=== PATIENT | female | born 1995 | race Caucasian/White ===

== ENCOUNTER 2020-01-23 12:48 | Emergency (ER) | payer OTHER, SELFPAY ==
--- NOTE | ~2020-01-23 | CT_ITS ---
EXAMINATION: CTA brain carotid DATE: 01/23/2020 14:02 INDICATION: Dizziness. Right hemiparesis. Headache. TECHNIQUE: Computed tomographic angiography (CTA) of the head was performed without and with 100 mL O mnipaque-350 intravenous contrast. CTA of the neck was performed with intravenous contrast. Automated exposure control and iterative reconstruction technique were employed. The dose-length product was 1 451.36 mGy-cm. Maximum intensity projection and volume rendered 3D-reconstructions were created by christopher kuhn technologist on a separate workstation. COMPARISON: None. FINDINGS: HEAD CTA: There is no intracranial hemorrhage, acute infarction, or abnormal intracranial mass lesion . The ventricles are normal in size. The paranasal sinuses are clear. The orbits are normal. The mast oid air cells are normal. The vertebral arteries are codominant. There is no significant stenosis of basilar artery or the posterior cerebral arteries. There is no significant stenosis of the intracrani al internal carotid arteries or anterior or middle cerebral arteries. Anterior communicating artery i s normal. The posterior communicating arteries are normal. There is no aneurysm. NECK CTA: There are no pathologically enlarged lymph nodes. There is no significant stenosis of the v ertebral arteries. There is no visible plaque in the proximal internal carotid arteries. There is 0% stenosis of the proximal right internal carotid artery relative to normal distal artery lumen diamete r (NASCET criteria). There is 0% stenosis of the proximal left internal carotid artery relative to no rmal distal artery lumen diameter. There is mild bilateral facet joint osteoarthritis at C7-T1. IMPRESSION: 1. Normal brain. No aneurysm or significant intracranial arterial stenosis. 2. 0% stenosis of the proximal internal carotid arteries relative to normal distal artery lumen diame ters (NASCET criteria). Reviewed, dictated and finalized at location A. IMPRESSION: 1. Normal brain. No aneurysm or significant intracranial arterial stenosis. 2. 0% stenosis of the proximal internal carotid arteries relative to normal dis kev artery lumen diameters (NASCET criteria).
--- NOTE | 2020-01-23 12:53 | ECG_ITS ---
Measurements Intervals [place] Rate: 64 P: 47 PA: 115 QRS: 32 QRSD: 84 T: 46 QT: 383 QTc: 398 Interpretive Statements SINUS RHYTHM WITH SINUS ARRHYTHMIA WITH SHORT PA INTERVAL BORDERLINE ECG Electronically Signed On 01-23-2020 14:58:31 CDT by Garcia Alvarez D.O.
--- NOTE | 2020-01-23 12:56 | ED.DIZZY ---
HPI - Dizziness General Chief Complaint: Dizziness Stated Complaint: weakness Time Seen by Provider: 01/23/20 12:52 Source: patient Mode of arrival: ambulatory Limitations: no limitations History of Present Illness HPI Narrative: Patient is a 24-year-old female who presents to emergency department for evaluation of dizziness and weakness that has been intermittently occurring over the last month. Patient notes today that she felt dizzy with right-sided headache and had subjective weakness in the right upper and lower extremities which has persisted for the last hour. Patient notes over the last month she has been having intermittent weakness in the various locations of the body to include both hemispheres patient denies similar occurrence in the past injury or trauma and on arrival is in the room in no distress and does not appear uncomfortable patient has been taken Tylenol with some improvement of her headache Related Data Home Medications Medication Instructions Recorded Confirmed No Home Medications 04/15/19 04/15/19 Allergies Allergy/AdvReac Type Severity Reaction Status Date / Time Penicillins Allergy Mild RASH,ITCHIN Verified 04/25/19 01:24 G Review of Systems Review of Systems: All systems reviewed & are unremarkable except as noted in HPI and below PMFSH Past Medical History Medical History Anxiety Asthma Depression Interstitial cystitis Migraines UTI (urinary tract infection) Surgical History Surgical History No significant past surgical history Social History Social History Gender identity (if verbalized by the patient): Female Exam Narrative: Exam Narrative: GENERAL: Well-appearing, well-nourished, and in no acute distress. HEAD: Normocephalic, atraumatic. EYES: PERRLA and EOMI. ENT: Nares clear, no rhinorrhea or epistaxis. Mucous membranes moist. Oropharynx without tonsillar hypertrophy exudate or other lesions. NECK: Supple. No adenopathy or masses. CHEST: Clear to auscultation. No respiratory distress. No wheezes rales or rhonchi HEART: Regular rate and rhythm. No murmur heard. Normal peripheral pulses. ABDOMEN: Soft, nontender, nondistended EXTREMITIES: Normal range of motion. No edema. SKIN: Warm, dry, no rash. NEURO: No focal deficits. Alert and oriented x3. Cranial nerves II through XII grossly intact. Normal speech and gait. Cerebellar intact. No pronator drift. PSYCH: Normal mood and affect. Course Course Emergency Course: Patient in the room in no distress aware of case findings treatment plan diagnosis resting comfortably noting her symptoms have resolved patient without any high risk changes in the blood work or imaging in the room in no distress patient's parent is present as well patient was okay with mother listening to the results patient will be discharged home with mother with plan follow-up with primary care on also given neurology referral Vital Signs Vital signs: Vital Signs Temperature 97.9 F 01/23/20 12:57 Pulse Rate 67 01/23/20 12:57 Respiratory Rate 17 01/23/20 12:57 Blood Pressure 124/79 01/23/20 12:57 Pulse Oximetry 100 01/23/20 12:57 Temperature 97.9 F 01/23/20 12:57 Pulse Rate 71 01/23/20 14:06 Respiratory Rate 17 01/23/20 14:06 Blood Pressure 108/76 01/23/20 14:06 Pulse Oximetry 100 01/23/20 14:06 MDM - Dizziness MDM Narrative Medical decision making narrative: Patients headache was not sudden or maximal in onset. There are o focal neurological deficits on exam. Subarachnoid hemorrhage is felt to be unlikey at this time. There is no history of fever, and neck is supple without meningismus, making meningitis unlikely. No traumatic history or signs of trauma on exam. No risk factors for CVA, risk factors reviewed. NO ocular signs on
[2020-01-23 12:57] VITALS: BP 124/79; PULSE 67; RESP 17; TEMP 36.6; O2SAT 100
--- NOTE | 2020-01-23 13:04 | PC.NURSE ---
BS 111
[2020-01-23 13:06] LABS: Glucose Point of Care 111 (65-105)
[2020-01-23 13:18] LABS: Basophils Absolute Auto 0.1 K/mm3 (0.0-0.1); Basophils Percent Auto 1.1 % (0.2-1.2); Eosinophils Absolute Auto 0.1 K/mm3 (0-0.3); Eosinophils Percent Auto 1.4 % (0-4.4); Hematocrit 40.8 % (37.0-47.0); Immature Granulocyte Absolute 0.01 K/mm3 (0.00-0.031); Immature Granulocyte Percent A 0.2 % (0-0.5); Lymphocytes Absolute Auto 2.22 K/mm3 (0.9-3.2); Lymphocytes Percent Auto 34.3 % (18.3-44.2); Mean Corpuscular HGB Conc 34.3 g/dl (32-36); Mean Corpuscular Hemoglobin 31.3 pg (26-34); Mean Corpuscular Volume 91.3 fl (80-100); Mean Platelet Volume 9.9 fl (7.4-10.4); Monocytes Absolute Auto 0.6 K/mm3 (0.1-0.6); Monocytes Percent Auto 9.4 % (2.6-8.5); Neutrophils Absolute Auto 3.5 K/mm3 (1.3-6.7); Neutrophils Percent Auto 53.6 % (45.5-73.1); Platelet Count Result 230 k/mm3 (150-375); Red Blood Count 4.47 M/mm3 (4.2-5.4); Red Cell Distribution Width 12.2 % (11.5-14.5); White Blood Count 6.5 K/mm3 (4.5-10.0)
[2020-01-23 13:29] LABS: Anion Gap 9 mmol/L (8-16); Blood Urea Nitrogen 20 mg/dL (7-17); Calcium 9.9 mg/dL (8.4-10.2); Carbon Dioxide 26 mmol/L (22-30); Chloride 101 mmol/L (98-107); Estimated CRCL calculation 73 ml/min; Estimated Glomerular Filt Rate > 60; Glucose 106 mg/dL (65-105); Potassium 3.8 mmol/L (3.4-5.0); Sodium 136 mmol/L (137-145)
[2020-01-23 13:33] LABS: INR 1.1
[2020-01-23 13:34] LABS: Amphetamine Screen Urine Negative (Negative); Barbiturate Screen Urine Negative (Negative); Benzodiazepines Screen Urine Negative (Negative); Cannabinoid Screen Urine Negative (Negative); Cocaine Screen Urine Negative (Negative); Methadone Screen Urine Negative (Negative); Opiate Screen Urine Negative (Negative); Phencyclidine Screen Urine Negative (Negative)
[2020-01-23 13:42] LABS: Troponin I < 0.012 ng/mL (0.000-0.034)
[2020-01-23 14:06] VITALS: BP 108/76; PULSE 71; RESP 17; O2SAT 100
[2020-01-23 15:05] VITALS: BP 99/62; PULSE 68; RESP 18; O2SAT 100
== END 2020-01-23 15:10 | disposition home or self-care (01) ==
PROVIDERS: Emergency Medicine Emergency Medical Services; Emergency Provider Emergency Medicine; PCP Internal Medicine
DX: R20.2 Paresthesia of skin (principal); R51 Headache; R94.31 Abnormal electrocardiogram [ECG] [EKG]
CPT/HCPCS: 36415; 70496; 70498; 80048; 80307; 81025; 82948; 84484; 85025; 85610; 85730; 93005; 99284; Q9967

== ENCOUNTER 2020-01-31 17:01 | Outpatient (CLI) | payer OTHER, SELFPAY ==
--- NOTE | ~2020-01-31 | MR_ITS ---
EXAMINATION: MR brain/brain stem wo/w con DATE: 01/31/2020 17:53 INDICATION: Paresthesias of skin. Headache and dizziness. TECHNIQUE: Magnetic resonance imaging (MRI) of the brain and brainstem was performed without and with 11 mL MultiHance intravenous contrast. Sequences included sagittal and axial T1-weighted FSE, axial diffusion-weighted FS EPI, axial T2*-weighted GRE, axial T2-weighted FLAIR Propeller, and axial T2-we ighted Propeller. Postcontrast sequences included axial and coronal T1-weighted FSE. Apparent diffusi on coefficient (ADC) maps were created. COMPARISON: CTA head 01/23/2020 FINDINGS: There is no intracranial hemorrhage, acute infarction, or abnormal intracranial mass lesion . The ventricles are normal in size. There is mild mucosal thickening in left maxillary sinus. The or bits are normal. The mastoid air cells are normal. IMPRESSION: 1. Normal brain. Reviewed, dictated and finalized at location A. IMPRESSION: 1. Normal brain.
== END 2020-01-31 17:02 | disposition home or self-care (01) ==
PROVIDERS: PCP Internal Medicine; Visit Provider Internal Medicine
DX: R20.2 Paresthesia of skin (principal)
CPT/HCPCS: 70553; A9577

== ENCOUNTER 2020-02-22 17:46 | Emergency (ER) | payer OTHER, SELFPAY ==
[2020-02-22 17:50] VITALS: BP 117/62; PULSE 89; RESP 12; TEMP 36.5; O2SAT 100
--- NOTE | 2020-02-22 17:53 | ED.FEMALEGU ---
HPI - Female Genitourinary General Chief complaint: Urogenital-Female Stated complaint: UTI SYMPTOMS Source: patient and RN notes reviewed Limitations: no limitations History of Present Illness HPI Narrative: The patient, previously mostly healthy, presents with urinary symptoms. Patient states she has a shorter 1/2-week history of definite urinary frequency, dysuria associate with mild low back pain-like prior UTIs, the last several years ago. Symptoms are mild, worse with micturition, treated with Pyridium. She states she has history of interstitial cystitis for which she takes Pyridium, and has not seen a urologist nor had cystoscopy, and this is different. No fever, vomiting/diarrhea, hematuria; no no vaginal discharge-she requests available STD testing. Patient had a prior visit at the end of last year for urinary urgency and urine culture was noncontributory and she was treated supportively. Related Data Home Medications Medication Instructions Recorded Confirmed phenazopyridine 02/22/20 Allergies Allergy/AdvReac Type Severity Reaction Status Date / Time Penicillins Allergy Mild RASH,ITCHIN Verified 02/22/20 17:53 G Review of Systems Review of Systems: Narrative: General/Constitutional: No weight loss,fever Eyes: N0: Redness,discharge Ears/Nose/Throat: No: Epistaxis,ear discharge Respiratory: Denies: Hemoptysis Gastrointestinal: No Vomiting, Bleeding-rectal Skin: No Lumps, eruption Neurologic: No Focal Weakness,Sz Hematologic: Denies: Petechiae/Purpura Psychiatric: No: Suicida ideationl All Other Systems: Reviewed and Negative [facility] Past Medical History Medical History (Updated 02/22/20 @ 18:03 by Ga Christianson MD) Anxiety Asthma Depression Interstitial cystitis Migraines UTI (urinary tract infection) Surgical History Surgical History No significant past surgical history Social History Social History Gender identity (if verbalized by the patient): Female Comments At time of signature, agree with nursing past medical, surgical, social and family history. There is no relevant family history pertinent to the presenting complaint Exam Narrative: Exam Narrative: General Appearance: Well appearing, , Conjunctiva clear Ears: External ear normal Nose: Normal nose Mouth/Throat: Normal appearing, Normal lips Supple Respiratory: Airway patent, No respiratory distress Cardiovascular: RRR Abdomen: Soft, Non-tender, Musculoskeletal: Full ROM Skin: Warm, Dry Neurological: A&O x3, Normal affect Course Vital Signs Vital signs: Vital Signs Temperature 97.7 F 02/22/20 17:50 Pulse Rate 89 02/22/20 17:50 Respiratory Rate 12 02/22/20 17:50 Blood Pressure 117/62 02/22/20 17:50 Pulse Oximetry 100 02/22/20 17:50 Temperature 97.7 F 02/22/20 17:50 Pulse Rate 89 02/22/20 17:50 Respiratory Rate 12 02/22/20 17:50 Blood Pressure 117/62 02/22/20 17:50 Pulse Oximetry 100 02/22/20 17:50 MDM - Female Genitourinary Lab Data Labs: Urine Glucose Negative Reference Range: Negative Urine Bilirubin Negative Reference Range: Negative Urine Ketone Trace Reference Range: Negative Urine Specific [place] 1.025 Reference Range:1.001-1.035 Urine Blood Negative Reference Range: Negative * * Urine pH 7.5 Reference Range: 5.0-9.0 Urine Protein Negative
== END 2020-02-22 18:04 | disposition home or self-care (01) ==
PROVIDERS: Emergency Provider Emergency Medicine; PCP Internal Medicine
DX: N39.0 Urinary tract infection, site not specified (principal); J45.909 Unspecified asthma, uncomplicated
CPT/HCPCS: 81003; 87086; 87491; 87591; 99214; G0463

== ENCOUNTER 2020-03-06 08:52 | Outpatient (CLI) | payer OTHER, SELFPAY ==
--- NOTE | ~2020-03-06 | MR_ITS ---
EXAMINATION: MR cervical spine wo/w con EXAM DATE: 03/06/2020 10:49 INDICATION: Skin paresthesia. Dizziness. Balance issues. Numbness in upper and lower extremities, fac e neck and back. TECHNIQUE: Multi-sequential, multiplanar MR images of the cervical spine were obtained without contra st. Axial T2, axial T2 MERGE sequence. Sagittal T1, T2, T2 fat saturation images also obtained. Axi al T1 weighted sequence. Patient was then injected with 10 mL Multihance intravenous contrast and re imaged. Postcontrast axial and sagittal T1-weighted fat saturation sequences were obtained. There ar e no prior studies for comparison. FINDINGS: The vertebral bodies are aligned in the AP dimension. Vertebral body and disc heights are well-maintained. There are no suspicious marrow signal abnormalities. Paraspinal soft tissue is unrem arkable. The spinal cord signal intensity and intrinsic morphology is normal. Cervicomedullary juncti on is normal in appearance. There are no areas of abnormal enhancement on the post contrast images. Level by level evaluation: C2-C3: Disc does not extend beyond the endplate margin. Uncovertebral joint arthropathy: None. Facet joint arthropathy: Mild. Neural foraminal stenosis: No stenosis. Central canal stenosis: No stenosis. C3-C4: Disc does not extend beyond the endplate margin. Uncovertebral joint arthropathy: None. Facet joint arthropathy: Mild. Neural foraminal stenosis: No stenosis. Central canal stenosis: No stenosis. C4-C5: Disc does not extend beyond the endplate margin. Uncovertebral joint arthropathy: None. Facet joint arthropathy: Mild. Neural foraminal stenosis: No stenosis. Central canal stenosis: No stenosis. C5-C6: Disc does not extend beyond the endplate margin. Uncovertebral joint arthropathy: None. Facet joint arthropathy: Mild. Neural foraminal stenosis: No stenosis. Central canal stenosis: No stenosis. C6-C7: Disc does not extend beyond the endplate margin. Uncovertebral joint arthropathy: None. Facet joint arthropathy: Mild. Neural foraminal stenosis: No stenosis. Central canal stenosis: No stenosis. C7-T1: Disc does not extend beyond the endplate margin. Uncovertebral joint arthropathy: None. Facet joint arthropathy: None. Neural foraminal stenosis: No stenosis. Central canal stenosis: No stenosis. IMPRESSION: Mild cervical facet arthropathy. No stenosis. Normal cord signal. Reviewed, dictated and finalized at location B. RION ANALYST
--- NOTE | ~2020-03-06 | MR_ITS ---
EXAMINATION: MR thoracic spine wo/w con EXAM DATE: 03/06/2020 10:49 INDICATION: Skin paresthesia. TECHNIQUE: Multi-sequential, multiplanar MR images of the thoracic spine were obtained without contra st. Sagittal T1, T2, T2 fat saturation, axial T2 weighted images reviewed. Axial T1 weighted sequenc e. Patient was then injected with 10 mL Multihance intravenous contrast and reimaged. Postcontrast axial and sagittal T1-weighted fat saturation sequences were obtained. There are no prior studies for comparison. FINDINGS: The vertebral bodies are aligned in the AP dimension. Vertebral body and disc heights are w ell-maintained. There are no suspicious marrow signal abnormalities. Mild lower thoracic facet arth ropathy. Paraspinal soft tissue is unremarkable. The spinal cord signal intensity and intrinsic morph ology is normal. Thoracic central canal and neural foramen are widely patent. IMPRESSION: Mild lower thoracic facet arthropathy. Reviewed, dictated and finalized at location B. STANT EDUCATION DIRECTOR
[2020-03-06 09:38] LABS: Estimated Glomerular Filt Rate > 60
== END 2020-03-06 08:53 | disposition home or self-care (01) ==
PROVIDERS: PCP Internal Medicine; Visit Provider Psychiatry & Neurology Neurology
DX: R20.2 Paresthesia of skin (principal)
CPT/HCPCS: 72156; 72157; A9577

== ENCOUNTER 2020-03-16 09:33 | Outpatient (CLI) | payer OTHER, SELFPAY ==
--- NOTE | 2020-03-16 10:45 | NEURO_ITS ---
Impression: # Complains of numbness of hands. # No Carpal Tunnel Syndrome. # No ulnar neuropathy. # Normal nerve conduction study. # Normal needle/EMG exam. Nerve Conduction Studies Anti Sensory Summary Table Stim Site NR Peak (ms) P-T Amp (?V) Site1 Site2 Delta-P (ms) Dist (cm) Trever (m/s) Left Median Anti Sensory (2-3nd Digit) Wrist 2.7 86.4 Wrist 2-3nd Digit 2.7 14.0 52 Wrist 2.6 97.4 Wrist 2-3nd Digit 2.7 14.0 52 Right Median Anti Sensory (2-3nd Digit) Wrist 2.7 62.9 Wrist 2-3nd Digit 2.7 14.0 52 Wrist 2.8 74.8 Wrist 2-3nd Digit 2.7 14.0 52 Left Radial Anti Sensory (Base 1st Digit) Wrist 2.1 37.8 Wrist Base 1st Digit 2.1 0.0 Right Radial Anti Sensory (Base 1st Digit) Wrist 2.0 44.4 Wrist Base 1st Digit 2.0 0.0 Left Ulnar Anti Sensory (5th Digit) Wrist 2.4 83.7 Wrist 5th Digit 2.4 14.0 58 Right Ulnar Anti Sensory (5th Digit) Wrist 2.3 65.0 Wrist 5th Digit 2.3 14.0 61 Motor Summary Table Stim Site NR Onset (ms) O-P Amp (mV) Site1 Site2 Delta-0 (ms) Dist (cm) Trever (m/s) Left Median Motor (Abd Poll Brev) Wrist 3.1 9.1 Elbow Wrist 4.3 26.0 60 Elbow 7.4 8.5 Right Median Motor (Abd Poll Brev) Wrist 3.0 5.1 Elbow Wrist 4.0 26.0 65 Elbow 7.0 6.7 Left Ulnar Motor (Abd Dig Minimi) Wrist 2.3 9.9 A Elbow Wrist 4.3 27.0 63 A Elbow 6.6 8.7 Right Ulnar Motor (Abd Dig Minimi) Wrist 2.3 8.4 A Elbow Wrist 4.5 27.0 60 A Elbow 6.8 6.5 F Wave Studies NR F-Lat (ms) L-R F-Lat (ms) Left Median (Mrkrs) (Abd Poll Brev) 24.08 1.12 Right Median (Mrkrs) (Abd Poll Brev) 25.20 1.12 Left Ulnar (Mrkrs) (Abd Dig Min) 24.80 1.58 Right Ulnar (Mrkrs) (Abd Dig Min) 23.22 1.58 EMG Side Muscle Nerve Root Ins Act Fibs Amp Dur Recrt Comment Right 1stDorInt Ulnar C8-T1 Nml Nml Nml Nml Nml Right Ext Indicis Radial (Post Int) C7-8 Nml Nml Nml Nml Nml Right Ext Digitorum Radial (Post Int) C7-8 Nml Nml Nml Nml Nml Right BrachioRad Radial C5-6 Nml Nml Nml Nml Nml Right PronatorTeres Median C6-7 Nml Nml Nml Nml Nml Right Abd Poll Brev Median C8-T1 Nml Nml Nml Nml Nml Left 1stDorInt Ulnar C8-T1 Nml Nml Nml Nml Nml Left Ext Indicis Radial (Post Int) C7-8 Nml Nml Nml Nml Nml Left Ext Digitorum Radial (Post Int) C7-8 Nml Nml Nml Nml Nml Left BrachioRad Radial C5-6 Nml Nml Nml Nml Nml Left PronatorTeres Median C6-7 Nml Nml Nml Nml Nml Left Abd Poll Brev Median C8-T1 Nml Nml Nml Nml Nml MTDD
== END 2020-03-16 09:34 | disposition home or self-care (01) ==
PROVIDERS: PCP Internal Medicine; Visit Provider Psychiatry & Neurology Neurology
DX: R20.2 Paresthesia of skin (principal)
CPT/HCPCS: 95886; 95911

== ENCOUNTER 2020-04-18 02:25 | Outpatient (CLI) | payer OTHER, SELFPAY ==
[2020-04-18 22:41] LABS: SARS-CoV-2 RNA PCR Negative
== END 2020-04-18 02:26 | disposition home or self-care (01) ==
LOC: ANHCOVIDDT 02:25
PROVIDERS: PCP Internal Medicine; Visit Provider Psychiatry & Neurology Neurology
DX: Z01.818 Encounter for other preprocedural examination (principal); Z20.828 Contact with and (suspected) exposure to other viral communicable diseases
CPT/HCPCS: 87635; C9803; U0003

== ENCOUNTER 2020-04-21 09:46 | Outpatient (CLI) | payer OTHER, SELFPAY ==
[2020-04-17 13:06] VITALS: BMI 20.5
[2020-04-21] VITALS (8 sets, daily range): BP systolic 91–115; BP diastolic 55–69; PULSE 61–98; RESP 16–18; O2SAT 64–99
--- NOTE | ~2020-04-21 | XR_ITS ---
EXAMINATION: XR lumbar puncture diagnostic DATE: 04/21/2020 11:56 INDICATION: Demyelinating disease. Right hemiparesis. Bilateral leg numbness. TECHNIQUE: The procedure including the risks, benefits, and alternatives was discussed with the patie nt. Risks discussed included spinal headache, cerebrospinal fluid leak, bleeding, and infection. The patient understood the risks and agreed to proceed. A timeout was performed to verify the patient' s name, date of , and procedure to be performed. The skin overlying the level was prepped and d raped in usual sterile fashion. Subcutaneous 1% lidocaine was used for local anesthesia. A 20 gauge spinal needle was advanced under fluoroscopic guidance. The needle was removed and the entry site wa s cleaned and dressed. There were no immediate complications. Fluoroscopy exposure time was 0.1 rojelio donato. The total number of images was 1. FINDINGS: Real-time fluoroscopy demonstrates the needle at the L3-L4 level. The opening pressure was 17 cm water (Normal range is variably defined as 6-20 cm water and up to 25 cm water in obese patient s. Pressure >25 cm water is one of the modified Dandy criteria for idiopathic intracranial hypertensi on). 15 mL of clear, colorless fluid was collected in 4 tubes. IMPRESSION: 1. Successful fluoro-guided lumbar puncture. Reviewed, dictated and finalized at location A. STERED NURSE BONE MARROW TRANSPLANT
[2020-04-21 10:15] LABS: Mean Platelet Volume 10.1 fl (7.4-10.4); Platelet Count Result 187 k/mm3 (150-375)
[2020-04-21 10:24] LABS: INR 1.1; Prothrombin Time 14.3 Seconds (11.1-14.7)
[2020-04-21 11:49] LABS: Appearance CSF Clear (Clear); CSF source CSF; Color CSF Colorless (Colorless); Nucleated Cell CSF 0 /uL (0-5); Red Blood Cell CSF 8 (0-2)
[2020-04-21 11:50] LABS: Glucose CSF 53 mg/dL (40-70); Total Protein CSF 31 mg/dL (12-60)
[2020-04-21 12:07] LABS: Lymphocytes CSF 96 % (40-80); Monocytes CSF 4 % (15-45)
[2020-04-21] MEDS: ACETAMINOPHEN 325 MG TABLET PO (12:54)
[2020-04-24 15:42] LABS: VDRL Quantitative CSF Nonreactive (Nonreactive)
[2020-04-24 23:30] LABS: Lyme Disease DNA Not detected (Not Detected); Specimen Source CSF
[2020-04-27 12:51] LABS: Angiotensi Converting Enzy CSF 5 U/L (<=15)
== END 2020-04-21 13:45 | disposition home or self-care (01) ==
PROVIDERS: Radiology Diagnostic Radiology; PCP Internal Medicine; Visit Provider Psychiatry & Neurology Neurology
DX: G37.9 Demyelinating disease of central nervous system, unspecified (principal)
CPT/HCPCS: 36415; 62328; 82164; 82945; 84157; 85049; 85610; 86592; 87070; 87801; 89051; A9270

== ENCOUNTER 2020-04-23 11:30 | Emergency (ER) | payer OTHER, SELFPAY ==
--- NOTE | ~2020-04-23 | XR_ITS ---
EXAMINATION: XR injection blood patch w img DATE: 04/23/2020 14:05 INDICATION: Headache after lumbar puncture. TECHNIQUE: The procedure including the risks, benefits, and alternatives was discussed with the patie nt. Risks discussed included spinal headache, cerebrospinal fluid leak, bleeding, and infection. The patient understood the risks and agreed to proceed. The skin overlying the L3-L4 level was prepped a nd draped in usual sterile fashion. Subcutaneous 1% lidocaine was used for local anesthesia. A 20 g auge spinal needle was advanced under fluoroscopic guidance and loss of resistance technique with the head elevated 10 degrees. 10 mL of the patient's blood was injected into the epidural space. The nee dle was removed and the entry site was cleaned and dressed. There were no immediate complications. F luoroscopy exposure time was 0.1 minutes. The total number of images was 1. FINDINGS: Real-time fluoroscopy demonstrates the needle at the L3-L4 level. IMPRESSION: 1. Fluoroscopy guided lumbar blood patch. Reviewed, dictated and finalized at location A. WEAVER CLOTH
[2020-04-23 11:33] VITALS: BP 102/61; PULSE 70; RESP 16; TEMP 36.1; O2SAT 100
[2020-04-23] MEDS: SODIUM CHLORIDE 0.9% IV 1,000 ML 999 ML IV CONT (12:36)
--- NOTE | 2020-04-23 12:40 | ED.GENADULT ---
HPI - General Adult General Chief complaint: Headache Stated complaint: headache, N/V since friday Time Seen by Provider: 04/23/20 12:16 Source: patient History of Present Illness HPI narrative: Patient is a 24 y/o female complaining of bilateral frontal headache since 2 days ago. She states that her pain radiates to occipital area. She describes her pain as throbbing and rates it as 9/10. She states hat OTC medication did not help with her pain. She states that laying down helps with her headache and sitting up aggravates her headache. She also has some nausea and vomiting. Of note, she had LP done 2 days ago for evaluation of possible MS. Related Data Home Medications Medication Instructions Recorded Confirmed cyclobenzaprine [Flexeril] 5 mg PO PRN PRN 04/17/20 04/17/20 Allergies Allergy/AdvReac Type Severity Reaction Status Date / Time Penicillins Allergy Mild RASH,ITCHIN Verified 04/23/20 11:37 G Review of Systems Constitutional: Constitutional: Denies chills, Denies fever(s), Reports headache(s) and Denies weakness Eyes: Eyes: Denies blurry vision ENT: Reports headache(s) and Denies neck pain Cardiovascular: Cardiovascular: Denies chest pain and Denies dyspnea Respiratory: Respiratory: Denies cough and Denies dyspnea Gastrointestinal: Gastrointestinal: Denies abdominal pain, Denies diarrhea, Reports nausea and Reports vomiting Genitourinary: Genitourinary: Denies hematuria and Denies dysuria Musculoskeletal: Musculoskeletal: Denies back pain and Denies neck pain Neurologic: Reports headache(s) and Denies weakness PMFSH Past Medical History Medical History Anxiety Asthma Depression Interstitial cystitis Migraines UTI (urinary tract infection) Surgical History Surgical History No significant past surgical history Social History Social History Gender identity (if verbalized by the patient): Female Exam Const: General: no acute distress and well developed Orientation/consciousness: oriented to person, oriented to place, oriented to time and patient oriented x3 HENMT: Head: normocephalic Ears: external ears normal General nose exam: Normal external nose present Eyes: General: appearance normal, both eyes and all related structures Conjunctivae: conjunctivae normal Neck: Neck: normal visual inspection and full ROM Chest: Chest palpation & inspection: normal inspection of the chest and no tenderness Resp: Effort & Inspection: normal respiratory effort Auscultation: clear to auscultation bilaterally Cardio: Rate: regular rate Rhythm: regular rhythm GI: GI Palp: No abdominal tenderness and Yes Soft to palpation Skin: General skin exam: normal color and turgor normal Neuro: General: oriented to person, oriented to place, oriented to time and patient oriented x3 Cranial nerves: Yes CN's II-XII intact bilaterally Cognition (Neuro): normal cognition Speech: normal speech Motor exam (neuro): 5/5 motor strength present throughout Sensory Exam: normal sensation Coordination: [id number] test normal and [id number] test normal Extrem: General: normal to inspection, full ROM and no pedal edema Psych: Appearance: grossly normal Mental Status: mental status grossly normal Affect: normal affect Course Vital Signs Vital signs: Vital Signs Temperature 36.1 C L 04/23/20 11:33 Pulse Rate 70 04/23/20 11:33 Respiratory Rate 16 04/23/20 11:33 Blood Pressure 102/61 04/23/20 11:33 Pulse Oximetry 100 04/23/20 11:33 Temperature 36.1 C L 04/23/20 11:33 Pulse Rate 58 L 04/23/20 14:00 Respiratory Rate 16 04/23/20 14:00 Blood Pressure 103/61 04/23/20 14:00 Pulse Oximetry 100 04/23/20 14:00 Medical Decision Making Vital Signs Vital Signs: Vital Signs Temperature 36.1 C L 04/23/20 11:33 Pu
[2020-04-23 12:46] LABS: Basophils Percent Auto 0.8 % (0.2-1.2); Eosinophils Percent Auto 0.8 % (0-4.4); Hemoglobin 13.8 g/dL (12.0-15.0); Immature Granulocyte Absolute 0.01 K/mm3 (0.00-0.031); Immature Granulocyte Percent A 0.2 % (0-0.5); Lymphocytes Absolute Auto 1.41 K/mm3 (0.9-3.2); Lymphocytes Percent Auto 28.8 % (18.3-44.2); Mean Corpuscular HGB Conc 34.5 g/dl (32-36); Mean Corpuscular Hemoglobin 31.3 pg (26-34); Mean Corpuscular Volume 90.7 fl (80-100); Mean Platelet Volume 10.5 fl (7.4-10.4); Monocytes Absolute Auto 0.4 K/mm3 (0.1-0.6); Monocytes Percent Auto 8.6 % (2.6-8.5); Neutrophils Percent Auto 60.8 % (45.5-73.1); Platelet Count Result 186 k/mm3 (150-375); Red Blood Count 4.41 M/mm3 (4.2-5.4); Red Cell Distribution Width 12.5 % (11.5-14.5); White Blood Count 4.9 K/mm3 (4.5-10.0)
[2020-04-23 12:50] LABS: Add Urine Microscopic? YES; Amorphous Sediment Urine Few; Appearance Urine Cloudy (Clear); Bacteria Urine Trace /hpf; Bilirubin Urine Negative (Negative); Blood Urine Negative (Negative); Color Urine Yellow (Yellow); Glucose Urine UA Negative (Negative); Ketones Urine Negative (Negative); Leukocyte Esterase Ur Trace LEU/UL (Negative); Mucus Urine Rare /lpf; Nitrate Urine Negative (Negative); Protein Urine 1+ mg/dL (Negative); Squamous Epithelial Cell Urine Many /hpf (Few); Urobilinogen Urine Negative mg/dL (<2.0)
[2020-04-23 12:58] LABS: Anion Gap 7 mmol/L (8-16); Blood Urea Nitrogen 18 mg/dL (7-17); Calcium 9.4 mg/dL (8.4-10.2); Carbon Dioxide 28 mmol/L (22-30); Chloride 102 mmol/L (98-107); Estimated CRCL calculation 73 ml/min; Estimated Glomerular Filt Rate > 60; Glucose 102 mg/dL (65-105); Potassium 3.9 mmol/L (3.4-5.0); Sodium 137 mmol/L (137-145)
[2020-04-23 13:35] VITALS: BP 90/49; PULSE 56; RESP 12; O2SAT 100
[2020-04-23 13:50] VITALS: BP 97/74; PULSE 81; RESP 12; O2SAT 100
[2020-04-23 14:00] VITALS: BP 103/61; PULSE 58; RESP 16; O2SAT 100
== END 2020-04-23 15:01 | disposition home or self-care (01) ==
PROVIDERS: Emergency Provider Emergency Medicine; PCP Internal Medicine
DX: G97.1 Other reaction to spinal and lumbar puncture (principal); J45.909 Unspecified asthma, uncomplicated; Z87.440 Personal history of urinary (tract) infections
CPT/HCPCS: 36415; 62273; 77003; 80048; 81001; 81025; 85025; 96360; 96361; 99283; A9270; J7030

== ENCOUNTER 2020-04-26 23:05 | Emergency (ER) | payer OTHER, SELFPAY ==
[2020-04-26 23:08] VITALS: BP 121/69; PULSE 51; RESP 22; TEMP 34.9; O2SAT 100
[2020-04-27] MEDS: LACTATED RINGERS 1,000 ML 999 ML IV CONT
[2020-04-27] MEDS: diphenhydrAMINE HCl INJ 50 MG/ML VIAL IV PUSH
[2020-04-27] MEDS: KETOROLAC 15 MG/ML VIAL (*BKC) IV PUSH
[2020-04-27] MEDS: METOCLOPRAMIDE HCL INJ 10 MG/2 ML VIAL IV PUSH
--- NOTE | 2020-04-27 00:11 | ED.GENADULT ---
HPI - General Adult General Chief complaint: Unspecified Stated complaint: LP friday - blood patch friday Time Seen by Provider: 04/26/20 23:15 Source: patient Mode of arrival: ambulatory Limitations: no limitations History of Present Illness HPI narrative: 24-year-old female Presents to the ER today for evaluation and treatment of a headache She has a history of what are felt to be migraine headaches However 1 week ago she underwent a lumbar puncture (the results of which were normal ) as part of the evaluation for some paresthesias which she had been experiencing She is also had recent normal MRI and CTA of the brain and normal MRI of the C and T-spine's for evaluation of this as well She returned to the ER 2 days after the lumbar puncture with a headache which had some features of post lumbar puncture headache and she had a blood patch done by radiology under fluoroscopic guidance and reported that that did alleviate her symptoms Today she reports recurrence of headache symptoms, an episode of vomiting, and some discomfort and limitation in turning her head to the left This headache is a little bit better if she lays down She does not have any visual symptoms with it, no fever, no URI or sinus symptoms Related Data Home Medications Medication Instructions Recorded Confirmed cyclobenzaprine [Flexeril] 5 mg PO PRN PRN 04/17/20 04/17/20 Allergies Allergy/AdvReac Type Severity Reaction Status Date / Time Penicillins Allergy Mild RASH,ITCHIN Verified 04/26/20 23:11 G Review of Systems Review of Systems: All systems reviewed & are unremarkable except as noted in HPI and below Constitutional: Constitutional: Denies chills, Reports fatigue, Denies fever(s), Reports headache(s) and Denies weakness Eyes: Eyes: Reports no additional eye complaints, Denies blurry vision and Denies diplopia ENT: Reports headache(s), Denies epistaxis, Denies nasal congestion and Denies sore throat Cardiovascular: Cardiovascular: Denies chest pain Respiratory: Respiratory: Denies cough and Denies dyspnea Gastrointestinal: Gastrointestinal: Reports nausea and Reports vomiting Genitourinary: Genitourinary: Reports dysuria Musculoskeletal: Musculoskeletal: Reports neck pain Integumentary/Breasts: Skin/Breast: Denies rash and Denies wounds Neurologic: Reports headache(s) and Reports numbness Psychiatric: Psychiatric: Reports no additional psychiatric complaints Endocrine: Endocrine: Reports fatigue PMFSH Past Medical History Medical History Anxiety Asthma Depression Interstitial cystitis Migraines UTI (urinary tract infection) Surgical History Surgical History No significant past surgical history Social History Social History Gender identity (if verbalized by the patient): Female Sexual Orientation (if Verbalized by the Patient): Straight or Heterosexual Exam Const: General: no acute distress, well developed and awake Nutritional Appearance: well nourished Orientation/consciousness: patient oriented x3 (alert) Limitations: no limitations HENMT: Head: normocephalic and atraumatic Ears: external ears normal General nose exam: No nasal discharge present and no epistaxis Face and sinus: face symmetric Eyes: Conjunctivae: conjunctivae normal Sclera: sclerae normal EOM: EOMs intact bilaterally Direct Ophthalmoscopy: other (Sharp discs) Neck: Neck: normal visual inspection, supple, torticollis and no JVD Other: Slight limitation of rotation to the left no tenderness of trapezius or sternocleidomastoid Resp: Effort & Inspection: normal respiratory effort Cardio: Rate: regular rate Rhythm: regular rhythm Heart sounds: no gallops and no murmurs Skin: General skin exam: normal color and no rashes or lesions noted Neuro: General: patient orient
[2020-04-27 01:01] VITALS: BP 114/62; PULSE 78; RESP 16; TEMP 36.8; O2SAT 99
== END 2020-04-27 01:02 | disposition home or self-care (01) ==
PROVIDERS: Emergency Provider Emergency Medicine; PCP Internal Medicine
DX: R51.9 Headache, unspecified (principal); J45.909 Unspecified asthma, uncomplicated; Z87.440 Personal history of urinary (tract) infections
CPT/HCPCS: 96361; 96374; 96375; 99284; J1200; J1885; J2765; J7120

== ENCOUNTER 2020-07-26 16:29 | Emergency (ER) | payer OTHER, SELFPAY ==
--- NOTE | ~2020-07-26 | XR_ITS ---
XR chest 2V DATE: 07/26/2020 16:55 INDICATION: Cough TECHNIQUE: PA and lateral views with gonadal shielding COMPARISON: 03/10/2019 PA chest FINDINGS: Normal heart size. No hilar or mediastinal enlargement. No pulmonary infiltrate or consolid ation, pleural effusion or pulmonary vascular congestion or pneumothorax is detected. Included skelet al structures are unremarkable. IMPRESSION: No active cardiopulmonary disease Reviewed, dictated and finalized at location B.
[2020-07-26 16:38] VITALS: BP 110/64; PULSE 95; RESP 16; TEMP 37; O2SAT 100
--- NOTE | 2020-07-26 16:40 | ED.GENADULT ---
HPI - General Adult General Chief complaint: Upper Respiratory Infection Stated complaint: COUGH/WHEEZING/CONGESTION Time Seen by Provider: 07/26/20 16:40 Source: patient Mode of arrival: ambulatory Limitations: no limitations History of Present Illness HPI narrative: 24-year-old female patient presents to the [facility] with complaints of a cough and feeling wheezy for the past week. Patient denies any chest pain or shortness of breath. Patient denies any sinus drainage, stuffy nose, runny nose or ear pain. Denies any sore throat. Denies any fevers, body aches or chills. Patient states that she currently does not work at this time. Patient states she has been going through some medical issues recently and at first they thought she might have MS and has been working her up for multiple things ultimately got diagnosed with Sjogren's disease and a B12 deficiency. Patient states she currently takes methotrexate for arthritic pain. Patient states that she is a current smoker and typically smokes about a pack a day. Patient does have history of asthma when she was a child. Patient states that she has tried some [id number] Mucinex for her symptoms. Related Data Home Medications Medication Instructions Recorded Confirmed cyclobenzaprine mg 07/26/20 etonogestrel-ethinyl estradiol vag ring VAGINAL 07/26/20 [EluRyng] folic acid 07/26/20 methotrexate sodium 07/26/20 Allergies Allergy/AdvReac Type Severity Reaction Status Date / Time Penicillins Allergy Mild RASH,ITCHIN Verified 04/26/20 23:11 G Review of Systems Review of Systems: Narrative: CONSTITUTIONAL: Denies fever, chills, or sweats. EYES: Denies visual changes, redness, or discharge. ENT: Denies rhinorrhea, congestion, sore throat, or otalgia. CARDIOVASCULAR: Denies chest pain, palpitations, or edema. RESPIRATORY: Positive cough, denies dyspnea. GASTROINTESTINAL: Denies abdominal pain, nausea, vomiting, or diarrhea. GENITOURINARY: Denies dysuria or hematuria. SKIN: Denies rash or itching. MUSCULOSKELETAL: Denies back pain, joint pain, or myalgia. NEUROLOGIC: Denies headache, numbness, or weakness. PSYCHIATRIC: Denies anxiety or depression. [facility] Past Medical History Medical History (Updated 07/26/20 @ 17:09 by NICA Alan) Anxiety Asthma B12 deficiency Depression Interstitial cystitis Migraines Sjogren's disease UTI (urinary tract infection) Surgical History Surgical History No significant past surgical history Social History Social History Gender identity (if verbalized by the patient): Female Comments At the time of my signature I agree with nursing past medical history, surgical, social, and family history. There is no relevant family history pertinent to the presenting complaint. Exam Narrative: Exam Narrative: GENERAL: Well-appearing, well-nourished, and in no acute distress. HEAD: Normocephalic, atraumatic. EYES: PERRLA and EOMI. ENT: Nares clear, no rhinorrhea or epistaxis. Mucous membranes moist. Bilateral TMs are clear with no erythema or foreign bodies to the canal. Posterior pharynx with no erythema, tonsillar Calos, exudates or lesions present. NECK: Supple. No lymphadenopathy CHEST: Expiratory wheezing noted to the left upper and lower lobes. No respiratory distress. Patient able to talk in clear complete sentences. No tripoding noted. No coughing noted during exam. HEART: Regular rate and rhythm. No murmur heard. Normal peripheral pulses. ABDOMEN: Soft, nontender, nondistended, normal active bowel sounds. EXTREMITIES: Normal range of motion. No edema. SKIN: Warm, dry, no rash. NEURO: No focal deficits. Alert and oriented x3. Course Reevaluation(s) Reevaluation #1: Reevaluated patient after her x-ray had resulted. Discussed with her that her x-ray is negative and clear and does not offer any ev
[2020-07-28 17:45] LABS: SARS-CoV-2 RNA PCR Negative
== END 2020-07-26 17:24 | disposition home or self-care (01) ==
PROVIDERS: Emergency Provider Nurse Practitioner Family; PCP Internal Medicine
DX: J40 Bronchitis, not specified as acute or chronic (principal); J06.9 Acute upper respiratory infection, unspecified; Z20.822 Contact with and (suspected) exposure to COVID-19; J45.909 Unspecified asthma, uncomplicated; M35.00 Sjogren syndrome, unspecified
CPT/HCPCS: 71046; 87426; 99213; C9803; G0463; U0003; U0005

== ENCOUNTER → 2020-08-09 07:59 | Outpatient (CLI) | payer OTHER, SELFPAY ==
--- NOTE | ~2020-08-09 | MR_ITS ---
EXAMINATION: MR lumbar spine wo con EXAM DATE: 08/09/2020 08:36 INDICATION: Weakness of right leg weakness. Low back pain. TECHNIQUE: Multi-sequential, multiplanar MR images of the lumbar spine were obtained without contrast . Sagittal T1, T2, T2 fat saturation images. Axial T2 weighted images. There is no prior study for comparison. FINDINGS: There is small hemangioma within the L2 vertebral body. The vertebral body marrow is otherw ise normal in signal intensity. The conus medullaris terminates at the L1 level and has normal signal intensity and morphology. The vertebral bodies are aligned in the AP dimension. Vertebral body and disc heights are well-maintained. Paraspinal soft tissue is unremarkable. Level by level evaluation: T12-L1: Disc does not extend beyond the endplate margin. Facet arthropathy: None. Neural foraminal stenosis: No stenosis. Central canal stenosis: No stenosis. L1-L2: Disc does not extend beyond the endplate margin. Facet arthropathy: None. Neural foraminal stenosis: No stenosis. Central canal stenosis: No stenosis. L2-L3: Disc does not extend beyond the endplate margin. Facet arthropathy: None. Neural foraminal stenosis: No stenosis. Central canal stenosis: No stenosis. L3-L4: Disc does not extend beyond the endplate margin. Facet arthropathy: Minimal. Neural foraminal stenosis: No stenosis. Central canal stenosis: No stenosis. L4-L5: Disc does not extend beyond the endplate margin. Facet arthropathy: Mild. Neural foraminal stenosis: Minimal bilateral. Central canal stenosis: No stenosis. L5-S1: Disc does not extend beyond the endplate margin. Facet arthropathy: Mild. Neural foraminal stenosis: Minimal bilateral. Central canal stenosis: No stenosis. IMPRESSION: 1. Mild lower lumbar spondylosis. Reviewed, dictated and finalized at location A.
== END ==
PROVIDERS: PCP Internal Medicine; Visit Provider Internal Medicine
DX: G83.10 Monoplegia of lower limb affecting unspecified side (principal); M47.896 Other spondylosis, lumbar region
CPT/HCPCS: 72148

== ENCOUNTER 2020-08-27 15:22 | Emergency (ER) | payer OTHER, SELFPAY ==
[2020-08-27 15:28] VITALS: BP 120/73; PULSE 108; RESP 16; TEMP 36.8; O2SAT 100
--- NOTE | 2020-08-27 15:29 | ED.URI ---
HPI - URI/Sore Throat General Chief Complaint: Upper Respiratory Infection Stated Complaint: chest pola,cough,sob Time Seen by Provider: 08/27/20 15:29 Source: patient and RN notes reviewed Mode of arrival: ambulatory Limitations: no limitations History of Present Illness HPI Narrative: 24-year-old female presents to the [facility] with complaints of a productive cough since Friday. States that she had similar symptoms one month ago and the medication prescribed worked well, states that she did feel better until friday. Denies CP, SOB, ABd pain. Denies Nausea, or diarrhea. Productive cough has been green and yellow. Recently diagnosed with RA and started on hydrochloric when and methotrexate. Related Data Home Medications Medication Instructions Recorded Confirmed etonogestrel-ethinyl estradiol 1 vag ring VAGINAL 07/26/20 [EluRyng] folic acid 1 mg DAILY 07/26/20 08/27/20 hydroxychloroquine 200 mg DAILY 08/27/20 08/27/20 methotrexate sodium 12.5 mg BID 08/27/20 08/27/20 Allergies Allergy/AdvReac Type Severity Reaction Status Date / Time Penicillins Allergy Mild RASH,ITCHIN Verified 04/26/20 23:11 G Review of Systems Review of Systems: Narrative: CONSTITUTIONAL: Denies fever, chills, or sweats. EYES: Denies visual changes, redness, or discharge. ENT: Denies rhinorrhea, congestion, sore throat, or otalgia. CARDIOVASCULAR: Denies chest pain, palpitations, or edema. RESPIRATORY: reports productive cough without dyspnea. GASTROINTESTINAL: Denies abdominal pain, nausea, vomiting, or diarrhea. GENITOURINARY: Denies dysuria or hematuria. SKIN: Denies rash or itching. MUSCULOSKELETAL: Denies back pain, joint pain, or myalgia. NEUROLOGIC: Denies headache, numbness, or weakness. PSYCHIATRIC: Denies anxiety or depression. All other systems reviewed are negative, except as documented in HPI. [facility] Past Medical History Medical History (Updated 08/27/20 @ 15:54 by Jessica Multani) Anxiety Asthma B12 deficiency Depression Interstitial cystitis Migraines Rheumatoid arthritis Sjogren's disease UTI (urinary tract infection) Surgical History Surgical History No significant past surgical history Social History Social History Gender identity (if verbalized by the patient): Female Comments At the time of my signature, I reviewed and agree with the nursing past medical, surgical, social, and family history. There is no relevant family history pertinent to the patient complaint. Exam Narrative: Exam Narrative: GENERAL: This is a well-nourished, well-developed patient, in no apparent distress. HEAD: normocephalic, atraumatic. EYES: PERRL. Sclera clear/white. Vision is grossly intact. EARS: External ears normal, auditory canals clear and without drainage, TMs normal without perforation. Hearing grossly intact. NOSE: External nose normal with no obvious nasal discharge, nares without redness, no rhinorrhea. THROAT: Mucous membranes moist, posterior pharynx clear. NECK: Neck supple, non-tender without lymphadenopathy, masses or thyromegaly. CARDIOVASCULAR: Regular rate and rhythm without murmurs, gallops, or rubs. RESPIRATORY: Expiratory wheezing noted to auscultation. Otherwise clear to auscultation GASTROINTESTINAL: Abdomen soft, non-tender, nondistended. SKIN: warm, Dry, intact with no suspicious lesions or rash, good texture and turgor. NEURO: awake, alert, and oriented to person, place and time. There were no obvious focal neurologic abnormalities. EXTREMITIES: No joint tenderness, effusion, or edema noted. BACK: Nontender without deformity. Course Course Emergency Course: Reevaluation of patient post breathing treatment, lung sounds are now clear to auscultation. Patient states she is feeling better. Discussed treatment plan. Patient states that her treatment last time worked well and she would like to have that rep
[2020-08-27] MEDS: ALBUTEROL SULFATE NEB 2.5 MG/3 ML INH INHALATION (15:38)
[2020-08-27 15:40] VITALS: PULSE 108; RESP 20; O2SAT 100
[2020-08-27 15:51] VITALS: PULSE 110; RESP 20; O2SAT 100
== END 2020-08-27 15:57 | disposition home or self-care (01) ==
PROVIDERS: Emergency Provider Nurse Practitioner; PCP Internal Medicine
DX: J40 Bronchitis, not specified as acute or chronic (principal); M06.9 Rheumatoid arthritis, unspecified; M35.00 Sjogren syndrome, unspecified; J45.909 Unspecified asthma, uncomplicated
CPT/HCPCS: 94640; 99213; G0463

== ENCOUNTER 2020-10-08 13:00 | Emergency (ER) | payer OTHER, SELFPAY ==
--- NOTE | 2020-10-08 13:04 | ED.DENTAL ---
HPI - Dental/Oral General Chief complaint: Dental/Oral Stated complaint: THRUSH Time Seen by Provider: 10/08/20 13:04 Source: patient and RN notes reviewed History of Present Illness HPI Narrative: Patient is a 24-year-old female who presents the urgent care with complaints of white patches on the inside of her mouth as well as a sore throat. Patient states that she woke up with it this morning and has a weakened immune system due to her autoimmune diseases and wants to make sure she does not need antibiotics . Patient denies of any use of [id number] medication for her symptoms. Denies of any fever, chills, nausea, vomiting. Denies of any known exposure to strep. No other acute complaints. No acute distress noted. Patient aware of the plan of care. Some parts of this dictation were generated by voice recognition software and may contain typographical and/or grammatical inaccuracies. Related Data Home Medications Medication Instructions Recorded Confirmed etonogestrel-ethinyl estradiol 1 vag ring VAGINAL 07/26/20 [EluRyng] folic acid 1 mg PO DAILY 07/26/20 10/08/20 hydroxychloroquine 400 mg PO DAILY 08/27/20 10/08/20 methotrexate sodium 12.5 mg PO DIRECTED 08/27/20 10/08/20 celecoxib 200 mg PO BID PRN 10/08/20 10/08/20 cyclobenzaprine 5 mg PO TID PRN 10/08/20 10/08/20 duloxetine 30 mg PO DAILY 10/08/20 10/08/20 magnesium 250 mg PO DAILY 10/08/20 10/08/20 mecobalamin (vitamin B12) mcg 10/08/20 vitamin B complex [B tablet 10/08/20 Complex-Vitamin B12] vitamin [id number] factor 10/08/20 Allergies Allergy/AdvReac Type Severity Reaction Status Date / Time Penicillins Allergy Mild RASH,ITCHIN Verified 10/08/20 13:11 G Review of Systems Review of Systems: Narrative: CONSTITUTIONAL: Denies fever, chills, or sweats. EYES: Denies visual changes, redness, or discharge. ENT: Denies rhinorrhea, congestion, otalgia. Reports of a mild sore throat with white patches on the inside of her mouth CARDIOVASCULAR: Denies chest pain, palpitations, or edema. RESPIRATORY: Denies cough or dyspnea. GASTROINTESTINAL: Denies abdominal pain, nausea, vomiting, or diarrhea. GENITOURINARY: Denies dysuria or hematuria. SKIN: Denies rash or itching. MUSCULOSKELETAL: Denies back pain, joint pain, or myalgia. NEUROLOGIC: Denies headache, numbness, or weakness. All other systems reviewed are negative, except as documented in HPI. [facility] Past Medical History Medical History (Updated 10/08/20 @ 13:22 by NICA Reyes) Anxiety Asthma B12 deficiency Depression Interstitial cystitis Migraines Rheumatoid arthritis Sjogren's disease UTI (urinary tract infection) Surgical History Surgical History No significant past surgical history Social History Social History Gender identity (if verbalized by the patient): Female Comments At the time of my signature, I reviewed and agree with the nursing past medical, surgical, social, and family history. There is no relevant family history pertinent to the patient complaint. Exam Narrative: Exam Narrative: GENERAL: This is a well-nourished, well-developed patient, in no apparent distress. HEAD: normocephalic, atraumatic. EYES: PERRL. Sclera clear/white. Vision is grossly intact. EARS: External ears normal, auditory canals clear and without drainage, TMs normal without perforation. Hearing grossly intact. NOSE: External nose normal with no obvious nasal discharge, nares without redness, no rhinorrhea. THROAT: Mucous membranes moist, mild erythema noted to posterior oropharynx without exudate or ulceration. Mild patches of oral yeast to bilateral buccal aspects NECK: Neck supple, non-tender without lymphadenopathy CARDIOVASCULAR: Regular rate and rhythm without murmurs, gallops, or rubs. RESPIRATORY: Clear to auscultation. Breath sounds equal bilaterally. No wheezes, rales
[2020-10-08 13:07] VITALS: BP 107/73; PULSE 87; RESP 12; TEMP 36.8; O2SAT 100
== END 2020-10-08 13:30 | disposition home or self-care (01) ==
PROVIDERS: Emergency Provider Nurse Practitioner Family; PCP Internal Medicine
DX: B37.0 Candidal stomatitis (principal); J45.909 Unspecified asthma, uncomplicated; M06.9 Rheumatoid arthritis, unspecified; M35.00 Sjogren syndrome, unspecified; E53.8 Deficiency of other specified B group vitamins
CPT/HCPCS: 87081; 87880; 99213; G0463

== ENCOUNTER 2021-03-11 13:19 | Emergency (ER) | payer OTHER, SELFPAY ==
--- NOTE | 2021-03-11 13:25 | ED.ABDPAIN ---
HPI - Abdominal Pain General Chief Complaint: Abdominal Pain Stated Complaint: VOMITING/DIARRHEA/ABD PAIN Time Seen by Provider: 03/11/21 13:45 Source: patient and RN notes reviewed Mode of arrival: ambulatory Limitations: no limitations History of Present Illness HPI narrative: 25-year-old female with history of B12 deficiency, RA, Sjogren's disease presents with concern for vomiting, diarrhea, epigastric discomfort since Friday. Reports symptoms started with frequent vomiting and diarrhea, vomiting episodes have lessened, reports she vomited once today. Reports 4 episodes of diarrhea today. She reports when she tries to eat she gets an epigastric pain. She denies any abdominal tenderness. She reports fatigue, malaise. Denies body aches, sweats, chills, fever. Reports decreased appetite. MD elicited complaint: abdominal pain Related Data Home Medications Medication Instructions Recorded Confirmed etonogestrel-ethinyl estradiol 1 vag ring VAGINAL 07/26/20 10/24/20 [EluRyng] folic acid 1 mg PO DAILY 07/26/20 10/24/20 hydroxychloroquine 400 mg PO DAILY 08/27/20 10/24/20 methotrexate sodium 12.5 mg PO DIRECTED 08/27/20 10/24/20 magnesium 250 mg PO DAILY 10/08/20 10/24/20 duloxetine 60 mg capsule,delayed 60 mg PO DAILY 10/24/20 10/24/20 release B Complex-Vitamin B12 1 tablet PO DAILY 03/11/21 03/11/21 amitriptyline 25 mg PO HS 03/11/21 03/11/21 cetirizine 10 mg PO DAILY 03/11/21 03/11/21 famotidine 40 mg PO DAILY 03/11/21 03/11/21 gabapentin 300 mg PO BID 03/11/21 03/11/21 leflunomide 10 mg PO DAILY 03/11/21 03/11/21 montelukast 10 mg PO DAILY 03/11/21 03/11/21 tramadol 50 mg PO PRN PRN 03/11/21 03/11/21 Allergies Allergy/AdvReac Type Severity Reaction Status Date / Time Penicillins Allergy Mild RASH,ITCHIN Verified 10/24/20 15:35 G amoxicillin Allergy Rash Verified 03/11/21 13:23 Review of Systems Review of Systems: CONSTITUTIONAL: Denies malaise, chills, sweats, or fever. ENT: Denies rhinorrhea, congestion, sinus pain, otalgia or sore throat. CARDIOVASCULAR: Denies chest pain, palpitations, or edema. RESPIRATORY: Denies cough or dyspnea. GASTROINTESTINAL: Reports postprandial epigastric abdominal pain, nausea, vomiting, diarrhea. Denies bloody, or mucous stools. GENITOURINARY: Denies dysuria or hematuria. SKIN: Denies rash or itching. MUSCULOSKELETAL: Denies myalgia. All systems reviewed & are unremarkable except as noted in HPI and below PMFSH Past Medical History Medical History Anxiety Asthma B12 deficiency Depression Interstitial cystitis Migraines Rheumatoid arthritis Sjogren's disease UTI (urinary tract infection) Surgical History Surgical History No significant past surgical history Social History Social History Smoking packs per day: 1.5 Smoking cigarettes per day: 30.0 Smoking status: Current every day smoker Alcohol intake: current Gender identity (if verbalized by the patient): Female Sexual Orientation (if Verbalized by the Patient): Straight or Heterosexual Comments At time of signature, agree with nursing past medical, surgical, social and family history. There is no relevant family history pertinent to the presenting complaint Exam Narrative: GENERAL: Well-appearing, well-nourished, and in no acute distress. HEAD: Normocephalic, atraumatic. EYES: PERRLA, conjunctivae clear, and EOMI. ENT: Nares clear, turbinates pink, no rhinorrhea or epistaxis. Mucous membranes moist. Oropharynx without edema, erythema, or lesions. Tonsils not enlarged and without exudate. NECK: Supple. No lymphadenopathy CHEST: Speaks in full sentences. No respiratory distress. HEART: Regular rate and rhythm. ABDOMEN: Soft, flat, nondistended. No guarding, rebound tenderness, or rigid. No pulsatilla masses. Bowel sounds present in all four marlena
[2021-03-11 13:26] VITALS: BP 127/87; PULSE 111; RESP 16; TEMP 35.9; O2SAT 100
== END 2021-03-11 14:00 | disposition home or self-care (01) ==
PROVIDERS: Emergency Provider Nurse Practitioner; PCP Internal Medicine
DX: R11.2 Nausea with vomiting, unspecified (principal); R19.7 Diarrhea, unspecified; F17.210 Nicotine dependence, cigarettes, uncomplicated; J45.909 Unspecified asthma, uncomplicated; M06.9 Rheumatoid arthritis, unspecified; M35.00 Sjogren syndrome, unspecified; F32.A Depression, unspecified; E53.8 Deficiency of other specified B group vitamins
CPT/HCPCS: 99213; G0463

== ENCOUNTER 2021-07-04 19:32 | Emergency (ER) | payer OTHER, SELFPAY ==
[2021-07-04 19:35] VITALS: BP 123/74; PULSE 102; RESP 17; TEMP 36.1; O2SAT 100
--- NOTE | 2021-07-04 19:38 | ECG_ITS ---
Measurements Intervals Equality Rate: 94 P: 48 IL: 119 QRS: 39 QRSD: 73 T: 30 QT: 329 QTc: 411 Interpretive Statements SINUS RHYTHM WITH SHORT [place] INTERVAL NONSPECIFIC T-WAVE ABNORMALITY ABNORMAL ECG Electronically Signed On 07-05-2021 9:47:41 DISPATCH COORDINATOR by Ga Alarcon M.D.
[2021-07-04 19:55] VITALS: BP 119/77; PULSE 89
[2021-07-04 19:57] VITALS: BP 133/89; PULSE 109
[2021-07-04 19:59] VITALS: BP 132/94; PULSE 110
[2021-07-04 20:12] LABS: Basophils Absolute Auto 0.1 K/mm3 (0.0-0.1); Basophils Percent Auto 1.1 % (0.2-1.2); Eosinophils Absolute Auto 0.2 K/mm3 (0-0.3); Eosinophils Percent Auto 2.9 % (0-4.4); Hematocrit 36.5 % (37.0-47.0); Hemoglobin 12.5 g/dL (12.0-15.0); Immature Granulocyte Absolute 0.04 K/mm3 (0.00-0.031); Immature Granulocyte Percent A 0.5 % (0-0.5); Lymphocytes Absolute Auto 2.57 K/mm3 (0.9-3.2); Lymphocytes Percent Auto 30.6 % (18.3-44.2); Mean Corpuscular HGB Conc 34.2 g/dl (32-36); Mean Corpuscular Hemoglobin 33.6 pg (26-34); Mean Corpuscular Volume 98.1 fl (80-100); Monocytes Absolute Auto 0.9 K/mm3 (0.1-0.6); Monocytes Percent Auto 10.2 % (2.6-8.5); Neutrophils Absolute Auto 4.6 K/mm3 (1.3-6.7); Neutrophils Percent Auto 54.7 % (45.5-73.1); Platelet Count Result 259 k/mm3 (150-375); Red Blood Count 3.72 M/mm3 (4.2-5.4); Red Cell Distribution Width 12.8 % (11.5-14.5); White Blood Count 8.4 K/mm3 (4.5-10.0)
--- NOTE | 2021-07-04 20:13 | ED.ARRPALP ---
HPI - Arrhythmia/Palpitations General Chief Complaint: Arrhythmia/Palpitations Stated Complaint: freq palpitations today Time Seen by Provider: 07/04/21 19:50 History of Present Illness HPI narrative: 25-year-old female history of rheumatoid arthritis and Sjogren's presents the emergency room with complaints of intermittent palpitations, tachycardia, hypertension for several months. Patient states that she came to the emergency room today because she was not feeling right . Denies chest pain, shortness of breath, dizziness, lightheadedness, nausea vomiting. States is not follow-up with her primary care regarding the symptoms. Related Data Home Medications Medication Instructions Recorded Confirmed etonogestrel-ethinyl estradiol 1 vag ring VAGINAL USEASDIRECTD 07/26/20 03/11/21 [Jennifer] folic acid 1 mg PO DAILY 07/26/20 03/11/21 hydroxychloroquine 400 mg PO DAILY 08/27/20 03/11/21 methotrexate sodium 12.5 mg PO DIRECTED 08/27/20 03/11/21 magnesium 500 mg PO DAILY 10/08/20 03/11/21 duloxetine 60 mg capsule,delayed 60 mg PO DAILY 10/24/20 03/11/21 release B Complex-Vitamin B12 1 tablet PO DAILY 03/11/21 03/11/21 amitriptyline 25 mg PO HS 03/11/21 03/11/21 cetirizine 10 mg PO DAILY 03/11/21 03/11/21 famotidine 40 mg PO DAILY 03/11/21 03/11/21 gabapentin 300 mg PO BID 03/11/21 03/11/21 leflunomide 10 mg PO DAILY 03/11/21 03/11/21 montelukast 10 mg PO DAILY 03/11/21 03/11/21 tramadol 50 mg PO PRN PRN 03/11/21 03/11/21 Allergies Allergy/AdvReac Type Severity Reaction Status Date / Time Penicillins Allergy Mild RASH,ITCHIN Verified 07/04/21 19:38 G amoxicillin Allergy Rash Verified 07/04/21 19:38 Review of Systems Review of Systems: CONSTITUTIONAL: Denies fever, chills, or sweats. Reports malaise and fatigue EYES: Denies visual changes, redness, or discharge. ENT: Denies rhinorrhea, congestion, sore throat, or otalgia. CARDIOVASCULAR: Denies chest pain, or edema. Palpitations. RESPIRATORY: Denies cough or dyspnea. GASTROINTESTINAL: Denies abdominal pain, nausea, vomiting, or diarrhea. GENITOURINARY: Denies dysuria or hematuria. SKIN: Denies rash or itching. MUSCULOSKELETAL: Denies back pain, joint pain, or myalgia. NEUROLOGIC: Denies headache, numbness, dizziness, or weakness. PSYCHIATRIC: Denies anxiety or depression. [facility] Past Medical History Medical History Anxiety Asthma B12 deficiency Depression Interstitial cystitis Migraines Rheumatoid arthritis Sjogren's disease UTI (urinary tract infection) Surgical History Surgical History No significant past surgical history Social History Social History Smoking packs per day: 1.5 Smoking cigarettes per day: 30.0 Smoking status: Current every day smoker Alcohol intake: current Gender identity (if verbalized by the patient): Female Sexual Orientation (if Verbalized by the Patient): Straight or Heterosexual Exam Narrative: GENERAL: Well-appearing, well-nourished, and in no acute distress. HEAD: Normocephalic, atraumatic. EYES: PERRLA and EOMI. ENT: Nares clear, no rhinorrhea or epistaxis. Mucous membranes moist. NECK: Supple. No adenopathy or masses. No carotid bruits or JVD CHEST: Clear to auscultation. No respiratory distress. No wheezes rales or rhonchi HEART: Regular rate and rhythm. No murmur heard. Normal peripheral pulses. ABDOMEN: Soft, nontender, nondistended, normal active bowel sounds. EXTREMITIES: Normal range of motion. No edema. SKIN: Warm, dry, no rash. NEURO: No focal deficits. Alert and oriented x3. PSYCH: Normal mood and affect. Course Vital Signs Vital signs: Vital Signs Temperature 36.1 C L 07/04/21 19:35 Pulse Rate 102 H 07/04/21 19:35 Respiratory Rate 17 07/04/21 19:35 Blood Pressure 123/74 07/04/21 19:35 Pulse Oximetry 10
[2021-07-04] MEDS: SODIUM CHLORIDE 0.9% IV 1,000 ML 999 ML IV CONT (20:19)
[2021-07-04 20:21] LABS: Alanine Aminotransferase 17 U/L (4-35); Albumin Level 4.4 g/dL (3.5-5.1); Alkaline Phosphatase 43 U/L (38-126); Anion Gap 7 mmol/L (8-16); Aspartate Amino Transferase 26 U/L (14-36); Bilirubin,Total 0.4 mg/dL (0.2-1.3); Blood Urea Nitrogen 18 mg/dL (7-17); Calcium 8.9 mg/dL (8.4-10.2); Carbon Dioxide 24 mmol/L (22-30); Chloride 105 mmol/L (98-107); Estimated CRCL calculation 66 ml/min; Estimated Glomerular Filt Rate > 60; Glucose 82 mg/dL (65-110); Potassium 3.8 mmol/L (3.4-5.0); Sodium 136 mmol/L (137-145)
[2021-07-04 20:33] LABS: Troponin I < 0.012 ng/mL (0.000-0.034)
[2021-07-04 22:27] VITALS: BP 114/57; PULSE 78; RESP 18; O2SAT 98
== END 2021-07-04 22:31 | disposition home or self-care (01) ==
PROVIDERS: Emergency Medicine; Emergency Provider Nurse Practitioner Family; PCP Internal Medicine
DX: R00.2 Palpitations (principal); R00.0 Tachycardia, unspecified; J45.909 Unspecified asthma, uncomplicated; M06.9 Rheumatoid arthritis, unspecified; M35.00 Sjogren syndrome, unspecified; E53.8 Deficiency of other specified B group vitamins; F41.9 Anxiety disorder, unspecified; F32.A Depression, unspecified; Z87.440 Personal history of urinary (tract) infections; F17.210 Nicotine dependence, cigarettes, uncomplicated
CPT/HCPCS: 36415; 80053; 81025; 84443; 84484; 85025; 93005; 96360; 99284; J7030

== ENCOUNTER 2021-09-15 17:52 | Emergency (ER) | payer OTHER, SELFPAY ==
--- NOTE | ~2021-09-15 | XR_ITS ---
EXAM: XR ankle LT 2V, XR foot LT min 3V HISTORY: trampoline injury. left lateral foot/ankle pain COMPARISON: None available FINDINGS: Normal mineralization. Tiny avulsion fracture fragment off the tip of the lateral malleolu s. Small osseous fragment overlying the anterolateral articulation between the cuboid and calcaneal a nterior process seen only in the medial oblique view. No lytic or blastic lesion. Joint spaces mainta ined. No erosion or periosteal change. Soft tissue swelling over the lateral malleolus. IMPRESSION: Distal left fibular avulsion fracture. Osseous fragment overlying the calcaneal cuboid articulation, not a typical location for acute traumatic injury, may represent an ossicle or less likely a fracture d osteophyte or capsular avulsion. Reviewed, dictated and finalized at location K. IMPRESSION: Distal left fibular avulsion fracture. Osseous fragment overlying the calcaneal cuboid articulation, not a typical location for acute traumatic injury, may re present an ossicle or less likely a fractured osteophyte or capsular avulsion.
--- NOTE | 2021-09-15 17:53 | ED.GENADULT ---
HPI - General Adult General Chief complaint: Extremity Injury, Lower Stated complaint: L ANKLE INJURY Time Seen by Provider: 09/15/21 17:52 Source: patient Mode of arrival: ambulatory Limitations: no limitations History of Present Illness HPI narrative: 25-year-old female patient presents to the [facility] with complaints of left foot and ankle pain. Patient states [place]ampoline[place] and states that she thinks she landed wrong on one of the and immediately fell and had some pain. Patient states she has not been able to ambulate on the left foot since the injury. Denies any numbness or tingling to the toes. Denies taking anything for pain prior to arrival. Related Data Home Medications Medication Instructions Recorded Confirmed etonogestrel-ethinyl estradiol 1 vag ring VAGINAL USEASDIRECTD 07/26/20 03/11/21 [EluRyng] folic acid 1 mg PO DAILY 07/26/20 03/11/21 hydroxychloroquine 400 mg PO DAILY 08/27/20 03/11/21 methotrexate sodium 12.5 mg PO DIRECTED 08/27/20 03/11/21 magnesium 500 mg PO DAILY 10/08/20 03/11/21 duloxetine 60 mg capsule,delayed 60 mg PO DAILY 10/24/20 03/11/21 release B Complex-Vitamin B12 1 tablet PO DAILY 03/11/21 03/11/21 amitriptyline 25 mg PO HS 03/11/21 03/11/21 cetirizine 10 mg PO DAILY 03/11/21 03/11/21 famotidine 40 mg PO DAILY 03/11/21 03/11/21 gabapentin 300 mg PO BID 03/11/21 03/11/21 leflunomide 10 mg PO DAILY 03/11/21 03/11/21 montelukast 10 mg PO DAILY 03/11/21 03/11/21 tramadol 50 mg PO PRN PRN 03/11/21 03/11/21 Allergies Allergy/AdvReac Type Severity Reaction Status Date / Time Penicillins Allergy Mild RASH,ITCHIN Verified 09/15/21 18:17 G amoxicillin Allergy Rash Verified 09/15/21 18:17 Review of Systems Review of Systems: CONSTITUTIONAL: Denies fever, chills, or sweats. EYES: Denies visual changes, redness, or discharge. ENT: Denies rhinorrhea, congestion, sore throat, or otalgia. CARDIOVASCULAR: Denies chest pain, palpitations, or edema. RESPIRATORY: Denies cough or dyspnea. GASTROINTESTINAL: Denies abdominal pain, nausea, vomiting, or diarrhea. GENITOURINARY: Denies dysuria or hematuria. SKIN: Denies rash or itching. MUSCULOSKELETAL: Denies back pain, joint pain, or myalgia. Positive left ankle pain NEUROLOGIC: Denies headache, numbness, or weakness. PSYCHIATRIC: Denies anxiety or depression. [facility] Past Medical History Medical History Anxiety Asthma B12 deficiency Depression Interstitial cystitis Migraines Rheumatoid arthritis Sjogren's disease UTI (urinary tract infection) Surgical History Surgical History No significant past surgical history Social History Social History Smoking packs per day: 1.5 Smoking cigarettes per day: 30.0 Smoking status: Current every day smoker Alcohol intake: current Gender identity (if verbalized by the patient): Female Sexual Orientation (if Verbalized by the Patient): Straight or Heterosexual Comments At the time of my signature I agree with nursing past medical history, surgical, social, and family history. There is no relevant family history pertinent to the presenting complaint. Exam Narrative: GENERAL: Well-appearing, well-nourished, and in no acute distress. HEAD: Normocephalic, atraumatic. EYES: PERRLA and EOMI. ENT: Nares clear, no rhinorrhea or epistaxis. Mucous membranes moist. NECK: Supple. No lymphadenopathy CHEST: Clear to auscultation. No respiratory distress. HEART: Regular rate and rhythm. No murmur heard. Normal peripheral pulses. ABDOMEN: Soft, nontender, nondistended, normal active bowel sounds. EXTREMITIES: Patient is unable to bear weight and ambulate without pain. The L ankle is without obvious asymmetry or deformity when compared to the R ankle. Patient unable to flex/extend, patient ab
[2021-09-15 18:13] VITALS: BP 115/68; PULSE 94; RESP 16; TEMP 36; O2SAT 100
[2021-09-15] MEDS: ACETAMINOPHEN 500 MG TABLET 1000 MG PO (18:35)
== END 2021-09-15 19:01 | disposition home or self-care (01) ==
PROVIDERS: Emergency Provider Nurse Practitioner Family; PCP Internal Medicine
DX: S82.832A Other fracture of upper and lower end of left fibula, initial encounter for closed fracture (principal); X58.XXXA Exposure to other specified factors, initial encounter; Y93.44 Activity, trampolining; Y92.838 Other recreation area as the place of occurrence of the external cause; J45.909 Unspecified asthma, uncomplicated; M06.9 Rheumatoid arthritis, unspecified; M35.00 Sjogren syndrome, unspecified; E53.8 Deficiency of other specified B group vitamins; F41.9 Anxiety disorder, unspecified; F32.A Depression, unspecified
CPT/HCPCS: 29515; 73600; 73630; 99214; A9270; G0463

== ENCOUNTER 2022-02-02 14:06 | Emergency (ER) | payer OTHER, SELFPAY ==
--- NOTE | 2022-02-02 14:11 | ED.ABDPAIN ---
HPI - Abdominal Pain General Stated Complaint: abdomen pain Time Seen by Provider: 02/02/22 14:31 Source: patient and RN notes reviewed Mode of arrival: ambulatory Limitations: no limitations History of Present Illness HPI narrative: 26-year-old female presents with concern for lower quadrant abdominal pain. Reports 4-day history of pain that started on the right lower quadrant and now radiates to the left lower quadrant. She reports pain worsens when she sits in certain positions and when she walks. She reports she has been having relatively normal bowel movements. She has not had any vomiting or nausea. However she does say she feels general malaise and fatigue. She reports little chance for , she uses a NuvaRing and has had a short period. She denies dysuria, frequency, urgency. She denies fevers, chills, sweats. MD elicited complaint: abdominal pain Related Data Home Medications Medication Instructions Recorded Confirmed etonogestrel 0.12 mg-ethinyl 1 vag ring vaginal USEASDIRECTD 07/26/20 09/20/21 estradiol 0.015 mg/24 hr vaginal ring (Jennifer) folic acid 1 mg tablet 1 mg PO DAILY 07/26/20 09/20/21 hydroxychloroquine 200 mg tablet 400 mg PO DAILY 08/27/20 09/20/21 magnesium 250 mg tablet 500 mg PO DAILY 10/08/20 09/20/21 duloxetine 60 mg capsule,delayed 60 mg PO DAILY 10/24/20 09/20/21 release B Complex-Vitamin B12 1 tablet PO DAILY 03/11/21 09/20/21 amitriptyline 25 mg tablet 25 mg PO HS 03/11/21 09/20/21 cetirizine 10 mg tablet 10 mg PO DAILY 03/11/21 09/20/21 famotidine 40 mg tablet 40 mg PO DAILY 03/11/21 09/20/21 gabapentin 300 mg capsule 300 mg PO BID 03/11/21 09/20/21 montelukast 10 mg tablet 10 mg PO DAILY 03/11/21 09/20/21 tramadol 50 mg tablet 50 mg PO PRN PRN Pain 03/11/21 09/20/21 celecoxib 200 mg capsule 200 mg PO DAILY 09/19/21 09/20/21 cyclobenzaprine 5 mg tablet 5 mg PO TID PRN 09/19/21 09/20/21 metoprolol tartrate 50 mg tablet 50 mg PO BID 09/19/21 09/20/21 omeprazole 20 mg capsule,delayed 20 mg PO DAILY 09/19/21 09/20/21 release tocilizumab 80 mg/4 mL (20 mg/mL) IV 09/19/21 09/20/21 intravenous solution (Actemra) vitamin B complex (B 1 tablet PO DAILY 09/19/21 09/20/21 Complex-Vitamin B12 tablet) hydrocodone 5 mg-acetaminophen 325 tablet 02/02/22 mg tablet sulfasalazine 500 mg PO 02/02/22 tablet,delayed release Allergies Allergy/AdvReac Type Severity Reaction Status Date / Time Penicillins Allergy Mild RASH,ITCHIN Verified 09/15/21 18:17 G amoxicillin Allergy Rash Verified 09/15/21 18:17 Review of Systems Review of Systems: CONSTITUTIONAL: Reports malaise, fatigue. Denies chills, sweats, or fever. ENT: Denies rhinorrhea, congestion, sinus pain, otalgia or sore throat. CARDIOVASCULAR: Denies chest pain, palpitations, or edema. RESPIRATORY: Denies cough or dyspnea. GASTROINTESTINAL: Reports bilateral lower abdominal pain. Denies constipation, nausea, vomiting, diarrhea, bloody, or mucous stools. GENITOURINARY: Denies dysuria or hematuria. MUSCULOSKELETAL: Denies myalgia. NEUROLOGIC: Denies headache. All systems reviewed & are unremarkable except as noted in HPI and below [facility] Past Medical History Medical History Anxiety Asthma B12 deficiency Depression Interstitial cystitis Migraines Rheumatoid arthritis Sjogren's disease UTI (urinary tract infection) Surgical History Surgical History No significant past surgical history Social History Social History Smoking packs per day: 1.5 Smoking cigarettes per day: 30.0 Smoking status: Current every day smoker Tobacco type: cigarettes Alcohol intake: current Drinks per week: 2 Substance use: never Substance use type: does not use Gender identity (if verbalized by the patient): Female Sexual Orientation (if Verb
[2022-02-02 14:24] VITALS: BP 120/88; PULSE 94; RESP 20; TEMP 36.4; O2SAT 100
== END 2022-02-02 14:55 | disposition short-term general hospital (02) ==
PROVIDERS: Emergency Provider Nurse Practitioner; PCP Internal Medicine
DX: R10.31 Right lower quadrant pain (principal); R10.32 Left lower quadrant pain; F17.210 Nicotine dependence, cigarettes, uncomplicated; J45.909 Unspecified asthma, uncomplicated; M06.9 Rheumatoid arthritis, unspecified; M35.00 Sjogren syndrome, unspecified; F32.A Depression, unspecified; E53.8 Deficiency of other specified B group vitamins
CPT/HCPCS: 81003; 81025; 99212; G0463

== ENCOUNTER 2022-02-02 15:13 | Emergency (ER) | payer OTHER, SELFPAY ==
--- NOTE | ~2022-02-02 | CT_ITS ---
EXAMINATION: CT abdomen pelvis w con DATE: 02/02/2022 16:58 INDICATION: RLQ/LLQ pain TECHNIQUE: Computed tomography (CT) of the abdomen and pelvis was performed with 100 mL Omnipaque-350 intravenous contrast. Automated exposure control and iterative reconstruction technique were employe d. The dose-length product was 369.03 mGy-cm. COMPARISON: 04/25/2019. FINDINGS: Lower thorax: Unremarkable Liver: Normal. Biliary/Gallbladder: Gallbladder is normal. No bile duct dilation. Pancreas: No mass or duct dilation. Spleen: Normal. Adrenals:No mass. Kidneys: No mass, stone, or hydronephrosis. GI tract: No small or large bowel dilation. Normal appendix. Mesentery/Peritoneum: No ascites, mass, or free air. Retroperitoneum: No mass. Pelvis: Pelvic organs are within normal limits. Likely left ovarian corpus luteal cyst. Soft Tissues: Soft tissues and body wall unremarkable. Bones: No acute osseous finding. IMPRESSION: No acute abdominopelvic process detected. Reviewed, dictated and finalized at location K.
[2022-02-02 15:16] VITALS: BP 130/71; PULSE 93; RESP 16; TEMP 36.7; O2SAT 100
--- NOTE | 2022-02-02 15:39 | ED.ABDPAIN ---
HPI - Abdominal Pain General Chief Complaint: Abdominal Pain Stated Complaint: flank pain right side Time Seen by Provider: 02/02/22 15:39 History of Present Illness HPI narrative: To the emergency room for evaluation of lower abdominal pain that has been present for several days. Patient denies any vomiting, diarrhea or constipation. Denies fever. States been experiencing occasional nausea. States pain occasionally radiates to right flank. Denies any dysuria or fevers. Related Data Home Medications Medication Instructions Recorded Confirmed etonogestrel 0.12 mg-ethinyl 1 vag ring vaginal USEASDIRECTD 07/26/20 09/20/21 estradiol 0.015 mg/24 hr vaginal ring (RogeliouRyng) folic acid 1 mg tablet 1 mg PO DAILY 07/26/20 09/20/21 hydroxychloroquine 200 mg tablet 400 mg PO DAILY 08/27/20 09/20/21 magnesium 250 mg tablet 500 mg PO DAILY 10/08/20 09/20/21 duloxetine 60 mg capsule,delayed 60 mg PO DAILY 10/24/20 09/20/21 release B Complex-Vitamin B12 1 tablet PO DAILY 03/11/21 09/20/21 amitriptyline 25 mg tablet 25 mg PO HS 03/11/21 09/20/21 cetirizine 10 mg tablet 10 mg PO DAILY 03/11/21 09/20/21 famotidine 40 mg tablet 40 mg PO DAILY 03/11/21 09/20/21 gabapentin 300 mg capsule 300 mg PO BID 03/11/21 09/20/21 montelukast 10 mg tablet 10 mg PO DAILY 03/11/21 09/20/21 tramadol 50 mg tablet 50 mg PO PRN PRN Pain 03/11/21 09/20/21 celecoxib 200 mg capsule 200 mg PO DAILY 09/19/21 09/20/21 cyclobenzaprine 5 mg tablet 5 mg PO TID PRN 09/19/21 09/20/21 metoprolol tartrate 50 mg tablet 50 mg PO BID 09/19/21 09/20/21 omeprazole 20 mg capsule,delayed 20 mg PO DAILY 09/19/21 09/20/21 release tocilizumab 80 mg/4 mL (20 mg/mL) IV 09/19/21 09/20/21 intravenous solution (Actemra) vitamin B complex (B 1 tablet PO DAILY 09/19/21 09/20/21 Complex-Vitamin B12 tablet) hydrocodone 5 mg-acetaminophen 325 tablet 02/02/22 mg tablet sulfasalazine 500 mg PO 02/02/22 tablet,delayed release Allergies Allergy/AdvReac Type Severity Reaction Status Date / Time Penicillins Allergy Mild RASH,ITCHIN Verified 09/15/21 18:17 G amoxicillin Allergy Rash Verified 09/15/21 18:17 Review of Systems Review of Systems: CONSTITUTIONAL: Denies fever, chills, or sweats. EYES: Denies visual changes, redness, or discharge. ENT: Denies rhinorrhea, congestion, sore throat, or otalgia. CARDIOVASCULAR: Denies chest pain, palpitations, or edema. RESPIRATORY: Denies cough or dyspnea. GASTROINTESTINAL: Reports abdominal pain GENITOURINARY: Denies dysuria or hematuria. SKIN: Denies rash or itching. MUSCULOSKELETAL: Denies back pain, joint pain, or myalgia. NEUROLOGIC: Denies headache, numbness, dizziness, or weakness. PSYCHIATRIC: Denies anxiety or depression. [facility] Past Medical History Medical History Anxiety Asthma B12 deficiency Depression Interstitial cystitis Migraines Rheumatoid arthritis Sjogren's disease UTI (urinary tract infection) Surgical History Surgical History No significant past surgical history Social History Social History Smoking packs per day: 1.5 Smoking cigarettes per day: 30.0 Smoking status: Current every day smoker Tobacco type: cigarettes Alcohol intake: current Drinks per week: 2 Substance use: never Substance use type: does not use Gender identity (if verbalized by the patient): Female Sexual Orientation (if Verbalized by the Patient): Straight or Heterosexual Exam Narrative: GENERAL: Well-appearing, well-nourished, no physical limitations, and in no acute distress. HEAD: Normocephalic, atraumatic. EYES: Conjunctivae normal, PERRLA and EOMI. CHEST: Clear to auscultation. No respiratory distress. No wheezes rales or rhonchi. No tenderness. HEART: Regular rate and rhythm. No murmur heard. Normal peripheral pulses. ABDOME
[2022-02-02] MEDS: SODIUM CHLORIDE 0.9% IV 1,000 ML 999 ML IV CONT (15:55)
[2022-02-02 15:58] LABS: Eosinophils Absolute Auto 0.1 K/mm3 (0-0.3); Eosinophils Percent Auto 2.2 % (0-4.4); Hematocrit 34.4 % (37.0-47.0); Hemoglobin 11.8 g/dL (12.0-15.0); Immature Granulocyte Absolute 0.01 K/mm3 (0.00-0.031); Immature Granulocyte Percent A 0.2 % (0-0.5); Lymphocytes Absolute Auto 1.81 K/mm3 (0.9-3.2); Lymphocytes Percent Auto 44.1 % (18.3-44.2); Mean Corpuscular HGB Conc 34.3 g/dl (32-36); Mean Corpuscular Hemoglobin 32.8 pg (26-34); Mean Corpuscular Volume 95.6 fl (80-100); Mean Platelet Volume 9.8 fl (7.4-10.4); Monocytes Absolute Auto 0.5 K/mm3 (0.1-0.6); Monocytes Percent Auto 11.2 % (2.6-8.5); Neutrophils Absolute Auto 1.7 K/mm3 (1.3-6.7); Neutrophils Percent Auto 41.3 % (45.5-73.1); Platelet Count Result 175 k/mm3 (150-375); Red Cell Distribution Width 12.6 % (11.5-14.5); White Blood Count 4.1 K/mm3 (4.5-10.0)
[2022-02-02 16:20] LABS: Appearance Urine Clear (Clear); Bilirubin Urine Negative (Negative); Blood Urine Negative (Negative); Color Urine Yellow (Yellow); Glucose Urine UA Negative (Negative); Ketones Urine Negative (Negative); Leukocyte Esterase Ur Negative LEU/UL (Negative); Nitrate Urine Negative (Negative); Protein Urine Negative (Negative); Urobilinogen Urine 0.2 mg/dL (<2.0)
[2022-02-02 16:21] LABS: Alanine Aminotransferase 19 U/L (6-35); Albumin Level 4.7 g/dL (3.5-5.1); Alkaline Phosphatase 43 U/L (38-126); Anion Gap 8 mmol/L (8-16); Aspartate Amino Transferase 29 U/L (14-36); Bilirubin,Total 0.5 mg/dL (0.2-1.3); Blood Urea Nitrogen 17 mg/dL (7-17); Calcium 9.6 mg/dL (8.4-10.2); Carbon Dioxide 27 mmol/L (22-30); Chloride 103 mmol/L (98-107); Estimated CRCL calculation 81 ml/min; Estimated Glomerular Filt Rate > 60; Glucose 96 mg/dL (65-110); Lipase 45 U/L (23-300); Potassium 3.8 mmol/L (3.4-5.0); Sodium 138 mmol/L (137-145)
[2022-02-02 16:28] LABS: Mucus Urine Rare /lpf; Squamous Epithelial Cell Urine Rare /hpf (Few); WBC Urine 0-3 /hpf
[2022-02-02 16:29] LABS: Add Urine Microscopic? NO
[2022-02-02 17:36] VITALS: BP 132/62; PULSE 76; RESP 18; O2SAT 99
== END 2022-02-02 17:37 | disposition home or self-care (01) ==
PROVIDERS: Emergency Provider Nurse Practitioner Family; PCP Internal Medicine
DX: R10.30 Lower abdominal pain, unspecified (principal); J45.909 Unspecified asthma, uncomplicated; N30.10 Interstitial cystitis (chronic) without hematuria; M06.9 Rheumatoid arthritis, unspecified; M35.00 Sjogren syndrome, unspecified; E53.8 Deficiency of other specified B group vitamins; Z87.440 Personal history of urinary (tract) infections; F17.210 Nicotine dependence, cigarettes, uncomplicated
CPT/HCPCS: 36415; 74177; 80053; 81003; 81025; 83690; 85025; 96360; 99284; J7030; Q9967

== ENCOUNTER 2022-02-06 18:27 | Inpatient (IN) | payer OTHER, SELFPAY ==
--- NOTE | ~2022-02-06 | CT_ITS ---
EXAMINATION: CT soft tissue neck w con DATE: 02/06/2022 23:20 INDICATION: Left cheek swelling. TECHNIQUE: Computed tomography (CT) of the neck was performed with 75 mL Omnipaque-350 intravenous co ntrast. Automated exposure control and iterative reconstruction technique were employed. The dose-christy gth product was 430.24 mGy-cm. COMPARISON: CTA neck 01/23/2020 FINDINGS: There is fat stranding and soft tissue gas involving the left cheek. There are no pathologi juliana enlarged lymph nodes. There is mild mucosal thickening in left maxillary sinus. There are ulloa es of extraction of two left maxillary molars with dehiscence of the wall of left maxillary sinus. Th ere are changes of extraction of a left mandibular molar. There is a carious lesion involving a right maxillary molar. IMPRESSION: 1. Changes of recent extraction of left maxillary and mandibular molars with inflammation of the xiomara cent soft tissues. No abscess. 2. Carious lesion involving a right maxillary molar. Reviewed, dictated and finalized at location B. IMPRESSION: 1. Changes of recent extraction of left maxillary and mandibular molars with in flammation of the adjacent soft tissues. No abscess. 2. Carious lesion involving a right maxillary molar.
[2022-02-06 19:16] VITALS: BP 120/86; PULSE 98; RESP 18; TEMP 36.6; O2SAT 99
[2022-02-06] MEDS: SODIUM CHLORIDE 0.9% IV 1,000 ML 999 ML IV CONT (21:56)
[2022-02-06] MEDS: CLINDAMYCIN 600 MG/D5W 50 ML 600 MG/50 ML PIGGYBACK 100 MG IVPB (21:57)
[2022-02-06 22:16] LABS: Basophils Absolute Auto 0.1 K/mm3 (0.0-0.1); Basophils Percent Auto 0.7 % (0.2-1.2); Eosinophils Absolute Auto 0.1 K/mm3 (0-0.3); Eosinophils Percent Auto 0.7 % (0-4.4); Hematocrit 40.7 % (37.0-47.0); Immature Granulocyte Absolute 0.02 K/mm3 (0.00-0.031); Immature Granulocyte Percent A 0.2 % (0-0.5); Lymphocytes Absolute Auto 1.83 K/mm3 (0.9-3.2); Lymphocytes Percent Auto 21.7 % (18.3-44.2); Mean Corpuscular HGB Conc 34.4 g/dl (32-36); Mean Corpuscular Hemoglobin 32.9 pg (26-34); Mean Corpuscular Volume 95.8 fl (80-100); Mean Platelet Volume 9.6 fl (7.4-10.4); Monocytes Absolute Auto 0.8 K/mm3 (0.1-0.6); Monocytes Percent Auto 9.6 % (2.6-8.5); Neutrophils Absolute Auto 5.7 K/mm3 (1.3-6.7); Neutrophils Percent Auto 67.1 % (45.5-73.1); Platelet Count Result 235 k/mm3 (150-375); Red Blood Count 4.25 M/mm3 (4.2-5.4); Red Cell Distribution Width 12.4 % (11.5-14.5); White Blood Count 8.4 K/mm3 (4.5-10.0)
[2022-02-06 22:56] LABS: Anion Gap 7 mmol/L (8-16); Blood Urea Nitrogen 12 mg/dL (7-17); Calcium 7.6 mg/dL (8.4-10.2); Carbon Dioxide 24 mmol/L (22-30); Chloride 107 mmol/L (98-107); Estimated CRCL calculation 81 ml/min; Estimated Glomerular Filt Rate > 60; Glucose 93 mg/dL (65-110); Potassium 3.4 mmol/L (3.4-5.0); Sodium 138 mmol/L (137-145)
[2022-02-07] VITALS (7 sets, daily range): BP systolic 106–129; BP diastolic 65–97; PULSE 70–95; RESP 17–19; TEMP 35.7–37.2; O2SAT 96–100; BMI 23.5
--- NOTE | 2022-02-07 00:25 | PM.IMHP ---
H&P: HPI History of Present Illness Date/Time: 02/07/22 00:25 Chief Complaint: left face swelling Narrative: This is a 26-year-old female with past medical history significant for rheumatoid arthritis, Sjogren's disease, depression, migraine headaches, tobacco dependence. PATIENT PRESENTS TO THE EMERGENCY ROOM DUE TO LEFT-SIDED FACE SWELLING, TENDERNESS, had extraction of 3 molars Friday morning and subsequently developed swelling of the face, patient denies any difficulty swallowing, no difficulty breathing, however has not been able to eat due to the swelling and tenderness and has been drinking Ensure, patient denies any drooling, shortness of breath, stridor, nausea, vomiting. ENT was contacted from the emergency room. Preliminary workup was significant for CT of head and neck soft tissue: impression: Postsurgical and inflammatory changes on the left side with inflammation involving subcutaneous through left deep neck soft tissue structures. No definite abscess. patient is been admitted for further evaluation management and treatment. Review of Systems Review of Systems: Left face swelling, tenderness. Constitutional: Constitutional: Denies chills, Denies fever(s), Denies malaise, Denies night sweats and Denies weakness Eyes: Eyes: Denies change in vision ENT: Denies change in voice, Denies dysphagia, Denies vertigo, Denies dizziness, Denies ear discharge, Denies nasal congestion, Denies nasal discharge, Reports neck pain, Denies odynophagia and Denies sore throat Cardiovascular: Cardiovascular: Denies chest pain, Denies pedal edema, Denies lightheadedness, Denies radiating jaw, neck or arm pain, Denies palpitations and Denies dyspnea on exertion Respiratory: Respiratory: Denies cough, Denies excessive phlegm production, Denies pain on inspiration, Denies dyspnea, Denies stridor and Denies wheezing Gastrointestinal: Gastrointestinal: Denies abdominal pain, Denies dyspepsia, Denies heartburn, Denies diarrhea, Denies nausea and Denies vomiting Genitourinary: Genitourinary: Denies dysuria Musculoskeletal: Musculoskeletal: Denies back pain, Denies myalgias, Denies joint swelling and Denies muscle weakness Integumentary/Breasts: Skin/Breast: Denies rash Neurologic: Denies vertigo, Denies dizziness, Denies focal weakness and Denies Sensory deficit (Neuro) Psychiatric: Psychiatric: Reports no additional psychiatric complaints and Reports as per HPI Endocrine: Endocrine: Denies cold intolerance, Denies flushing, Denies heat intolerance, Denies polyphagia, Denies polydipsia and Denies palpitations Hematologic/Lymphatic: Hematologic/Lymphatic: Reports no additional hematologic/lymphatic complaints and Reports as per HPI Allergic/Immunologic: Allergic/Immunologic: Reports no additional allergic/immunologic complaints and Reports as per HPI PMF[facility] Past Medical History Medical History (Updated 02/07/22 @ 03:21 by Carrie Day MD) Anxiety Asthma B12 deficiency Depression Interstitial cystitis Migraines Rheumatoid arthritis Sjogren's disease UTI (urinary tract infection) Surgical History Surgical History (Updated 02/07/22 @ 03:21 by Carrie Day MD) No significant past surgical history Social History Social History Smoking packs per day: 1.5 Smoking cigarettes per day: 30.0 Smoking status: Current every day smoker Tobacco type: cigarettes Alcohol intake: current Drinks per week: 2 Substance use: never Substance use type: does not use Gender identity (if verbalized by the patient): Female Sexual Orientation (if Verbalized by the Patient): Straight or Heterosexual Meds Home Medications and Allergies Home Medications Medication Instructions Recorded Confirmed Type etonogestrel 0.12 mg-ethinyl 1 vag ring vaginal USEASDIRECTD 07/26/20 09/20/21 History estradiol 0.015 mg/24 hr vaginal ring (Jennifer) folic acid 1
--- NOTE | 2022-02-07 00:46 | ED.DENTAL ---
HPI - Dental/Oral General Chief complaint: Dental/Oral Stated complaint: dental oral pain Time Seen by Provider: 02/06/22 21:15 History of Present Illness HPI Narrative: This patient had a recent wisdom tooth removal, 2 days ago started having severe swelling in her left cheek, today it seems to be getting harder and seems to be spreading down to her neck. She has trouble opening her jaw but has no fevers or chills, or difficulty swallowing or speaking, she has been taking azithromycin since Friday. Related Data Home Medications Medication Instructions Recorded Confirmed folic acid 1 mg tablet 1 mg PO DAILY 07/26/20 02/07/22 magnesium 250 mg tablet 500 mg PO DAILY 10/08/20 02/07/22 duloxetine 60 mg capsule,delayed 90 mg PO DAILY 10/24/20 02/07/22 release B Complex-Vitamin B12 1 tablet PO DAILY 03/11/21 02/07/22 amitriptyline 25 mg tablet 25 mg PO HS 03/11/21 02/07/22 cetirizine 10 mg tablet 10 mg PO DAILY 03/11/21 02/07/22 famotidine 40 mg tablet 40 mg PO DAILY 03/11/21 02/07/22 gabapentin 300 mg capsule 300 mg PO BID 03/11/21 02/07/22 montelukast 10 mg tablet 10 mg PO DAILY 03/11/21 02/07/22 tramadol 50 mg tablet 50 mg PO PRN PRN Pain 03/11/21 02/07/22 cyclobenzaprine 5 mg tablet 10 mg PO QHS 09/19/21 02/07/22 omeprazole 20 mg capsule,delayed 20 mg PO DAILY 09/19/21 02/07/22 release tocilizumab 80 mg/4 mL (20 mg/mL) 80 mg IV MONTHLY 09/19/21 02/07/22 intravenous solution (Actemra) vitamin B complex (B 1 tablet PO DAILY 09/19/21 02/07/22 Complex-Vitamin B12 tablet) hydrocodone 5 mg-acetaminophen 325 1 tablet Q4-6H PRN Pain 02/02/22 02/07/22 mg tablet sulfasalazine 500 mg 1,000 mg PO BID 02/02/22 02/07/22 tablet,delayed release lactulose 10 gram/15 mL (15 mL) 20 ml PO DAILY 02/07/22 02/07/22 oral solution metoprolol succinate 25 mg 25 mg PO HS 02/07/22 02/07/22 tablet,extended release 24 hr metoprolol succinate 50 mg 50 mg PO DAILY 02/07/22 02/07/22 tablet,extended release 24 hr Allergies Allergy/AdvReac Type Severity Reaction Status Date / Time Penicillins Allergy Mild RASH,ITCHIN Verified 02/06/22 21:15 G amoxicillin Allergy Rash Verified 02/06/22 21:15 Review of Systems Review of Systems: CONST: No fever. HEENT: Left cheek/neck pain C/V: No chest pain RESP: No cough GI: No nausea/vomiting : No dysuria. M/S: No joint pain. SKIN: Rash left cheek/neck NEURO: [No headache or focal numbness or weakness] PSYCH: [No depression] [facility] Past Medical History Medical History Anxiety Asthma B12 deficiency Depression Interstitial cystitis Migraines Rheumatoid arthritis Sjogren's disease UTI (urinary tract infection) Surgical History Surgical History No significant past surgical history Social History Social History Smoking packs per day: 0.5 Smoking cigarettes per day: 10.0 Smoking status: Current every day smoker Tobacco type: cigarettes Alcohol intake: current Drinks per week: 1 Substance use: never Substance use type: does not use Gender identity (if verbalized by the patient): Female Sexual Orientation (if Verbalized by the Patient): Straight or Heterosexual Spiritual care concerns: No Exam Narrative: EXAMINATION OF ORGAN SYSTEMS/BODY AREAS: Constitutional: Vital signs per nursing GENERAL:[No acute distress, non-toxic appearing.] HEAD: Normal with no signs of head trauma. EYES: EOMI, conjunctiva normal ENT: Trismus; left cheek/mandible swelling, tender, rigid, with extension and induration extending down neck LUNGS: Nonlabored breathing. HEART: [Regular rate and rhythm] ABD: [Soft], [nontender to palpation] EXT: Normal range of motion SKIN: Cheek/neck erythematous induration as above NEURO: [Alert and oriented x 3. No gross focal sensory or strength deficits.] PSYCH: Normal affect Course
[2022-02-07] MEDS: MORPHINE SULFATE (*CRX) 2 MG/ML INJ IV PUSH (01:04)
[2022-02-07 01:48] LABS: SARS-CoV-2 RNA PCR Negative
--- NOTE | 2022-02-07 04:03 | ADMGEN ---
This patient, Niya Cramer, was admitted to 3 Med Surg Room 309-01. Patient/family oriented to hospital policies and general routines including ID bracelet, bed and alarms, visiting hours, pain management, procedures, bathroom and other care routines, personal items, smoking policy, room service/diet, and visiting hours. Information on how to activate the Rapid Response Team has been discussed. Patient/Family are encouraged to report perceived risks to care and to ask questions if they do not understand what they are told or what they should do.
[2022-02-07] MEDS: DEXTROSE 5%/0.45% SOD CHL 1,000 ML 75 ML IV CONT ×2 (04:55→16:50)
[2022-02-07] MEDS: MORPHINE SULFATE (*CRX) 4 MG/ML INJ IV PUSH ×5 (05:06→23:15)
[2022-02-07] MEDS: CLINDAMYCIN 600 MG/D5W 50 ML 600 MG/50 ML PIGGYBACK 100 MG IVPB ×3 (06:08→21:54)
[2022-02-07] MEDS: sulfaSALAzine 500 MG TABLET 1000 MG PO ×2 (09:48→16:50)
[2022-02-07] MEDS: DULoxetine HCL 30 MG CAPSULE.DR 90 MG PO (09:48)
[2022-02-07] MEDS: FAMOTIDINE 20 MG TABLET 40 MG PO (09:48)
[2022-02-07] MEDS: VITAMIN B COMPLEX CAPSULE 1 CAP PO (09:48)
[2022-02-07] MEDS: LACTULOSE 20 GM/30 ML UDC PO (09:49)
[2022-02-07] MEDS: MONTELUKAST SODIUM 10 MG TABLET PO (09:49)
[2022-02-07] MEDS: LORATADINE 10 MG TABLET PO (09:49)
[2022-02-07] MEDS: METOPROLOL SUCCINATE EXT REL 50 MG TABCR PO (09:49)
[2022-02-07] MEDS: GABAPENTIN 300 MG CAPSULE PO ×2 (09:49→16:50)
[2022-02-07] MEDS: PANTOPRAZOLE 40 MG TABLET PO (09:49)
[2022-02-07] MEDS: MAGNESIUM OXIDE 400 MG TABLET PO (09:49)
[2022-02-07] MEDS: FOLIC ACID 1 MG TABLET PO (09:49)
--- NOTE | 2022-02-07 10:50 | PM.IMPN ---
Progress Note: A&P Assessment and Plan (1) Facial cellulitis: Code(s): L03.211 - Cellulitis of face Status: Acute Assessment and Plan: admit to regular medical floor patient started on clindamycin cultures in progress ENT consult supportive care (2) Status post tooth extraction: Code(s): K08.409 - Partial loss of teeth, unspecified cause, unspecified class Status: Acute Assessment and Plan: supportive care (3) Tobacco dependence: Code(s): F17.200 - Nicotine dependence, unspecified, uncomplicated Status: Acute Assessment and Plan: nicotine patches knee (4) Rheumatoid arthritis: Code(s): M06.9 - Rheumatoid arthritis, unspecified Status: Acute Assessment and Plan: patient on DMARDs continue home meds (5) Sjogren's disease: Code(s): M35.00 - Sjogren syndrome, unspecified Status: Acute Assessment and Plan: unchanged Subjective Date/time seen: 02/07/22 10:50 ongoing pain but no new complaints Exam Const: General: comfortable, no acute distress, well developed, alert, awake and average body habitus Nutritional Appearance: average body habitus Orientation/consciousness: patient oriented x3 HENMT: Head: normal to inspection, normocephalic and atraumatic Ears: hearing grossly normal bilaterally Face/Nose/Sinus: normal facial exam, ecchymosis, edema, No fluctuance and Facial tenderness on exam of face and sinuses Face and sinus: normal facial exam, ecchymosis, edema, no fluctuance, Facial tenderness on exam of face and sinuses and other ( left face swelling) Eyes: General: appearance normal, both eyes and all related structures Pupils: Equal, round and reactive pupils present EOM: EOMs intact bilaterally Neck: Neck: full ROM, no lymphadenopathy and no JVD Thyroid: thyroid normal Lymphatic: no lymphadenopathy noted Resp: Effort & Inspection: normal respiratory effort and able to speak in complete sentences Auscultation: clear to auscultation bilaterally Cardio: Jugular venous distension: no JVD Rate: regular rate Rhythm: regular rhythm Heart sounds: S1 normal heart sound present and S2 normal heart sound present : General: Yes deferred Skin: Rashes: no rashes Wounds: no wounds Neuro: General: patient oriented x3 and CN's II-XI intact bilaterally Cranial nerves: Yes CN's II-XII intact bilaterally and Yes Equal, round and reactive pupils present Cognition (Neuro): normal cognition Speech: normal speech Gait exam (Neuro): Normal gait present Motor exam (neuro): 5/5 motor strength present throughout Sensory Exam: No Sensory deficit (Neuro) Extrem: General: normal to inspection, full ROM, no joint enlargement and no pedal edema Objective Data Vital Signs Vital Signs: Vital Signs - 24 hr 02/06/22 19:16 02/07/22 04:10 02/07/22 04:16 Temperature 98 F 99.0 F Pulse Rate 98 86 95 Respiratory Rate 18 18 19 Blood Pressure 120/86 118/72 129/97 H Pulse Oximetry 99 100 96 Oxygen Delivery Room Air 02/07/22 05:44 02/07/22 09:49 Temperature 99.0 F Pulse Rate 95 90 Respiratory Rate 17 Blood Pressure 126/88 Pulse Oximetry 100 Oxygen Delivery Intake/Output Intake/Output: Intake & Output 02/04/22 02/05/22 02/06/22 02/07/22 23:59 23:59 23:59 23:59 Intake Total 1050 240 Balance 1050 240 Meds/Results Medications: Active Medications Generic Name Dose Route Start Last Admin Trade Name Freq PRN Reason Stop Dose Admin Amitriptyline HCl 25 mg 02/07/22 21:00 Amitriptyline Hcl 25 Mg Tablet PO HS SANCHEZ Cyclobenzaprine HCl 10 mg 02/07/22 21:00 Cyclobenzaprine Hcl 10 Mg Tablet PO QHS SANCHEZ Dexamethasone Sodium Phosphate 16 mg 02/07/22 06:00 02/07/22 08:29 Dexamethasone Sod Phos Inj 10 Mg/Ml 1 Ml Vial IV PUSH 02/10/22 06:01 16 mg Q8HR SANCHEZ Administration Duloxetine HCl 90 mg 02/07/22 09:00 02/07/22 09:48 Duloxetine Hcl 30 Mg Capsule. PO 9
--- NOTE | 2022-02-07 19:18 | WPDPROCEDUR ---
Procedures Other Procedures Procedure 1: Other Procedure: Procedure be transoral incision drainage of left facial abscess. Consent obtained. Correct patient identified. Mouth anesthetized transorally with topical Cetacaine patient was positioned appropriately hemostat was utilized to open the already slightly open socket copious amounts of purulence were expressed this was cultured. Patient tolerated the procedure well.
--- NOTE | 2022-02-07 19:19 | WPDCN ---
Assessment and Plan Assessment and plan (1) Neck infection: Code(s): L08.9 - Local infection of the skin and subcutaneous tissue, unspecified Status: Acute Assessment and Plan: plan operating room for transoral incision and drainage of left-sided facial left-sided neck abscess. This patient unfortunately has a complication from dental extraction. She is immunocompromised. Significant trismus. Risks discussed including failure to resolve symptoms need for further procedures need for transcervical I&D if unable to reach purulence trans orally. 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 Would recommend glide scope for intubation. NPO at midnight continue IV antibiotics finish 3 doses of steroids, CBC and morning, follow-up culture results. (2) Neck abscess: Code(s): L02.11 - Cutaneous abscess of neck Status: Acute (3) Facial abscess: Code(s): L02.01 - Cutaneous abscess of face Status: Acute HPI Data of Consult Date/Time: 02/07/22 19:19 Requesting Physician: Carrie Day MD Primary Care Provider: Pete Taylor, Consult Narrative Reason for consult: Facial abscess odontogenic Narrative: Niya Cramer is a 26 year old female status post dental extraction. CT demonstrates lots of fat stranding exam consistent with abscess. See procedure note for drainage. White count was normal in the ER with patient is Immunocompromised. Reports slight improvement over the past 24 hours status post several doses of Decadron clindamycin. Review of Systems Review of Systems: All systems reviewed & are unremarkable except as noted in HPI and below PMFSH Past Medical History Medical History Anxiety Asthma B12 deficiency Depression Interstitial cystitis Migraines Rheumatoid arthritis Sjogren's disease UTI (urinary tract infection) Surgical History Surgical History No significant past surgical history Social History Social History Smoking packs per day: 0.5 Smoking cigarettes per day: 10.0 Smoking status: Current every day smoker Tobacco type: cigarettes Alcohol intake: current Drinks per week: 1 Substance use: never Substance use type: does not use Gender identity (if verbalized by the patient): Female Sexual Orientation (if Verbalized by the Patient): Straight or Heterosexual Spiritual care concerns: No Meds Home Medications and Allergies Home Medications Medication Instructions Recorded Confirmed Type folic acid 1 mg tablet 1 mg PO DAILY 07/26/20 02/07/22 History magnesium 250 mg tablet 500 mg PO DAILY 10/08/20 02/07/22 History duloxetine 60 mg capsule,delayed 90 mg PO DAILY 10/24/20 02/07/22 History release B Complex-Vitamin B12 1 tablet PO DAILY 03/11/21 02/07/22 History amitriptyline 25 mg tablet 25 mg PO HS 03/11/21 02/07/22 History cetirizine 10 mg tablet 10 mg PO DAILY 03/11/21 02/07/22 History famotidine 40 mg tablet 40 mg PO DAILY 03/11/21 02/07/22 History gabapentin 300 mg capsule 300 mg PO BID 03/11/21 02/07/22 History montelukast 10 mg tablet 10 mg PO DAILY 03/11/21 02/07/22 History tramadol 50 mg tablet 50 mg PO PRN PRN Pain 03/11/21 02/07/22 History cyclobenzaprine 5 mg tablet 10 mg PO QHS 09/19/21 02/07/22 History omeprazole 20 mg capsule,delayed 20 mg PO DAILY 09/19/21 02/07/22 History release tocilizumab 80 mg/4 mL (20 mg/mL) 80 mg IV MONTHLY 09/19/21 02/07/22 History intravenous solution (Actemra) vitamin B complex (B 1 tablet PO DAILY 09/19/21 02/07/22 History Complex-Vitamin B12 tablet) hydrocodone 5 mg-acetaminophen 325 1 tablet Q4-6H PRN Pain 02/02/22 02/07/22 History mg tablet sulfasalazine 500 mg 1,000 mg PO BID 02/02/22 02/07/22 History tablet,delayed release lactulose 10 gram/15 mL (15 mL) 20 ml PO DAILY 10
--- NOTE | 2022-02-07 19:24 | PM.IMHP ---
H&P: HPI History of Present Illness Date/Time: 02/07/22 19:24 Chief Complaint: Left facial abscess left neck abscess Narrative: planned surgical procedure somewhat urgent given the abscess and acute nature of the disease Review of Systems Review of Systems: All systems reviewed & are unremarkable except as noted in HPI and below PMFSH Past Medical History Medical History Anxiety Asthma B12 deficiency Depression Interstitial cystitis Migraines Rheumatoid arthritis Sjogren's disease UTI (urinary tract infection) Surgical History Surgical History No significant past surgical history Social History Social History Smoking packs per day: 0.5 Smoking cigarettes per day: 10.0 Smoking status: Current every day smoker Tobacco type: cigarettes Alcohol intake: current Drinks per week: 1 Substance use: never Substance use type: does not use Gender identity (if verbalized by the patient): Female Sexual Orientation (if Verbalized by the Patient): Straight or Heterosexual Spiritual care concerns: No Meds Home Medications and Allergies Home Medications Medication Instructions Recorded Confirmed Type folic acid 1 mg tablet 1 mg PO DAILY 07/26/20 02/07/22 History magnesium 250 mg tablet 500 mg PO DAILY 10/08/20 02/07/22 History duloxetine 60 mg capsule,delayed 90 mg PO DAILY 10/24/20 02/07/22 History release B Complex-Vitamin B12 1 tablet PO DAILY 03/11/21 02/07/22 History amitriptyline 25 mg tablet 25 mg PO HS 03/11/21 02/07/22 History cetirizine 10 mg tablet 10 mg PO DAILY 03/11/21 02/07/22 History famotidine 40 mg tablet 40 mg PO DAILY 03/11/21 02/07/22 History gabapentin 300 mg capsule 300 mg PO BID 03/11/21 02/07/22 History montelukast 10 mg tablet 10 mg PO DAILY 03/11/21 02/07/22 History tramadol 50 mg tablet 50 mg PO PRN PRN Pain 03/11/21 02/07/22 History cyclobenzaprine 5 mg tablet 10 mg PO QHS 09/19/21 02/07/22 History omeprazole 20 mg capsule,delayed 20 mg PO DAILY 09/19/21 02/07/22 History release tocilizumab 80 mg/4 mL (20 mg/mL) 80 mg IV MONTHLY 09/19/21 02/07/22 History intravenous solution (Actemra) vitamin B complex (B 1 tablet PO DAILY 09/19/21 02/07/22 History Complex-Vitamin B12 tablet) hydrocodone 5 mg-acetaminophen 325 1 tablet Q4-6H PRN Pain 02/02/22 02/07/22 History mg tablet sulfasalazine 500 mg 1,000 mg PO BID 02/02/22 02/07/22 History tablet,delayed release lactulose 10 gram/15 mL (15 mL) 20 ml PO DAILY 02/07/22 02/07/22 History oral solution metoprolol succinate 25 mg 25 mg PO HS 02/07/22 02/07/22 History tablet,extended release 24 hr metoprolol succinate 50 mg 50 mg PO DAILY 02/07/22 02/07/22 History tablet,extended release 24 hr Allergies Allergy/AdvReac Type Severity Reaction Status Date / Time Penicillins Allergy Mild RASH,ITCHIN Verified 02/06/22 21:15 G amoxicillin Allergy Rash Verified 02/06/22 21:15 Vital Signs Vital Signs - 24 hr 02/07/22 04:10 02/07/22 04:16 02/07/22 05:44 Temperature 37.2 C 37.2 C Pulse Rate 86 95 95 Respiratory Rate 18 19 17 Blood Pressure 118/72 129/97 H 126/88 Pulse Oximetry 100 96 100 Oxygen Delivery 02/07/22 09:49 02/07/22 08:00 02/07/22 14:00 Temperature 37.1 C Pulse Rate 90 87 Respiratory Rate 18 Blood Pressure 106/65 Pulse Oximetry 98 Oxygen Delivery Room Air Exam Narrative: left facial fluctuance able to express trans orally yet not enough. Trismus edema erythema H&P: Results Labs Labs: Short CBC 02/06/22 Range/Units 21:59 WBC 8.4 (4.5-10.0) K/mm3 Hgb 14.0 (12.0-15.0) g/dL Hct 40.7 (37.0-47.0) % Plt Count 235 (150-375) k/mm3 BMP 02/06/22 22:34 Sodium 138 Potassium 3.4 Chloride 107 Carbon Dioxide 24 BUN 12 D Creatinine 0.80 Glucose 93 Calcium 7.6
[2022-02-07] MEDS: AMITRIPTYLINE HCL 25 MG TABLET PO (20:38)
[2022-02-07] MEDS: CYCLOBENZAPRINE HCL 10 MG TABLET PO (20:38)
[2022-02-07] MEDS: METOPROLOL SUCCINATE EXT REL 25 MG TABCR PO (20:41)
[2022-02-08] VITALS (15 sets, daily range): BP systolic 109–147; BP diastolic 57–99; PULSE 54–84; RESP 12–20; TEMP 35.8–36.4; O2SAT 96–100
[2022-02-08] MEDS: MORPHINE SULFATE (*CRX) 4 MG/ML INJ IV PUSH ×4 (05:20→16:40)
[2022-02-08] MEDS: CLINDAMYCIN 600 MG/D5W 50 ML 600 MG/50 ML PIGGYBACK 100 MG IVPB ×3 (05:51→20:51)
[2022-02-08 06:04] LABS: Hematocrit 35.4 % (37.0-47.0); Hemoglobin 11.9 g/dL (12.0-15.0); Mean Corpuscular HGB Conc 33.6 g/dl (32-36); Mean Corpuscular Hemoglobin 33.1 pg (26-34); Mean Corpuscular Volume 98.3 fl (80-100); Mean Platelet Volume 9.7 fl (7.4-10.4); Platelet Count Result 229 k/mm3 (150-375); Red Cell Distribution Width 12.5 % (11.5-14.5); White Blood Count 10.3 K/mm3 (4.5-10.0)
--- NOTE | 2022-02-08 07:19 | WPDHPUPDATE1 ---
History and Physical Update Update Date/Time: 02/08/22 07:19 History and Physical has been reviewed, including an updated exam of the patient. There are NO changes in the patient's condition. Risks, benefits, and alternatives have been discussed and questions answered. Patient agrees to proceed with procedure.
[2022-02-08] MEDS: CHLORHEXIDINE GLUCONATE 0.12% ORAL RINSE 473 ML BTL (*BKC) 15 ML SWISH/SPIT ×3 (08:59→20:48)
[2022-02-08] MEDS: GABAPENTIN 300 MG CAPSULE PO ×2 (09:00→16:27)
[2022-02-08] MEDS: METOPROLOL SUCCINATE EXT REL 50 MG TABCR PO (09:00)
[2022-02-08] MEDS: sulfaSALAzine 500 MG TABLET 1000 MG PO ×2 (09:00→16:28)
[2022-02-08] MEDS: DULoxetine HCL 30 MG CAPSULE.DR 90 MG PO (09:01)
--- NOTE | 2022-02-08 10:23 | PM.IMPN ---
Progress Note: A&P Assessment and Plan (1) Facial cellulitis: Code(s): L03.211 - Cellulitis of face Status: Acute Assessment and Plan: admit to regular medical floor patient started on clindamycin cultures in progress ENT consult supportive care (2) Status post tooth extraction: Code(s): K08.409 - Partial loss of teeth, unspecified cause, unspecified class Status: Acute Assessment and Plan: supportive care (3) Tobacco dependence: Code(s): F17.200 - Nicotine dependence, unspecified, uncomplicated Status: Acute Assessment and Plan: nicotine patches knee (4) Rheumatoid arthritis: Code(s): M06.9 - Rheumatoid arthritis, unspecified Status: Acute Assessment and Plan: patient on DMARDs continue home meds (5) Sjogren's disease: Code(s): M35.00 - Sjogren syndrome, unspecified Status: Acute Assessment and Plan: unchanged Subjective Date/time seen: 02/08/22 10:23 No new complaints Exam Narrative: patient is laying in a stretcher Const: General: comfortable, no acute distress, well developed, alert, awake and average body habitus Nutritional Appearance: average body habitus Orientation/consciousness: patient oriented x3 HENMT: Head: normal to inspection, normocephalic and atraumatic Ears: hearing grossly normal bilaterally Face/Nose/Sinus: normal facial exam, ecchymosis, edema, No fluctuance and Facial tenderness on exam of face and sinuses Face and sinus: normal facial exam, ecchymosis, edema, no fluctuance, Facial tenderness on exam of face and sinuses and other ( left face swelling) Eyes: General: appearance normal, both eyes and all related structures Pupils: Equal, round and reactive pupils present EOM: EOMs intact bilaterally Neck: Neck: full ROM, no lymphadenopathy and no JVD Thyroid: thyroid normal Lymphatic: no lymphadenopathy noted Resp: Effort & Inspection: normal respiratory effort and able to speak in complete sentences Auscultation: clear to auscultation bilaterally Cardio: Jugular venous distension: no JVD Rate: regular rate Rhythm: regular rhythm Heart sounds: S1 normal heart sound present and S2 normal heart sound present : General: Yes deferred Skin: Rashes: no rashes Wounds: no wounds Neuro: General: patient oriented x3 and CN's II-XI intact bilaterally Cranial nerves: Yes CN's II-XII intact bilaterally and Yes Equal, round and reactive pupils present Cognition (Neuro): normal cognition Speech: normal speech Gait exam (Neuro): Normal gait present Motor exam (neuro): 5/5 motor strength present throughout Sensory Exam: No Sensory deficit (Neuro) Extrem: General: normal to inspection, full ROM, no joint enlargement and no pedal edema Objective Data Vital Signs Vital Signs: Vital Signs - 24 hr 02/07/22 14:00 02/07/22 22:00 02/07/22 20:00 Temperature 98.7 F 96.2 F L Pulse Rate 87 70 70 Respiratory Rate 18 18 18 Blood Pressure 106/65 118/76 Pulse Oximetry 98 99 99 Oxygen Delivery Room Air 02/08/22 06:00 02/08/22 09:00 Temperature 96.5 F L Pulse Rate 78 78 Respiratory Rate 18 Blood Pressure 109/67 Pulse Oximetry 98 Oxygen Delivery Intake/Output Intake/Output: Intake & Output 02/05/22 02/06/22 02/07/22 02/08/22 23:59 23:59 23:59 23:59 Intake Total 1050 1900 1550 Output Total 1425 2375 Balance 1050 475 -825 Meds/Results Medications: Active Medications Generic Name Dose Route Start Last Admin Trade Name Freq PRN Reason Stop Dose Admin Amitriptyline HCl 25 mg 02/07/22 21:00 02/07/22 20:38 Amitriptyline Hcl 25 Mg Tablet PO 25 mg HS SANCHEZ Administration Chlorhexidine Gluconate 15 ml 02/08/22 09:00 02/08/22 08:59 Chlorhexidine Gluconate 0.12% Oral Rinse 473 Ml Btl (*Bkc) SWISH/SPIT 15 ml QID SANCHEZ Administration Cyclobenzaprine HCl 10 mg 02/07/22 21:00 02/07/22 20:38 Cyclobenzaprine Hcl 10 Mg Tablet PO 10
[2022-02-08] MEDS: traMADol HCL (*CRX) 50 MG TABLET PO (11:22)
--- NOTE | 2022-02-08 13:10 | PC.NURSE ---
To OR via wheelchair
--- NOTE | 2022-02-08 13:44 | WPDANESEPPF ---
Anes - Initial Pre Proc Eval Procedure: Operation Date: 02/08/22 13:30 Proposed Procedures p Incision And Drainage Left Facial Abscess - Itz Alston MD Date/Time: 02/08/22 13:44 Surgeon: Carrie Day MD Pre Op Diagnosis: Left Deep Cheek/neck Inflammation/infection Patient Data Age: 26 Gender: F Height: 1.63 m Weight: 62.2 kg Last Vital Signs Temp 36.4 C L 02/08/22 13:34 Pulse 66 02/08/22 13:34 Resp 20 02/08/22 13:34 BP 114/61 02/08/22 13:34 Pulse Ox 99 02/08/22 13:34 O2 Del Method Room Air 02/08/22 13:34 Allergies Allergy/AdvReac Type Severity Reaction Status Date / Time Penicillins Allergy Mild RASH,ITCHIN Verified 02/06/22 21:15 G amoxicillin Allergy Rash Verified 02/06/22 21:15 Home Medications Medication Instructions Recorded Confirmed Type folic acid 1 mg tablet 1 mg PO DAILY 07/26/20 02/07/22 History magnesium 250 mg tablet 500 mg PO DAILY 10/08/20 02/07/22 History duloxetine 60 mg capsule,delayed 90 mg PO DAILY 10/24/20 02/07/22 History release B Complex-Vitamin B12 1 tablet PO DAILY 03/11/21 02/07/22 History amitriptyline 25 mg tablet 25 mg PO HS 03/11/21 02/07/22 History cetirizine 10 mg tablet 10 mg PO DAILY 03/11/21 02/07/22 History famotidine 40 mg tablet 40 mg PO DAILY 03/11/21 02/07/22 History gabapentin 300 mg capsule 300 mg PO BID 03/11/21 02/07/22 History montelukast 10 mg tablet 10 mg PO DAILY 03/11/21 02/07/22 History tramadol 50 mg tablet 50 mg PO PRN PRN Pain 03/11/21 02/07/22 History cyclobenzaprine 5 mg tablet 10 mg PO QHS 09/19/21 02/07/22 History omeprazole 20 mg capsule,delayed 20 mg PO DAILY 09/19/21 02/07/22 History release tocilizumab 80 mg/4 mL (20 mg/mL) 80 mg IV MONTHLY 09/19/21 02/07/22 History intravenous solution (Actemra) vitamin B complex (B 1 tablet PO DAILY 09/19/21 02/07/22 History Complex-Vitamin B12 tablet) hydrocodone 5 mg-acetaminophen 325 1 tablet Q4-6H PRN Pain 02/02/22 02/07/22 History mg tablet sulfasalazine 500 mg 1,000 mg PO BID 02/02/22 02/07/22 History tablet,delayed release lactulose 10 gram/15 mL (15 mL) 20 ml PO DAILY 02/07/22 02/07/22 History oral solution metoprolol succinate 25 mg 25 mg PO HS 02/07/22 02/07/22 History tablet,extended release 24 hr metoprolol succinate 50 mg 50 mg PO DAILY 02/07/22 02/07/22 History tablet,extended release 24 hr diclofenac sodium 75 mg 75 mg PO BID 02/08/22 02/08/22 History tablet,delayed release Laboratory Tests 02/08/22 05:37 WBC 10.3 K/mm3 H K/mm3 (4.5-10.0) RBC 3.60 M/mm3 L M/mm3 (4.2-5.4) Hgb 11.9 g/dL L g/dL (12.0-15.0) Hct 35.4 % L % (37.0-47.0) MCV 98.3 fl fl (80-100) MCH 33.1 pg pg (26-34) MCHC 33.6 g/dl g/dl (32-36) RDW 12.5 % % (11.5-14.5) Plt Count 229 k/mm3 k/mm3 (150-375) MPV 9.7 fl fl (7.4-10.4) Patient hx anesthesia problems: none Family hx anesthesia problems: none Results Review: All pre-operative results and documents have been reviewed as part of the pre-operative evaluation. [facility] Past Medical History Medical History Anxiety Asthma B12 deficiency Depression Interstitial cystitis Migraines Rheumatoid arthritis Sjogren's disease UTI (urinary tract infection) Surgical History Surgical History No significant past surgical history Social History Social History Smoking packs per day: 0.5 Smoking cigarettes per day: 10.0 Smoking status: Current every day smoker Tobacco type: cigarettes Alcohol intake: current Drinks per week: 1 Substance use: never Substance use type: does not use Gender identity (if verbalized by the patient): Female Sexual Orientation (if Verbalized by the Patient): Straight or Heterosexual Spiritual care concerns: No A
[2022-02-08] MEDS: LACTATED RINGERS 1,000 ML 30 ML IV CONT (14:24)
[2022-02-08] MEDS: fentaNYL CITRATE INJ (*CRX) 100 MCG/2 ML VIAL 25 MCG IV PUSH ×2 (15:02→15:05)
--- NOTE | 2022-02-08 15:30 | W.PM.PROC2 ---
Procedure Note - Detailed Date of Procedure 02/08/22 Pre-op Diagnosis left facial abscess Post-op Diagnosis Same Procedure Performed transoral incision and drainage left-sided facial abscess Surgeon Itz Alston MD Anesthesia General Indications see above Findings open socket purulence expressed minimal if any purulence compared to 24 hours prior abscess pocket opened widely Description of Procedure patient identified consent verified. Patient brought operating room. Time-out performed. General anesthesia induced endotracheal tube secured no patient prepped draped bed turned 2nd time-out performed. McIvor mouth gag inserted to reveal a large open socket. The abscess was palpated and scant amount of purulence and blood were further expressed. 1.5 cc 1% lidocaine 1 100,000 parts epinephrine injected anterior to the pocket along the gingiva lateral aspect. The gingival buccal sulcus. Bovie electrocautery 1st on cut then coag at a setting of 10 each was utilized to open the gingiva. Blunt dissection was then utilized to further widen the socket and open the abscess pocket completely. The wound was then copiously irrigated with sterile normal saline. Patient tolerated the procedure well again the abscess is largely drained. Care the patient given Anesthesiology blood loss about 5 cc. I performed all dictated portions patient taken to PACU. Urine Output 2,375 Drains No Packing No Pathology None sent Complications No immediate complications Condition Stable Disposition PACU
--- NOTE | 2022-02-08 15:39 | SUR.PHASEI ---
1517: Simple mask removed.
--- NOTE | 2022-02-08 16:00 | PC.NURSE ---
Returned from OR
[2022-02-08] MEDS: PANTOPRAZOLE 40 MG TABLET PO (16:27)
[2022-02-08] MEDS: MAGNESIUM OXIDE 400 MG TABLET PO (16:27)
[2022-02-08] MEDS: MONTELUKAST SODIUM 10 MG TABLET PO (16:27)
[2022-02-08] MEDS: LACTULOSE 20 GM/30 ML UDC PO (16:27)
[2022-02-08] MEDS: VITAMIN B COMPLEX CAPSULE 1 CAP PO (16:27)
[2022-02-08] MEDS: FAMOTIDINE 20 MG TABLET 40 MG PO (16:28)
[2022-02-08] MEDS: LORATADINE 10 MG TABLET PO (16:28)
[2022-02-08] MEDS: FOLIC ACID 1 MG TABLET PO (16:28)
[2022-02-08] MEDS: DICLOFENAC SOD 75 MG TABLET.EC PO (18:01)
[2022-02-08] MEDS: oxyCODONE/ACETAMINOPHEN (*CRX) 10-325 MG TABLET 1 TAB PO ×2 (18:02→20:44)
[2022-02-08] MEDS: CYCLOBENZAPRINE HCL 10 MG TABLET PO (20:46)
[2022-02-08] MEDS: AMITRIPTYLINE HCL 25 MG TABLET PO (20:48)
[2022-02-08] MEDS: METOPROLOL SUCCINATE EXT REL 25 MG TABCR PO (20:49)
[2022-02-09] MEDS: oxyCODONE/ACETAMINOPHEN (*CRX) 10-325 MG TABLET 1 TAB PO ×6 (00:44→22:14)
[2022-02-09] MEDS: CLINDAMYCIN 600 MG/D5W 50 ML 600 MG/50 ML PIGGYBACK 100 MG IVPB ×3 (05:02→20:58)
[2022-02-09 05:45] VITALS: BP 108/57; PULSE 62; RESP 18; TEMP 35.9; O2SAT 98
[2022-02-09 06:09] LABS: Hematocrit 33.9 % (37.0-47.0); Hemoglobin 11.1 g/dL (12.0-15.0); Mean Corpuscular HGB Conc 32.7 g/dl (32-36); Mean Corpuscular Hemoglobin 33.1 pg (26-34); Mean Corpuscular Volume 101.2 fl (80-100); Mean Platelet Volume 10.2 fl (7.4-10.4); Platelet Count Result 226 k/mm3 (150-375); Red Blood Count 3.35 M/mm3 (4.2-5.4); Red Cell Distribution Width 12.8 % (11.5-14.5); White Blood Count 10.8 K/mm3 (4.5-10.0)
[2022-02-09 09:46] VITALS: PULSE 62
[2022-02-09] MEDS: METOPROLOL SUCCINATE EXT REL 50 MG TABCR PO (09:46)
[2022-02-09] MEDS: VITAMIN B COMPLEX CAPSULE 1 CAP PO (09:46)
[2022-02-09] MEDS: FAMOTIDINE 20 MG TABLET 40 MG PO (09:46)
[2022-02-09] MEDS: MAGNESIUM OXIDE 400 MG TABLET PO (09:46)
[2022-02-09] MEDS: LORATADINE 10 MG TABLET PO (09:46)
[2022-02-09] MEDS: GABAPENTIN 300 MG CAPSULE PO ×2 (09:46→18:05)
[2022-02-09] MEDS: PANTOPRAZOLE 40 MG TABLET PO (09:47)
[2022-02-09] MEDS: DICLOFENAC SOD 75 MG TABLET.EC PO ×2 (09:47→18:05)
[2022-02-09] MEDS: FOLIC ACID 1 MG TABLET PO (09:47)
[2022-02-09] MEDS: DULoxetine HCL 30 MG CAPSULE.DR 90 MG PO (09:47)
[2022-02-09] MEDS: LACTULOSE 20 GM/30 ML UDC PO (09:50)
[2022-02-09] MEDS: MONTELUKAST SODIUM 10 MG TABLET PO (09:50)
[2022-02-09] MEDS: sulfaSALAzine 500 MG TABLET 1000 MG PO ×2 (09:50→18:05)
--- NOTE | 2022-02-09 11:08 | PM.IMPN ---
Progress Note: A&P Assessment and Plan (1) Facial cellulitis: Code(s): L03.211 - Cellulitis of face Status: Acute Assessment and Plan: admit to regular medical floor patient started on clindamycin cultures in progress ENT consult supportive care (2) Status post tooth extraction: Code(s): K08.409 - Partial loss of teeth, unspecified cause, unspecified class Status: Acute Assessment and Plan: supportive care (3) Tobacco dependence: Code(s): F17.200 - Nicotine dependence, unspecified, uncomplicated Status: Acute Assessment and Plan: nicotine patches knee (4) Rheumatoid arthritis: Code(s): M06.9 - Rheumatoid arthritis, unspecified Status: Acute Assessment and Plan: patient on DMARDs continue home meds (5) Sjogren's disease: Code(s): M35.00 - Sjogren syndrome, unspecified Status: Acute Assessment and Plan: unchanged Subjective Date/time seen: 02/09/22 11:08 Feeling a little better. Less pain today. Swelling improved Exam Const: General: comfortable, no acute distress, well developed, alert, awake and average body habitus Nutritional Appearance: average body habitus Orientation/consciousness: patient oriented x3 HENMT: Head: normal to inspection, normocephalic and atraumatic Ears: hearing grossly normal bilaterally Face/Nose/Sinus: normal facial exam, ecchymosis, edema, No fluctuance and Facial tenderness on exam of face and sinuses Face and sinus: normal facial exam, ecchymosis, edema, no fluctuance, Facial tenderness on exam of face and sinuses and other ( left face swelling) Eyes: General: appearance normal, both eyes and all related structures Pupils: Equal, round and reactive pupils present EOM: EOMs intact bilaterally Neck: Neck: full ROM, no lymphadenopathy and no JVD Thyroid: thyroid normal Lymphatic: no lymphadenopathy noted Resp: Effort & Inspection: normal respiratory effort and able to speak in complete sentences Auscultation: clear to auscultation bilaterally Cardio: Jugular venous distension: no JVD Rate: regular rate Rhythm: regular rhythm Heart sounds: S1 normal heart sound present and S2 normal heart sound present : General: Yes deferred Skin: Rashes: no rashes Wounds: no wounds Neuro: General: patient oriented x3 and CN's II-XI intact bilaterally Cranial nerves: Yes CN's II-XII intact bilaterally and Yes Equal, round and reactive pupils present Cognition (Neuro): normal cognition Speech: normal speech Gait exam (Neuro): Normal gait present Motor exam (neuro): 5/5 motor strength present throughout Sensory Exam: No Sensory deficit (Neuro) Extrem: General: normal to inspection, full ROM, no joint enlargement and no pedal edema Objective Data Vital Signs Vital Signs: Vital Signs - 24 hr 02/08/22 13:34 02/08/22 14:24 02/08/22 14:40 Temperature 97.5 F L 97.6 F Pulse Rate 66 67 63 Respiratory Rate 20 19 12 Blood Pressure 114/61 121/84 147/99 H Pulse Oximetry 99 100 100 Oxygen Delivery Room Air Simple Face Mask Simple Face Mask Oxygen Flow Rate 8 10 02/08/22 14:55 02/08/22 15:10 02/08/22 15:25 Temperature Pulse Rate 69 54 L 66 Respiratory Rate 20 13 15 Blood Pressure 124/94 H 133/89 119/79 Pulse Oximetry 100 100 97 Oxygen Delivery Simple Face Mask Simple Face Mask Room Air Oxygen Flow Rate 10 10 02/08/22 15:40 02/08/22 16:00 02/08/22 16:15 Temperature 96.6 F L 97.3 F L Pulse Rate 58 L 59 L 61 Respiratory Rate 13 16 16 Blood Pressure 121/89 117/72 115/70 Pulse Oximetry 100 96 96 Oxygen Delivery Room Air Oxygen Flow Rate 02/08/22 16:45 02/08/22 17:45 02/08/22 20:49 Temperature 97.2 F L 97.4 F L Pulse Rate 80 73 76 Respiratory Rate 16 16 Blood Pressure 129/73 114/57 L Pulse Oximetry 97 97 Oxygen Delivery Oxygen Flow Rate 02/08/22 20:50 02/08/22 22:00 02/09/22 05:45 Temperature 97.0 F L 96.6 F L Pulse Rate 84 62 Res
--- NOTE | 2022-02-09 12:00 | WPDANESPN ---
Anes - Prog Note Post-Op Date/Time: 02/09/22 12:37 Cardiovascular status: normal Respiratory status: normal Airway patency: baseline Post-Op hydration status: normal Vital Signs: Last Vital Signs Temp 96.6 F L 02/09/22 05:45 Pulse 62 02/09/22 09:46 Resp 18 02/09/22 05:45 BP 108/57 L 02/09/22 05:45 Pulse Ox 98 02/09/22 05:45 O2 Del Method Room Air 02/08/22 20:50 O2 Flow Rate 10 02/08/22 15:10 Pain Score (VAS): 0 I/O: Intake & Output 02/08/22 02/09/22 02/09/22 23:59 07:59 15:59 Intake Total 1040 1150 360 Output Total 1153 1100 Balance -113 50 360 Laboratory Tests 02/09/22 05:42 02/06/22 22:34 02/09/22 05:42 WBC 10.8 H RBC 3.35 L Hgb 11.1 L Hct 33.9 L MCV 101.2 H MCH 33.1 MCHC 32.7 RDW 12.8 Plt Count 226 MPV 10.2 Microbiology 02/07/22 19:05 Cheek Left Wound Culture - Preliminary Post-procedural complaints: none Patient Feedback: Patient satisfied with anesthetic care.
[2022-02-09 14:00] VITALS: BP 115/70; PULSE 87; RESP 18; TEMP 36.1; O2SAT 97
[2022-02-09 20:55] VITALS: PULSE 76
[2022-02-09] MEDS: METOPROLOL SUCCINATE EXT REL 25 MG TABCR PO (20:55)
[2022-02-09] MEDS: AMITRIPTYLINE HCL 25 MG TABLET PO (20:57)
[2022-02-09] MEDS: CYCLOBENZAPRINE HCL 10 MG TABLET PO (20:58)
[2022-02-09 22:00] VITALS: BP 106/56; PULSE 74; RESP 18; TEMP 35.8; O2SAT 100
--- NOTE | 2022-02-10 02:11 | PC.NURSE ---
This RN has personally reviewed RN-License Pending Fady Durant's charting and will be reviewing until the end of this shift.
[2022-02-10] MEDS: oxyCODONE/ACETAMINOPHEN (*CRX) 10-325 MG TABLET 1 TAB PO (02:17)
[2022-02-10] MEDS: CLINDAMYCIN 600 MG/D5W 50 ML 600 MG/50 ML PIGGYBACK 100 MG IVPB (05:20)
[2022-02-10 06:00] VITALS: BP 105/65; PULSE 69; RESP 18; TEMP 36.2; O2SAT 98
[2022-02-10] MEDS: oxyCODONE/ACETAMINOPHEN (*CRX) 5-325 MG TABLET 1 TABLET PO ×2 (06:30→14:45)
[2022-02-10 07:22] LABS: Hematocrit 34.8 % (37.0-47.0); Hemoglobin 11.3 g/dL (12.0-15.0); Mean Corpuscular HGB Conc 32.5 g/dl (32-36); Mean Corpuscular Hemoglobin 33.2 pg (26-34); Mean Corpuscular Volume 102.4 fl (80-100); Platelet Count Result 171 k/mm3 (150-375); Red Cell Distribution Width 12.7 % (11.5-14.5); White Blood Count 5.7 K/mm3 (4.5-10.0)
[2022-02-10 08:05] VITALS: PULSE 69
[2022-02-10] MEDS: FOLIC ACID 1 MG TABLET PO (08:05)
[2022-02-10] MEDS: LORATADINE 10 MG TABLET PO (08:05)
[2022-02-10] MEDS: DULoxetine HCL 30 MG CAPSULE.DR 90 MG PO (08:05)
[2022-02-10] MEDS: MONTELUKAST SODIUM 10 MG TABLET PO (08:05)
[2022-02-10] MEDS: VITAMIN B COMPLEX CAPSULE 1 CAP PO (08:05)
[2022-02-10] MEDS: METOPROLOL SUCCINATE EXT REL 50 MG TABCR PO (08:05)
[2022-02-10] MEDS: sulfaSALAzine 500 MG TABLET 1000 MG PO ×2 (08:05→16:56)
[2022-02-10] MEDS: GABAPENTIN 300 MG CAPSULE PO ×2 (08:05→16:56)
[2022-02-10] MEDS: DICLOFENAC SOD 75 MG TABLET.EC PO ×2 (08:05→16:56)
[2022-02-10] MEDS: FAMOTIDINE 20 MG TABLET 40 MG PO (08:06)
[2022-02-10] MEDS: PANTOPRAZOLE 40 MG TABLET PO (08:06)
[2022-02-10] MEDS: LACTULOSE 20 GM/30 ML UDC PO (08:06)
[2022-02-10] MEDS: MAGNESIUM OXIDE 400 MG TABLET PO (08:09)
--- NOTE | 2022-02-10 11:21 | PM.IMPN ---
Progress Note: A&P Assessment and Plan (1) Facial cellulitis: Code(s): L03.211 - Cellulitis of face Status: Acute Assessment and Plan: admit to regular medical floor patient started on clindamycin cultures in progress ENT consult supportive care (2) Status post tooth extraction: Code(s): K08.409 - Partial loss of teeth, unspecified cause, unspecified class Status: Acute Assessment and Plan: supportive care (3) Tobacco dependence: Code(s): F17.200 - Nicotine dependence, unspecified, uncomplicated Status: Acute Assessment and Plan: nicotine patches knee (4) Rheumatoid arthritis: Code(s): M06.9 - Rheumatoid arthritis, unspecified Status: Acute Assessment and Plan: patient on DMARDs continue home meds (5) Sjogren's disease: Code(s): M35.00 - Sjogren syndrome, unspecified Status: Acute Assessment and Plan: unchanged Subjective Date/time seen: 02/10/22 11:21 still having significant pain Exam Const: General: comfortable, no acute distress, well developed, alert, awake and average body habitus Nutritional Appearance: average body habitus Orientation/consciousness: patient oriented x3 HENMT: Head: normal to inspection, normocephalic and atraumatic Ears: hearing grossly normal bilaterally Face/Nose/Sinus: normal facial exam, ecchymosis, edema, No fluctuance and Facial tenderness on exam of face and sinuses Face and sinus: normal facial exam, ecchymosis, edema, no fluctuance, Facial tenderness on exam of face and sinuses and other ( left face swelling) Eyes: General: appearance normal, both eyes and all related structures Pupils: Equal, round and reactive pupils present EOM: EOMs intact bilaterally Neck: Neck: full ROM, no lymphadenopathy and no JVD Thyroid: thyroid normal Lymphatic: no lymphadenopathy noted Resp: Effort & Inspection: normal respiratory effort and able to speak in complete sentences Auscultation: clear to auscultation bilaterally Cardio: Jugular venous distension: no JVD Rate: regular rate Rhythm: regular rhythm Heart sounds: S1 normal heart sound present and S2 normal heart sound present : General: Yes deferred Skin: Rashes: no rashes Wounds: no wounds Neuro: General: patient oriented x3 and CN's II-XI intact bilaterally Cranial nerves: Yes CN's II-XII intact bilaterally and Yes Equal, round and reactive pupils present Cognition (Neuro): normal cognition Speech: normal speech Gait exam (Neuro): Normal gait present Motor exam (neuro): 5/5 motor strength present throughout Sensory Exam: No Sensory deficit (Neuro) Extrem: General: normal to inspection, full ROM, no joint enlargement and no pedal edema Objective Data Vital Signs Vital Signs: Vital Signs - 24 hr 02/09/22 14:00 02/09/22 20:55 02/09/22 22:00 Temperature 96.9 F L 96.5 F L Pulse Rate 87 76 74 Respiratory Rate 18 18 Blood Pressure 115/70 106/56 L Pulse Oximetry 97 100 Oxygen Delivery 02/09/22 20:58 02/10/22 06:00 02/10/22 08:05 Temperature 97.1 F L Pulse Rate 69 69 Respiratory Rate 18 Blood Pressure 105/65 Pulse Oximetry 98 Oxygen Delivery Room Air 02/10/22 08:00 Temperature Pulse Rate Respiratory Rate Blood Pressure Pulse Oximetry Oxygen Delivery Room Air Intake/Output Intake/Output: Intake & Output 02/07/22 02/08/22 02/09/22 02/10/22 23:59 23:59 23:59 23:59 Intake Total 1900 2840 2690 150 Output Total 1425 5903 1700 0 Balance 475 -3063 990 150 Meds/Results Medications: Active Medications Generic Name Dose Route Start Last Admin Trade Name Freq PRN Reason Stop Dose Admin Amitriptyline HCl 25 mg 02/07/22 21:00 02/09/22 20:57 Amitriptyline Hcl 25 Mg Tablet PO 25 mg HS SANCHEZ Administration Chlorhexidine Gluconate 15 ml 02/08/22 09:00 02/10/22 08:04 Chlorhexidine Gluconate 0.12% Oral Rinse 473 Ml Btl (*Bkc) SWISH/SPIT Not Given QI
[2022-02-10 14:00] VITALS: BP 119/68; PULSE 66; RESP 18; TEMP 35.7; O2SAT 97
[2022-02-10] MEDS: CLINDAMYCIN HCL 150 MG CAP 300 MG PO ×2 (16:56→23:52)
[2022-02-10] MEDS: MAGNES & ALUM HYD/SIMETH/DIPHENHYD/LIDOCAINE 119 ML MOUTHWASH BY MOUTH (16:59)
[2022-02-10 20:33] VITALS: PULSE 84
[2022-02-10] MEDS: METOPROLOL SUCCINATE EXT REL 25 MG TABCR PO (20:33)
[2022-02-10] MEDS: AMITRIPTYLINE HCL 25 MG TABLET PO (20:35)
[2022-02-10] MEDS: CYCLOBENZAPRINE HCL 10 MG TABLET PO (20:35)
[2022-02-10 22:00] VITALS: BP 101/71; PULSE 84; RESP 18; TEMP 35.9; O2SAT 97
[2022-02-11] MEDS: CLINDAMYCIN HCL 150 MG CAP 300 MG PO ×2 (05:45→11:23)
[2022-02-11 06:00] VITALS: BP 107/67; PULSE 56; RESP 16; TEMP 36.8; O2SAT 100
[2022-02-11 06:15] LABS: Hematocrit 35.2 % (37.0-47.0); Hemoglobin 11.4 g/dL (12.0-15.0); Mean Corpuscular HGB Conc 32.4 g/dl (32-36); Mean Platelet Volume 9.6 fl (7.4-10.4); Platelet Count Result 172 k/mm3 (150-375); Red Blood Count 3.45 M/mm3 (4.2-5.4); Red Cell Distribution Width 12.5 % (11.5-14.5); White Blood Count 4.7 K/mm3 (4.5-10.0)
[2022-02-11 09:49] VITALS: PULSE 58
[2022-02-11] MEDS: METOPROLOL SUCCINATE EXT REL 50 MG TABCR PO (09:49)
[2022-02-11] MEDS: LACTULOSE 20 GM/30 ML UDC PO (09:49)
[2022-02-11] MEDS: DULoxetine HCL 30 MG CAPSULE.DR 90 MG PO (09:50)
[2022-02-11] MEDS: MAGNESIUM OXIDE 400 MG TABLET PO (09:50)
[2022-02-11] MEDS: LORATADINE 10 MG TABLET PO (09:50)
[2022-02-11] MEDS: MONTELUKAST SODIUM 10 MG TABLET PO (09:50)
[2022-02-11] MEDS: VITAMIN B COMPLEX CAPSULE 1 CAP PO (09:50)
[2022-02-11] MEDS: PANTOPRAZOLE 40 MG TABLET PO (09:50)
[2022-02-11] MEDS: FAMOTIDINE 20 MG TABLET 40 MG PO (09:50)
[2022-02-11] MEDS: GABAPENTIN 300 MG CAPSULE PO (09:50)
[2022-02-11] MEDS: DICLOFENAC SOD 75 MG TABLET.EC PO (09:50)
[2022-02-11] MEDS: sulfaSALAzine 500 MG TABLET 1000 MG PO (09:50)
[2022-02-11] MEDS: FOLIC ACID 1 MG TABLET PO (09:50)
[2022-02-11] MEDS: CHLORHEXIDINE GLUCONATE 0.12% ORAL RINSE 473 ML BTL (*BKC) 15 ML SWISH/SPIT (09:53)
[2022-02-11] MEDS: MAGNES & ALUM HYD/SIMETH/DIPHENHYD/LIDOCAINE 119 ML MOUTHWASH BY MOUTH (09:54)
--- NOTE | 2022-02-11 10:50 | PM.DS ---
DS: Admitting Diagnosis Discharge Date February 11, 2022 Admitting Diagnosis dental abscess DS: Discharge Diagnosis Discharge Diagnosis (1) Facial cellulitis: Code(s): L03.211 - Cellulitis of face Status: Acute Assessment and Plan: admit to regular medical floor patient started on clindamycin cultures in progress ENT consult supportive care (2) Status post tooth extraction: Code(s): K08.409 - Partial loss of teeth, unspecified cause, unspecified class Status: Acute Assessment and Plan: supportive care (3) Tobacco dependence: Code(s): F17.200 - Nicotine dependence, unspecified, uncomplicated Status: Acute Assessment and Plan: nicotine patches knee (4) Rheumatoid arthritis: Code(s): M06.9 - Rheumatoid arthritis, unspecified Status: Acute Assessment and Plan: patient on DMARDs continue home meds (5) Sjogren's disease: Code(s): M35.00 - Sjogren syndrome, unspecified Status: Acute Assessment and Plan: unchanged DS: Summary Hospital Course Hospital Course: patient admitted after a tooth extraction procedure with facial swelling down into her neck. ENT was consulted and I&D was performed. Patient was started on clindamycin and slowly improved. She will be sent home on clindamycin orally follow-up with ENT Time Spent with Patient Time attestation: Total time spent providing and/or coordinating discharge services: Exam Const: General: comfortable, no acute distress, well developed, alert, awake and average body habitus Nutritional Appearance: average body habitus Orientation/consciousness: patient oriented x3 HENMT: Head: normal to inspection, normocephalic and atraumatic Ears: hearing grossly normal bilaterally Face/Nose/Sinus: normal facial exam, ecchymosis, edema, No fluctuance and Facial tenderness on exam of face and sinuses Face and sinus: normal facial exam, ecchymosis, edema, no fluctuance, Facial tenderness on exam of face and sinuses and other ( left face swelling) Eyes: General: appearance normal, both eyes and all related structures Pupils: Equal, round and reactive pupils present EOM: EOMs intact bilaterally Neck: Neck: full ROM, no lymphadenopathy and no JVD Thyroid: thyroid normal Lymphatic: no lymphadenopathy noted Resp: Effort & Inspection: normal respiratory effort and able to speak in complete sentences Auscultation: clear to auscultation bilaterally Cardio: Jugular venous distension: no JVD Rate: regular rate Rhythm: regular rhythm Heart sounds: S1 normal heart sound present and S2 normal heart sound present : General: Yes deferred Skin: Rashes: no rashes Wounds: no wounds Neuro: General: patient oriented x3 and CN's II-XI intact bilaterally Cranial nerves: Yes CN's II-XII intact bilaterally and Yes Equal, round and reactive pupils present Cognition (Neuro): normal cognition Speech: normal speech Gait exam (Neuro): Normal gait present Motor exam (neuro): 5/5 motor strength present throughout Sensory Exam: No Sensory deficit (Neuro) Extrem: General: normal to inspection, full ROM, no joint enlargement and no pedal edema DS: Data Data Completed and Pending Labs on day of discharge: Labs from last 24 hours 02/11/22 05:40 WBC 4.7 RBC 3.45 L Hgb 11.4 L Hct 35.2 L MCV 102.0 H MCH 33.0 MCHC 32.4 RDW 12.5 Plt Count 172 MPV 9.6 Discharge Plan Discharge Attending physician on discharge: Boo Cheng Consulting providers: Itz Alston Discharging Clinician: Boo Cheng Patient Disposition: Home, Self-Care Activity: no preference Diet: as tolerated Discharge Instructions: Dr Alston Follow up with your oral surgeon who performed procedure. Follow up with Dr Alston with any concerns. Peridex after meals and before bed. Patient Instructions: Antibiotic Form, How to Stop Smoking (GEN), Pain Management (DC) St
== END 2022-02-11 12:30 | disposition home or self-care (01) | DRG 580 ==
LOC: ANHED 22:28 → ANH3MEDSUR 02-07 03:49
PROVIDERS: Otolaryngology; Admitting Provider Internal Medicine; Emergency Provider Emergency Medicine; PCP Internal Medicine; Visit Provider Chiropractor
PROC: 0W930ZZ Drainage of Oral Cavity and Throat, Open Approach (ICD-10-PCS; principal; 2022-02-08 13:30)
DX: L03.211 Cellulitis of face (principal); L02.01 Cutaneous abscess of face; L02.11 Cutaneous abscess of neck; K04.7 Periapical abscess without sinus; F17.210 Nicotine dependence, cigarettes, uncomplicated; M06.9 Rheumatoid arthritis, unspecified; M35.00 Sjogren syndrome, unspecified; K08.409 Partial loss of teeth, unspecified cause, unspecified class; J45.909 Unspecified asthma, uncomplicated; E53.8 Deficiency of other specified B group vitamins; F41.9 Anxiety disorder, unspecified; F32.A Depression, unspecified; G43.909 Migraine, unspecified, not intractable, without status migrainosus; Z20.822 Contact with and (suspected) exposure to COVID-19; Z79.899 Other long term (current) drug therapy; Z88.0 Allergy status to penicillin
CPT/HCPCS: 36415; 70491; 80048; 81025; 85025; 85027; 87070; 87205; 96361; 96365; 96366; 96375; 96376; 99285; A4248; A9270; C9803; G0378; G0379; J1100; J2250; J2270; J2405; J2704; J3010; J7030; J7120; Q9967; U0003; U0005

== ENCOUNTER 2022-04-29 16:53 | Emergency (ER) | payer OTHER, SELFPAY ==
[2022-04-29 17:37] VITALS: BP 127/80; PULSE 98; RESP 16; TEMP 36.3; O2SAT 99
--- NOTE | 2022-04-29 22:50 | ED.EXTPRO ---
HPI - Extremity Problem General Chief complaint: Extremity Problem,Nontraumatic Stated complaint: possible buckley bite, slept in car for 5 hours Time Seen by Provider: 04/29/22 22:21 Source: patient Mode of arrival: ambulatory Limitations: no limitations History of Present Illness HPI Narrative: This is a 26 year old female that presents to the ER for cold injury sustained earlier this morning. Reports she had been drinking last night. Reports she fell asleep in her car when she got home. She slept in her car while it was off for about 5 hours. When she woke up this morning her feet were sore and very cold. She also has paresthesias in her toes. She presented to the ER as she was concerned she may have frostbite. Denies decreased ROM or numbness. Related Data Home Medications Medication Instructions Recorded Confirmed folic acid 1 mg tablet 1 mg PO DAILY 07/26/20 02/07/22 magnesium 250 mg tablet 500 mg PO DAILY 10/08/20 02/07/22 duloxetine 60 mg capsule,delayed 90 mg PO DAILY 10/24/20 02/07/22 release B Complex-Vitamin B12 1 tablet PO DAILY 03/11/21 02/07/22 amitriptyline 25 mg tablet 25 mg PO HS 03/11/21 02/07/22 cetirizine 10 mg tablet 10 mg PO DAILY 03/11/21 02/07/22 famotidine 40 mg tablet 40 mg PO DAILY 03/11/21 02/07/22 gabapentin 300 mg capsule 300 mg PO BID 03/11/21 02/07/22 montelukast 10 mg tablet 10 mg PO DAILY 03/11/21 02/07/22 tramadol 50 mg tablet 50 mg PO PRN PRN Pain 03/11/21 02/07/22 cyclobenzaprine 5 mg tablet 10 mg PO QHS 09/19/21 02/07/22 omeprazole 20 mg capsule,delayed 20 mg PO DAILY 09/19/21 02/07/22 release tocilizumab 80 mg/4 mL (20 mg/mL) 80 mg IV MONTHLY 09/19/21 02/07/22 intravenous solution (Actemra) vitamin B complex (B 1 tablet PO DAILY 09/19/21 02/07/22 Complex-Vitamin B12 tablet) hydrocodone 5 mg-acetaminophen 325 1 tablet Q4-6H PRN Pain 02/02/22 02/07/22 mg tablet sulfasalazine 500 mg 1,000 mg PO BID 02/02/22 02/07/22 tablet,delayed release lactulose 10 gram/15 mL (15 mL) 20 ml PO DAILY 02/07/22 02/07/22 oral solution metoprolol succinate 25 mg 25 mg PO HS 02/07/22 02/07/22 tablet,extended release 24 hr metoprolol succinate 50 mg 50 mg PO DAILY 02/07/22 02/07/22 tablet,extended release 24 hr diclofenac sodium 75 mg 75 mg PO BID 02/08/22 02/08/22 tablet,delayed release Allergies Allergy/AdvReac Type Severity Reaction Status Date / Time Penicillins Allergy Mild RASH,ITCHIN Verified 04/29/22 23:07 G amoxicillin Allergy Rash Verified 04/29/22 23:07 Review of Systems Review of Systems: CONSTITUTIONAL: Denies fever SKIN: Denies rash NEUROLOGIC: Denies numbness, or weakness. All systems reviewed & are unremarkable except as noted in HPI and below PMFSH Past Medical History Medical History Anxiety Asthma B12 deficiency Depression Interstitial cystitis Migraines Rheumatoid arthritis Sjogren's disease UTI (urinary tract infection) Surgical History Surgical History No significant past surgical history Social History Social History Smoking packs per day: 0.5 Smoking cigarettes per day: 10.0 Smoking status: Current every day smoker Tobacco type: cigarettes Alcohol intake: current Drinks per week: 1 Substance use: never Substance use type: does not use Gender identity (if verbalized by the patient): Female Sexual Orientation (if Verbalized by the Patient): Straight or Heterosexual Spiritual care concerns: No Exam Narrative: GENERAL: Well-appearing, well-nourished, and in no acute distress. HEAD: Normocephalic, atraumatic. EYES: EOMI. CHEST: No respiratory distress. HEART: Regular rate EXTREMITIES: Normal range of motion. No edema, erythema or discoloration of the skin. Normal sensation. Capillary refill is mildly delayed and feet are cold. Able to dopple
[2022-04-30] MEDS: TETANUS,DIPHTHERIA,AC PERTUSSIS ADULT (0.5 ML) BOOSTRIX IM (00:30)
[2022-04-30 00:31] VITALS: BP 117/78; PULSE 72; RESP 18; O2SAT 100
--- NOTE | 2022-04-30 01:06 | PC.NURSE ---
attempted to find DP pulses. Unsuccessful. Placed pt feet in bowl of warm water
--- NOTE | 2022-04-30 01:24 | PC.NURSE ---
DP pulse now able to be palpated
== END 2022-04-30 01:30 | disposition home or self-care (01) ==
PROVIDERS: Emergency Provider Physician Assistant; PCP Internal Medicine
DX: T69.9XXA Effect of reduced temperature, unspecified, initial encounter (principal); Z23 Encounter for immunization; J45.909 Unspecified asthma, uncomplicated; E53.8 Deficiency of other specified B group vitamins; N30.10 Interstitial cystitis (chronic) without hematuria; M06.9 Rheumatoid arthritis, unspecified; M35.00 Sjogren syndrome, unspecified; F32.A Depression, unspecified; F41.9 Anxiety disorder, unspecified; Z87.440 Personal history of urinary (tract) infections; F17.210 Nicotine dependence, cigarettes, uncomplicated; X31.XXXA Exposure to excessive natural cold, initial encounter
CPT/HCPCS: 90471; 90715; 99282

== ENCOUNTER 2022-08-01 13:49 | Outpatient (CLI) | payer OTHER, SELFPAY | END 2022-08-01 13:50 | disposition home or self-care (01) | LOC: ANHAUDIO 13:50 | PROVIDERS: PCP Nurse Practitioner Family; Visit Provider Otolaryngology | DX: G35 Multiple sclerosis (principal); H93.19 Tinnitus, unspecified ear; H90.3 Sensorineural hearing loss, bilateral | CPT/HCPCS: 92552; 92556; 92567 ==

== ENCOUNTER 2023-02-02 11:45 | Emergency (ER) | payer SELFPAY ==
[2023-02-02] VITALS (31 sets, daily range): BP systolic 108–150; BP diastolic 66–98; PULSE 102–133; RESP 12–23; TEMP 36.6; O2SAT 6–100
--- NOTE | ~2023-02-02 | XR_ITS ---
EXAMINATION: XR chest 1V portable INDICATION: Shortness of breath TECHNIQUE: Portable AP chest at 1230 hours COMPARISON: 07/26/2020 FINDINGS: The lungs are free of acute opacities. No pleural effusion or pneumothorax. The cardiomedia stinal silhouette is normal. IMPRESSION: 1. No acute cardiopulmonary abnormality. Reviewed, dictated and finalized at location A.
--- NOTE | 2023-02-02 12:21 | ED.URI ---
HPI - URI/Sore Throat General Chief Complaint: Upper Respiratory Infection Stated Complaint: ana been sick Time Seen by Provider: 02/02/23 12:18 Source: patient Mode of arrival: ambulatory Limitations: no limitations History of Present Illness HPI Narrative: Patient drove herself to the emergency room complaining of nasal congestion, postnasal discharge, coughing, wheezing started 4 days ago. Patient's son had similar symptoms. Patient tested negative for COVID at home. History of asthma while was a child. She smokes cigarettes, drinks occasionally, denies drug use, history of hypertension, rheumatoid arthritis and Sjogren's syndrome. 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 Related Data Home Medications Medication Instructions Recorded Confirmed folic acid 1 mg tablet 1 mg PO DAILY 07/26/20 05/10/22 magnesium 250 mg tablet 500 mg PO DAILY 10/08/20 05/10/22 duloxetine 60 mg capsule,delayed 90 mg PO DAILY 10/24/20 05/10/22 release B Complex-Vitamin B12 1 tablet PO DAILY 03/11/21 05/10/22 amitriptyline 25 mg tablet 25 mg PO HS 03/11/21 05/10/22 cetirizine 10 mg tablet 10 mg PO DAILY 03/11/21 05/10/22 famotidine 40 mg tablet 40 mg PO DAILY 03/11/21 05/10/22 montelukast 10 mg tablet 10 mg PO DAILY 03/11/21 05/10/22 tramadol 50 mg tablet 50 mg PO PRN PRN Pain 03/11/21 05/10/22 cyclobenzaprine 5 mg tablet 10 mg PO QHS 09/19/21 05/10/22 omeprazole 20 mg capsule,delayed 20 mg PO DAILY 09/19/21 05/10/22 release tocilizumab 80 mg/4 mL (20 mg/mL) 80 mg IV MONTHLY 09/19/21 05/10/22 intravenous solution (Actemra) vitamin B complex (B 1 tablet PO DAILY 09/19/21 05/10/22 Complex-Vitamin B12 tablet) hydrocodone 5 mg-acetaminophen 325 1 tablet Q4-6H PRN Pain 02/02/22 05/10/22 mg tablet sulfasalazine 500 mg 1,000 mg PO BID 02/02/22 05/10/22 tablet,delayed release lactulose 10 gram/15 mL (15 mL) 20 ml PO DAILY 02/07/22 05/10/22 oral solution metoprolol succinate 25 mg 25 mg PO HS 02/07/22 05/10/22 tablet,extended release 24 hr metoprolol succinate 50 mg 50 mg PO DAILY 02/07/22 05/10/22 tablet,extended release 24 hr meloxicam 7.5 mg tablet 7.5 mg PO DAILY 05/10/22 05/10/22 gabapentin 300 mg capsule 600 mg PO BID 07/22/22 Allergies Allergy/AdvReac Type Severity Reaction Status Date / Time Penicillins Allergy Mild RASH,ITCHIN Verified 02/02/23 12:00 G amoxicillin Allergy Rash Verified 02/02/23 12:00 Review of Systems Review of Systems: All systems reviewed & are unremarkable except as noted in HPI and below PMFSH Past Medical History Medical History Anxiety Asthma B12 deficiency Depression Interstitial cystitis Migraines Rheumatoid arthritis Sjogren's disease UTI (urinary tract infection) Surgical History Surgical History No significant past surgical history Social History Social History Smoking packs per day: 0.5 Smoking cigarettes per day: 10.0 Smoking status: Current every day smoker Tobacco type: cigarettes Alcohol intake: current Drinks per week: 1 Substance use: never Substance use type: does not use Lack of Transportation: No Lack of Food: Never True Current Housing: I Have Housing Concerned About Future Housing: No Difficulty Paying Gas/Electric Bills: No Difficulty Paying for Meds: No Currently Unemployed: No Education: High School Diploma/GED Difficulty w/ Childcare or Family Care: No Gender identity (if verbalized by the patient): Female Sexual Orientation (if Verbalized by the Patient): Straight or Heterosexual Spiritual care concerns: No Exam Narrative: General appearance: Well-developed, well-nourished, nontachypneic Skin: Normal color Head: Normocephalic, nontraumatic Eyes: Clear conjunctiva ENT: Oropharynx normal, ears normal, nose normal Neck: Supple, nontender Chest and respiratory:
[2023-02-02 13:28] LABS: Influenza A QL RT-PCR Negative (Negative); Influenza B QL RT-PCR Negative (Negative); RSV RNA, RT-PCR Negative (Negative); SARS-CoV-2 RNA PCR Negative (Negative)
[2023-02-02] MEDS: predniSONE 20 MG TABLET 60 MG PO (13:33)
[2023-02-02] MEDS: ALBUTEROL SULFATE NEB 2.5 MG/3 ML INH 10 MG INHALATION (14:01)
== END 2023-02-02 15:23 | disposition home or self-care (01) ==
PROVIDERS: Emergency Provider Emergency Medicine; PCP Internal Medicine
DX: J06.9 Acute upper respiratory infection, unspecified (principal); J45.909 Unspecified asthma, uncomplicated; Z20.822 Contact with and (suspected) exposure to COVID-19; E53.8 Deficiency of other specified B group vitamins; N30.10 Interstitial cystitis (chronic) without hematuria; M06.9 Rheumatoid arthritis, unspecified; M35.00 Sjogren syndrome, unspecified; F41.9 Anxiety disorder, unspecified; F32.A Depression, unspecified; F17.210 Nicotine dependence, cigarettes, uncomplicated; Z87.440 Personal history of urinary (tract) infections
CPT/HCPCS: 71045; 87637; 94640; 99283; J7512

== ENCOUNTER 2023-04-18 02:21 | Emergency (ER) | payer SELFPAY ==
--- NOTE | ~2023-04-18 | XR_ITS ---
Clinical Indication: Chest pain PA and lateral views of the chest: Comparison: 02/02/2023 Findings: The lungs are clear, without evidence of focal consolidation or pleural effusion. Cardiome diastinal silhouette is within normal limits. Bones and soft tissues are unremarkable. Impression: Normal chest. Reviewed, dictated and finalized at location . CHARGE PROCESS ATTENDANT Impression: Normal chest.
--- NOTE | 2023-04-18 02:27 | ECG_ITS ---
Measurements Intervals [place] Rate: 106 P: 47 [place]: 120 QRS: 26 QRSD: 77 T: -4 QT: 314 QTc: 417 Interpretive Statements SINUS TACHYCARDIA NONSPECIFIC T-WAVE ABNORMALITY ABNORMAL RHYTHM ECG COMPARED TO ECG 07/04/2021 19:47:35 MILD T-WAVE ABNORMALITY IS SEEN Electronically Signed On 04-18-2023 14:03:44 CERTIFIED PERSONAL CHEF by Boo Zhang M.D.
[2023-04-18 02:38] VITALS: BP 139/87; PULSE 138; RESP 18; TEMP 36.1; O2SAT 100
[2023-04-18 02:57] LABS: Alanine Aminotransferase 18 U/L (6-35); Albumin Level 4.5 g/dL (3.5-5.1); Alkaline Phosphatase 50 U/L (38-126); Anion Gap 11 mmol/L (8-16); Aspartate Amino Transferase 24 U/L (14-36); Bilirubin,Total 0.6 mg/dL (0.2-1.3); Blood Urea Nitrogen 15 mg/dL (7-17); Calcium 9.2 mg/dL (8.4-10.2); Carbon Dioxide 21 mmol/L (22-30); Chloride 104 mmol/L (98-107); Estimated CRCL calculation 93 ml/min; Estimated Glomerular Filt Rate > 60; Glucose 119 mg/dL (65-110); Lipase 40 U/L (23-300); Potassium 3.1 mmol/L (3.4-5.0); Sodium 136 mmol/L (137-145)
[2023-04-18 03:02] VITALS: PULSE 108; RESP 18; O2SAT 99
[2023-04-18 03:02] LABS: Basophils Percent Auto 0.7 % (0.2-1.2); Eosinophils Absolute Auto 0.1 K/mm3 (0-0.3); Eosinophils Percent Auto 1.7 % (0-4.4); Hematocrit 35.7 % (37.0-47.0); Lymphocytes Absolute Auto 2.05 K/mm3 (0.9-3.2); Lymphocytes Percent Auto 44.7 % (18.3-44.2); Mean Corpuscular HGB Conc 33.6 g/dl (32-36); Mean Corpuscular Hemoglobin 31.8 pg (26-34); Mean Corpuscular Volume 94.7 fl (80-100); Monocytes Absolute Auto 0.5 K/mm3 (0.1-0.6); Monocytes Percent Auto 11.8 % (2.6-8.5); Neutrophils Absolute Auto 1.9 K/mm3 (1.3-6.7); Neutrophils Percent Auto 41.1 % (45.5-73.1); Platelet Count Result 204 k/mm3 (150-375); Red Blood Count 3.77 M/mm3 (4.2-5.4); Red Cell Distribution Width 13.2 % (11.5-14.5); White Blood Count 4.6 K/mm3 (4.5-10.0)
[2023-04-18 03:05] LABS: INR 1.1; Prothrombin Time 14.2 Seconds (11.1-14.7)
[2023-04-18 03:06] LABS: Partial Thromboplastin Time 31.4 SECONDS (22.3-36.8)
[2023-04-18 03:09] LABS: Troponin I < 0.012 ng/mL (0.000-0.034)
--- NOTE | 2023-04-18 05:40 | ED.GENADULT ---
HPI - General Adult General Chief complaint: Arrhythmia/Palpitations Stated complaint: out of heart medicine - having palpatations Time Seen by Provider: 04/18/23 04:58 History of Present Illness HPI narrative: patient is a 27-year-old female presents to emergency department with chief complaint of palpitations. Patient reports that she has prior history of SVT and reports that she ran out of her metoprolol and try to get the medication refilled but her doctor would not refill it as she needed an in-person visit the patient states that she felt overall weak after this when her heart rate was running fast however reports she is starting to feel better now. Related Data Home Medications Medication Instructions Recorded Confirmed folic acid 1 mg tablet 1 mg PO DAILY 07/26/20 05/10/22 magnesium 250 mg tablet 500 mg PO DAILY 10/08/20 05/10/22 duloxetine 60 mg capsule,delayed 90 mg PO DAILY 10/24/20 05/10/22 release B Complex-Vitamin B12 1 tablet PO DAILY 03/11/21 05/10/22 amitriptyline 25 mg tablet 25 mg PO HS 03/11/21 05/10/22 cetirizine 10 mg tablet 10 mg PO DAILY 03/11/21 05/10/22 famotidine 40 mg tablet 40 mg PO DAILY 03/11/21 05/10/22 montelukast 10 mg tablet 10 mg PO DAILY 03/11/21 05/10/22 tramadol 50 mg tablet 50 mg PO PRN PRN Pain 03/11/21 05/10/22 cyclobenzaprine 5 mg tablet 10 mg PO QHS 09/19/21 05/10/22 omeprazole 20 mg capsule,delayed 20 mg PO DAILY 09/19/21 05/10/22 release tocilizumab 80 mg/4 mL (20 mg/mL) 80 mg IV MONTHLY 09/19/21 05/10/22 intravenous solution (Actemra) vitamin B complex (B 1 tablet PO DAILY 09/19/21 05/10/22 Complex-Vitamin B12 tablet) hydrocodone 5 mg-acetaminophen 325 1 tablet Q4-6H PRN Pain 02/02/22 05/10/22 mg tablet sulfasalazine 500 mg 1,000 mg PO BID 02/02/22 05/10/22 tablet,delayed release lactulose 10 gram/15 mL (15 mL) 20 ml PO DAILY 02/07/22 05/10/22 oral solution metoprolol succinate 25 mg 25 mg PO HS 02/07/22 05/10/22 tablet,extended release 24 hr metoprolol succinate 50 mg 50 mg PO DAILY 02/07/22 05/10/22 tablet,extended release 24 hr meloxicam 7.5 mg tablet 7.5 mg PO DAILY 05/10/22 05/10/22 gabapentin 300 mg capsule 600 mg PO BID 07/22/22 Allergies Allergy/AdvReac Type Severity Reaction Status Date / Time Penicillins Allergy Mild RASH,ITCHIN Verified 02/02/23 12:00 G amoxicillin Allergy Rash Verified 02/02/23 12:00 Review of Systems Review of Systems: A 10 system review of systems was completed on the patient and is negative except for what is stated in the HPI. Nursing and ancillary documentation was reviewed. [facility] Past Medical History Medical History Anxiety Asthma B12 deficiency Depression Interstitial cystitis Migraines Rheumatoid arthritis Sjogren's disease UTI (urinary tract infection) Surgical History Surgical History No significant past surgical history Social History Social History Smoking packs per day: 0.5 Smoking cigarettes per day: 10.0 Smoking status: Current every day smoker Tobacco type: cigarettes Alcohol intake: current Drinks per week: 1 Substance use: never Substance use type: does not use Lack of Transportation: No Lack of Food: Never True Current Housing: I Have Housing Concerned About Future Housing: No Difficulty Paying Gas/Electric Bills: No Difficulty Paying for Meds: No Currently Unemployed: No Education: High School Diploma/GED Difficulty w/ Childcare or Family Care: No Gender identity (if verbalized by the patient): Female Sexual Orientation (if Verbalized by the Patient): Straight or Heterosexual Spiritual care concerns: No Exam Narrative: GENERAL: Well-appearing, well-nourished, and in no acute distress. HEAD: Normocephalic, atraumatic. EYES: PERRLA and EO
[2023-04-18 05:50] VITALS: BP 126/76; PULSE 98; RESP 18; O2SAT 100
[2023-04-18] MEDS: POTASSIUM CHLORIDE 20 MEQ PACKET (FOR LIQUID) 40 MEQ PO (05:50)
--- NOTE | 2023-04-18 06:11 | ECG_ITS ---
Measurements Intervals [place] Rate: 89 P: 36 [place]: 131 QRS: 23 QRSD: 78 T: 30 QT: 330 QTc: 404 Interpretive Statements SINUS RHYTHM WITHIN NORMAL LIMITS COMPARED TO ECG 04/18/2023 02:32:59 NONSPECIFIC LATERAL T-WAVE FLATTENING IS RESOLVED Electronically Signed On 04-18-2023 14:08:26 HEART SPECIALIST by Boo Zhang M.D.
[2023-04-18 06:30] VITALS: BP 136/85; PULSE 76; RESP 16; O2SAT 100
[2023-04-18 07:00] VITALS: BP 127/72; PULSE 80; RESP 16; TEMP 36.6; O2SAT 100
[2023-04-18 07:13] LABS: Troponin I < 0.012 ng/mL (0.000-0.034)
[2023-04-18 07:30] VITALS: TEMP 36.6
== END 2023-04-18 07:30 | disposition home or self-care (01) ==
PROVIDERS: Emergency Provider Emergency Medicine; PCP Internal Medicine
DX: R00.2 Palpitations (principal); F17.210 Nicotine dependence, cigarettes, uncomplicated
CPT/HCPCS: 36415; 71046; 80053; 83690; 84484; 85025; 85610; 85730; 93005; 99284; A9270

== ENCOUNTER 2023-06-06 09:51 | Outpatient (CLI) | payer SELFPAY ==
--- NOTE | ~2023-06-06 | US_ITS ---
EXAMINATION: US OB transvaginal DATE: 06/06/2023 10:18 INDICATION: First trimester dating TECHNIQUE: Real-time pelvic transabdominal and transvaginal ultrasound was performed. COMPARISON: None. FINDINGS: The uterus measures 9.2 x 4.8 x 5.4 cm. There is an intrauterine gestational sac. A yolk sa c is identified. heart motion is identified measuring 123 beats per minute (bpm) by M-mode Dopp ler. The crown rump length measures 5 mm, which correlates with an estimated gestational age of 6 weeks and 1 day(s) (+/-) 4 day(s). The right ovary measures 2.9 x 2.3 x 2.4 cm. The left ovary measures 3.8 x 2.9 x 3.8 cm. There is nor mal vascular flow in the ovaries. There is no free fluid in the pelvis. IMPRESSION: 1. Live intrauterine with an estimated gestational age of 6 weeks and 1 day(s) (+/-) 4 day( s) and an estimated delivery date of 01/29/2024. Reviewed, dictated and finalized at location F. WASHING MACHINE OPERATOR IMPRESSION: 1. Live intrauterine with an estimated gestational age of 6 weeks and 1 day(s) (+/-) 4 day(s) and an estimated delivery date of 01/29/2024.
== END 2023-06-06 09:52 ==
PROVIDERS: PCP Obstetrics & Gynecology Gynecology; Visit Provider Obstetrics & Gynecology Gynecology
DX: Z36.87 Encounter for antenatal screening for uncertain dates (principal); Z3A.00 Weeks of gestation of pregnancy not specified
CPT/HCPCS: 76817

== ENCOUNTER 2023-07-18 21:22 | Emergency (ER) | payer SELFPAY ==
[2023-07-18 21:29] VITALS: PULSE 107; RESP 15; TEMP 36.4; O2SAT 100
[2023-07-18 21:44] LABS: Basophils Percent Auto 0.5 % (0.2-1.2); Eosinophils Absolute Auto 0.1 K/mm3 (0-0.3); Hematocrit 33.6 % (37.0-47.0); Hemoglobin 11.5 g/dL (12.0-15.0); Immature Granulocyte Absolute 0.01 K/mm3 (0.00-0.031); Immature Granulocyte Percent A 0.2 % (0-0.5); Lymphocytes Absolute Auto 1.99 K/mm3 (0.9-3.2); Lymphocytes Percent Auto 33.3 % (18.3-44.2); Mean Corpuscular HGB Conc 34.2 g/dl (32-36); Mean Corpuscular Hemoglobin 30.7 pg (26-34); Mean Corpuscular Volume 89.8 fl (80-100); Mean Platelet Volume 9.9 fl (7.4-10.4); Monocytes Absolute Auto 0.5 K/mm3 (0.1-0.6); Monocytes Percent Auto 8.2 % (2.6-8.5); Neutrophils Absolute Auto 3.3 K/mm3 (1.3-6.7); Neutrophils Percent Auto 55.8 % (45.5-73.1); Platelet Count Result 224 k/mm3 (150-375); Red Blood Count 3.74 M/mm3 (4.2-5.4); Red Cell Distribution Width 12.4 % (11.5-14.5)
[2023-07-18 21:59] LABS: Alanine Aminotransferase 13 U/L (6-35); Albumin Level 4.1 g/dL (3.5-5.1); Alkaline Phosphatase 59 U/L (38-126); Anion Gap 8 mmol/L (8-16); Aspartate Amino Transferase 18 U/L (14-36); Bilirubin,Total 0.3 mg/dL (0.2-1.3); Blood Urea Nitrogen 7 mg/dL (7-17); Calcium 9.2 mg/dL (8.4-10.2); Carbon Dioxide 18 mmol/L (22-30); Chloride 108 mmol/L (98-107); Estimated CRCL calculation 143 ml/min; Estimated Glomerular Filt Rate > 60; Glucose 105 mg/dL (65-110); Lipase 43 U/L (23-300); Potassium 3.4 mmol/L (3.4-5.0); Sodium 134 mmol/L (137-145)
--- NOTE | 2023-07-18 22:17 | ED.ABDPAIN ---
HPI - Abdominal Pain General Chief Complaint: Abdominal Pain <Janell Dillard MD - Last Filed: 08/01/23 08:28> Stated Complaint: 12 weeks preg, abd pain <Janell Dilladr MD - Last Filed: 08/01/23 08:28> Time Seen by Provider: 07/18/23 22:17 <Janell Dillard MD - Last Filed: 08/01/23 08:28> History of Present Illness HPI narrative: 27F 12wk preg with confirmed IUP here with low pelvic cramping past 3 hours; tried taking some tylenol. No VB or dysuria. <Janell Dillard MD - Last Filed: 08/01/23 08:28> Related Data Home Medications: Home Medications Medication Instructions Recorded Confirmed folic acid 1 mg tablet 1 mg PO DAILY 07/26/20 05/10/22 magnesium 250 mg tablet 500 mg PO DAILY 10/08/20 05/10/22 duloxetine 60 mg capsule,delayed 90 mg PO DAILY 10/24/20 05/10/22 release B Complex-Vitamin B12 1 tablet PO DAILY 03/11/21 05/10/22 amitriptyline 25 mg tablet 25 mg PO HS 03/11/21 05/10/22 cetirizine 10 mg tablet 10 mg PO DAILY 03/11/21 05/10/22 famotidine 40 mg tablet 40 mg PO DAILY 03/11/21 05/10/22 montelukast 10 mg tablet 10 mg PO DAILY 03/11/21 05/10/22 tramadol 50 mg tablet 50 mg PO PRN PRN Pain 03/11/21 05/10/22 cyclobenzaprine 5 mg tablet 10 mg PO QHS 09/19/21 05/10/22 omeprazole 20 mg capsule,delayed 20 mg PO DAILY 09/19/21 05/10/22 release tocilizumab 80 mg/4 mL (20 mg/mL) 80 mg IV MONTHLY 09/19/21 05/10/22 intravenous solution (Actemra) vitamin B complex (B 1 tablet PO DAILY 09/19/21 05/10/22 Complex-Vitamin B12 tablet) hydrocodone 5 mg-acetaminophen 325 1 tablet Q4-6H PRN Pain 02/02/22 05/10/22 mg tablet sulfasalazine 500 mg 1,000 mg PO BID 02/02/22 05/10/22 tablet,delayed release lactulose 10 gram/15 mL (15 mL) 20 ml PO DAILY 02/07/22 05/10/22 oral solution metoprolol succinate 25 mg 25 mg PO HS 02/07/22 05/10/22 tablet,extended release 24 hr metoprolol succinate 50 mg 50 mg PO DAILY 02/07/22 05/10/22 tablet,extended release 24 hr meloxicam 7.5 mg tablet 7.5 mg PO DAILY 05/10/22 05/10/22 gabapentin 300 mg capsule 600 mg PO BID 07/22/22 <Janell Dillard MD - Last Filed: 08/01/23 08:28> Allergies/Adverse Reactions: Allergies Allergy/AdvReac Type Severity Reaction Status Date / Time Penicillins Allergy Mild RASH,ITCHIN Verified 02/02/23 12:00 G amoxicillin Allergy Rash Verified 02/02/23 12:00 <Janell Dillard MD - Last Filed: 08/01/23 08:28> Review of Systems Review of Systems: CONST: No fever. HEENT: No sore throat C/V: No chest pain RESP: No cough GI: Reports pelvic pain : No dysuria. M/S: No joint pain. SKIN: No rash. NEURO: [No headache or focal numbness or weakness] PSYCH: [No depression] <Janell Dillard MD - Last Filed: 08/01/23 08:28> PMFSH Past Medical History Medical History: Medical History Anxiety Asthma B12 deficiency Depression Interstitial cystitis Migraines Rheumatoid arthritis Sjogren's disease UTI (urinary tract infection) <Janell Dillard MD - Last Filed: 08/01/23 08:28> Surgical History Surgical History: Surgical History No significant past surgical history <Janell Dillard MD - Last Filed: 08/01/23 08:28> Social History Social History: Social History Smoking packs per day: 0.5 Smoking cigarettes per day: 10.0 Smoking status: Current every day smoker Tobacco type: cigarettes Alcohol intake: current Drinks per week: 1 Substance use: never Substance use type: does not use Lack of Transportation: No Lack of Food: Never True Current Housing: I Have Housing Concerned About Future Housing: No Difficulty Paying Gas/Electric Bills: No Difficulty Paying for Meds: No Currently Unemployed: No Education: High School Diploma/GED Difficulty w/ Childcare or Family Care: No Gender identity (if jodie
[2023-07-18 22:19] VITALS: BP 100/69; PULSE 86; RESP 18; O2SAT 99
--- NOTE | 2023-07-18 22:19 | PC.NURSE ---
Dr. Dillard at bedside w ultrasound
[2023-07-18 22:46] LABS: Appearance Urine Clear (Clear); Bacteria Urine 1+ /hpf; Bilirubin Urine Negative (Negative); Blood Urine Negative (Negative); Color Urine Yellow (Yellow); Glucose Urine UA Negative (Negative); Ketones Urine Trace mg/dL (Negative); Leukocyte Esterase Ur Trace LEU/UL (Negative); Nitrate Urine Negative (Negative); Non Pathogenic Casts 0-2; Protein Urine Negative (Negative); RBC Urine 0-2 /hpf (0-2); Specific Grav Ur 1.027 (1.001-1.035); Squamous Epithelial Cell Urine Few /hpf (Few); WBC Urine 0-5 /hpf (0-3); pH Urine 5.5 (5.0-9.0)
[2023-07-18 23:13] LABS: Add Urine Microscopic? YES
--- NOTE | 2023-07-18 23:14 | PC.NURSE ---
Assumed care of pt at this time. Pt alert and upright on stretcher, no request at this time.
[2023-07-19 00:25] VITALS: BP 97/65; PULSE 66; RESP 12; O2SAT 100
== END 2023-07-19 00:53 | disposition home or self-care (01) ==
PROVIDERS: Emergency Provider Emergency Medicine; PCP Internal Medicine
DX: O26.891 Other specified pregnancy related conditions, first trimester (principal); R10.30 Lower abdominal pain, unspecified; J45.909 Unspecified asthma, uncomplicated; E53.8 Deficiency of other specified B group vitamins; M06.9 Rheumatoid arthritis, unspecified; M35.00 Sjogren syndrome, unspecified; F41.9 Anxiety disorder, unspecified; F17.210 Nicotine dependence, cigarettes, uncomplicated; Z87.440 Personal history of urinary (tract) infections; Z3A.12 12 weeks gestation of pregnancy
CPT/HCPCS: 36415; 80053; 81025; 83690; 85025; 99283

== ENCOUNTER 2023-09-10 10:57 | Outpatient (CLI) | payer SELFPAY ==
--- NOTE | ~2023-09-10 | US_ITS ---
EXAMINATION: US OB /maternal detail DATE: 09/10/2023 11:55 INDICATION: anatomic survey. TECHNIQUE: Real-time ultrasound of the pelvis was performed. COMPARISON: None. FINDINGS: There is a single living fetus in vertex presentation. The placenta is posterior and fundal, 5.0 cm from the cervix. The cervical length is 3.1 cm on transabdominal images, which is normal. heart rate is 148 beats per minute (bpm). The amniotic fluid volume is subjectively normal. The following biometric data were obtained: Biparietal diameter (BPD): 4.4 cm; head circumference (HC): 17.4 cm; abdominal circumference (AC): 14 .4 cm; femur length (FL): 3.2 cm. These measurements are discordant with low cephalic index. Estimated weight is 310 g +/- 47 g, which correlates with the 39th percentile when 01/29/24 is u sed as estimated date of delivery. As single measurements, these parameters are each equal to the following estimated gestational ages: BPD: 19 weeks 2 days. HC: 20 weeks 0 days. AC: 19 weeks 5 days. FL: 19 weeks 6 days. estimated gestational age based solely on measurements from this exam is 19 weeks 5 days +/- 1 weeks 3 days. The cerebral ventricles, cerebellum, cisterna magna, lip, nuchal fold, and visualized portions of the spine are normal. The heart is normal. The diaphragm, stomach, kidneys, and bladder are normal. Ther e are two umbilical arteries to yield a 3-vessel cord. The cord insertion is normal. IMPRESSION: 1. Single living fetus in vertex presentation. 2. Estimated weight is 310 g +/- 47 g, which correlates with the 39th percentile when 01/29/24 is used as estimated date of delivery. 3. Low cephalic index. 4. Normal anatomic survey. Reviewed, dictated and finalized at location A. IMPRESSION: 1. Single living fetus in vertex presentation. 2. Estimated weight is 310 g +/- 47 g, which correlates with the 39th pe rcentile when 01/29/24 is used as estimated date of delivery. 3. Low cephalic index. 4. Normal anatomic survey.
== END 2023-09-10 10:58 ==
PROVIDERS: PCP Nurse Practitioner Women's Health; Visit Provider Nurse Practitioner Women's Health
DX: Z36.9 Encounter for antenatal screening, unspecified (principal); Z3A.19 19 weeks gestation of pregnancy
CPT/HCPCS: 76805

== ENCOUNTER 2023-09-15 19:17 | Emergency (ER) | payer SELFPAY ==
[2023-09-15 19:34] VITALS: BP 118/65; PULSE 84; RESP 14; TEMP 36.3; O2SAT 100
--- NOTE | 2023-09-15 20:05 | ED.URI ---
HPI - URI/Sore Throat General Chief Complaint: Upper Respiratory Infection Stated Complaint: cough, wheezing SOB (21 wks ) Time Seen by Provider: 09/15/23 20:06 Source: patient and RN notes reviewed Mode of arrival: ambulatory Limitations: no limitations History of Present Illness HPI Narrative: 27-year-old female who was 21 weeks presents with concern for 2-3 day history of cough, wheezing, shortness of breath. She currently is taking and the antibiotic for strep throat. She denies fever. She reports she called her confectionery cooker who told her to call her primary care provider. Her primary care provider told her they do not take care women over 16 weeks gestation. MD elicited complaint: cough Related Data Home Medications Medication Instructions Recorded Confirmed cetirizine 10 mg tablet 10 mg PO DAILY 03/11/21 09/15/23 famotidine 40 mg tablet 40 mg PO DAILY 03/11/21 09/15/23 omeprazole 20 mg capsule,delayed 20 mg PO DAILY 09/19/21 09/15/23 release gabapentin 300 mg capsule 600 mg PO BID 07/22/22 09/15/23 cephalexin 500 mg capsule mg 09/15/23 labetalol 100 mg tablet mg 09/15/23 sertraline 50 mg tablet mg 09/15/23 Allergies Allergy/AdvReac Type Severity Reaction Status Date / Time Penicillins Allergy Mild RASH,ITCHIN Verified 09/15/23 19:44 G amoxicillin Allergy Rash Verified 09/15/23 19:44 Review of Systems Review of Systems: CONSTITUTIONAL: Denies malaise, chills, sweats, or fever. EYES: Denies visual changes, redness, or discharge. ENT: Denies rhinorrhea, congestion, sinus pain, otalgia and sore throat. CARDIOVASCULAR: Denies chest pain, palpitations, or edema. RESPIRATORY: Reports cough, dyspnea. GASTROINTESTINAL: Denies abdominal pain, nausea, vomiting, diarrhea SKIN: Denies rash or itching. MUSCULOSKELETAL: Denies myalgia. NEUROLOGIC: Denies headache. All systems reviewed & are unremarkable except as noted in HPI and below PMFSH Past Medical History Medical History Anxiety Asthma B12 deficiency Depression Interstitial cystitis Migraines Rheumatoid arthritis Sjogren's disease UTI (urinary tract infection) Surgical History Surgical History No significant past surgical history Social History Social History Smoking packs per day: 0.5 Smoking cigarettes per day: 10.0 Smoking status: Current every day smoker Tobacco type: cigarettes Alcohol intake: current Drinks per week: 1 Substance use: never Substance use type: does not use Lack of Transportation: No Lack of Food: Never True Current Housing: I Have Housing Concerned About Future Housing: No Difficulty Paying Gas/Electric Bills: No Difficulty Paying for Meds: No Currently Unemployed: No Education: High School Diploma/GED Difficulty w/ Childcare or Family Care: No Gender identity (if verbalized by the patient): Female Sexual Orientation (if Verbalized by the Patient): Straight or Heterosexual Spiritual care concerns: No Comments At time of signature, agree with nursing past medical, surgical, social and family history. There is no relevant family history pertinent to the presenting complaint Exam Narrative: GENERAL: Well-appearing, well-nourished, and in no acute distress. HEAD: Normocephalic EYES: PERRLA, conjunctivae clear ENT: Nares clear, turbinates edematous and erythematous, clear discharge. Mucous membranes moist. TM pearly su with dull light reflex bilaterally; no tragal tenderness. Oropharynx not erythematous without lesions. Tonsils not enlarged and without exudate, no drooling, no hoarseness, no trismus, uvula midline. NECK: Supple. No lymphadenopathy CHEST: Expiratory wheeze throughout, breath sounds equal. No rhonchi, rales, or stridor. No respiratory distress, speaks
== END 2023-09-15 20:25 | disposition home or self-care (01) ==
PROVIDERS: Emergency Provider Nurse Practitioner; PCP Internal Medicine
DX: O99.891 Other specified diseases and conditions complicating pregnancy (principal); Z3A.21 21 weeks gestation of pregnancy; R06.2 Wheezing; M06.9 Rheumatoid arthritis, unspecified; M35.00 Sjogren syndrome, unspecified; F17.210 Nicotine dependence, cigarettes, uncomplicated; O99.512 Diseases of the respiratory system complicating pregnancy, second trimester; J45.909 Unspecified asthma, uncomplicated
CPT/HCPCS: 99213; G0463

== ENCOUNTER 2023-10-08 14:03 | Outpatient (CLI) | payer MEDICAID, SELFPAY ==
--- NOTE | ~2023-10-08 | US_ITS ---
EXAMINATION: US OB follow up DATE: 10/08/2023 14:38 INDICATION: Low cephalic index. TECHNIQUE: Real-time ultrasound of the pelvis was performed. COMPARISON: Ultrasound 09/10/2023, 06/06/2023 FINDINGS: There is a single living fetus in breech presentation. The placenta is posterior, 8.8 cm from the ce rvix. The cervical length is 3.7 cm on transabdominal images, which is normal. heart rate is 15 3 beats per minute (bpm). The amniotic fluid index is 20.2 cm, which is normal. The following biometric data were obtained: Biparietal diameter (BPD): 5.6 cm; head circumference (HC): 21.2 cm; abdominal circumference (AC): 19 .0 cm; femur length (FL): 4.1 cm. These measurements are concordant. Estimated weight is 596 g +/- 89 g, which correlates with the 24th percentile when 01/29/24 is u sed as estimated date of delivery. As single measurements, these parameters are each equal to the following estimated gestational ages: BPD: 23 weeks 2 days. HC: 23 weeks 2 days. AC: 23 weeks 5 days. FL: 23 weeks 1 days. estimated gestational age based solely on measurements from this exam is 23 weeks 3 days +/- 1 weeks 4 days. IMPRESSION: 1. Single living fetus in breech presentation. 2. Estimated weight is 596 g +/- 89 g, which correlates with the 24th percentile when 01/29/24 is used as estimated date of delivery. This date was set by ultrasound on 06/06/2023. 3. Normal cephalic index. Reviewed, dictated and finalized at location A. IMPRESSION: 1. Single living fetus in breech presentation. 2. Estimated weight is 596 g +/- 89 g, which correlates with the 24th pe rcentile when 01/29/24 is used as estimated date of delivery. This date was set by ultrasound on 06/06/2023. 3. Normal cephalic index.
== END 2023-10-08 14:04 ==
PROVIDERS: PCP Internal Medicine; Visit Provider Obstetrics & Gynecology Gynecology
DX: Z36.2 Encounter for other antenatal screening follow-up (principal)
CPT/HCPCS: 76816

== ENCOUNTER 2023-10-13 22:17 | Observation (INO) | payer MEDICAID, SELFPAY ==
--- NOTE | 2023-10-13 22:46 | OBADM ---
This patient, Niya Cramer, admitted to the OB room OB Post 117 for observation. Patient/family oriented to hospital policies and general routines including ID bracelet, bed and alarms, visiting hours, pain management, procedures, bathroom and other care routines, personal items, smoking policy, room service/diet, and visiting hours. Patient/Family are encouraged to report perceived risks to care and to ask questions if they do not understand what they are told or what they should do.
[2023-10-13 22:48] LABS: Appearance Urine Clear (Clear); Bilirubin Urine Negative (Negative); Blood Urine Negative (Negative); Color Urine Yellow (Yellow); Glucose Urine UA Negative (Negative); Ketones Urine Negative (Negative); Leukocyte Esterase Ur Negative LEU/UL (Negative); Nitrate Urine Negative (Negative); Protein Urine Negative (Negative); Specific Grav Ur 1.011 (1.001-1.035); Urobilinogen Urine 0.2 mg/dL (<2.0)
[2023-10-13 23:00] VITALS: BP 107/59; PULSE 83
[2023-10-13 23:50] LABS: Add Urine Microscopic? NO
--- NOTE | 2023-10-13 23:53 | PC.NURSE ---
Talked to dave Weathers at this time. reported on maternal and status. reported on RLQ pain that comes and goes. DC orders given. tell the patient to drink lots of fluids and follow up with dave
[2023-10-14 00:05] VITALS: BP 107/59; PULSE 83
--- NOTE | 2023-10-15 17:46 | P.PNOB_ITS ---
OB - Triage/Final Diagnosis Visit Information Reason for evaluation: other (abdominal pain) Comments/Additional reasons for admission: I have assessed the risk for this patient, Niya Cramer, and determined that she would benefit from observation care. Evaluation Laboratory results: Laboratory Tests 10/13/23 22:39 Urine Color Yellow Urine Appearance Clear Urine pH 7.0 Ur Specific [place] 1.011 Urine Protein Negative Urine Glucose (UA) Negative Urine Ketones Negative Ur Blood (Man) Negative Urine Nitrate Negative Urine Bilirubin Negative Urine Urobilinogen 0.2 Leukocyte Esterase Rfl Negative Comments: FHTs reassuring. VSS. No evidence of ROM or active labor.
== END 2023-10-14 00:08 | disposition home or self-care (01) ==
PROVIDERS: Advanced Practice Midwife; Admitting Provider Obstetrics & Gynecology Gynecology; PCP Internal Medicine; Visit Provider Obstetrics & Gynecology Gynecology
DX: O26.892 Other specified pregnancy related conditions, second trimester (principal); R10.9 Unspecified abdominal pain; Z3A.24 24 weeks gestation of pregnancy
CPT/HCPCS: 59025; 81003; 99199; G0378; G0379

== ENCOUNTER 2023-11-14 15:09 | Outpatient (CLI) | payer MEDICAID, SELFPAY ==
--- NOTE | ~2023-11-14 | US_ITS ---
EXAMINATION: US OB follow up DATE: 11/14/2023 15:33 INDICATION: Estimated size less than expected for estimated gestational age. TECHNIQUE: Real-time ultrasound of the pelvis was performed. The interpreting radiologist was not pre sent for the study. COMPARISON: None. FINDINGS: There is a single living fetus in vertex presentation. The placenta is posterior and not low-lying w ith caudal margin partially 6.5 cm from the region of the internal cervical os however visualization of the cervix is suboptimal on the transabdominal imaging. heart rate is 138 beats per minute ( bpm). The amniotic fluid index is 12.3 cm, which is normal (5th%-95%: 9.2-23.1 cm at 29 weeks estima perry gestational age). The following biometric data were obtained: BPD: 7.2 cm -> 29 weeks 0 days Head circumference: 27.5 cm -> 30 weeks 1 days Abdominal circumference: 25.9 cm -> 30 weeks 0 days Femur length: 5.6 cm -> 29 weeks 2 days These measurements are concordant. Head circumference to abdominal circumference ratio: 1.06 (normal range 0.98-1.20). Estimated weight: 1444 g (+/-) 217 g or 3 lbs. 3 oz. (+/-) 8 oz. IMPRESSION: 1. Single living fetus in vertex presentation with heart rate of 138 bpm. 2. Normal amniotic fluid index of 12.3 cm. 3. Estimated weight is 59th percentile by Hadlock criteria when 01/29/2024 is used as the estima perry date of delivery (RHIANNON). Please correlate with clinical information or earlier ultrasounds for mos t accurate RHIANNON. Reviewed, dictated and finalized at location A. IMPRESSION: 1. Single living fetus in vertex presentation with heart rate of 138 bpm. 2. Normal amniotic fluid index of 12.3 cm. 3. Estimated weight is 59th percentile by Hadlock criteria when 01/29/2024 is used as the estimated date of delivery (RHIANNON). Please correlate with clinica l information or earlier ultrasounds for most accurate RHIANNON.
== END 2023-11-14 15:10 ==
LOC: MICIMG 15:10
PROVIDERS: PCP Advanced Practice Midwife; Visit Provider Advanced Practice Midwife
DX: O36.5930 Maternal care for other known or suspected poor fetal growth, third trimester, not applicable or unspecified (principal); Z3A.00 Weeks of gestation of pregnancy not specified
CPT/HCPCS: 76816

== ENCOUNTER 2023-12-15 14:50 | Outpatient (CLI) | payer MEDICAID, SELFPAY ==
--- NOTE | ~2023-12-15 | US_ITS ---
EXAMINATION: US OB follow up DATE: 12/15/2023 15:13 INDICATION: Hypertension. Third trimester. TECHNIQUE: Real-time ultrasound of the pelvis was performed. COMPARISON: Ultrasound 11/14/2023 FINDINGS: There is a single living fetus in vertex presentation. The placenta is posterior and fundal. h eart rate is 144 beats per minute (bpm). The amniotic fluid index is 16.7 cm, which is normal. The following biometric data were obtained: Biparietal diameter (BPD): 8.4 cm; head circumference (HC): 30.5 cm; abdominal circumference (AC): 29 .9 cm; femur length (FL): 6.3 cm. These measurements are concordant. Estimated weight is 2217 g +/- 333 g, which correlates with the 41st percentile when 01/29/24 is used as estimated date of delivery. As single measurements, these parameters are each equal to the following estimated gestational ages: BPD: 33 weeks 5 days. HC: 33 weeks 6 days. AC: 33 weeks 6 days. FL: 32 weeks 5 days. estimated gestational age based solely on measurements from this exam is 33 weeks 4 days +/- 2 weeks 2 days. IMPRESSION: 1. Single living fetus in vertex presentation. 2. Estimated weight is 2217 g +/- 333 g, which correlates with the 41st percentile when 4 is used as estimated date of delivery. Reviewed, dictated and finalized at location A. IMPRESSION: 1. Single living fetus in vertex presentation. 2. Estimated weight is 2217 g +/- 333 g, which correlates with the 41st percentile when 01/29/24 is used as estimated date of delivery.
== END 2023-12-15 14:51 ==
LOC: MICIMG 14:51
PROVIDERS: PCP Advanced Practice Midwife; Visit Provider Advanced Practice Midwife
DX: O10.013 Pre-existing essential hypertension complicating pregnancy, third trimester (principal); O99.891 Other specified diseases and conditions complicating pregnancy; Z3A.00 Weeks of gestation of pregnancy not specified
CPT/HCPCS: 76816

== ENCOUNTER 2023-12-27 16:21 | Observation (INO) | payer MEDICAID, SELFPAY ==
[2023-12-27 16:38] VITALS: BP 108/61; PULSE 88
[2023-12-27 16:45] VITALS: BP 108/56; PULSE 78
[2023-12-27 17:00] VITALS: BP 106/55; PULSE 69; RESP 16; TEMP 36.4
[2023-12-27 17:05] VITALS: BP 106/55; PULSE 69
[2023-12-27 17:18] LABS: Add Urine Microscopic? NO; Appearance Urine Clear (Clear); Bilirubin Urine Negative (Negative); Blood Urine Negative (Negative); Color Urine Yellow (Yellow); Glucose Urine UA Negative (Negative); Ketones Urine Negative (Negative); Leukocyte Esterase Ur Negative LEU/UL (Negative); Nitrate Urine Negative (Negative); Protein Urine Negative (Negative); Specific Grav Ur 1.012 (1.001-1.035); Urobilinogen Urine 0.2 mg/dL (<2.0); pH Urine 6.5 (5.0-9.0)
[2023-12-27 17:19] VITALS: BMI 31.2
--- NOTE | 2023-12-27 17:20 | OBADM ---
This patient, Niya Cramer, admitted to the OB room 112 for observation. Patient/family oriented to hospital policies and general routines including ID bracelet, bed and alarms, visiting hours, pain management, procedures, bathroom and other care routines, personal items, smoking policy, room service/diet, and visiting hours. Patient/Family are encouraged to report perceived risks to care and to ask questions if they do not understand what they are told or what they should do.
[2023-12-27 18:00] VITALS: BP 113/61; PULSE 60
[2023-12-27 19:01] VITALS: BP 95/50; PULSE 77
--- NOTE | 2023-12-30 07:22 | PM.OBTRLD ---
OB - Triage/Final Diagnosis Visit Information Date of evaluation: 12/29/23 Reason for evaluation: threatened labor Comments/Additional reasons for admission: I have assessed the risk for this patient, Niya Cramer, and determined that she would benefit from observation care. Evaluation Laboratory results: Laboratory Tests 12/27/23 17:09 Urine Color Yellow Urine Appearance Clear Urine pH 6.5 Ur Specific [place] 1.012 Urine Protein Negative Urine Glucose (UA) Negative Urine Ketones Negative Ur Blood (Man) Negative Urine Nitrate Negative Urine Bilirubin Negative Urine Urobilinogen 0.2 Leukocyte Esterase Rfl Negative
== END 2023-12-27 19:17 | disposition home or self-care (01) ==
PROVIDERS: Admitting Provider Obstetrics & Gynecology; PCP Internal Medicine; Visit Provider Obstetrics & Gynecology
DX: O47.9 False labor, unspecified (principal)
CPT/HCPCS: 81003; G0378; G0379

== ENCOUNTER 2023-12-30 22:25 | Outpatient (CLI) | payer MEDICAID, SELFPAY ==
[2023-12-30 22:47] VITALS: BMI 31.3
[2023-12-30 22:53] LABS: Add Urine Microscopic? NO; Appearance Urine Clear (Clear); Bilirubin Urine Negative (Negative); Blood Urine Negative (Negative); Color Urine Yellow (Yellow); Glucose Urine UA Negative (Negative); Ketones Urine Negative (Negative); Leukocyte Esterase Ur Negative LEU/UL (Negative); Nitrate Urine Negative (Negative); Protein Urine Negative (Negative); Specific Grav Ur 1.013 (1.001-1.035); pH Urine 6.5 (5.0-9.0)
[2023-12-30 22:56] LABS: Basophils Percent Auto 0.6 % (0.2-1.2); Eosinophils Absolute Auto 0.1 K/mm3 (0-0.3); Eosinophils Percent Auto 1.1 % (0-4.4); Hematocrit 32.3 % (37.0-47.0); Immature Granulocyte Absolute 0.01 K/mm3 (0.00-0.031); Immature Granulocyte Percent A 0.2 % (0-0.5); Lymphocytes Absolute Auto 1.69 K/mm3 (0.9-3.2); Lymphocytes Percent Auto 26.4 % (18.3-44.2); Mean Corpuscular HGB Conc 34.1 g/dl (32-36); Mean Corpuscular Hemoglobin 31.2 pg (26-34); Mean Corpuscular Volume 91.5 fl (80-100); Monocytes Absolute Auto 0.5 K/mm3 (0.1-0.6); Neutrophils Absolute Auto 4.1 K/mm3 (1.3-6.7); Neutrophils Percent Auto 63.7 % (45.5-73.1); Platelet Count Result 154 k/mm3 (150-375); Red Blood Count 3.53 M/mm3 (4.2-5.4); Red Cell Distribution Width 15.5 % (11.5-14.5); White Blood Count 6.4 K/mm3 (4.5-10.0)
[2023-12-30 23:00] VITALS: BP 110/68; PULSE 81
[2023-12-30 23:01] LABS: Creatinine Urine 81.7 mg/dL; Total Protein Urine Random 7 mg/dL; Ur Ttl Prot Creatinine Ratio 0.09 mg/mg (0-0.20)
[2023-12-30 23:05] LABS: Alanine Aminotransferase 11 U/L (6-35); Albumin Level 3.6 g/dL (3.5-5.1); Alkaline Phosphatase 89 U/L (38-126); Anion Gap 9 mmol/L (4-12); Aspartate Amino Transferase 16 U/L (14-36); Bilirubin,Total 0.2 mg/dL (0.2-1.3); Blood Urea Nitrogen 6 mg/dL (7-17); Calcium 8.9 mg/dL (8.4-10.2); Carbon Dioxide 20 mmol/L (22-30); Chloride 104 mmol/L (98-107); Estimated CRCL calculation 125 ml/min; Estimated Glomerular Filt Rate > 60; Glucose 97 mg/dL (65-110); Potassium 3.7 mmol/L (3.4-5.0); Sodium 133 mmol/L (137-145); Uric Acid 4.1 mg/dL (2.5-7.5)
[2023-12-30 23:10] VITALS: BP 110/68; PULSE 81; RESP 18
[2023-12-30 23:15] VITALS: BP 110/61; PULSE 67
--- NOTE | 2023-12-30 23:20 | PC.NURSE ---
Call placed to . Pt labs, BP, Reactive NST, Pt c/o dizziness, blurred vision and floaters reported. Order to discharge home.
[2023-12-30 23:29] VITALS: BP 110/61; PULSE 67
--- NOTE | 2023-12-30 23:31 | PC.NURSE ---
Pt discharged home undelivered in stable condition per Order from . Discharges instructions reviewed. [facility] handout given. Pt stated no questions or concerns @ this time. Pt ambulated out of department with S.O
== END 2023-12-30 23:30 | disposition home or self-care (01) ==
LOC: ANHOBOP 22:30 → ANHOBPP 22:32
PROVIDERS: PCP Internal Medicine; Visit Provider Obstetrics & Gynecology Gynecology
DX: O13.9 Gestational [pregnancy-induced] hypertension without significant proteinuria, unspecified trimester (principal)
CPT/HCPCS: 36415; 59025; 80053; 81003; 82570; 84156; 84550; 85025; 99199

== ENCOUNTER 2024-01-09 18:26 | Outpatient (RCR) | payer MEDICAID, OTHER, SELFPAY ==
--- NOTE | 2023-10-30 00:28 | PC.NURSE ---
Called Lino Weathers CNM with pt status. Informed of pt stating that she has not felt baby movement like normal. Tracing appropriate for gestational age. Pt states that movement has increased. Pt also states that she has constant back pain. No contractions seen on monitor. Pt states that she has ankylosing spondylitis. May D/C home. Instruct pt to use support belt.
[2023-10-30 00:30] VITALS: BP 104/50; PULSE 81
[2023-12-29 11:50] VITALS: BP 105/57; PULSE 79
[2024-01-09 19:07] VITALS: BP 113/66; PULSE 86
== END 2024-01-27 23:59 | disposition home or self-care (01) ==
LOC: ANHOBOP 18:26
PROVIDERS: PCP Internal Medicine; Visit Provider Obstetrics & Gynecology Gynecology
DX: O36.8120 Decreased fetal movements, second trimester, not applicable or unspecified (principal); Z3A.27 27 weeks gestation of pregnancy; M54.50 Low back pain, unspecified; M45.9 Ankylosing spondylitis of unspecified sites in spine
CPT/HCPCS: 59025

== ENCOUNTER 2024-01-14 12:18 | Outpatient (CLI) | payer OTHER, SELFPAY ==
[2024-01-14 13:04] LABS: OBXCEM ROM Plus Negative (Negative)
== END 2024-01-14 13:01 | disposition home or self-care (01) ==
LOC: ANHOBOP 12:22 → ANHLDR 12:23
PROVIDERS: PCP Internal Medicine; Visit Provider Advanced Practice Midwife
DX: O42.90 Premature rupture of membranes, unspecified as to length of time between rupture and onset of labor, unspecified weeks of gestation (principal); Z3A.00 Weeks of gestation of pregnancy not specified
CPT/HCPCS: 84112; 99199

== ENCOUNTER 2024-01-21 04:59 | Inpatient (IN) | payer OTHER, SELFPAY ==
[2024-01-21] VITALS (114 sets, daily range): BP systolic 56–128; BP diastolic 25–82; PULSE 55–91; RESP 16–18; TEMP 36.4–37.5; O2SAT 95–100; BMI 31.4
[2024-01-21 05:46] LABS: Basophils Percent Auto 0.5 % (0.2-1.2); Eosinophils Absolute Auto 0.1 K/mm3 (0-0.3); Hematocrit 33.8 % (37.0-47.0); Hemoglobin 11.3 g/dL (12.0-15.0); Immature Granulocyte Absolute 0.02 K/mm3 (0.00-0.031); Immature Granulocyte Percent A 0.3 % (0-0.5); Lymphocytes Absolute Auto 1.38 K/mm3 (0.9-3.2); Mean Corpuscular HGB Conc 33.4 g/dl (32-36); Mean Corpuscular Hemoglobin 30.8 pg (26-34); Mean Corpuscular Volume 92.1 fl (80-100); Mean Platelet Volume 10.3 fl (7.4-10.4); Monocytes Absolute Auto 0.5 K/mm3 (0.1-0.6); Monocytes Percent Auto 8.3 % (2.6-8.5); Neutrophils Absolute Auto 4.3 K/mm3 (1.3-6.7); Neutrophils Percent Auto 67.9 % (45.5-73.1); Platelet Count Result 162 k/mm3 (150-375); Red Blood Count 3.67 M/mm3 (4.2-5.4); Red Cell Distribution Width 14.6 % (11.5-14.5); White Blood Count 6.3 K/mm3 (4.5-10.0)
[2024-01-21 05:57] LABS: Alanine Aminotransferase 13 U/L (6-35); Albumin Level 3.5 g/dL (3.5-5.1); Alkaline Phosphatase 106 U/L (38-126); Anion Gap 11 mmol/L (4-12); Aspartate Amino Transferase 22 U/L (14-36); Bilirubin,Total 0.3 mg/dL (0.2-1.3); Blood Urea Nitrogen 9 mg/dL (7-17); Calcium 8.9 mg/dL (8.4-10.2); Carbon Dioxide 17 mmol/L (22-30); Chloride 105 mmol/L (98-107); Estimated Glomerular Filt Rate > 60; Glucose 95 mg/dL (65-110); Potassium 3.4 mmol/L (3.4-5.0); Sodium 133 mmol/L (137-145); Uric Acid 4.4 mg/dL (2.5-7.5)
[2024-01-21 06:37] LABS: HIV 1/2 Ab P24 Ag Result Negative (Negative)
[2024-01-21] MEDS: OXYTOCIN 30 UNITS/NS 500 ML 30 UNITS/500 ML BAG IV CONT ×2 (06:42→16:05)
[2024-01-21] MEDS: LACTATED RINGERS 1,000 ML 125 ML IV CONT ×2 (06:42→10:45)
--- NOTE | 2024-01-21 06:47 | LDADM ---
This patient, Nyia Cramer, was admitted to Labor/Delivery/Recovery 109 on 01/21/24 at 04:59. Plans for labor, pain management and were discussed with patient. Patient/family oriented to hospital policies and general routines including ID bracelet, bed and alarms, visiting hours, pain management, procedures, bathroom and other care routines, personal items, smoking policy, room service/diet and guest tray routines, infant security routines, and visiting hours. Patient/Family are encouraged to report perceived risks to care and to ask questions if they do not understand what they are told or what they should do. See OBIX for further documentation.
--- NOTE | 2024-01-21 07:52 | WPDOBADMIT ---
Obstetrics - Admit Note Admission Note: record reviewed. No pertinent additions to the history and/or any subsequent changes in the physical findings that are not consistent with the expected course of the were found. Additions to the history and/or subsequent changes in the physical findings follow. None.
--- NOTE | 2024-01-21 07:52 | PM.OBPNLAB ---
Pain Control Date/time seen: 01/21/24 07:48 Pain control: tolerating well Pelvic Exam Dilation (cm): 3 Effacement (%): 75 station: -2 Amniotic membrane status: Intact Comments: head well applied to cervix. Contractions Monitor mode: External Contraction pattern: Irregular Contraction intensity: Mild Status status: Category l Assessment and Plan Pitocin rate (mU/min): 2 Assessment: induction ongoing Plan: continuous present management Comments: CNM to bedside. Discussed plan of care and option for amniotomy. Discussed risks, benefits, and expectations of breaking water. Patient is agreeable. Amniotomy attempted. No return amniotic fluid. No BBOW palpated. Will attempt at a later time if ROM was unsuccessful. Patient tolerated procedure well. Anticipate vaginal . Dr. Spaulding updated.
--- NOTE | 2024-01-21 10:54 | WPDANESEPP ---
Anes - Eval Pre Procedure Procedure: Labor epidural Date/Time: 01/21/24 10:54 Surgeon: Jasson Preop Diagnosis: Abdominal pain with contractions Pre Op Diagnosis: IOL Patient Data Age: 28 Gender: F Height: 1.63 m Weight: 83 kg Last Vital Signs Temp 97.6 F 01/21/24 07:45 Pulse 64 01/21/24 10:46 Resp 16 01/21/24 07:45 BP 122/66 01/21/24 10:46 Pulse Ox 99 01/21/24 10:50 O2 Del Method Room Air 01/21/24 06:46 Allergies Allergy/AdvReac Type Severity Reaction Status Date / Time Penicillins Allergy Mild RASH,ITCHIN Verified 01/15/24 10:12 G amoxicillin Allergy Rash Verified 01/15/24 10:12 Home Medications Medication Instructions Recorded Confirmed Type albuterol sulfate 90 mcg/actuation 2 puff inhalation QID PRN 09/15/23 01/21/24 Rx aerosol inhaler shortness of breath or wheezing #8.5 grams labetalol 100 mg tablet 100 mg PO BID 09/15/23 01/21/24 History sertraline 50 mg tablet 50 mg PO DAILY 09/15/23 01/21/24 History acetaminophen 500 mg tablet 1,000 mg PO Q6H PRN Pain 12/27/23 01/21/24 History (Tylenol Extra Strength) docusate sodium 100 mg capsule 100 mg PO BID 12/27/23 01/21/24 History (Colace) ergocalciferol (vitamin D2) 1,250 50,000 unit PO WEEKLY 12/27/23 01/21/24 History mcg (50,000 unit) capsule ferrous sulfate 325 mg (65 mg 325 mg PO DAILY 12/27/23 01/21/24 History iron) tablet omeprazole 40 mg capsule,delayed 40 mg PO DAILY 12/27/23 01/21/24 History release vit no.95-ferrous 1 tablet PO DAILY 12/27/23 01/21/24 History fumarate 28 mg-folic acid 800 mcg tablet () aspirin 81 mg tablet 81 mg PO DAILY 01/15/24 01/15/24 History Laboratory Tests 01/21/24 05:15 WBC 6.3 K/mm3 (4.5-10.0) RBC 3.67 L M/mm3 (4.2-5.4) Hgb 11.3 L g/dL (12.0-15.0) Hct 33.8 L % (37.0-47.0) MCV 92.1 fl (80-100) MCH 30.8 pg (26-34) MCHC 33.4 g/dl (32-36) RDW 14.6 H % (11.5-14.5) Plt Count 162 k/mm3 (150-375) MPV 10.3 fl (7.4-10.4) Immature Gran % (Auto) 0.3 % (0-0.5) Neut % (Auto) 67.9 % (45.5-73.1) Lymph % (Auto) 22.0 % (18.3-44.2) [place] % (Auto) 8.3 % (2.6-8.5) Eos % (Auto) 1.0 % (0-4.4) Baso % (Auto) 0.5 % (0.2-1.2) Lymph # (Auto) 1.38 K/mm3 (0.9-3.2) [place] # (Auto) 0.5 K/mm3 (0.1-0.6) Eos # (Auto) 0.1 K/mm3 (0-0.3) Baso # (Auto) 0.0 K/mm3 (0.0-0.1) Abs Immat Gran (auto) 0.02 K/mm3 (0.00-0.031) Absolute Neuts (auto) 4.3 K/mm3 (1.3-6.7) Absolute Nucleated RBC 0.000 K/mm3 (0.0-0.012) Nucleated RBC % 0.0 % (0.0-0.2) Sodium 133 L mmol/L (137-145) Potassium 3.4 mmol/L (3.4-5.0) Chloride 105 mmol/L (98-107) Carbon Dioxide 17 L mmol/L (22-30) Anion Gap 11 mmol/L (4-12) BUN 9 mg/dL (7-17) Creatinine 0.60 L mg/dL (0.7-1.0) Estim Creat Clear Calc Not Reportable Estimated GFR > 60 (59 - ) Glucose 95 mg/dL (65-110) Uric Acid 4.4 mg/dL (2.5-7.5) Calcium 8.9 mg/dL (8.4-10.2) Total Bilirubin 0.3 mg/dL (0.2-1.3) AST 22 U/L (14-36) ALT 13 U/L (6-35) Alkaline Phosphatase 106 U/L (38-126) Total Protein 6.0 L g/dL (6.3-8.2) Albumin 3.5 g/dL (3.5-5.1) RPR Pending HIV 1&2 Ab/P24 Ag 4thGn Negative (Negative) Blood Type O Positive Antibody Screen Negative : gestational age HCG: positive Patient hx anesthesia problems: none Family hx anesthesia problems: none Results Review: All pre-operative results and documents have been reviewed as part of the pre-operative evaluation. [facility] Past Medical History Medical History Anxiety Asthma B12 deficiency Depression Interstitial cystitis Migraines Rheumatoid arthritis Sjogren's disease UTI (urinary tract infection) Surgical History Surgical History (Reviewed 01/21/24 @
--- NOTE | 2024-01-21 11:18 | PM.OBPNLAB ---
Pain Control Date/time seen: 01/21/24 11:18 Pelvic Exam Comments: Recent RN exam 3.5 cm. Contractions Monitor mode: External Contraction frequency: 3 (3-5) Contraction duration: 60 (60-90) Contraction pattern: Irregular Contraction intensity: Moderate Status status: Category l Assessment and Plan Assessment: induction ongoing Comments: Plan IUPC placement and up titration of pitocin as indicated to achieve adequate contraction pattern.
[2024-01-21 11:44] LABS: Rapid Plasma Reagin Non-Reactive (NonReactive)
[2024-01-21] MEDS: ONDANSETRON INJ 4 MG/2 ML VIAL IV PUSH (12:40)
[2024-01-21] MEDS: SODIUM CHLORIDE 0.9% IV 300 ML 600 ML I-UTERINE (13:58)
--- NOTE | 2024-01-21 15:33 | PM.OBPRVD ---
OB - Vaginal Delivery Note Procedure Delivery date: 01/21/24 Events: Chronic Hypertension Induction method: Per Pitocin Protocol Delivery augmentation: Rupture of Membranes Delivery monitor: External FHT and Internal Uterine Route of delivery: Episiotomy description: None Laceration Description: None Specimen: No Quantitative Blood Loss (ml): 65 Anesthesia type: Epidural Disposition: Floor Complications: No immediate complications Narrative: Niya was admitted from home for induction due to chronic hypertension in . Her labor was started with Pitocin and augmented with ruptured membranes. She progressed well to complete dilation and pushed extremely well with contractions. She immediately brought the head to complete crown and delivered over an intact perineum. There was excellent restitution observed. A loose nuchal cord was identified. She smoothly deliver the anterior and posterior shoulders followed by the remainder of the . The nuchal cord was reduced and then the was placed on maternal abdomen and dried and stimulated by the nursery staff. After 1 minute of life, the cord was doubly clamped and cut. Cord blood, cord gases, and cord segment were obtained. The vulva and vaginal mucosa were inspected and found to be intact. There was excellent uterine tone and hemostasis. All delivery counts correct. Mother baby skin to skin in the the room. Baby Date of : 01/21/24 Time of : 15:19 Gestational Age by Date: 39 Infant gender: Female Weight (pounds): 7 Weight (ounces): 2 presentation: vertex position: Left Occiput Anterior Placenta delivery description: Spontaneous and Normal Configuration Cord Vessel Description: 3 Vessels, Nuchal Cord and Delayed Cord Clamping score one minute: 8 score five minutes: 9
--- NOTE | 2024-01-21 15:37 | PM.OBDSVD ---
DS: Admitting Diagnosis Discharge Date 01/22/24 DC by other provider Admitting Diagnosis 28 y.o. at 39 weeks CHTN IC Mast Cell Activaion Hx SVT Ankylosing Spondyliits Sjogrens Syndrome VIt B 12 deficiency Rheumatoid Arthritis Nicotine use in Depression with Hx Cutting Anemia in DS: Discharge Diagnosis Discharge Diagnosis (1) (normal spontaneous vaginal delivery): Code(s): O80 - Encounter for full-term uncomplicated delivery Status: Acute (2) Chronic hypertension affecting : Code(s): O10.919 - Unspecified pre-existing hypertension complicating , unspecified trimester Status: Acute (3) Current nicotine use: Code(s): Z72.0 - Tobacco use Status: Acute (4) Depression affecting : Code(s): O99.340 - Other mental disorders complicating , unspecified trimester; F32.A - Depression, unspecified Status: Acute OB - DS: Summary Hospital Course Hospital Course: Uncomplicated OB Procedures : NST and Ultrasound OB Procedures Intrapartum: Spontaneous Vag Delivery OB Procedures: : None Peripartum Data Infant Delivery Method: Natural Vaginal Laceration Description: None Episiotomy description: None complications: none Status at Discharge Functional status at discharge: independent ambulation Overall status at discharge: patient is progressing back to baseline Time Spent with Patient Time attestation: Total time spent providing and/or coordinating discharge services: DS: Data Data Completed and Pending Labs on day of discharge: Labs from last 24 hours 01/21/24 05:15 WBC 6.3 RBC 3.67 L Hgb 11.3 L Hct 33.8 L MCV 92.1 MCH 30.8 MCHC 33.4 RDW 14.6 H Plt Count 162 MPV 10.3 Immature Gran % (Auto) 0.3 Neut % (Auto) 67.9 Lymph % (Auto) 22.0 [place] % (Auto) 8.3 Eos % (Auto) 1.0 Baso % (Auto) 0.5 Lymph # (Auto) 1.38 [place] # (Auto) 0.5 Eos # (Auto) 0.1 Baso # (Auto) 0.0 Abs Immat Gran (auto) 0.02 Absolute Neuts (auto) 4.3 Absolute Nucleated RBC 0.000 Nucleated RBC % 0.0 Sodium 133 L Potassium 3.4 Chloride 105 Carbon Dioxide 17 L Anion Gap 11 BUN 9 Creatinine 0.60 L Estim Creat Clear Calc Not Reportable Estimated GFR > 60 Glucose 95 Uric Acid 4.4 Calcium 8.9 Total Bilirubin 0.3 AST 22 ALT 13 Alkaline Phosphatase 106 Total Protein 6.0 L Albumin 3.5 RPR Non-reactive HIV 1&2 Ab/P24 Ag 4thGn Negative Blood Type O Positive Antibody Screen Negative Discharge Plan Discharge Attending physician on discharge: Deanna Spaulding Consulting providers: Anni Weathers; Scar Pastor Jr.; Clem Cleary Discharging Clinician: Deanna Spaulding Anticipated Discharge Date/Time: 01/23/24 15:41 Patient Disposition: Home, Self-Care Activity: may shower and pelvic rest Diet: regular Discharge Instructions: Education: Mom and Baby Guide Given to: Mother Follow-Up: Call your delivering provider's office for an appointment to be seen in: 6 Weeks Mom and baby should come to the [facility] for the follow-up appointment. Appointment Date/Time: January 23, 2024 at 2:30 pm What to expect at your follow-up visit: Blood Pressure Check Physical Assessment Call [phone] if you are unable to keep your appointment time. BREAST CARE: * Wear a snug supportive bra. * For engorgement discomfort: Breast Feeding: * Apply warm moist washcloths * Express milk as needed to relieve engorgement * Wear loose clothing * For sore nipples: * Identify correct latch-on * Apply warm moist washcloths before and after nursing * Air dry nipples after nursing * May apply Lansinoh cream to nipples PERINEAL CARE: * Until bleeding stops, use your armani bottle after urinating * Change your pad frequently throughout the day * You may take sitz baths s
[2024-01-21] MEDS: OXYTOCIN 30 UNITS/NS 500 ML 30 UNITS/500 ML BAG 125 UNITS IV CONT (16:09)
[2024-01-21] MEDS: BENZOCAINE 20% AER SPR (*SP) 56 GM CAN 1 SPRAY TOPICAL (18:40)
[2024-01-21] MEDS: WITCH HAZEL 40 PADS 1 PAD TOPICAL (18:40)
[2024-01-21] MEDS: ACETAMINOPHEN 325 MG TABLET 650 MG PO (21:13)
[2024-01-21] MEDS: IBUPROFEN 600 MG TABLET PO (21:14)
[2024-01-22 04:50] LABS: Hematocrit 33.6 % (37.0-47.0); Hemoglobin 11.4 g/dL (12.0-15.0)
[2024-01-22] MEDS: ACETAMINOPHEN 325 MG TABLET 650 MG PO ×2 (04:51→11:15)
[2024-01-22] MEDS: IBUPROFEN 600 MG TABLET PO ×2 (04:52→11:15)
[2024-01-22 07:40] VITALS: BP 121/77; PULSE 60; RESP 16; TEMP 36.3; O2SAT 100
--- NOTE | 2024-01-22 07:48 | PM.OBPNVD ---
OB - PN: Subj Subjective Date/time seen: 01/22/24 07:48 Patient comments: no complaints and pain well controlled baby status: doing well OB - PN: Obj Data Labs 01/22/24 04:35 01/21/24 05:15 Labs: Laboratory Results - last 24 hr 01/21/24 01/22/24 05:15 04:35 Hgb 11.4 L Hct 33.6 L RPR Non-reactive OB - PN A/P Plan day: 1 Plan: routine care, discharge home, follow up 6 weeks and other (Plans Janette for ) Time Spent With Patient Time: Total time spent is greater than 50% in coordination of care (as documented) at patient's floor/unit and/or counseling patient: Exam : Bimanual exam- vagina & uterus: other (Uterus firm, nt @U)
[2024-01-22 09:10] VITALS: PULSE 60
[2024-01-22] MEDS: LABETALOL HCL 100 MG TABLET PO (09:10)
[2024-01-22] MEDS: FERROUS SULFATE 325 MG TABLET DR BY MOUTH (09:10)
[2024-01-22] MEDS: MULTIVIT/MIN/PREN/FOL AC/IRON TABLET 1 TAB PO (09:10)
[2024-01-22] MEDS: DOCUSATE SODIUM 100 MG CAPSULE PO (09:10)
[2024-01-22] MEDS: SERTRALINE HCL 50 MG TABLET PO (09:10)
[2024-01-22] MEDS: PANTOPRAZOLE 40 MG TABLET PO (09:10)
[2024-01-22 11:33] VITALS: BP 110/54; PULSE 72; RESP 16; TEMP 36.1; O2SAT 99
--- NOTE | 2024-01-22 12:39 | WPDANLDPN2 ---
Anes-Prog Note L&D Date/Time: 01/22/24 12:39 Comfortable throughout: labor and delivery Neuraxial method: epidural Epidural/Spinal procedure site: clean & non-tender Neuro status: Neuro function grossly intact. Cardiovascular status: normal Respiratory status: normal Airway patency: baseline Mental status: baseline Post-Op hydration status: normal Vital Signs: Last Vital Signs Temp 36.1 C L 01/22/24 11:33 Pulse 72 01/22/24 11:33 Resp 16 01/22/24 11:33 BP 110/54 L 01/22/24 11:33 Pulse Ox 99 01/22/24 11:33 O2 Del Method Room Air 01/22/24 07:00 Pain score (VAS): 1 I/O: Intake & Output 01/21/24 01/22/24 01/22/24 23:59 07:59 15:59 Intake Total 118.8 Output Total 600 Balance -481.2 Post-procedural complaints: none Patient feedback: Patient satisfied with anesthetic care.
[2024-01-22 15:30] VITALS: BP 105/57
--- NOTE | 2024-01-22 16:34 | PC.NURSE ---
Patient viewed the discharge video Mother & Baby Care, The First Two Weeks . Patient was given the opportunity and encouraged to ask questions. Patient verbalized understanding of information shared and has been given the mother/baby guide for home reference.
[2024-01-22] MEDS: INFLUENZA TRIVALENT VACCINE 45 MCG/0.5 ML SYRINGE IM (17:13)
[2024-01-23 15:06] VITALS: BP 112/67; PULSE 78; RESP 18; TEMP 37.3; O2SAT 100
== END 2024-01-22 18:45 | disposition home or self-care (01) | DRG 560 ==
LOC: ANHLDR 15:42 → ANHOB2 19:18
PROVIDERS: Advanced Practice Midwife; Admitting Provider Obstetrics & Gynecology Gynecology; PCP Internal Medicine; Visit Provider Obstetrics & Gynecology Gynecology
DX: O10.92 Unspecified pre-existing hypertension complicating childbirth (principal); O69.9XX0 Labor and delivery complicated by cord complication, unspecified, not applicable or unspecified; O99.334 Smoking (tobacco) complicating childbirth; O99.344 Other mental disorders complicating childbirth; F32.A Depression, unspecified; O77.0 Labor and delivery complicated by meconium in amniotic fluid; Z3A.39 39 weeks gestation of pregnancy; Z37.0 Single live birth; M06.9 Rheumatoid arthritis, unspecified; M35.00 Sjogren syndrome, unspecified; O99.892 Other specified diseases and conditions complicating childbirth; Z23 Encounter for immunization
CPT/HCPCS: 36415; 80053; 84550; 85014; 85018; 85025; 86592; 86703; 86850; 86900; 86901; 90471; 90656; A9270; G0008; G0432; J2405; J2590; J7030; J7120

== ENCOUNTER 2024-03-23 15:42 | Outpatient (CLI) | payer OTHER, SELFPAY ==
--- NOTE | ~2024-03-23 | US_ITS ---
EXAMINATION: US pelvic complete w TV DATE: 03/23/2024 16:23 INDICATION: Pelvic pain. TECHNIQUE: Multiple transabdominal and transvaginal sonographic images of the pelvis were obtained. COMPARISON: None. FINDINGS: TRANSABDOMINAL ULTRASOUND: The uterus measures 7.9 x 3.5 x 5.8 cm. There is no free fluid in the pelvis. TRANSVAGINAL ULTRASOUND: The endometrial complex measures 5 mm in thickness. The right ovary measures 2.5 x 1.3 x 1.7 cm. The left ovary measures 2.8 x 2.2 x 1.9 cm. There is normal vascular flow in the ovaries. IMPRESSION: 1. Normal pelvis. Reviewed, dictated and finalized at location A. LIARY ENGINEER IMPRESSION: 1. Normal pelvis.
== END 2024-03-23 15:43 | disposition home or self-care (01) ==
LOC: ANHIMG 15:43
PROVIDERS: PCP Internal Medicine; Visit Provider Nurse Practitioner Women's Health
DX: R10.2 Pelvic and perineal pain (principal)
CPT/HCPCS: 76830; 76856

== ENCOUNTER 2024-06-28 18:31 | Emergency (ER) | payer OTHER, SELFPAY ==
--- NOTE | ~2024-06-28 | US_ITS ---
EXAMINATION: US OB <= 14 weeks fetus INDICATION: Pelvic pain status post EAB TECHNIQUE: Sonography of the pelvis was performed by transabdominal techniques. COMPARISON: None. RESULT: Uterus: 9.2 x 5.7 x 6.4 cm. Anteverted. Echogenic and heterogeneous thickened endometrium measuring u p to 3.1 cm, with scattered areas of mild color Doppler flow. This appearance likely represents a com bination of retained products and blood clot. Right ovary: 2.7 x 1.7 x 1.8 cm. Vascular flow is present. No adnexal mass. Left ovary: 2.9 x 1.9 x 1.7 cm. Vascular flow is present. No adnexal mass. Pelvis free fluid: None. IMPRESSION: Sonographic findings concerning for retained products of conception. Reviewed, dictated and finalized at location K. ER REFEREE
[2024-06-28 18:41] VITALS: BP 100/62; PULSE 99; RESP 17; TEMP 36.6; O2SAT 98
--- OUTSIDE RECORDS SUMMARY | 2024-06-28 19:11 | XMS_ITS | Continuity of Care Document ---
Author Organization [facility] Address [address] [place] [address] Phone Care Team Providers Care Shell Sieve Operator Name Role Phone Jody PT, DPT, Nadia Unavailable Unavaila ble Procedures Procedure Date Therapeutic Activities Neuromuscular Re-Ed Therapeutic Exercise Neuromuscular Re-Ed Therapeutic Activities Therapeutic Activities Therapeutic Exercise Neuromuscular Re-Ed Manual Therapy Therapeutic Activities Neuromuscular Re-Ed Therapeutic Activities Neuromuscular Re-Ed PT Evaluation Moderate Complexity Therapeutic Activities Therapeutic Exercise Manual Therapy Advance Directives Directive Yes / No Effective Date File Name No Information Encounters Encounter Description Practice Location Reason(s) For Visit Diagnoses Date Provider Providers Copied on Encounter [facility], [place], [place], [id number], [place] tel:[phone] Barn[place] No Information Jody Zuniga. . Referring Provider: Gloria Mejia [address] [place] [address] [address], [place], [address]. tel:[phone] [facility], [place], [place], [id number], tel:[phone] Monty No Information Vera Nadia. . Referring Provider: Gloria Mejia [address] [place] [address] [address], [place], [place], [facility]. tel:[phone] [place] [address] [place] [address] [address], [place], [place], [id number], tel:[phone] Barnhart No Information Vera Nadia. . Referring Provider: Gloria Mejia [address] [place] [address] [address], [place], [place], [facility]. tel:[phone] [place] [address] [place] [address] [address], [place], [place], [id number], tel:[phone] Monty No Information Vera Nadia. . Referring Provider: Gloria Mejia [address] [place] [address] [address], [place], [place], [facility]. tel:[phone] [place] [address] [address], [place], [place], [id number], tel:[phone] Barnhart No Information Vera Nadia. . Referring Provider: Gloria Mejia [address] [place] [address] [address], [place], [facility]. tel:[phone] [facility] [address] [place] [address] [address], [place], [place], [id number], tel:[phone] Barnhart No Information Vera Nadia. . Referring Provider: Gloria Mejia [address] [place] [address] [address], [place], [place], [facility]. tel:[phone] Family History Family Member Type Diagnosis Age At Onset No Information Payers Payer name Insurance type Covered democrat ID Authorromana kristie(s) [facility] [id number] Social History Type Description Quantity Date Captured Comments Sex Female Smoking Status No Information Chief Complaint And Reason For Visit No Information Reason For Referral Reason For Referral No Information Plan Of Treatment Date Type Action Status Goal Tobacco Cessation Counseling completed Goal Tobacco Cessation Counseling completed Goal Tobacco cessation counseling completed Referral Ordered: PCP timeframe: 1 week. (related to Overweight) ordered Referral Ordered: Weight management: Referral to physician timeframe: 1 Month. (related to Overweight) ordered History Of Present Illness Encounter Date Complaint History Of Prese nt Illness No Information Functional Status Date Functional Assessmen t No Information Instructions Date Instruction Additional Infor mation No Information Assessments Type Assessment Date No Information Patient Care Teams Name Effective Dates (start - stop) Status Members No Information
--- OUTSIDE RECORDS SUMMARY | 2024-06-28 19:11 | XMS_ITS | Clinical Summary ---
Author Organization [facility] Address [address] [place] [address] Care Team Providers Care Batch Tank Controller Name Role Phone Pete Taylor MD Primary Care Provider [phone] Source Comments [facility],non-owned Affiliates and Associated Physician Practices is amultiple site organization consisting of ambulatory clinics and hospital sitesin [place], [place], [place] and [place]. This disclosure is being madepursuant to the Care Everywhere program and may not contain all information available regarding this patient. Last updated 18.[facility] Social History Tobacco Use Types Packs/Day Years Used Date Smoking Tobacco: Never Assessed Sex and Gender Information Value Date Recorded Sex Assigned at Not on file Gender Identity Not on file Sexual Orientation Not on file Plan of Treatment Health Maintenance Due Date Last Done Comments PAP SMEAR 1996 HIV SCREENING 11/04/2011 HEPATITIS C SCREENING 10/30/2014 DTAP/TDAP/TD VACCINES (1 - Tdap) 11/04/2015 HEPATITIS B VACCINE (1 of 3 - 19+ 3-dose series) 11/04/2015 COVID-19 VACCINE (2 - 2023-2 5 season) 2024 10/21/2020 INFLUENZA VACCINE (#1) 2024 02/10/2020 DEPRESSION SCREENING 05/05/2024 ZOSTER VACCINE (1 of 2) 2046 HIB VACCINE Aged Out No longer eligi ble based on patient's age to complete this topic HPV VACCINE Aged Out No longer eligi ble based on patient's age to complete this topic MENINGOCOCCAL (Group B) VACCINE Aged Out No longer eligible based on patient's age to complete this topic MENINGOCOCCAL VACCINE Aged Out No denise chetan eligible based on patient's age to complete this topic PNEUMOCOCCAL VACCINE Aged Out No long er eligible based on patient's age to complete this topic Care Teams Batch Tank Controller Relationship Specialty Start Date End Date Pete Taylor MD [address] [place] [address] [address] [place] [address] PCP - General Internal Medicine 08/10/20
--- OUTSIDE RECORDS SUMMARY | 2024-06-28 19:11 | XMS_ITS | Patient Health Summary ---
Author Organization [facility] Address [address] [place] [address] Care Team Providers Care Blasting Entry Specialist Name Role Phone Pete Taylor MD Primary Care Provider [phone] [facility],non-owned Affiliates and Associated Physician Practices is amultiple site organization consisting of ambulatory clinics and hospital sitesin [place], [place], [place] and [place]. This disclosure is being madepursuant to the Care Everywhere program and may not contain all information available regarding this patient. 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 * XR LUMBAR SPINE 2 OR 3VW(Performed 04/09/2022) Performed for Seronegative rheumatoid arthritis of multiple sites ([facility]), Sjogren's syndrome with keratoconjunctivitis sicca ([facility]) * XR PELVIS W BILAT HIP 2VW(Performed 08/10/2020) Performed for Seronegative rheumatoid arthritis of multiple sites (HCC), Sjogren's syndrome with keratoconjunctivitis sicca (HCC), Muscle cramps, Ankylosing spondylitis of multiple sites in spine (HCC) * XR CHEST 2VW(Performed 08/10/2020) Performed for 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 Anatomical Region Laterality Modality Chest Radiographic Jessica ging 09/24/2022 3:16 PM CDT Impressions 09/24/2022 3:16 PM CDT IMPRESSION: No acute cardiopulmonary abnormalities. > Interpreting Provider: Nissa Sotelo MD on 09/24/2022 3:16 PM Narrative 09/24/2022 3:16 PM CDT PROCEDURE: XR CHEST 2VW DATE/TIME OF EXAM: 09/24/2022 2:57 PM CLINICAL INFORMATION: None relevant/not provided if blank. Indication: R76.11: Nonspecific reaction to tuberculin skin test without active tuberculosis Additional History: Occasional cough COMPARISON: None. FINDINGS: Examination of the chest in PA and lateral views fails to reveal evidence of active infiltration or consolidation in either lung and there is no effusion or pneumothorax. The heart, aorta and diaphragm, and other mediastinal structures are normal in size, shape and position. The bony structures are unremarkable. Procedure Note Nissa Sotelo MD - 09/24/2022 PROCEDURE: XR CHEST 2VW DATE/TIME OF EXAM: 09/24/2022 2:57 PM CLINICAL INFORMATION: None relevant/not provided if blank. Indication: R76.11: Nonspecific reaction to tuberculin skin test without active tuberculosis Additional History: Occasional cough COMPARISON: None. FINDINGS: Examination of the chest in PA and lateral views fails to revealevidence of active infiltration or consolidation in either lung and there is no effusion or pneumothorax. The heart, aorta and diaphragm, and other mediastinal structures are normal in size, shape and position. The bony structures are unremarkable. IMPRESSION: No acute cardiopulmonary abnormalities. > Interpreting Provider: Nissa Sotelo MD on 09/24/2022 3:16 PM Yair Freitas MD DIAGNOSTIC IMAGING O [facility] * XR LUMBAR SPINE 2 OR 3 VW (04/09/2022 1:39 PM ORTHOTICS TECHNICIAN) Anatomical Region Laterality Modality Spine Radiographic Jessica ging 04/09/2022 2:25 PM ORTHOTICS TECHNICIAN Impressions 04/09/2022 2:28 PM ORTHOTICS TECHNICIAN IMPRESSION: No compression fracture pars defects or malalignment. No erosive arthropathy evident. > Interpreting Provider: Axel Best MD on 04/09/2022 2:28 PM Narrative 04/09/2022 2:28 PM ORTHOTICS TECHNICIAN PROCEDURE: XR LUMBAR SPINE 2 OR 3VW, DATE/TIME OF EXAM: 04/09/2022 1:40 PM, LOCATION [facility] INDICATION: M06.09: Rheumatoid arthritis without rheumatoid factor, multiple sites ([facility]) M35.01: Sjogren syndrome with keratoconjunctivitis ([facility]) ADDITIONAL CLINICAL INFORMATION: Ordering Provider Reason For Exam: Technologist Note: Additional: Rheumatoid arthritis COMPARISON: None. FINDINGS: No compression deformity. No spondylolisthesis. No pars defects. Both sacroiliac joints are open. No upper presacral soft tissue swelling. Pedicles spinous processes and transverse processes normal. No fracture line through the sacral foramen. Procedure Note Axel Best MD - 04/09/2022 PROCEDURE: XR LUMBAR SPINE 2 OR 3VW, DATE/TIME OF EXAM: 04/09/2022 1:40 PM, LOCATION [facility] INDICATION: M06.09: Rheumatoid arthritis without rheumatoid factor, multiple sites ([facility]) M35.01: Sjogren syndrome with keratoconjunctivitis ([facility]) ADDITIONAL CLINICAL INFORMATION: Ordering Provider Reason For Exam: Technologist Note: Additional: Rheumatoid arthritis COMPARISON: None. FINDINGS: No compression deformity. No spondylolisthesis. No pars defects. Both sacroiliac joints are open. No upper presacral soft tissue swelling. Pedicles spinous processes and transverse processes normal. No fracture line through the sacral foramen. IMPRESSION: No compression fracture pars defects or malalignment. No erosive arthropathy evident. > Interpreting Provider: Axel Best MD on 04/09/2022 2:28 PM Yair Freitas MD DIAGNOSTIC IMAGING O [facility] * XR HIPS BILATERAL 2 VW W AP PELVIS (08/10/2020 3:22 PM CDT) Anatomical Region Laterality Modality Pelvis, Lower Extremity Radiogra phic Imaging 08/10/2020 3:59 PM CDT Narrative 08/10/2020 4:00 PM CDT EXAM: XR PELVIS W BILAT HIP 2VW*[id number] INDICATION: Rheumatoid arthritis without rheumatoid factor, multiple sites, pelvic pain, bilateral hip pain COMPARISON: none available FINDINGS: There is no fracture, dislocation or osseous destruction. Significant hypertrophic or erosive changes are not identified. *Reading Radiologist: Bryan Monreal on 08/10/2020 at 4:00 PM Procedure Note Bryan Monreal MD - 08/10/2020 EXAM: XR PELVIS W BILAT HIP 2VW*[id number] INDICATION: Rheumatoid arthritis without rheumatoid factor, multiple sites, pelvic pain, bilateral hip pain COMPARISON: none available FINDINGS: There is no fracture, dislocation or osseous destruction. Significant hypertrophic or erosive changes are not identified. *Reading Radiologist: Bryan Monreal on 08/10/2020 at 4:00 PM Yair Freitas MD DIAGNOSTIC IMAGING O [facility] Care Teams Blasting Entry Specialist Relationship Specialty Start Date End Date Pete Taylor MD [facility] [address] PCP - General Internal Medicine 08/10/20
--- OUTSIDE RECORDS SUMMARY | 2024-06-28 19:11 | XMS_ITS | Data Portability ---
Author Organization [place] [facility] [email or web address], Main Office Address [address] [place] [address] Assessment No assessment recorded. Plan of Treatment Reminders Order Date Submit Date Provider Last Modified By Organization Details Last Modified Time Details Appointments None recorded. Lab PT/PTT, plasma 2022 023 [facility], [address] [place], [address], 3 16:20:41 CBC w/ auto diff 2022 023 [facility], [address] [place], [address], 3 16:49:59 clotting time, mony white method, blood 2022 023 [email or web address] [facility], [address] [place], [address], 3 16:20:41 Referral None recorded. Procedures None recorded. Surgeries None recorded. Imaging None recorded. Medication Orders triamcinolo ne acetonide 0.1 % topical cream 2023 024 [facility] #[id number], [address] [place], [place], [id number], 4 12:01:01 omeprazole 40 mg capsule,del ayed release 2022 023 [address] [facility] [id number], [address] [place], [place], [id number], 3 15:43:03 cyanocobala min (vit B-12) 1,000 mcg/mL injection solution 2022 023 [facility] [address] [facility] #[id number], [address] [place], [place], [id number], 4 11:58:24 Patient TargetsNo targets recorded. Patient Instructions Encounter Date Encounter Id Patient Instructions Last Modified By Organization Details Last Modified Time 07/08/2022 [id number] Chronic pain syndrome secondary to ankylosing spondylitis as well as connective tissue disease followed by Rheumatology. More recently has had some easy bruisability although does not demonstrate any significant or serious per. Will check a protime, CBC, APTT and clotting time. We will increase the gabapentin to 600 mg twice daily.Continue on current Rx and follow-up by the regular scheduled appointment in October. [email or web address] Not available 07/08/2022 15:58:56 09/23/2022 [id number] GERD with recent onset of some dysphagia. Will continue on current medications. Instructed to increase omeprazole to 40 mg daily. Will set up for upper endoscopy for dysphagia. Upper endoscopy for dysphagia [email or web address] Not available 09/23/2022 11:43:50 10/16/2022 [id number] REFLUX DIET . Not available 10/16/2022 15:40:18 PT WITH SX OF GE RD /DYSPHAGIA . ON A LOW DOSE OF OMEPRAZOLE AND NOT TAKING CORRECTLY . RECOMMEND INCREASE DOSE TO 40 MG 30 MIN BEFORE BREAKFAST . F/U IN 4 WEEKS . [email or web address] Not available 10/16/2022 15:43:02 03/01/2024 [id number] risk assessment* Not availabl e 03/01/2024 12:19:56 INFLUENZA VACCIN E TD/TDAP Recommended today, patient declined Ordered P atient will get at local pharmacy/health department MAMMOGRAM Recommended today, but patient declined Ordered N o screening indicated at this time/ no family history CERVICAL SCREENING/PELVIC EXAMINATION No screening necessary patient is up to date COLORECTAL SCREENING Recommended today, but patient declined Ordered C olonoscopy declined. Cologuard ordered No screening necessary until age 45 DEPRESSION SCREENING Negative BMI Overweight NUTRITION Heart Healthy Diet PHYSICAL ACTIVITY Need more activity VISION ALCOHOL USE No alcohol use Occasional/Soc ial Use TOBACCO USE former smoker current tobacco use SEXUALLY ACTIVE GLUCOSE SCREENING LIPID SCREENING [email or web address] Not available 03/01/2024 12:06:43 Wellness evaluation risk assessment stable. Follow-up for popliteal reflux as well as a history of SVT which is stable. No need for any additional blood work at this time since she gets this done by her global compensation analyst at this juncture. Will continue on current Rx follow-up in six months Follow Up: 6 Months Approximate Date: 08/28/2024 Portions of the record may have been created with voice recognition software. Occasional wrong-word or ewdvp-[id number] substitutions may have occurred due to the inherent limitations of voice recognition software. Read the chart carefully and recognize, using context, where substitutions have occurred. [email or web address] Not available 03/01/2024 12:19:36 04/08/2024 [id number] Pruritus of the skin likely secondary to Vickers itch. Will give a trial of some triamcinolone cream. Also recommended that she use some CeraVe moisturizing cream. No improvement will need dermatological consult. Keep Appointment: Fri 11:00 AM [place] Portions of the record may have been created with voice recognition software. Occasional wrong-word or [id number] substitutions may have occurred due to the inherent limitations of voice recognition software. Read the chart carefully and recognize, using context, where substitutions have occurred. Created: Pete Taylor M.D. 04.08.2024 11:01 AM [email or web address] Not available 04/08/2024 12:01:11 Reason for Referral None Reported. Results Created Date Observation Date Name Description Value Unit Range Abnormal Flag Note LastModifiedBy Organization Detail LastModifiedTime 07/09/1907/08/2022 CBC/C OMPLE TE BLD COUNT W/DIF F white blood cells 5.6 x10'3 /uL 4.2-10 .8 Not Available [facility] (Lab) [address] [place], [address], 07/08/2022 16:49:59 07/09/1907/08/2022 CBC/C OMPLE TE BLD COUNT W/DIF F red blood cells 3.73 x10'6 /uL 3.80-5 .20 low Not Available [facility] (Lab) [address] [place], [address], 07/08/2022 16:49:59 07/09/19 23 07/08/2022 CBC/C OMPLE TE BLD COUNT W/DIF F hemoglobin 12.1 g/dL 12.0-1 5.6 Not Available [facility] (Lab) [address] [place], [address], 07/08/2022 16:49:59 07/09/19 23 07/08/2022 CBC/C OMPLE TE BLD COUNT W/DIF F hematocrit 37.3 % 35.7-4 5.7 Not Available [facility] (Lab) [address] [place], [address], 07/08/2022 16:49:59 07/09/19 23 07/08/2022 CBC/C OMPLE TE BLD COUNT W/DIF F mean red cell volume 100.0 fL 82.0-9 9.0 high Not Available [facility] (Lab) [address] [place], [address], 07/08/2022 16:49:59 07/09/19 23 07/08/2022 CBC/C OMPLE TE BLD COUNT W/DIF F mean red cell hemoglobin 32.4 pg 27.0-3 3.0 Not Available [facility] (Lab) [address] [place], [address], 07/08/2022 16:49:59 07/09/19 23 07/08/2022 CBC/C OMPLE TE BLD COUNT W/DIF F mean RBC HGB concentratio n 32.4 g/dL 31.0-3 6.0 Not Available [facility] (Lab) [address] [place], [address], 07/08/2022 16:49:59 07/09/19 23 07/08/2022 CBC/C OMPLE TE BLD COUNT W/DIF F red cell distribution width 13.0 % 11.8-1 5.5 Not Available [facility] (Lab) [address] [place], [address], 07/08/2022 16:49:59 07/09/19 23 07/08/2022 CBC/C OMPLE TE BLD COUNT W/DIF F platelets 256 x10'3 /uL 150-40 0 Not Available [facility] (Lab) [address] [place], [address], 07/08/2022 16:49:59 07/09/19 23 07/08/2022 CBC/C OMPLE TE BLD COUNT W/DIF F mean platelet volume 9.6 fL 9.0-12 .4 Not Available [facility] (Lab) [address] [place], [address], 07/08/2022 16:49:59 07/09/19 23 07/08/2022 CBC/C OMPLE TE BLD COUNT W/DIF F neutrophils 67.8 % 39.0-7 2.0 Not Available [facility] (Lab) [address] [place], [address], 07/08/2022 16:49:59 07/09/19 23 07/08/2022 CBC/C OMPLE TE BLD COUNT W/DIF F lymphocytes 20.3 % 16.0-4 7.0 Not Available [facility] (Lab) [address] [place], [address], 07/08/2022 16:49:59 07/09/19 23 07/08/2022 CBC/C OMPLE TE BLD COUNT W/DIF F monocytes 9.5 % 5.0-12 .0 Not Available [facility] (Lab) [address] [place], [address], 07/08/2022 16:49:59 07/09/19 23 07/08/2022 CBC/C OMPLE TE BLD COUNT W/DIF F eosinophils 0.9 % 1.0-7. 0 low Not Available [facility] (Lab) [address] [place], [address], 07/08/2022 16:49:59 07/09/19 23 07/08/2022 CBC/C OMPLE TE BLD COUNT W/DIF F basophils 1.3 % 0.0-2. 0 Not Available [facility] (Lab) [address] [place], [address], 07/08/2022 16:49:59 07/09/19 23 07/08/2022 CBC/C OMPLE TE BLD COUNT W/DIF F immature granulocytes 0.2 % 0.00-0 .50 Not Available [facility] (Lab) [address] [place], [address], 07/08/2022 16:49:59 07/09/19 23 07/08/2022 CBC/C OMPLE TE BLD COUNT W/DIF F neutrophils, absolute count 3.77 x10'3 /uL 1.5-8. 0 Not Available [facility] (Lab) [address] [place], [address], 07/08/2022 16:49:59 07/09/19 23 07/08/2022 CBC/C OMPLE TE BLD COUNT W/DIF F lymphocytes, absolute count 1.13 x10'3 /uL 1.07-3 .43 Not Available [facility] (Lab) [address] [place], [address], 07/08/2022 16:49:59 07/09/19 23 07/08/2022 CBC/C OMPLE TE BLD COUNT W/DIF F monocytes, absolute count 0.53 x10'3 /uL 0.29-0 .99 Not Available [facility] (Lab) [address] [place], [address], 07/08/2022 16:49:59 07/09/19 23 07/08/2022 CBC/C OMPLE TE BLD COUNT W/DIF F eosinophils, absolute count 0.05 x10'3 /uL 0.02-0 .53 Not Available [facility] (Lab) [address] [place], [address], 07/08/2022 16:49:59 07/09/19 23 07/08/2022 CBC/C OMPLE TE BLD COUNT W/DIF F basophils, absolute count 0.07 x10'3 /uL 0.01-0 .08 Not Available [facility] (Lab) [address] [place], [address], 07/08/2022 16:49:59 07/09/19 23 07/08/2022 CBC/C OMPLE TE BLD COUNT W/DIF F immature granulocytes ,absolute 0.01 x10'3 /uL 0.00-0 .05 Not Available [facility] (Lab) [address] [place], [address], 07/08/2022 16:49:59 07/09/19 23 07/08/2022 CBC/C OMPLE TE BLD COUNT W/DIF F nucleated red blood cells 0.0 % -0 Not Available [facility] (Lab) [address] [place], [address], 07/08/2022 16:49:59 07/09/19 23 07/08/2022 CBC/C OMPLE TE BLD COUNT W/DIF F NRBC# 0.00 x10'3 /uL Not Available [facility] (Lab) [address] [place], [address], 07/08/2022 16:49:59 07/09/19 23 07/08/2022 PROTI ME W/INR protime 10.9 secon ds 9.5-11 .5 Not Available [facility] (Lab) [address] [place], [address], 07/08/2022 16:59:19 07/09/19 23 07/08/2022 PROTI ME W/INR INR 1.1 INR INDIC ATION S 2.0 - 3.0 PROPH YLAXI S: VENOU S THROM BOSIS (HIGH RISK SURGE RY) AND SYSTE NATASHA EMBOL ISM (TISS UE HEART VALVE S, AMI VALVU LAR HEART DISEA SE AND ATRIA L FIBRI LLATI ON). TREAT MENT: VENOU S THROM BOSIS AND PULMO NARY EMBOL ISM BILEA FLET MECHA NICAL VALVE S IN AORTI C POSIT ION. 2.5 - 3.5 MECHA NICAL PROST HETIC HEART VALVE S (TILT ING DISK VALVE S AND BILEA FLET MECHA NICAL VALVE S IN ÁLVARO L POSIT ION). PREVE NTION OF RECUR RENT MYOCA RDIAL INFAR CTION . ANTIP HOSPH OLIPI D SYNDR OME. Not Available [facility] (Lab) [address] [place], [address], 07/08/2022 16:59:19 07/09/19 23 07/08/2022 APTT APTT 27.3 secon ds 23.4-3 1.4 PLEAS E NOTE NEW APTT REFER ENCE RANGE EFFEC TIVE 04/22 . Not Available [facility] (Lab) [address] [place], [address], 07/08/2022 16:59:20 06/08/19 25 06/08/2024 VITAM IN B12 (JAQUELINE MAYTE ) vb12 392 pg/mL 239-93 1 Not Available [facility] (Lab) [address] [place], [address], 06/08/2024 14:47:24 09/25/19 23 09/24/2022 XR, chest No observ ation record ed. [email or web address] [facility] ([facility] [address], [place], [address], 09/24/2022 16:21:50 10/05/24 2202/02/2023 XR, chest No observ ation record ed. [email or web address] [facility] [address], [place], [address], 02/14/2023 11:32:13 04/18/20 23 04/18/2023 XR, chest , 1 view No observ ation record ed. [address], [place], [address], 04/18/2023 08:45:56 10/08/19 24 10/08/2023 US, salin e infus ed uteru s No observ ation record ed. [address], [place], [address], 10/08/2023 20:41:15 Result Notes None recorded. Problems Name Problem SNOMED Code Status Onset Date Resolution Date Notes Provider Name and Address Organization Details Recorded Time Asthma 291690085 Active 2017 Not Available [facility] 3 03:46:17 Chronic interstitial cystitis 612159528 Active 2017 Not Available [facility] 3 03:46:17 Dental abscess 551091799 Active 2021 Not Available [facility] 3 03:46:17 Multiple joint pain 46830026 Active 2021 Not Available [facility] 3 03:46:17 Chronic pain syndrome 727382833 Active 2022 Not Available [facility] 3 03:46:17 Superficial frostbite 848341947 Active 2021 Not Available [facility] 3 03:46:17 Megaloblastic anemia due to vitamin B>12< deficiency 33651557 Active 2021 Not Available [facility] 3 03:46:17 Vasculitis of the skin 71559164 Active 2022 Not Available [facility] 3 03:46:17 Wheezing 60682229 Active 2021 Not Available [facility] 3 03:46:17 Supraventricu lar tachycardia 3069704 Active 2021 Not Available [facility] 3 03:46:17 Ankylosing spondylitis 5086950 Active 2021 Not Available [facility] 3 03:46:17 Easy bruising 150623612 Active 2022 Not Available [facility] 3 03:46:17 Cobalamin deficiency 995087364 Active 2022 Not Available [facility] 3 03:46:17 Gastroesophag eal reflux disease without esophagitis 356770773 Active 2022 Not Available [facility] 3 03:46:17 Dysphagia 00722100 Active 2022 Not Available [facility] 3 03:46:17 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 Pete Taylor MD [address], [address], [place], [address] , [facility] 4 11:59:20 Acute bronchitis 27419089 Active 2023 Pete Taylor MD [address], [address], [place], [address] , [facility] 4 10:23:20 Fatigue 48871760 Active 2024 Sadie Lara CMA null, [place] - [facility] 5 12:09:09 Notes:Medical History: Depre ssion Bilateral tinnitus Rhinitis Hypertension EF 60% SVT NELLY Interstitial cystitis B12 deficiency anemia RA on Actemra, methotrexate, hydroxychloroquine Sjogren syndrome Ankylosing spondylitis Lumbar spondylosis L5-S1 DDD Procedure History: Right thigh/leg biopsy 2020 Problem Notes None recorded. Procedures Surgical History None recorded. Imaging Results Imaging Date Name Status LastModified by [place] [facility] Details LastModified Time 09/24/2022 XR, chest completed [facility] [address], [place], [address], 09/24/2022 16:21:50 02/02/2023 XR, chest completed [facility] [address] [facility] [address], [place], [address], 02/14/2023 11:32:13 04/18/2023 XR, chest, 1 view completed [address] [facility] [address], [place], [address], 04/18/2023 08:45:56 10/08/2023 US, saline infused uterus completed [address] [facility] [address], [place], [address], 10/08/2023 20:41:15 Procedure Notes None recorded. Medical Equipment None Reported. Allergies Allergen ID Allergen Name Allergen Category Reaction Reaction Severity Criticality Documentation Date Start Date Code Code System Note Provider Name and Address Organization Details Recorded Time 52841 amoxicill in medicatio n rash Not available Not available 07/03/2022 723 RxNorm Not Available [facility] 3 20:21:40 44397 Product containin g penicilli n (product) medicatio n Not available Not available Not available 09/11/2023 26148 8001 SNOMED Sadie Marco, MANAGER OF DATA null, [place] - [facility] [employer] 4 11:44:04 Medications Name Sig Start Date Stop Date Status Note LastModified by Organization Details LastModified Time cetirizine 5 mg-pseudoep hedrine ER 120 mg tablet,exte nded release,12h r TK 1 T PO D 02/05 completed Not Available Not Available Not Available celecoxib 200 mg capsule Take 1 capsule every day by oral route. 05/01 completed Not Available Not Available Not Available clotrimazol e 10 mg robby DISSOLVE 1 LOZENGE BY MOUTH FIVE TIMES DAILY active Not Available Not Available No t Available promethazin e-DM 6.25 mg-15 mg/5 mL oral syrup 02/05 completed Not Available Not Available Not Available nystatin 100,000 unit/mL oral suspension SWISH AND SWALLOW 1 ML BY MOUTH FOUR TIMES DAILY FOR 10 DAYS 07/16 completed Not Available Not Available Not Available Colace 100 mg capsule Take 1 capsule every day by oral route. active Not Available Not Available No t Available gabapentin 600 mg tablet TAKE 1 TABLET BY MOUTH TWICE DAILY-PLE ASE CALL TO SCHEDULE AN APPOINTME NT FOR FURTHER REFILLS active Not Available Not Available No t Available doxycycline hyclate 100 mg capsule Take 1 capsule twice a day by oral route. active Not Available Not Available No t Available clindamycin HCl 300 mg capsule TAKE 1 CAPSULE BY MOUTH EVERY 6 HOURS FOR 10 DAYS 03/01 completed Not Available Not Available Not Available cetirizine 10 mg tablet TAKE 1 TABLET BY MOUTH DAILY 03/01 completed Not Available Not Available Not Available Topamax 25 mg tablet Take 1 tablet twice a day by oral route. active Not Available Not Available No t Available azithromyci n 250 mg tablet TAKE 2 TABLETS (500 MG) BY ORAL ROUTE ONCE DAILY FOR 1 DAY THEN 1 TABLET (250 MG) BY ORAL ROUTE ONCE DAILY FOR 4 DAYS active Not Available Not Available No t Available benzonatate 200 mg capsule Take 1 capsule 3 times a day by oral route. active Not Available Not Available No t Available metoprolol succinate ER 50 mg tablet,exte nded release 24 hr TAKE 1 TABLET BY MOUTH DAILY 03/01 completed Not Available Not Available Not Available hydrocodone 5 mg-acetamin ophen 325 mg tablet TAKE 1 TABLET BY MOUTH 4-6 HOURS NEEDED FOR PAIN 05/01 completed Not Available Not Available Not Available phenazopyri dine 200 mg tablet Take 1 tablet every day by oral route. 03/01 completed Not Available Not Available Not Available metronidazo le 0.75 % (37.5 mg/5 gram) vaginal gel INSERT 1 APPLICATO RFUL VAGINALLY AT BEDTIME FOR 5 NIGHTS 03/01 completed Not Available Not Available Not Available famotidine 40 mg tablet 03/01 completed Not Available Not Available Not Available prednisone 20 mg tablet TAKE 1 TABLET BY MOUTH DAILY 03/06 completed Not Available Not Available Not Available sertraline 100 mg tablet TAKE 1 TABLET BY MOUTH DAILY active Not Available Not Available No t Available prednisone 5 mg tablet TAKE 1 TO 2 TABLETS BY MOUTH DAILY 03/01 completed Not Available Not Available Not Available terconazole 0.8 % vaginal cream INSERT 1 APPLICATO RFUL INTO VAGINA AT BEDTIME active Not Available Not Available No t Available sulfasalazi ne 500 mg tablet,rita yed release TAKE 3 TABLETS BY MOUTH TWICE DAILY 03/01 completed Not Available Not Available Not Available leflunomide 10 mg tablet Take 1 tablet every day by oral route. 07/16 completed Not Available Not Available Not Available acetaminoph en 300 mg-codeine 15 mg tablet TAKE 1 TABLET BY MOUTH EVERY 6 HOURS NEEDED FOR PAIN active Not Available Not Available No t Available ciprofloxac in 500 mg tablet 02/05 completed Not Available Not Available Not Available sulfamethox azole 800 mg-trimetho prim 160 mg tablet TK 1 T PO Q 12 H active Not Available Not Available No t Available omeprazole 40 mg capsule,del ayed release TAKE 1 CAPSULE BY MOUTH EVERY DAY BEFORE MEAL active Not Available Not Available No t Available tramadol 50 mg tablet TAKE 1 TABLET BY MOUTH THREE TIMES DAILY 03/01 completed Not Available Not Available Not Available triamcinolo ne acetonide 0.1 % topical cream Apply 1 applicati on twice a day by topical route for 30 days. active Not Available Not Available No t Available lamotrigine 25 mg tablet TAKE 1 TABLET BY MOUTH DAILY active Not Available Not Available No t Available meloxicam 7.5 mg tablet TAKE 1 TABLET BY MOUTH DAILY 03/01 completed Not Available Not Available Not Available amoxicillin 875 mg tablet Take 1 tablet every 12 hours by oral route. 04/24 completed Not Available Not Available Not Available famotidine 20 mg tablet Take 1 tablet twice a day by oral route. 09/13 completed Not Available Not Available Not Available amitriptyli ne 25 mg tablet TAKE 1 TABLET BY MOUTH EVERY DAY AT BEDTIME 03/01 completed Not Available Not Available Not Available methotrexat e sodium 2.5 mg tablet TAKE 5 TABLETS BY MOUTH IN THE MORNING AND IN THE EVENING ONCE A WEEK 07/16 completed Not Available Not Available Not Available amitriptyli ne 10 mg tablet TAKE 1 TABLET BY MOUTH EVERY DAY AT BEDTIME active Not Available Not Available No t Available phenazopyri dine 100 mg tablet TAKE 1 TABLET BY MOUTH TWICE A DAY NEEDED FOR PAIN active Not Available Not Available No t Available promethazin e 50 mg tablet TAKE 1 TABLET BY MOUTH EVERY 6 HOURS NEEDED FOR NAUSEA OR VOMITING 07/16 completed Not Available Not Available Not Available benzonatate 100 mg capsule TAKE 1 CAPSULE BY MOUTH THREE TIMES DAILY NEEDED FOR COUGH 09/01 completed Not Available Not Available Not Available cephalexin 500 mg capsule TAKE 1 CAPSULE BY MOUTH EVERY 12 HOURS FOR 10 DAYS 03/01 completed Not Available Not Available Not Available cyanocobala min (vit B-12) 1,000 mcg/mL injection solution Inject 1 mL every month by subcutane ous route. 03/01 completed Not Available Not Available Not Available ferrous sulfate 325 mg (65 mg iron) tablet Take 1 tablet every day by oral route. active Not Available Not Available No t Available Neurontin 100 mg capsule Take 1 capsule 3 times a day by oral route. 12/18 completed Not Available Not Available Not Available Valtrex 1 gram tablet Take 1 tablet 3 times a day by oral route. 03/06 completed Not Available Not Available Not Available gabapentin 300 mg capsule TAKE 1 CAPSULE BY MOUTH TWICE DAILY 07/08 completed Not Available Not Available Not Available omeprazole 20 mg capsule,del ayed release TAKE 1 CAPSULE BY MOUTH EVERY DAY 03/01 completed Not Available Not Available Not Available diclofenac sodium 75 mg tablet,rita yed release 06/03 completed Not Available Not Available Not Available folic acid 1 mg tablet Take 1 tablet every day by oral route. 03/01 completed Not Available Not Available Not Available montelukast 10 mg tablet Take 1 tablet every day by oral route. 03/01 completed Not Available Not Available Not Available magnesium 250 mg tablet Take 2 tablets every day by oral route. 07/16 completed Not Available Not Available Not Available metoprolol succinate ER 25 mg tablet,exte nded release 24 hr TAKE 1 TABLET BY MOUTH DAILY 03/01 completed Not Available Not Available Not Available ergocalcife rol (vitamin D2) 1,250 mcg (50,000 unit) capsule TAKE 1 CAPSULE BY MOUTH WEEKLY active Not Available Not Available No t Available hydroxychlo roquine 200 mg tablet Take 2 tablets every day by oral route. 05/01 completed Not Available Not Available Not Available methylpredn isolone 4 mg tablets in a dose pack FOLLOW PACKAGE DIRECTION S 05/01 completed Not Available Not Available Not Available labetalol 100 mg tablet TAKE 1 TABLET BY MOUTH TWICE DAILY active Not Available Not Available No t Available albuterol sulfate HFA 90 mcg/actuati on aerosol inhaler INHALE 1-2 PUFFS BY MOUTH EVERY 4-6 HOURS NEEDED 03/01 completed Not Available Not Available Not Available ondansetron 4 mg disintegrat ing tablet 02/05 completed Not Available Not Available Not Available cefdinir 300 mg capsule 02/05 completed Not Available Not Available Not Available fluticasone propionate 50 mcg/actuati on nasal spray,suspe nsion 02/05 completed Not Available Not Available Not Available sertraline 50 mg tablet TAKE 1 TABLET BY MOUTH DAILY 04/08 completed Not Available Not Available Not Available azithromyci n 500 mg tablet TAKE 2 TABLETS BY MOUTH AT ONCE STAT 03/01 completed Not Available Not Available Not Available methotrexat e sodium (PF) 25 mg/mL injection solution 03/01 completed Not Available Not Available Not Available cyclobenzap rine 5 mg tablet TAKE 1 TO 2 TABLETS BY MOUTH EVERY DAY AT BEDTIME NEEDED 03/01 completed Not Available Not Available Not Available nitrofurant oin monohydrate /macrocryst als 100 mg capsule 02/05 completed Not Available Not Available Not Available duloxetine 30 mg capsule,del ayed release TAKE 1 CAPSULE BY MOUTH EVERY DAY 03/01 completed Not Available Not Available Not Available duloxetine 60 mg capsule,del ayed release Take 1 capsule every day by oral route. 03/01 completed Not Available Not Available Not Available lactulose 10 gram/15 mL oral solution TAKE 30 ML BY MOUTH EVERY DAY 03/01 completed Not Available Not Available Not Available sildenafil (pulmonary hypertensio n) 20 mg tablet TAKE 1 TABLET BY MOUTH DAILY NEEDED FOR RAYNAUDS active Not Available Not Available No t Available B Complex 07/16 completed Not Available Not Available Not Available active Not Available Not Avai lable Not Available Actemra 09/20 completed Not Available Not Available Not Available EluRyng 0.12 mg-0.015 mg/24 hr vaginal ring INSERT 1 RING VAGINALLY FOR 3 WEEKS THEN REMOVE FOR 1 WEEK 03/01 completed Not Available Not Available Not Available methotrexat e (PF) 25 mg/mL subcutaneou s syringe Inject 1 mL every week by subcutane ous route. 09/13 completed Not Available Not Available Not Available ID NOW COVID-19 Test Kit TEST DIRECTED TODAY 07/16 completed Not Available Not Available Not Available Vitals Date Recorded Body height Body mass index (BMI) Body weight Heart rate Oxygen saturation Oxygen saturation in Arterial blood by Pulse oximetry Body temperature Systolic blood pressure Diastolic blood pressure Provider Name and Address Organization Details Last Updated DateTime 3 160.02 cm 27.6 kg/m2 93900.4 1 g 92 /min 98 % 98 % 97 [degF] 112 mm[Hg] 70 mm[Hg] Brittanysaturnino Muellerreji [facility] 3 15:37:19 Date Recorded Body height Body mass index (BMI) Body weight Body temperature Heart rate Oxygen saturation Oxygen saturation in Arterial blood by Pulse oximetry Systolic blood pressure Diastolic blood pressure Provider Name and Address Organization Details Last Updated DateTime 3 160.02 cm 29.1 kg/m2 48856.1 5 g 97.8 [degF] 86 /min 97 % 97 % 128 mm[Hg] 76 mm[Hg] Mariama Mathis MA [facility] 3 11:14:32 Date Recorded Body height Body mass index (BMI) Body weight Heart rate Oxygen saturation Oxygen saturation in Arterial blood by Pulse oximetry Systolic blood pressure Diastolic blood pressure Provider Name and Address Organization Details Last Updated DateTime 3 160.02 cm 29.1 kg/m2 67832.1 5 g 88 /min 98 % 98 % 126 mm[Hg] 78 mm[Hg] Mary Beth Gray Ever [facility] 3 15:17:58 Date Recorded Body height Body weight Heart rate Body temperature Oxygen saturation Oxygen saturation in Arterial blood by Pulse oximetry Systolic blood pressure Diastolic blood pressure Provider Name and Address Organization Details Last Updated DateTime 4 160.02 cm 85310.5 2 g 104 /min 97 [degF] 98 % 98 % 108 mm[Hg] 72 mm[Hg] Cortney Buitrago Ever [employer] [facility] [email or web address] 4 11:57:42 Date Recorded Body height Body mass index (BMI) Body weight Heart rate Body temperature Oxygen saturation Oxygen saturation in Arterial blood by Pulse oximetry Systolic blood pressure Diastolic blood pressure Provider Name and Address Organization Details Last Updated DateTime 4 160.02 cm 28.9 kg/m2 65191.5 6 g 96 /min 97 [degF] 98 % 98 % 122 mm[Hg] 70 mm[Hg] HUSSEIN Atwood [place] [facility] 4 11:48:42 Social History Question Answer Notes LastModified by Organizat ion Details LastModified Time Tobacco Smoking Status Current Every Day Smoker Not Available [employer] 07/03/2022 20:19:28 What Is Your Level Of Alcohol Consumption? Occasional [id number] Information not available 07/03/2022 Are You Blind Or Do You Have Difficulty Seeing? No MIGRATION.53046 [id number] Information not available 07/03/2022 What Is Your Level Of Caffeine Consumption? Occasional MIGRATION.47843 [id number] Information not available 07/03/2022 In The 14 Days Before Symptom Onset, Have You Had Close Contact With A Laboratory-confi rmed COVID-19 While That Case Was Ill? No MIGRATION.54766 62312 Information not available 07/03/2022 In The 14 Days Before Symptom Onset, Have You Had Close Contact With A Person Who Is Under Investigation For COVID-19 While That Person Was Ill? No MIGRATION.87486 58543 Information not available 07/03/2022 Are You Deaf Or Do You Have Serious Difficulty Hearing? No MIGRATION.48578 77650 Information not available 07/03/2022 What Is The Highest Grade Or Level Of School You Have Completed Or The Highest Degree You Have Received? 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 No Information not available 09/23/2022 Are There Any Guns Present In Your Home? No MIGRATION.80322 [id number] Information not available 07/03/2022 Do You Have A Humidifier? No MIGRATION.70461 82764 Information not available 07/03/2022 [facility] MIGRATION.39670 35546 Information not available 07/03/2022 Do You Have Moisture Problems In Your Home? No MIGRATION.43612 00266 Information not available 07/03/2022 What Was The Date Of Your Most Recent Tobacco Screening? 09/23/2022 Information not available 09/23/2022 Do You Have Any Pets? Yes MIGRATION.79064 07257 Information not available 07/03/2022 Do You Use Your Seat Belt Or Car Seat Routinely? Yes MIGRATION.13789 33353 Information not available 07/03/2022 Do You Have Smoke And Carbon Monoxide Detectors In Your Home? Yes MIGRATION.76876 08352 Information not available 07/03/2022 Are You Passively Exposed To Smoke? Yes MIGRATION.04926 53912 Information not available 07/03/2022 How Much Tobacco Do You Smoke? 0.5 PPD MIGRATION.98421 29346 Information not available 07/03/2022 Do You Feel Stressed (tense, Restless, Nervous, Or Anxious, Or Unable To Sleep At Night)? [id number] MIGRATION.52583 30373 Information not available 07/03/2022 Do You Use Any Illicit Or Recreational Drugs? No MIGRATION.57763 85763 Information not available 07/03/2022 Have You Recently Traveled Abroad? No MIGRATION.63545 26095 Information not available 07/03/2022 Do You Have Any Dietary Restrictions? No MIGRATION.37480 02064 Information not available 07/03/2022 Sex: Unknown Functional Status Question Answer Note LastModified by Organizat ion Details LastModified Time Do you have difficulty doing errands alone? No [id number].[id number] Information not available 07/03/2022 Are you able to care for yourself? Yes [id number] Information not available 07/03/2022 Mental Status Question Answer Note LastModified by Organizat ion Details LastModified Time Do you have difficulty concentrating, remembering or making decisions? No [id number] 6 Information not available 07/03/2022 Family History Nothing Reported Notes:Mother living 45 IDM o therwise good health Father suicide One brother living in good health Medical History Condition Response NERVE DISEASE N BLINDNESS N RHEUMATIC FEVER N KIDNEY STONES N BLADDER PROBLEMS N MRSA N OTHER # 1 N POLIO N LUNG DISEASE/DISORDER N RADIATION / CHEMOTHERAPY N COPD N Other # 2 N BLOOD DISEASES N SURGERY N EAR OR HEARING PROBLEMS N MUMPS N BOWEL PROBLEMS N DEPRESSION (INCLUDING POST ) N STROKE/TIA N ULCERS N BENIGN PROSTATIC HYPERPLASIA N MEASLES N MYOCARDIAL INFARCTION N OBESITY N GERD/NAUSEA N ANEURYSM N URINARY/BLADDER/KIDNEY PROBLEMS Y CORONARY ARTERY DISEASE (CAD) N ADDICTION CONCERNS N Impotence N ENDOMETRIOSIS N USE OF BLOOD THINNERS N SKIN PROBLEMS N GASTROINTESTINAL DISORDER N PERIPHERAL VASCULAR DISEASE N MUSCLE,JOINT OR BONE PROBLEMS N GASTROINTESTINAL BLEEDING N BLOOD CLOTS N ASTHMA Y CATARACTS N ERECTILE DYSFUNCTION N VARICOSITIES N GI PROBLEMS N Low Testosterone N INFERTILITY N AIDS/HIV N CHEMOTHERAPY / RADIATION N LIVER DISEASE N MALE HYPOGONADISM N HYPERTENSION N Deficiency N ANXIETY DISORDER N BLOOD TRANSFUSION N ANEMIA/BLOOD DISORDER N CHRONIC EAR INFECTIONS N BRONCHITIS N TUBERCULOSIS N GLAUCOMA N FOOT PROBLEM N DIVERTICULITIS N SLEEP APNEA N CHICKENPOX N INFECTIOUS DISEASE N PROSTATE N HEART ARRHYTHMIA N INSOMNIA N HIGH CHOLESTEROL / HYPERLIPIDEMIA N EYE PROBLEMS N HYPERTHYROIDISM N NEUROLOGICAL PROBLEMS N EDEMA N CHRONIC PAIN SYNDROME N HYPOTHYROIDISM N CONSTIPATION N CAROTID BLOCKAGE N BACK / NECK PROBLEMS N HAVE YOU BEEN HOSPITALIZED OR SEEN IN [facility] IN THE PAST YEAR ? N ATHEROSCLEROSIS N BREAST PROBLEMS N DIALYSIS N ECZEMA N OSTEOPOROSIS N ARTHRITIS N NO SIGNIFICANT PAST MEDICAL HISTORY N APPENDICITIS N DIABETES, TYPE N BAD TEETH N ENT N HEARTBURN / REFLUX N AUTISM SPECTRUM DISORDER (ASD) N HEPATITIS / LIVER DISEASE N GOUT N SLEEP DISORDER N ALZHEIMER'S DISEASE N Brain Problems N DEMENTIA N HERPES N SEIZURES/EPILEPSY N HEADACHES/MIGRAINES N VASCULAR DISEASE N PACEMAKER N Blood Disorder N DIZZINESS N HEART DISEASE/HEART PROBLEMS N KIDNEY DISEASE N MULTIPLE SCLEROSIS N CANCER: SPECIFY N CARDIAC ARRHYTHMIA N ATRIAL FIBRILLATION N Gall Stones N PULMONARY EMBOLISM N AUTOIMMUNE DISEASE N Gynecological HistoryNo gynecological history recorded. Obstetrics History GPAL:G 0 P 0 0 0 0 Immunizations Vaccine Type Date Status Note Provider Nam e and Address Organization Details Recorded Time Influenza, adjuvanted, trivalent, PF 02/16/2021 completed Not Available [facility] 2022 03:46:17 COVID-19, mRNA, LNP-S, PF, 30 mcg/0.3 mL dose 12/03/2020 completed Not Available [facility] 3 03:46:17 COVID-19, mRNA, LNP-S, PF, 30 mcg/0.3 mL dose 11/07/2020 completed Not Available [facility] 3 03:46:17 Influenza, split virus, quadrivalent, PF 02/10/2020 completed Not Available [facility] 03:46:17 Past Encounters Encounter ID Performer Location Encounter Start Date Encounter Closed Date Diagnosis/Indication Diagnosis SNOMED-CT Code Diagnosis ICD10 Code Diagnosis Note [id number] [facility] Gregoryvi llhattie [address] [place] [address] [place] [address] 08/04/2020 00:00:00 08/04/2020 15:02:41 [id number] [facility] Sangeetha llhattie [address] [place] [address] [place] [address] 09/01/2020 00:00:00 09/01/2020 15:17:22 [id number] [facility] Sangeetha llhattie [address] [place] [address] [place] [address] 09/19/2020 00:00:00 09/19/2020 16:23:09 [id number] [facility] [address], [address] [address] 10/10/2020 00:00:00 10/10/2020 13:40:36 [id number] [facility] Sangeetha llhattie [address] [place] [address] [place] [address] 10/31/2020 00:00:00 10/31/2020 16:18:27 [id number] [facility] [address] [address] 11/21/2020 00:00:00 11/21/2020 14:59:07 [id number] [facility] [address] [address] 11/30/2020 00:00:00 11/30/2020 13:50:27 [id number] [facility] [address] [place] [address] [address], [address] [address] 12/06/2020 00:00:00 12/06/2020 16:47:08 [id number] [facility] Sangeetha payne [address] [place] [address] y , [place] [address] 04/06/2021 00:00:00 04/06/2021 16:41:40 [id number] [facility] [address] [facility] [address] [address] 07/16/2021 00:00:00 07/16/2021 16:46:26 [id number] [facility] [address] [address] 09/20/2021 00:00:00 09/20/2021 15:37:45 [id number] [facility] [address] [address] 05/01/2022 00:00:00 05/01/2022 12:27:52 [id number] [facility] [address] [address] 06/03/2022 00:00:00 06/03/2022 16:43:49 [id number] [facility] [address] [address] 06/24/2022 00:00:00 06/24/2022 16:39:26 [id number] Pete Taylor MD [facility] [address] [address] 07/08/2022 15:27:34 07/08/2022 16:01:20 Chronic pain syndrome 620910773 G89.4 Easy bruising 050172805 R58 [id number] Pete Taylor MD [facility] [address] [address] 09/23/2022 10:55:25 09/23/2022 15:35:17 Cobalamin deficiency 200196249 E53.8 Gastroesop hageal reflux disease without esophagitis 517490004 K21.9 [id number] Claire Jenkins MD [facility] General Surgery [address] [address] 10/16/2022 15:13:13 10/16/2022 15:38:56 Gastroesophageal reflux disease without esophagitis 234837449 K21.9 [id number] Pete Taylor MD [facility] Internal Med [facility] [address] [address] 03/01/2024 11:43:21 03/01/2024 12:21:25 Adult health examination 411784283 Z00.00 Depression screening 171 873024 Z13.31 Gastroesop hageal reflux disease without esophagitis 293796745 K21.9 Supraventr icular tachycardia 8036987 I47.10 [id number] Pete Taylor MD [facility] Internal Med [facility] [address] [address] 04/08/2024 11:40:57 04/08/2024 12:10:05 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 Health Concerns Section Related Observation LastModified by Organization Detai ls LastModified Time None Recorded Concern Status LastModified by Organization Details LastModified Time None Recorded Advance Directives Directive None Recorded Payers Encounter Date Sequence Insurance Name Policy Number Policy Hobbs Covered Member ID Hobbs Member ID Guarantor Name 07/08/2022 2 [facility] [id number] Tyra Cramer [id number] Niya Cramer 09/23/2022 2 [facility] [id number] Tyra Cramer [id number] Niya Cramer 10/16/2022 2 [facility] [id number] Tyra Cramer [id number] Niya Cramer 03/01/2024 1 [place] Niya Cramer [id number] Niya Cramer 04/08/2024 1 [facility] (MEDICAID HMO) [id number] Niya Cramer [id number] Niya Cramer Notes Date Note Type Note Provider Name and Address Organization Details Recorded Time text/html Patient Name: Niya EnglandPennyate Of Service: Friday ( 07.08.2022 ): 1995 Age: 26 Vital Signs:Blood Pressure: Sitting Rt. Arm 112/70Pulse: Sitting 92 /min and RegularRespirations: 12Height 63 in or 1.6 mWeight 156 lb or 70.8 kgBMI 27.6Temperature: 97 F or 36.1 CPulse Oximetry: 98 % at rest on no oxygen Chief Complaint: Addressed in HPI Problems or conditions discussed in the HPI were the only ones reviewed during the encounter.Only social and family history addressed in the HPI were reviewed during this encounter. Attendant(s): None Constitutional and Systemic Symptoms: none Medication Reconciliation: from medication list. History of Present Illness #1. Chronic pain management for chronic generalized pain Since last examination somewhat improved Interval Testing: noneHas tried NSAIDS partial relief requiring additional medication. Pain Description: constant, exacerbated by activity and interferes with enjoyment and ability to perform daily tasks. Severity: 5 ]. Currently seeing or has seen in the past a Day Light Relief Operator: NoPain - Enjoyment of Life - General Activity ScalePain on Average: 5Enjoyment of Live: 5General Activity: 4Score: 5Currently regimen consists of Cyclobenzaprine, Cymbalta, Meloxicam, Methotrexate and Prednisone as prescribed with no evidence of abuse or self prescribing. Current Average Morphine Milligram Approximate Equivalent: 15 mg approximated if taking full dosage daily. Recommend: NABenzodiazepines or other hypnotics: noAlternative pain management modalities (acupuncture - behavior therapy- additional PT - SNRIs) have been discussed and have either been tried in the past or not acceptable alternatives to patient or not available in our location.Will kept medications the same.Urine Testing: not indicated and this time.Controlled substance database yes and no discrepancies or multiple prescribers noted.Patient reports condition is stable and is able to function with the medication. Denies any misuse or adverse effects.TREATMENT OBJECTIVE: Enhance ability to manage pain independently, improved function and sustain quality of life. Recommendations or alternative therapies and lifestyle changes are discussed on each visit. Has shown improvement inf functionality. Has been educated on the side effects,risks and any black box warnings. Has verbalized the dangers of some of the medications regarding driving and cooperating heavy machinery and have advised against this. . #2. Has had some problems with easy bruisability recently. No suggestion of any serious purpura. Will check a CBC, protime, APTT and clotting time. Otherwise is clinically stable.:Medication List Reviewed and Reconciled 07/08/2022ymbalta 60 MG (CAPSULE, DELAYED REL PELLETS - ORAL) 60 Mg Am 30 Mg PmFolic Acid 1 MG (TABLET - ORAL) One DailyNuvaring As DirecetedNeurontin 600 MG TABLET, FILM COATED One Twice DailyMeloxicam 7.5 MG TABLET One DailySulfasalazine 500 MG TABLET Two BidMetoprolol Succinate 50 MG CAPSULE, EXTENDED RELEASE One DailyElavil 25 MG (TABLET - ORAL) One HsPrednisone 5 MG (TABLET - ORAL) Tappering Off Currently On 7.5 Mg OdZyrtec 10 MG (TABLET - ORAL) Once DailySingulair 10 MG (TABLET - ORAL) Once DailyFamotidine 20 MG (TABLET - ORAL) One Twice A DayUltram 50 MG (TABLET - ORAL) One Three Times A DayCymbalta 30 MG (CAPSULE, DELAYED REL PELLETS - ORAL) Take One At BedtimePhenazopyridine Hcl 200 MG As NeededCyclobenzaprine 10 MG TABLET One TidMethotrexate 1 GM /40 ML ( 25 MG / ML) (INJECTABLE - INJECTION) Injection WeeklyADRs List Reviewed 07/08/2022moxicillin RashSocial HistorySmokes 1/2 pack daily for approximately five yearsDrinks sociallyWorks ad nursing homeFamily HistoryMother living 45 IDM otherwise good healthFather suicideOne brother living in good health Pete Taylor MD [address], [address], [place] - [facility] 07/08/2022 15:59:47 3 text/html Patient Name: Niya Arevalo Of Service: Friday ( 09.23.2022 ): 1995 Age: 26 There has been approximately a 8 lb weight gain since 07/08/2022. This represents approximately a 5.1% change in weight. Weight change attributable to lifestyle changes. Vital Signs:Blood Pressure: Sitting Rt. Arm 128/76Pulse: Sitting 86 /min and RegularRespirations: 12Height 63 in or 1.6 mWeight 164 lb or 74.4 kgBMI 29.0Temperature: 97.8 F or 36.6 CPulse Oximetry: 97 % at rest on no oxygen Chief Complaint: Dysphagia Problems or conditions discussed in the HPI were the only ones reviewed during the encounter.Only social and family history addressed in the HPI were reviewed during this encounter. Attendant(s): None Constitutional and Systemic Symptoms: none Medication Reconciliation: from medication list. History of Present Illness #1. Hx of esophageal reflux currently stable. Hx of Complications: none The severity, duration and intensity of symptoms have increased. Frequency: most meals Treatment consists medications taken on a regular basis. Current therapy includes Omeprazole. There has been dysphagia. No change in he frequency or intensity of symptoms. Has had no melena. Has had no hematemesis. Discuss the possibility of trying to reduce the frequency of the use of any PPI inhibitors or H2 antagonist to see if symptoms can be controlled with last intensive therapyMedication List Reviewed and Reconciled 09/23/2022ymbalta 60 MG (CAPSULE, DELAYED REL PELLETS - ORAL) 60 Mg Am 30 Mg PmFolic Acid 1 MG (TABLET - ORAL) One DailyNuvaring As DirecetedNeurontin 600 MG TABLET, FILM COATED One Twice DailyOmeprazole 20 MG CAPSULE, DELAYED RELEASE One Daily AmMeloxicam 7.5 MG TABLET One DailySulfasalazine 500 MG TABLET Two BidMetoprolol Succinate 50 MG CAPSULE, EXTENDED RELEASE One DailyElavil 25 MG (TABLET - ORAL) One HsPrednisone 5 MG (TABLET - ORAL) Tappering Off Currently On 7.5 Mg OdZyrtec 10 MG (TABLET - ORAL) Once DailySingulair 10 MG (TABLET - ORAL) Once DailyFamotidine 20 MG (TABLET - ORAL) One Twice A DayUltram 50 MG (TABLET - ORAL) One Three Times A DayCymbalta 30 MG (CAPSULE, DELAYED REL PELLETS - ORAL) Take One At BedtimePhenazopyridine Hcl 200 MG As NeededCyclobenzaprine 10 MG TABLET One TidMethotrexate 1 GM /40 ML ( 25 MG / ML) (INJECTABLE - INJECTION) Injection WeeklyADRs List Reviewed 3Amoxicillin RashSocial HistorySmokes 1/2 pack daily for approximately five yearsDrinks sociallyWorks ad nursing homeFamily HistoryMother living 45 IDM otherwise good healthFather suicideOne brother living in good health Pete Taylor MD [address] [facility], [facility] [address], [place], [address], [facility] [employer] [facility] 09/23/2022 11:44:09 3 text/html PT WAS SEEN IN THE OFFICE TODAY FOR GERD . PT DENIES ABD PAIN /N/V. PT ADMITS TO PYROSIS/ DYSPHAGIA TO SOLIDS . PT IS ON OMEPRAZOLE 20 MG /D . PT IS NOT TAKING 30 MINS BEFORE MEALS . SHE DENIES WT LOSS. Claire Jenkins MD [address] [facility], [facility] [address], [place], [address], [facility] [employer] [facility] 10/16/2022 15:43:33 4 text/html Patient Name: Niya Arevalo Of Service: Friday ( 03.01.2024 ): 1995 Age: 28 There has been approximately a 4 lb weight gain since 09/23/2022. This represents approximately a 2.4% change in weight. Weight change attributable to lifestyle changes. Vital Signs:Blood Pressure: Sitting Rt. Arm 108/72Pulse: Sitting 100 /min and RegularRespiratory Rate: 16Height 63 in or 1.6 mWeight 168 lb or 76.2 kgBMI 29.8Temperature: 97 F or 36.1 CPulse Oximetry: 98 % at rest on no oxygen Chief Complaint: Addressed in HPI Problems or conditions discussed in the HPI were the only ones reviewed during the encounter.Only social and family history addressed in the HPI were reviewed during this encounter. Attendant(s): NoneConstitutional and Systemic Symptoms:none Medication Reconciliation: from medication list. History of Present Illness In for a well patient check up. Last well patient evaluation was approximately one year. No interval complaints of any major medical problems. No hx of any chest pain, shortness of breath, nausea, vomiting, diarrhea or constitutional symptoms. Also being followed for other chronically monitored problems.Has Had A Mammogram DeclinedHas Had A Pap Smear dueImmunizations Up To Date or refuses to takeNo Significant Change In Family HxColonoscopy or Cologuard: not dueFall Risk normalDepression Score: 0PHQ-9 Score [IndicatedHearing normalVision normalReviewed Smoking and Drug HistoryReviewed Immunization HistoryInstructed on importance of weight on diabetes, heart and other diseases aggravated by obesity. #1. Hx of SVT currently stable. No interval change in frequency, duration or intensity of episodes. Has had none since the last visit. Tolerating medications well. #2. Hx of esophageal reflux currently stable. Hx of Complications: none The severity, duration and intensity of symptoms have improved. Frequency: most meals Treatment consists medications taken on a regular basis. Current therapy includes Omeprazole. There has been no nausea. No change in he frequency or intensity of symptoms. Has had no melena. Has had no . Discussed use of H2 antagonists and the possibility of trying to reduce the frequency of the use of any PPI inhibitors and try H2 antagonists to see if symptoms can be controlled with lease intensive therapy since a number of complications are associated with chronic prolonged use of PPI inhibitors. Active Medication ListTylenol 500 MG TABLET 1000 Mg As NeededLabetalol Hydrochloride 100 MG TABLET One Twice A DayFerrous Sulfate 325 MG TABLET Once DailyColace 100 MG CAPSULE One Twice A DayPrenatal S DailySertraline 50 MG TABLET Once DailyVitamin D 05444 WeeklyTylenol W/Codeine #3 As NeededOmeprazole 20 MG CAPSULE, DELAYED RELEASE One Daily Am Adverse Drug Reactions ReviewedAmoxicillin Rash Social HistorySmokes 1/2 pack daily for approximately five yearsDrinks sociallyWorks ad chcf Family HistoryMother living 45 IDM otherwise good healthFather suicideOne brother living in good health Pete Taylor MD [address] [facility] [address], [place], [address], [place] [facility] 03/01/2024 12:20:01 4 text/html Patient Name: Niya Arevalo Of Service: April ( 04.08.2024 ): 1995 Age: 28 There has been approximately a 5 lb weight loss since 03/01/2024. This represents approximately a 3.0% change in weight. Weight change attributable to lifestyle changes. Vital Signs:Blood Pressure: Sitting Rt. Arm 122/70Pulse: Sitting 96 /min and RegularRespiratory Rate: 16Height 63 in or 1.6 mWeight 163 lb or 73.9 kgBMI 28.9Temperature: 97 F or 36.1 CPulse Oximetry: 98 % at rest on no oxygen Chief Complaint: Addressed in HPI Problems or conditions discussed in the HPI were the only ones reviewed during the encounter.Only social and family history addressed in the HPI were reviewed during this encounter. Attendant(s): NoneConstitutional and Systemic Symptoms:none Medication Reconciliation: from medication list. History of Present Illness #1. Complain of extreme dryness and particularly of the hands as well as some in the lower extremities as well. Has some excoriation of the hands from scratching. Appears to be more of a pruritus hiemalis: Active Medication ListTylenol 500 MG TABLET 1000 Mg As NeededLabetalol Hydrochloride 100 MG TABLET One Twice A DayFerrous Sulfate 325 MG TABLET Once DailyColace 100 MG CAPSULE One Twice A DayPrenatal S DailySertraline 50 MG TABLET Once DailyVitamin D 24944 WeeklyTylenol W/Codeine #3 As NeededOmeprazole 20 MG CAPSULE, DELAYED RELEASE One Daily Am Pete Taylor MD [address] [facility], [facility] [address], [place], [address], [place] - [facility] 04/08/2024 12:01:32 OBGyn Episode No OBEpisode recorded.
--- OUTSIDE RECORDS SUMMARY | 2024-06-28 19:11 | XMS_ITS | Referral Summary ---
Author Organization [facility] Address [address] [place] [address] Care Team Providers Care Breakdown Mill Operator Name Role Phone Pete Taylor MD Primary Care Provider [phone] Source Comments [facility],non-owned Affiliates and Associated Physician Practices is amultiple site organization consisting of ambulatory clinics and hospital sitesin [place], [place], [place] and [place]. This disclosure is being madepursuant to the Care Everywhere program and may not contain all information available regarding this patient. Last updated 18.[facility] [employer] Social History Tobacco Use Types Packs/Day Years Used Date Smoking Tobacco: Never Assessed Sex and Gender Information Value Date Recorded Sex Assigned at Not on file Gender Identity Not on file Sexual Orientation Not on file Plan of Treatment Not on file Care Teams Breakdown Mill Operator Relationship Specialty Start Date End Date Pete Taylor MD [address] [place] [address] [address] [place] [address] PCP - General Internal Medicine 08/10/20
--- OUTSIDE RECORDS SUMMARY | 2024-06-28 19:11 | XMS_ITS | CONTINUITY OF CARE DOCUMENT ---
Author Name sharri, sharri Address Unknown Organization [facility] Address [address] [facility] [address] [place] [address] Phone [phone] Care Team Providers Care Planning Intern Name Role Phone Corie GASTELUM, Nataliya Grier Unavailable [phone] SOFIE GASTELUM, ANALY Unavailable [phone] SOFIE GASTELUM, ANALY Unavailable [phone] PROBLEMS Condition Status Date Provider Notes Tobacco abuse active Nataliya Fontenot MD Sinus tachycardia active Nataliya Dotson Ankylosing spondylitis active Nataliya otoole MD Arthritis ? rheumatoid active Nataliya otoole MD Sjogren's syndrome active Nataliya Fontenot MD Palpitations active Nataliya Fontenot MD Hypertension active Nataliya Fontenot MD ENCOUNTERS Date Type Provider Location Encounter Diag nosis - In-person encounter Office Visit Nataliya Fontenot MD [facility] - In-person encounter Office Visit Nataliya Fontenot MD [facility] HypertensionPalpitationsSjo gren's syndromeArthritis ? rheumatoidAnkylosing spondylitisSinus tachycardiaTobacco abuse VITAL SIGNS Date Observation Value Provider Body Mass Index (Ratio) 26.09 kg/m2 Leona Fontenot MD blood pressure, diastolic 87 mm[Hg] Destiney juarezLogic blood pressure, systolic 130 mm[Hg] Selena kLogic blood pressure, diastolic 87 mm[Hg] Ca therine Jorge blood pressure, systolic 130 mm[Hg] Cat herine Jerome oxygen saturation, oximetry 96 % Hanny Jerome respiratory rate E&M 14 /min Catheri ne Jorge pulse rate 116 /min Hanny Jerome weight E&M 152 [lb_av] Hanny Jerome blood pressure, cuff size regular Ca therine Jorge height E&M 64 [in_i] Hanny Jorge Body Mass Index (Ratio) 26.60 kg/m2 Leona Fontenot MD blood pressure, diastolic 82 mm[Hg] Destiney Log blood pressure, systolic 124 mm[Hg] Selena kLogic blood pressure, cuff size regular Ca therine Jerome blood pressure, diastolic 82 mm[Hg] Ca therine Jorge blood pressure, systolic 124 mm[Hg] Cat herine Jerome oxygen saturation, oximetry 100 % Hanny Jorge respiratory rate E&M 16 /min Catheri ne Jorge pulse rate 97 /min Hanny Jerome weight E&M 155 [lb_av] Hanny Jorge height E&M 64 [in_i] Hanny Jerome HISTORY OF MEDICATION USE Medication Status Instructions Dates Provider Indications Com ments metoprolol succinate 25 mg tablet extended release 24 hr active TAKE 1 TABLET BY MOUTH DAILY Indigo Wilbert Parmar PA Specialist metoprolol succinate 50 mg tablet extended release 24 hr active TAKE 1 TABLET BY MOUTH EVERY DAY Indigo Wilbert PINZON Specialist Toprol XL 50 mg tablet extended release 24 hr completed Take 1 tablet by mouth once a day TAKE 1 TABLET BY MOUTH DAILY - Nicole Lara cyclobenzaprine 5 mg tablet active Hanny Jerome duloxetine 30 mg capsule,delayed release(DR/EC) active Hanny Jorge prednisone 20 mg tablet active Hanny Jerome duloxetine 60 mg capsule,delayed release(DR/EC) active Hanny Jorge montelukast 10 mg tablet active Hanny Jerome hydroxychloroquine 200 mg tablet active Hanny Jerome famotidine 40 mg tablet active Hanny Jerome omeprazole 20 mg capsule,delayed release(DR/EC) active Hanny Jorge gabapentin 300 mg capsule active Hanny Jorge cetirizine 10 mg tablet active Hanny Jerome tramadol 50 mg tablet active Cat herine Jorge celecoxib 200 mg capsule active Hanny Jerome SOCIAL HISTORY Date Observation Value Provider social history E&M S moking History: P atient currently smokes every day. Nataliya Fontenot MD social history reviewed E&M revi ewed - no changes required Nataliya Fontenot MD smoking history, tot al pack/day 1pack Hanny Jerome cigarette use yes Hanny Jerome smoking status Current every day smoker C atherine Jerome number of grandchildren Nataliya Fontenot MD social history reviewed E&M revi ewed - no changes required Nataliya Fontenot MD social history E&M S moking History: P atient currently smokes every day. Nataliya Fontenot MD smoking history, tot al pack/day 1pack Hanny Jorge cigarette use yes Hanny Jerome smoking status Current every day smoker C atherine Jorge INSURANCE PROVIDERS Payer name Policy type / Coverage type [facility] ID [facility] [id number] Other [id number] TREATMENT PLAN Date Name Performer [id number],C,E cho reviewed, normal EF CONCLUSIONS: 1 . Normal left ventricular systolic function. Normal left ventricular size. Normal left ventricular wall thickness. Normal left ventricular diastolic function. E/E': 5.0 Left ventricular ejection fraction is measured at 60 %. 2 . Normal right ventricular size. Normal right ventricular systolic function. 3 . Normal appearing mitral valve leaflets. There is trace physiologic mitral valve regurgitation. 4 . Normal appearing tricuspid valve leaflets. There is trace physiologic tricuspid valve regurgitation. IVC is normal in size with n ormal respiratory response. Unable to adequately assess the RVSP. Nataliya Fontenot MD [id number],C,.5 ppd Jeff Fontenot MD [id number],S,T jaclyn demonstrated Sinus tach with rare PVCs. Will increase her BB. Repeat tele. Nataliya Fontenot MD [id number],C,S he had SVT noted on monitor most likely ST. Recommended for her to stop smoking and start a beta luke. Will check an echo. Nataliya Fontenot MD [id number],S,W ill start her on toprol xl 25mg once daily. Nataliya Fontenot MD Cardiology:Echo revi ewed, normal EF CONCLUSIONS: 1 . Normal left ventricular systolic function. Normal left ventricular size. Normal left ventricular wall thickness. Normal left v entricular diastolic function. E/E': 5.0 Left ventricular ejection fraction is measured at 60 %. 2 . Normal right ventricular size. Normal right ventricular systolic function. 3 . Normal appearing mitral valve leaflets. There is trace physiologic mitral valve regurgitation. 4 . Normal appearing tricuspid valve leaflets. There is trace physiologic tricuspid valve regurgitation. IVC is normal in size with n ormal respiratory response. Unable to adequately assess the RVSP. Nataliya Fonetnot MD Cardiology:.5 ppd Nataliya pickett MD Cardiology:Tele demo nstrated Sinus tach with rare PVCs. Will increase her BB. Repeat tele. Nataliya Fontenot MD Cardiology:She had S VT noted on monitor most likely ST. Recommended for her to stop smoking and start a beta luke. Will check an echo. Nataliya Fontenot MD Cardiology:Will star t her on toprol xl 25mg once daily. Nataliya Fontenot MD Date Name Monitor - Telemetry (Mobile Cardiac) Complete Echo HISTORY OF PROCEDURES Procedure Date Procedure Name Provider Procedure Notes S tatus EKG Nataliya Fontenot MD compl eted EKG Nataliya Fontenot MD compl eted
--- OUTSIDE RECORDS SUMMARY | 2024-06-28 19:11 | XMS_ITS | Clinical Summary ---
Author Organization [facility] Address [address] [place] [address] Care Team Providers Care Contour Path Tape Mill Operator Name Role Phone Pete Taylor MD Primary Care Provider Pete Taylor MD Unavailable [phone] Clem Covington MD Unavailable [phone] Allergies Active Allergy Reactions Criticality Noted Date Comments Penicillins Rash Medium 10/30/[address] (CYMBALTA) 30 mg capsule Take 60 mg by mouth daily 1 Active etonogestreL-e thinyl estradioL (NUVARING, ELURYNG) 0.12-0.015 mg/24 hr vaginal ring INSERT 1 RING VAGINALLY EVERY MONTH 1 Active folic acid (FOLVITE) 1 mg tablet Take 1 tablet by mouth daily 1 Active hydrOXYchloroQ UINE (PLAQUENIL) 200 mg tablet Take 2 tablets by mouth daily 1 Active methotrexate 2.5 mg tablet TAKE 5 TABLETS BY MOUTH 1 TIME WEEKLY IN THE MORNING AND IN THE EVENING 1 Active magnesium gluconate 200 mg tabletIndicati ons:hypomagnes emia Take 200 mg by mouth daily Active vitamin B complex (B COMPLEX 1 ORAL) Take 1 tablet by mouth daily Active celecoxib (CeleBREX) 200 mg capsule Take 200 mg by mouth daily Active cyclobenzaprin e (FLEXERIL) 5 mg tablet Take 5 mg by mouth 3 (three) times a day as needed for muscle spasms Active phenazopyridin e (PYRIDIUM) 200 mg tablet Take 200 mg by mouth 3 (three) times a day as needed for bladder spasms Active cyanocobalamin , vitamin B-12, 1,000 mcg/mL kit Inject 1,000 mcg as directed every 14 (fourteen) days Active golimumab (SIMPONI ARIA IV) Infuse one infusion intravenously every 2 months as directed. Active gabapentin (NEURONTIN) 300 mg capsule Take 300 mg by mouth 2 (two) times a day Active amitriptyline (ELAVIL) 10 mg tablet Take 10 mg by mouth nightly Active leflunomide (ARAVA) 10 mg tabletIndicati ons:Rheumatoid Arthritis Take 10 mg by mouth daily Active montelukast (SINGULAIR) 10 mg tablet Take 10 mg by mouth nightly Active Active Problems Problem Noted Date Diagnosed Date Memory disturbance 07/18/2022 Paresthesia of skin 10/30/2020 Immunizations Immunization Administration Dates Next Due DTaP 03/15/1998, 8,03/22/1997,01/18 DTaP, Unspecified 10/28/2001 HPV, Quadrivalent 02/06/2011 Hep A, Unspecified 02/06/2011,12/23/2006 Hep B, Adolescent or Pediatric 06/07/1997,1996,1996 HiB 03/15/1998, 8,03/22/1997,01/18 IPV 03/22/1997,01/18/1997 Influenza, Quadrivalent, Spl it, Preservative Free, Intramuscular 02/10/2020 MMR 10/25/2014,10/28/2001,11/11/1997 Meningococcal ACWY, Unspecified 02/06/2011 OPV 11/11/1997 ADstruc SARS-CoV-2 Monovalent Vaccination (12+ Yrs) PURPLE 10/21/2020 Polio, Unspecified 10/28/2001 Tdap 12/02/2015,10/11/2014,12/23/2006 Varicella 12/23/2006,11/11/1997 Surgical History Surgery Date Site/Laterality Comments NO PAST SURGERIES Medical History Medical History Date Comments Numbness and tingling Confusion Vision disturbance Rheumatoid arthritis (HCC) Polyarthritis Sjogren's disease (HCC) Dizziness Muscle weakness Migraine Asthma Family History Medical History Relation Name Comments Depression Father Suicide Completion Father Diabetes Mother Migraines Mother Migraines Mother's Sister Relation Name Status Comments Father Mother Alive Mother's Sister Social History Tobacco Use Types Packs/Day Years Used Date Smoking Tobacco: Every Day Cigarettes 0.9 4 Smokeless Tobacco: Never Tobacco Cessation:Ready to Q uit: Not Asked; Counseling Given: Not Answered AUDIT-C Answer Date Recorded Q1: How often do you have a drink containing alc ohol? 2-4 times a month 10/30/2020 Average Number of Drinks Not on file 021 Q3: How often do you have si x or more drinks on one occasion? 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 Not on file Not on file Obstetrics History Last Filed Vital Signs Vital Sign Reading Time Taken Comments Blood Pressure 104/62 07/17/2022 3:53 PM CDT Pulse 113 07/17/2022 3:53 PM CDT Temperature 36.4 C (97.5 F) 07/17/2022 3:53 PM CDT Respiratory Rate 20 07/17/2022 3:53 PM CDT Oxygen Saturation 98% 07/17/2022 3:53 PM CDT Inhaled Oxygen Concentration - - Weight 71.2 kg (157 lb) 07/17/2022 3:53 PM CDT Height 162.6 cm (5' 4 ) 07/17/2022 3:53 PM CDT Body Mass Index 26.95 07/17/2022 3:53 PM CDT Plan of Treatment Health Maintenance Due Date Last Done Comments Cervical Cancer Screening 1996 Depression Screening 1996 Hepatitis C Screening 1996 HPV Vaccines (2 - 2-dose series) 08/08/2011 02/07/20 11 Regular Well Visit/Exam 18-64 2014 Pneumococcal vaccine <65 (1 of 2 - PCV) 11/04/2015 Zoster Vaccine (1 of 2) 11/04/2015 Covid-19 Vaccine (2023-2 5 season) 2024 12/03/2020, 11/07/2020, 10/21/2020 Influenza Vaccine (#1) 2024 02/16/2021, 2019 DTaP/Tdap/Td Vaccine (9 - Td or Tdap) 12/01/2025 12/02/2015, 10/11/2014, 12/23/2006, Additional history exists Hepatitis B Screening Completed 06/07/1997 , 01/18/1997, 1996 Varicella Vaccines Completed 12/23/2006, 11/11/[address] [facility] [place] [id number] [facility] [employer] Care Teams Contour Path Tape Mill Operator Relationship Specialty Start Date End Date Pete Taylor MD [address] [address] PCP - General 09/18/20 Pete Taylor MD [address] [address] Internal Medicine 09/18/20 Clem Covington MD [address] [place] [address] Referring Physician Neurology 10/30/20
--- OUTSIDE RECORDS SUMMARY | 2024-06-28 19:11 | XMS_ITS | Continuity of Care Document ---
Author Organization [employer] [facility] Address [address] [place] [phone] Phone Care Team Providers Care Roll Plugger Machine Operator Name Role Phone Veena Maharaj OD Unavailable [...] Providers Copied on Encounter Office/outpa tient Visit, [facility], [facility] [address], [place], [place], [address], [place] tel:[phone] [place] Professional redness (chief complaint) Sjogren's syndrome with keratoconjunct ivitis siccaMeibomian gland dysfunction (MGD) of lower eyelidMeibomia n gland dysfunction (MGD) of right lower eyelid 3 Nicko Curiel. [facility] [employer], [address], [place], [place], [address], [place]. tel:[phone] Yair Freitas MD.Referri ng Provider: Veena Maharaj OD L, [facility] [address], [place], [address] . tel:[phone] [facility], [facility] [address] [address], [place], [place], [address], [place] tel:[phone] SEC [place] Professional No Information 2 Garrick Stewart. [address] [facility] [address], [place], [place], [address], [place]. tel:[phone] Referring Provider: Terry Camarena, [address] [facility] [address], [place], [address] . tel:[phone] Office/outpa tient Visit, [facility], [address], [place], [place], [address], [place] tel:[phone] SEC Monty HERNANDEZ Professional Follow up visit (chief complaint) High Risk Medication useElevated optic disc of right eyeVisual disturbanceCor hermilo scar, right eye 1 Garrick Stewart. [address], [place], [place], [address], [place]. tel:[phone] Specialist : Yair Freitas MD, [address] [facility] [address], [place], [address]. tel:[phone] erring Provider: Terry Camarena, [address], [place], [address] . tel:[phone] Office/outpa tient Visit, [facility], [address], [place], [place], [address], [place] tel:[phone] SEC Remigio BOTELLO (chief complaint) Visual disturbanceEle vated optic disc of right eye 0 Garrick Stewart. [address], [place], [place], [address], [place]. tel:[phone] Referring Provider: Terry Camarena, [address] [facility] [address], [place], [address] . tel:[phone] Family History Family Member Type Diagnosis Age At Onset Problem Family history of Diabetes m iliana Payers Payer name Insurance type Covered democrat ID Authoriza tion(s) No Information Social History [...]
--- OUTSIDE RECORDS SUMMARY | 2024-06-28 19:11 | XMS_ITS | Clinical Summary ---
Author Organization [facility] Address [address] [place] [address] Care Team Providers Care Service Delivery Manager Name Role Phone Pete Taylor MD Primary Care Provider [phone] Allergies Active Allergy Reactions Criticality Noted Date Comments Penicillins Rash Low 01/25/2023 Social History Tobacco Use Types Packs/Day Years Used Date Smoking Tobacco: Never Assessed Comments No Sex and Gender Information Value Date Recorded Sex Assigned at Not on file Legal Sex Female 10:17 PM CDT Gender Identity Not on file Sexual Orientation Not on file Last Filed Vital Signs Vital Sign Reading Time Taken Comments Blood Pressure 96/52 01/26/2023 2:10 AM CDT Pulse 86 01/26/2023 2:10 AM CDT Temperature 36.6 C (97.8 F) 01/25/2023 10:40 PM CDT Respiratory Rate 18 01/26/2023 2:10 AM CDT Oxygen Saturation 97% 01/26/2023 2:10 AM CDT Inhaled Oxygen Concentration - - Weight 72.8 kg (160 lb 7.9 oz) 01/25/2023 10:21 PM CDT Height 162.6 cm (5' 4 ) 01/25/2023 10:21 PM CDT Body Mass Index 27.55 01/25/2023 10:21 PM CDT Plan of Treatment Health Maintenance Due Date Last Done Comments Cervical Cancer Screening Pap Smear (Age 21 to 29) Every 3 Years 1996 Cervical Cancer Screening 1996 Annual Physical 11/04/1999 HPV Vaccines (2 - 2-dose series) 08/08/2011 02/06/2011 Hepatitis C 2014 COVID-19 Vaccine ( season) 2024 10/21/2020 Influenza Adult (#1) 2024 02/10/2020 DTaP, Tdap and Td Vaccines (9 - Td or Tdap) 12/01/2025 12/02/2015, 10/11/2014, 12/23/2006, Additional history exists Hepatitis B Vaccines Completed 06/07/1997, 01/18/1997, 1996 Meningococcal Vaccine Aged Out 02/06/2011 No denise chetan eligible based on patient's age to complete this topic Meningococcal B Vaccine Aged Out No l onger eligible based on patient's age to complete this topic Pneumococcal Vaccine: Pediatrics (0 to 5 Years) and At-Risk Patients (6 to 64 Years) Aged Out No longer eligible based on patient's age to complete this topic RSV Immunizations Under 20 Months Aged Out No longer eligible based on patient's age to complete this topic Insurance MEDICAID Care Teams Service Delivery Manager Relationship Specialty Start Date End Date Pete Taylor MD [address] [facility] [address] [place] [id number] PCP - General INTERNAL MEDICINE 01/25/23
--- OUTSIDE RECORDS SUMMARY | 2024-06-28 19:11 | XMS_ITS | Referral Summary ---
Author Organization [facility] Address [address] [place] [address] Care Team Providers Care Aircraft Electrical Systems Specialist Name Role Phone Pete Taylor MD Primary Care Provider Pete Taylor MD Unavailable [phone] Clem Covington MD Unavailable [phone] Allergies Active Allergy Reactions Criticality Noted [...] 10/25/2014,10/28/2001,11/11/1997 Meningococcal ACWY, Unspecified 02/06/2011 OPV 11/11/1997 BrandYourself SARS-CoV-2 Monovalent Vaccination (12+ Yrs) PURPLE 10/21/2020 Polio, Unspecified 10/28/2001 Tdap 12/02/2015,10/11/2014,12/23/2006 Varicella 12/23/2006,11/11/1997 Social History Tobacco Use Types Packs/Day Years [...] on file Legal Sex 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 Gender Identity Not on file Sexual Orientation Not on file 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 Not on file Not on file Last Filed Vital Signs [...] 07/17/2022 3:53 PM CDT Plan of Treatment Not on file Insurance [facility] CHO[facility]US [facility] H[facility]PPO Address: [facility] [address] [place] [address] [facility] PL[facility] H[facility]/PPO Address: [address] [address] [place] [address] [facility] Address: [address] [place] [address] Care Teams Aircraft Electrical Systems Specialist Relationship Specialty Start Date End Date Pete Taylor MD [address] [place] [address] PCP - General 09/18/20 Pete Taylor MD [address] [address] Internal Medicine 09/18/20 Clem Covington MD [address] [place] [address] Referring Physician Neurology 10/30/20
--- NOTE | 2024-06-28 19:32 | ED.GENADULT ---
HPI - General Adult General Chief complaint: Unspecified Stated complaint: Time Seen by Provider: 06/28/24 19:26 History of Present Illness HPI narrative: Patient is a 28-year-old female who presents emergency department with chief complaint of abdominal pain and vaginal contractions. The patient reports that she had a elective medication induced elective after the weekend the patient states she had bleeding and cramping reports that the bleeding tapered off and now is having worsening cramping patient states she is concerned that she may not have completed the and reports that she has severe discomfort throughout her abdomen. Related Data Home Medications ?Medication ?Instructions ?Recorded ?Confirmed ?Last Taken ?Type labetalol 100 mg tablet 100 mg PO BID 09/15/23 01/21/24 01/20/24 23:00 History sertraline 50 mg tablet 50 mg PO DAILY 09/15/23 01/21/24 01/20/24 23:30 History acetaminophen 500 mg tablet 1,000 mg PO Q6H PRN Pain 12/27/23 01/21/24 12/27/23 12:00 History (Tylenol Extra Strength) docusate sodium 100 mg capsule 100 mg PO BID 12/27/23 01/21/24 12/27/23 11:00 History (Colace) ergocalciferol (vitamin D2) 1,250 50,000 unit PO WEEKLY 12/27/23 01/21/24 01/18/24 09:00 History mcg (50,000 unit) capsule ferrous sulfate 325 mg (65 mg 325 mg PO DAILY 12/27/23 01/21/24 01/20/24 10:00 History iron) tablet omeprazole 40 mg capsule,delayed 40 mg PO DAILY 12/27/23 01/21/24 01/20/24 09:00 History release vit no.95-ferrous 1 tablet PO DAILY 12/27/23 01/21/24 01/20/24 09:00 History fumarate 28 mg-folic acid 800 mcg tablet () Allergies Allergy/AdvReac Type Severity Reaction Status Date / Time Penicillins Allergy Mild RASH,ITCHIN Verified 01/15/24 10:12 G amoxicillin Allergy Rash Verified 01/15/24 10:12 Review of Systems Review of Systems: A 10 system review of systems was completed on the patient and is negative except for what is stated in the HPI. Nursing and ancillary documentation was reviewed. [facility] Past Medical History Medical History Rheumatoid arthritis B12 deficiency Sjogren's disease Anxiety Depression UTI (urinary tract infection) Interstitial cystitis Asthma Migraines Surgical History Surgical History No significant past surgical history Family History Family History Mother Diabetes mellitus Social History Social History Smoking packs per day: 0.5 Smoking cigarettes per day: 10.0 Smoking status: Current every day smoker Tobacco type: cigarettes Second hand tobacco smoke exposure: Yes Alcohol intake: current Drinks per week: 1 Substance use: current Substance use type: does not use Do You Feel Safe in your Home?: Yes Lack of Transportation: No Lack of Food: Never True Current Housing: I Have Housing Concerned About Future Housing: No Difficulty Paying Gas/Electric Bills: No Difficulty Paying for Meds: No Currently Unemployed: No Education: High School Diploma/GED Difficulty w/ Childcare or Family Care: No Gender identity (if verbalized by the patient): Female Sexual Orientation (if Verbalized by the Patient): Straight or Heterosexual Spiritual care concerns: No Exam Narrative: GENERAL: Well-appearing, well-nourished, and in no acute distress. HEAD: Normocephalic, atraumatic. EYES: PERRLA and EOMI. ENT: Nares clear, no rhinorrhea or epistaxis. Mucous membranes moist. NECK: Supple. CHEST: Clear to auscultation. No respiratory distress. HEART: Regular rate and rhythm. No murmur heard. Normal peripheral pulses. ABDOMEN: Soft, nontender, nondistended, normal active bowel sounds. EXTREMITIES: Normal range of motion. No edema. SKIN: Warm, dry, no rash. NEURO: No focal deficits. Alert and oriented x3. PSYCH: Normal mood and affect. Course Vital Signs Vital signs: Vital Signs Temperature 36.6 C 06/28/24 18:41 Pulse Rate 99 06/28/24 18:41 Respiratory Rate 17 06/28/24 18:41 Blood Pressure 100/62 06/28/24 18:41 Pulse Oximetry 98 02/24/25 18:41 Oxygen Delivery Room Air 06/28/24 18:41 Temperature 36.6 C 06/28/24 18:41 Pulse Rate 99 06/28/24 18:41 Respiratory Rate 17 06/28/24 18:41 Blood Pressure 100/62 06/28/24 18:41 Pulse Oximetry 98 06/28/24 18:41 Oxygen Delivery Room Air 06/28/24 18:41 Medical Decision Making MDM Narrative Medical decision making narrative: Differential diagnosis includes retained products, complete , Quantitative hCG was 6398 Patient is Rh positive Hemoglobin was 11.4 this is unchanged from the previous hemoglobins Pelvic ultrasound showed thickened endometrium but no cardiac activity The case was discussed with Dr. Seth the patient's OBGYN who recommended an additional g of side attack and recommended outpatient follow-up with her in the office Vital Signs Vital Signs: Vital Signs Temperature 36.6 C 06/28/24 18:41 Pulse Rate 99 06/28/24 18:41 Respiratory Rate 17 06/28/24 18:41 Blood Pressure 100/62 06/28/24 18:41 Pulse Oximetry 98 06/28/24 18:41 Oxygen Delivery Room Air 06/28/24 18:41 Temperature 36.6 C 06/28/24 18:41 Pulse Rate 99 06/28/24 18:41 Respiratory Rate 17 06/28/24 18:41 Blood Pressure 100/62 06/28/24 18:41 Pulse Oximetry 98 06/28/24 18:41 Oxygen Delivery Room Air 06/28/24 18:41 Lab Data 06/28/24 20:29 06/28/24 20:29 Labs: Lab Results 06/28/24 Range/Units 20:29 WBC 6.9 (4.5-10.0) K/mm3 RBC 3.74 L (4.2-5.4) M/mm3 Hgb 11.4 L (12.0-15.0) g/dL Hct 33.6 L (37.0-47.0) % MCV 89.8 (80-100) fl MCH 30.5 (26-34) pg MCHC 33.9 (32-36) g/dl RDW 12.5 (11.5-14.5) % Plt Count 211 (150-375) k/mm3 MPV 10.2 (7.4-10.4) fl Immature Gran % (Auto) 0.4 (0-0.5) % Neut % (Auto) 58.5 (45.5-73.1) % Lymph % (Auto) 31.9 (18.3-44.2) % Dickey % (Auto) 5.7 (2.6-8.5) % Eos % (Auto) 2.9 (0-4.4) % Baso % (Auto) 0.6 (0.2-1.2) % Lymph # (Auto) 2.20 (0.9-3.2) K/mm3 Dickey # (Auto) 0.4 (0.1-0.6) K/mm3 Eos # (Auto) 0.2 (0-0.3) K/mm3 Baso # (Auto) 0.0 (0.0-0.1) K/mm3 Abs Immat Gran (auto) 0.03 (0.00-0.031) K/mm3 Absolute Neuts (auto) 4.0 (1.3-6.7) K/mm3 Absolute Nucleated RBC 0.000 (0.0-0.012) K/mm3 Nucleated RBC % 0.0 (0.0-0.2) % Sodium 138 (137-145) mmol/L Potassium 3.7 (3.4-5.0) mmol/L Chloride 106 (98-107) mmol/L Carbon Dioxide 22 (22-30) mmol/L Anion Gap 10 (4-12) mmol/L BUN 10 (7-17) mg/dL Creatinine 0.66 L (0.7-1.0) mg/dL Estim Creat Clear Calc 107 ml/min Estimated GFR > 60 (59 - ) Glucose 83 (65-110) mg/dL Calcium 9.0 (8.4-10.2) mg/dL Total Bilirubin 0.6 (0.2-1.3) mg/dL AST 16 (14-36) U/L ALT 12 (6-35) U/L Alkaline Phosphatase 57 (38-126) U/L Total Protein 7.0 (6.3-8.2) g/dL Albumin 3.9 (3.5-5.1) g/dL Beta HCG, Quant 6398.30 mIU/ML Urine Color Yellow (Yellow) Urine Appearance Clear (Clear) Urine pH 6.0 (5.0-9.0) Ur Specific [place] 1.020 (1.001-1.035) Urine Protein Negative (Negative) mg/dL Urine Glucose (UA) Negative (Negative) mg/dL Urine Ketones Trace H (Negative) mg/dL Ur Blood (Man) 2+ H (Negative) Urine Nitrate Negative (Negative) Urine Bilirubin Negative (Negative) Urine Urobilinogen 1.0 (<2.0) mg/dL Leukocyte Esterase Rfl Negative (Negative) DARVIN/UL Urine RBC 11-20 H (0-2) /hpf Urine WBC 0-5 (0-3) /hpf Ur Squamous Epith Cells None seen (Few) /hpf Urine Bacteria None seen /hpf Urine Casts 0-2 Blood Type O Positive Antibody Screen Negative Screen TNP Baby's Blood Type Not Reportable Baby's DOT Not Reportable Doses of RhIg Required 0 Discharge Plan Discharge Clinical Impression: Incomplete Patient Disposition: Home, Self-Care Condition: Stable Instructions: Antibiotic Form, Miscarriage (ED) Patient Language: Peruvian Prescriptions: No Action labetalol 100 mg tablet 100 mg PO BID sertraline 50 mg tablet 50 mg PO DAILY albuterol sulfate 90 mcg/actuation HFA aerosol inhaler 2 puff INHALATION QID PRN (Reason: shortness of breath or wheezing) Qty: 8.5 0RF omeprazole 40 mg capsule,delayed release(DR/EC) 40 mg PO DAILY acetaminophen [Tylenol Extra Strength] 500 mg Tablet 1,000 mg PO Q6H PRN (Reason: Pain) ferrous sulfate 325 mg (65 mg iron) Tablet 325 mg PO DAILY docusate sodium [Colace] 100 mg Capsule 100 mg PO BID ergocalciferol (vitamin D2) 1,250 mcg (50,000 unit) capsule 50,000 unit PO WEEKLY Rx Instructions: Takes every Friday PNV cmb#95-ferrous fumarate-FA [] 28 mg iron- 800 mcg Tablet 1 tablet PO DAILY Follow-up/Referrals: Taylor,Pete Veloz MD [Primary Care Provider] - Deanna Spaulding MD [Physician] - Time of Disposition: 21:41
--- OUTSIDE RECORDS SUMMARY | 2024-06-28 20:03 | XMS_ITS | Clinical Summary ---
Author Organization [facility] Address [address] [place] [address] Care Team Providers Care Price Lister Name Role Phone Pete Taylor MD Primary Care Provider Pete Taylor MD Unavailable [phone] Clem Covington MD Unavailable [phone] Allergies Active Allergy Reactions Criticality Noted [...] 10/25/2014,10/28/2001,11/11/1997 Meningococcal ACWY, Unspecified 02/06/2011 OPV 11/11/1997 [employer] SARS-CoV-2 Monovalent Vaccination (12+ Yrs) PURPLE 10/21/2020 [...] on file Legal Sex Female 7:08 PM JAVA TECHNICAL MANAGER Gender Identity Not on file Sexual Orientation Not on file 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 Not on file Not on file Not [...] 1996 Varicella Vaccines Completed 12/23/2006, 11/11/1997 Insurance [facility] [place] [id number] [facility] CHO[facility] PLUS [facility] CHO[facility] PLUS [facility] PLUS Care Teams Price Lister Relationship Specialty Start Date End Date Pete Taylor MD [address] [address] PCP - General 09/18/20 Pete Taylor MD [address] [address] Internal Medicine 09/18/20 Clem Covington MD [address] [place] [address] Referring Physician Neurology 10/30/20
--- OUTSIDE RECORDS SUMMARY | 2024-06-28 20:03 | XMS_ITS | Patient Health Summary ---
Author Organization [facility] [employer] Address [address] [place] [address] Care Team Providers Care Deposition Reporter Name Role Phone Pete Taylor MD Primary Care Provider [phone] Note from [facility],non-owned Affiliates and Associated Physician Practices is amultiple site organization consisting of ambulatory clinics and hospital sitesin [place], [place], [place] and [place]. This disclosure is being madepursuant to the Care Everywhere program and may not contain all information available regarding this patient. Last updated 18.[facility] [employer] Social History Tobacco Use Types Packs/Day Years [...] Seronegative rheumatoid arthritis of multiple sites ([facility]), Sjogren's syndrome with keratoconjunctivitis sicca ([facility]) * XR PELVIS W BILAT HIP 2VW(Performed 08/10/2020) Performed for Seronegative rheumatoid arthritis of multiple sites (HCC), Sjogren's syndrome with keratoconjunctivitis sicca (HCC), Muscle cramps, Ankylosing spondylitis of multiple sites in spine (HCC) * XR CHEST 2VW(Performed 08/10/2020) Performed for Polyarthritis with negative rheumatoid factor (HCC), Sjogren's syndrome with keratoconjunctivitis sicca (HCC), Muscle cramp, Ankylosing spondylitis of multiple sites in spine ([facility]) Results * XR CHEST 2VW (09/24/2022 2:04 [...] 2 OR 3 VW (04/09/2022 1:39 PM SENIOR SOFTWARE DEVELOPMENT ENGINEER) Anatomical Region Laterality Modality Spine Radiographic Jessica ging 04/09/2022 2:25 PM SENIOR SOFTWARE DEVELOPMENT ENGINEER Impressions 04/09/2022 2:28 PM SENIOR SOFTWARE DEVELOPMENT ENGINEER IMPRESSION: No compression fracture pars defects or malalignment. No erosive arthropathy evident. > Interpreting Provider: Axel Best MD on 04/09/2022 2:28 PM Narrative 04/09/2022 2:28 PM SENIOR SOFTWARE DEVELOPMENT ENGINEER PROCEDURE: XR LUMBAR SPINE 2 OR 3VW, DATE/TIME OF EXAM: 04/09/2022 1:40 PM, LOCATION [facility] INDICATION: M06.09: Rheumatoid arthritis without rheumatoid factor, multiple sites ([facility]) M35.01: Sjogren syndrome with keratoconjunctivitis ([facility] [place] ADDITIONAL CLINICAL INFORMATION: Ordering Provider Reason For [...] DATE/TIME OF EXAM: 04/09/2022 1:40 PM, LOCATION [facility] INDICATION: M06.09: Rheumatoid arthritis without rheumatoid factor, multiple sites ([facility]) M35.01: Sjogren syndrome with keratoconjunctivitis ([facility] [place] ADDITIONAL CLINICAL INFORMATION: Ordering Provider Reason For [...] CDT EXAM: XR PELVIS W BILAT HIP 2VW*[id number] INDICATION: Rheumatoid arthritis without rheumatoid factor, multiple sites, pelvic pain, bilateral hip pain COMPARISON: none available FINDINGS: There is no fracture, dislocation or osseous destruction. Significant hypertrophic or erosive changes are not identified. *Reading Radiologist: Bryan Monreal on 08/10/2020 at 4:00 PM Procedure Note Bryan Monreal MD - 08/10/2020 EXAM: XR PELVIS W BILAT HIP 2VW*[id number] INDICATION: Rheumatoid arthritis without rheumatoid factor, multiple sites, pelvic pain, bilateral hip pain COMPARISON: none available FINDINGS: There is no fracture, dislocation or osseous destruction. Significant hypertrophic or erosive changes are not identified. *Reading Radiologist: Bryan Monreal on 08/10/2020 at 4:00 PM Yair Freitas MD DIAGNOSTIC IMAGING O [facility] Care Teams Deposition Reporter Relationship Specialty Start Date End Date Pete Taylor MD [facility] [address] PCP - General Internal Medicine 08/10/20
--- OUTSIDE RECORDS SUMMARY | 2024-06-28 20:03 | XMS_ITS | CONTINUITY OF CARE DOCUMENT ---
Author Name sharri, sharri Address Unknown Organization [place] [facility] Address [address] [place] [address] Phone [phone] Care Team Providers Care Guide Dog Trainer Name Role Phone Corie GASTELUM, Nataliya Grier Unavailable SOFIE GASTELUM, ANALY Unavailable SOFIE GASTELUM, ANALY Unavailable [phone] PROBLEMS Condition Status Date Provider Notes Hypertension active Nataliya Fontenot MD Palpitations active Nataliya Fontenot MD Sjogren's syndrome active Nataliya Fontenot MD Arthritis ? rheumatoid active Nataliya otoole MD Ankylosing spondylitis active Nataliya otoole MD Sinus tachycardia active Nataliya Dotson Tobacco abuse active Nataliya Fontenot MD ENCOUNTERS Date Type Provider Location Encounter Diag nosis - In-person encounter Office Visit Nataliya Fontenot MD [place] [facility] - In-person encounter Office Visit Nataliya Fontenot MD [place] [facility] HypertensionPalpitationsSjo gren's syndromeArthritis ? rheumatoidAnkylosing spondylitisSinus tachycardiaTobacco abuse VITAL SIGNS Date Observation Value Provider Body Mass Index (Ratio) 26.09 kg/m2 Leona Fontenot MD blood pressure, diastolic 87 mm[Hg] Destiney juarezLogjoan blood pressure, systolic 130 mm[Hg] Selena kLogic blood pressure, diastolic 87 mm[Hg] Ca therine Jorge blood pressure, systolic 130 mm[Hg] Cat herine Fentress oxygen saturation, oximetry 96 % Hanny Fentress respiratory rate E&M 14 /min Catheri ne Jorge pulse rate 116 /min Hanny Fentress weight E&M 152 [lb_av] Hanny Fentress blood pressure, cuff size regular Ca therine Jorge height E&M 64 [in_i] Hanny Jorge Body Mass Index (Ratio) 26.60 kg/m2 Leona Fontenot MD blood pressure, diastolic 82 mm[Hg] Destiney Log blood pressure, systolic 124 mm[Hg] Selena kLogic blood pressure, cuff size regular Ca therine Fentress blood pressure, diastolic 82 mm[Hg] Ca therine Jorge blood pressure, systolic 124 mm[Hg] Cat herine Fentress oxygen saturation, oximetry 100 % Hanny Jorge respiratory rate E&M 16 /min Catheri ne Jorge pulse rate 97 /min Hanny Fentress weight E&M 155 [lb_av] Hanny Jorge height E&M 64 [in_i] Hanny Fentress HISTORY OF MEDICATION USE Medication Status Instructions [...] Lara cyclobenzaprine 5 mg tablet active Hanny Fentress duloxetine 30 mg capsule,delayed release(DR/EC) active Hanny Jorge prednisone 20 mg tablet active Hanny Fentress duloxetine 60 mg capsule,delayed release(DR/EC) active Hanny Jorge montelukast 10 mg tablet active Hanny Fentress hydroxychloroquine 200 mg tablet active Hanny Fentress famotidine 40 mg tablet active Hanny Fentress omeprazole 20 mg capsule,delayed release(DR/EC) active Hanny Jorge gabapentin 300 mg capsule active Hanny Jorge cetirizine 10 mg tablet active Hnany Fentress tramadol 50 mg tablet active Cat herine Jorge celecoxib 200 mg capsule active Hanny Fentress SOCIAL HISTORY Date Observation Value Provider social history E&M S moking History: P atient currently smokes every day. Nataliya Fontenot MD social history reviewed E&M revi ewed - no changes required Nataliya Fontenot MD smoking history, tot al pack/day 1pack Hanny Fentress cigarette use yes Hanny Fentress smoking status Current every day smoker C atherine Fentress number of grandchildren Nataliya Fontenot MD social history reviewed E&M revi ewed - no changes required Nataliya Fontenot MD social history E&M S moking History: P atient currently smokes every day. Nataliya Fontenot MD smoking history, tot al pack/day 1pack Hanny Jorge cigarette use yes Hanny Fentress smoking status Current every day smoker C atherine Jorge INSURANCE PROVIDERS Payer name Policy type / Coverage type [facility] ID [id number] [id number] Other [id number] TREATMENT PLAN Date Name Performer [id number],C,E cho reviewed, normal EF CONCLUSIONS: 1 . [...] adequately assess the RVSP. Nataliya Fontenot MD [id number],C,.5 ppd Jeff Fontenot MD [id number],S,T jaclyn demonstrated Sinus tach with rare PVCs. Will increase her BB. Repeat tele. Nataliya Fontenot MD [id number],C,S he had SVT noted on monitor most likely ST. Recommended for her to stop smoking and start a beta luke. Will check an echo. Nataliya Fontenot MD [id number],S,W ill start her on toprol xl 25mg [...] adequately assess the RVSP. Nataliya Fontenot MD Cardiology:.5 ppd Nataliya pickett MD Cardiology:Tele [...]
--- OUTSIDE RECORDS SUMMARY | 2024-06-28 20:03 | XMS_ITS | Clinical Summary ---
Author Organization [facility] Address [address] [place] [address] Care Team Providers Care Manager Global Communications Name Role Phone Pete Taylor MD Primary Care Provider [phone] Allergies Active Allergy Reactions Criticality Noted Date [...] age to complete this topic Insurance [place] [address] Care Teams Manager Global Communications Relationship Specialty Start Date End Date Pete Taylor MD [address] [facility] [address] [place] [id number] PCP - General INTERNAL MEDICINE 01/25/23
--- OUTSIDE RECORDS SUMMARY | 2024-06-28 20:03 | XMS_ITS | Referral Summary ---
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 Gender Identity Not on file Sexual Orientation Not on file 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
--- OUTSIDE RECORDS SUMMARY | 2024-06-28 20:03 | XMS_ITS | Continuity of Care Document ---
Author Organization [facility] Address [address] [place] [address] Phone Care Team Providers Care Cytotechnologist Name Role Phone Jody PT, DPT, Nadia Unavailable Unavaila ble Procedures Procedure Date Therapeutic Activities Neuromuscular Re-Ed Therapeutic Exercise Therapeutic Activities Neuromuscular Re-Ed Therapeutic Activities Therapeutic Exercise Neuromuscular Re-Ed Manual Therapy Therapeutic Activities Neuromuscular Re-Ed Neuromuscular Re-Ed Therapeutic Activities Therapeutic Activities PT Evaluation Moderate Complexity Manual Therapy Therapeutic Exercise Advance Directives Directive Yes / No Effective Date File Name No Information Encounters Encounter Description Practice Location Reason(s) For Visit Diagnoses Date Provider Providers Copied on Encounter [facility], [place], [place], [id number], [place] tel:[phone] [place] No Information Jody Zuniga. . Referring Provider: Gloria Mejia [address] [place] [address] [address], [place], [address]. tel:[phone] [facility], [place], [place], [id number], tel:[phone] [place] No Information Vera Nadia. . Referring Provider: Gloria Mejia [address] [place] [address] [address], [place], [place], [facility]. tel:[phone] [place] [address] [place] [address] [address], [place], [id number], tel:[phone] [place] No Information Vera Nadia. . Referring Provider: Gloria Mejia [address] [place] [address] [address], [place], [place], [facility]. tel:[phone] [place] [address] [place] [address] [address], [place], [id number], tel:[phone] [place] No Information Vera Nadia. . Referring Provider: Gloria Mejia [address] [place] [address] [address], [place], [place], [facility]. tel:[phone] [place] [address] [facility] [address], [place], [id number], tel:[phone] [place] No Information Vera Nadia. . Referring Provider: Gloria Mejia [address] [place] [address] [address], [place], [place], [facility]. tel:[phone] [facility] [address] [place] [address] [address], [place], [id number], tel:[phone] [place] No Information Vera Nadia. . Referring Provider: Glorai Mejia [address] [place] [address] [address], [place], [place], [facility]. tel:[phone] Family History Family Member Type Diagnosis Age At Onset No Information Payers Payer name Insurance type Covered libertarian ID Authorromana kristie(s) [facility] [id number] Social History Type Description Quantity Date Captured [...]
--- OUTSIDE RECORDS SUMMARY | 2024-06-28 20:03 | XMS_ITS | Referral Summary ---
Author Organization [facility] Address [address] [address] Care Team Providers Care Folding Rules Printing Machine Operator Name Role Phone Pete Taylor MD Primary Care Provider [phone] Source Comments [facility],non-owned Affiliates and Associated Physician Practices is amultiple site organization consisting of ambulatory clinics and hospital sitesin [place], [place], [place] and [place]. This disclosure is being madepursuant to the Care Everywhere program and may not contain all information available regarding this patient. Last updated 18.[facility] [employer] Social History Tobacco Use Types Packs/Day Years Used Date Smoking Tobacco: Never Assessed Sex and Gender Information Value Date Recorded Sex Assigned at Not on file Gender Identity Not on file Sexual Orientation Not on file Plan of Treatment Not on file Care Teams Folding Rules Printing Machine Operator Relationship Specialty Start Date End Date Pete Taylor MD [address] [place] [address] 23 [place] [address] PCP - General Internal Medicine 08/10/20
--- OUTSIDE RECORDS SUMMARY | 2024-06-28 20:03 | XMS_ITS | Continuity of Care Document ---
Author Organization [facility] [place] [address] [place] [place] [address] Phone Care Team Providers Care Peoplesoft Administrator Name Role Phone Veena Maharaj OD Unavailable [...] Providers Copied on Encounter [place] [facility] [place] [facility] [address], [place], [place], [id number], [place] tel:[phone] [place] Professional redness (chief complaint) Sjogren's syndrome with keratoconjunct ivitis siccaMeibomian gland dysfunction (MGD) of lower eyelidMeibomia n gland dysfunction (MGD) of right lower eyelid 3 Nicko Curiel. [facility] [address], [place], [place], [address], [place]. tel:[phone] Yair Freitas MD.Referri ng Provider: Veena Maharaj OD L, [facility] [address], [place], [address] . tel:[phone] [facility], located within [facility], [facility] [address], [place], [place], [address], [place] tel:[phone] [place] Professional No Information 2 Garrick Stewart. [address], [place], [place], [address], [place]. tel:[phone] Referring Provider: Terry Camarena, [address], [place], [address] . tel:[phone] [place] [facility] [place] [address], [place], [place], [address], [place] tel:[phone] SEC Monty HERNANDEZ Professional Follow up visit (chief complaint) High Risk Medication useElevated optic disc of right eyeVisual disturbanceCor hermilo scar, right eye 1 Garrick Stewart. [address], [place], [place], [address], [place]. tel:[phone] Specialist : Yair Freitas MD, [address], [place], [address]. tel:[phone] erring Provider: Terry Camarena, [address], [place], [address] . tel:[phone] Office/outpa tient Visit, [facility], [address], [place], [place], [address], [place] tel:[phone] SEC Remigio BOTELLO (chief complaint) Visual disturbanceEle vated optic disc of right eye 0 Garrick Stewart. [address], [address], [place], [place], [address], [place]. tel:[phone] Referring Provider: Terry Camarena, [address] [facility] [address], [place], [address] . tel:[phone] Family History Family Member Type Diagnosis Age At Onset Problem Family history of Diabetes m iliana Payers Payer name Insurance type Covered constitution party ID Authoriza tion(s) No Information Social History [...]
--- OUTSIDE RECORDS SUMMARY | 2024-06-28 20:03 | XMS_ITS | Clinical Summary ---
Author Organization [facility] [employer] Address [address] [place] [address] Care Team Providers Care Motion Picture Camera Operator Name Role Phone Pete Taylor MD Primary Care Provider [phone] Source Comments [facility] [employer],non-owned Affiliates and Associated Physician Practices is amultiple site organization consisting of ambulatory clinics and hospital sitesin [place], [place], [place] and [place]. This disclosure is being madepursuant to the Care Everywhere program and may not contain all information available regarding this patient. Last updated 18.[facility] [employer] Social History Tobacco Use Types Packs/Day Years [...] age to complete this topic Care Teams Motion Picture Camera Operator Relationship Specialty Start Date End Date Pete Taylor MD [address] [place] [address] 23 [place] [address] PCP - General Internal Medicine 08/10/20
[2024-06-28 20:42] LABS: Basophils Percent Auto 0.6 % (0.2-1.2); Eosinophils Absolute Auto 0.2 K/mm3 (0-0.3); Eosinophils Percent Auto 2.9 % (0-4.4); Hematocrit 33.6 % (37.0-47.0); Hemoglobin 11.4 g/dL (12.0-15.0); Immature Granulocyte Absolute 0.03 K/mm3 (0.00-0.031); Immature Granulocyte Percent A 0.4 % (0-0.5); Lymphocytes Percent Auto 31.9 % (18.3-44.2); Mean Corpuscular HGB Conc 33.9 g/dl (32-36); Mean Corpuscular Hemoglobin 30.5 pg (26-34); Mean Corpuscular Volume 89.8 fl (80-100); Mean Platelet Volume 10.2 fl (7.4-10.4); Monocytes Absolute Auto 0.4 K/mm3 (0.1-0.6); Monocytes Percent Auto 5.7 % (2.6-8.5); Neutrophils Percent Auto 58.5 % (45.5-73.1); Platelet Count Result 211 k/mm3 (150-375); Red Blood Count 3.74 M/mm3 (4.2-5.4); Red Cell Distribution Width 12.5 % (11.5-14.5); White Blood Count 6.9 K/mm3 (4.5-10.0)
[2024-06-28 20:51] LABS: Add Urine Microscopic? YES; Appearance Urine Clear (Clear); Bacteria Urine None Seen /hpf; Bilirubin Urine Negative (Negative); Blood Urine 2+ (Negative); Color Urine Yellow (Yellow); Glucose Urine UA Negative (Negative); Ketones Urine Trace mg/dL (Negative); Leukocyte Esterase Ur Negative LEU/UL (Negative); Nitrate Urine Negative (Negative); Non Pathogenic Casts 0-2; Protein Urine Negative (Negative); Squamous Epithelial Cell Urine None Seen /hpf (Few); WBC Urine 0-5 /hpf (0-3)
[2024-06-28 21:08] LABS: Alanine Aminotransferase 12 U/L (6-35); Albumin Level 3.9 g/dL (3.5-5.1); Alkaline Phosphatase 57 U/L (38-126); Anion Gap 10 mmol/L (4-12); Aspartate Amino Transferase 16 U/L (14-36); Bilirubin,Total 0.6 mg/dL (0.2-1.3); Blood Urea Nitrogen 10 mg/dL (7-17); Carbon Dioxide 22 mmol/L (22-30); Chloride 106 mmol/L (98-107); Estimated CRCL calculation 107 ml/min; Estimated Glomerular Filt Rate > 60; Glucose 83 mg/dL (65-110); Potassium 3.7 mmol/L (3.4-5.0); Sodium 138 mmol/L (137-145)
[2024-06-28 21:57] VITALS: BP 109/66; PULSE 90; RESP 16; O2SAT 99
[2024-06-28] MEDS: miSOPROStol 200 MCG TABLET 1000 MCG VAGINAL (22:24)
[2024-06-28 22:35] VITALS: BP 109/66; PULSE 90; RESP 16; O2SAT 99
== END 2024-06-28 22:38 | disposition home or self-care (01) ==
PROVIDERS: Emergency Provider Emergency Medicine; PCP Internal Medicine
DX: O03.4 Incomplete spontaneous abortion without complication (principal); E53.8 Deficiency of other specified B group vitamins; J45.909 Unspecified asthma, uncomplicated; N30.10 Interstitial cystitis (chronic) without hematuria; M06.9 Rheumatoid arthritis, unspecified; M35.00 Sjogren syndrome, unspecified; F32.A Depression, unspecified; F41.9 Anxiety disorder, unspecified; F17.210 Nicotine dependence, cigarettes, uncomplicated; Z87.440 Personal history of urinary (tract) infections; Z79.899 Other long term (current) drug therapy
CPT/HCPCS: 36415; 76801; 80053; 81001; 84702; 85025; 85461; 86850; 86900; 86901; 99284; A9270

== ENCOUNTER 2024-12-31 15:27 | Outpatient (CLI) | payer OTHER, SELFPAY ==
--- OUTSIDE RECORDS SUMMARY | 2022-11-14 10:30 | XMS_ITS | Continuity of Care Document ---
Author Organization [facility] Address [address] [place] [address] [place] [id number] Phone Care Team Providers Care Business Continuity Strategy Director Name Role Phone Veena Maharaj OD Unavailable Unavailable Allergies, Adverse Reactions, Alerts Substance Reaction Status Criticality PENICILLIN Active No Information Medications Medication Instructions Dosage Effective Dates (start - stop) Status Comments ketorolac 0.5 % eye drops instill 1 drop by ophthalmic route up to 3 times every day into both eyes - Active magnesium 250 mg tablet take 1 tablet by oral route every day 1 tablet - Active gabapentin 600 mg tablet take 1 tablet b y oral route 3 times every day 600 MG - Active hydroxychloroquine 200 mg tablet take 1 tablet by oral route 2 times every day 200 MG - Active folic acid 1 mg tablet take 1 tablet by oral route every day 1 MG - Active methotrexate sodium 2.5 mg tablet take 1 tablet by oral route every week 2.5 MG - Active celecoxib 100 mg capsule take 1 capsule by oral route 2 times every day 100 MG - Active tramadol 50 mg tablet take 1 tablet by oral route every 6 hours as needed 50 MG - Active Simponi ARIA 12.5 mg/mL intravenous solution infuse (2MG/KG) by intravenous route every 8 weeks over 2 MG/KG - Active amitriptyline 10 mg tablet take 1 tablet by oral route 3 times every day 10 MG - Active cyclobenzaprine 5 mg tablet take 1 tablet by oral route 3 times every day 5 MG - Active phenazopyridine 100 mg tablet take 1 tablet by oral route 3 times every day after meals as needed 100 MG - Active B-Complex 100 mg-2 mg-100 mg-2mg-2mg/mL injection solution once every two weeks - Active Procedures Procedure Date Office/outpatient Visit, Est Charge For A No Show Visual Field Examination(s) No Charge Optomap Fundus Photos 021 SCODI, Retina Office/outpatient Visit, Est Visual Field Examination(s) Fundus Photography W/ Report Office/outpatient Visit, New Advance Directives Directive Yes / No Effective Date File Name No Information Encounters Encounter Description Practice Location Reason(s) For Visit Diagnoses Date Provider Providers Copied on Encounter [place] [facility] [place] [facility] [address], [place], [place], [id number], [place] tel:[phone] [place] Professional redness (chief complaint) Sjogren's syndrome with keratoconjunct ivitis siccaMeibomian gland dysfunction (MGD) of lower eyelidMeibomia n gland dysfunction (MGD) of right lower eyelid 3 Nicko Curiel. [facility] [address], [place], [place], [id number], [place]. tel:[phone] Yair Freitas MD.Referri ng Provider: Veena Maharaj OD L, [facility] [address], [place], [address] . tel:[phone] [facility], [facility] [address], [place], [place], [id number], [place] tel:[phone] [place] Professional No Information 2 Garrick Stewart. [address] [facility] [address], [place], [place], [id number], [place]. tel:[phone] Referring Provider: Terry Camarena, [address] [facility] [address], [place], [address] . tel:[phone] [place] [facility] [place] [address], [place], [place], [id number], [place] tel:[phone] SEC Monty HERNANDEZ Professional Follow up visit (chief complaint) High Risk Medication useElevated optic disc of right eyeVisual disturbanceCor hermilo scar, right eye 1 Garrick Stewart. [address], [place], [place], [id number], [place]. tel:[phone] Specialist : Yair Freitas MD, [address] [facility] [address], [place], [address]. tel:[phone] erring Provider: Terry Camarena, [address], [place], [address] . tel:[phone] Office/outpa tient Visit, [facility], [address], [place], [place], [id number], [place] tel:[phone] SEC Remigio BOTELLO (chief complaint) Visual disturbanceEle vated optic disc of right eye 0 Garrick Stewart. [address], [place], [place], [address], [place]. tel:[phone] Referring Provider: Terry Camarena, [address] [facility] [address], [place], [address] . tel:[phone] Family History Family Member Type Diagnosis Age At Onset Problem Family history of Diabetes m iliana Payers Payer name Insurance type Covered libertarian ID Authoriza tion(s) No Information Social History Type Description Quantity Date Captured Comments Alcohol Use Details No Caffeine Use Details Tobacco Use Status Moderate cigarette smoker (10-19 cigs/day) Smoking Status Heavy tobacco smoker Smoking Tobacco Use Details Cigarette: No Details Available Cigarette: 10 Cigarettes per day Sex Female Chief Complaint And Reason For Visit From encounter dated '11/14/2022 15:30'. redness (chief complaint). Description: The 27 year old patient presents for evaluation of redness in the right eye and left eye. Patient states her eyes are red and crusty x couple of weeks. Reason For Referral Reason For Referral No Information Plan Of Treatment Date Type Action Status Goal Tobacco cessation counseling completed Goal Tobacco cessation counseling completed Goal Tobacco cessation counseling completed Patient Education Sjogren's Syndrome: Car e Instructions completed Patient Education Learning About Your Eye s completed History Of Present Illness Encounter Date Complaint History Of Prese nt Illness redness The 27 year old patient presents for evaluation of redness in the right eye and left eye. Patient states her eyes are red and crusty x couple of weeks. Follow up visit The 25 year old female presents for evaluation of Follow up visit in the right eye and left eye. Patient states her neurologist just wanted her to do a follow up. Patient states she still has the floaters and bursts of colors. Patient has been taking Hydroxychloroquine for RA for about [address] Freitas. WIE The 24 year old female presents for evaluation of WIE in the right eye and left eye. Patient states on Friday she bent down and then up and her VA went completely Green and yellow, lasted a few seconds then went away. Patient states on Friday she was just walking and VA went completely purple and yellow as well lasted a few seconds. Patient states she has a floater in the right eye x 1 week. denies flashes of light. Functional Status Date Functional Assessmen t No Information Instructions Date Instruction Additional Infor yue Impression/Plan Impression/Plan Impression/Plan Assessments Type Assessment Date assessment Sjogren's syndrome with keratoco njunctivitis sicca assessment Meibomian gland dysfunction (MGD ) of lower eyelid assessment Meibomian gland dysfunction (MGD ) of right lower eyelid Patient Care Teams Name Effective Dates (start - stop) Status Members No Information
--- NOTE | ~2024-12-31 | US_ITS ---
EXAMINATION: US OB <= 14 weeks fetus DATE: 12/31/2024 16:24 INDICATION: First trimester with prior spontaneous TECHNIQUE: Real-time pelvic ultrasound utilizing both a transvaginal and transabdominal probe was performed. The interpreting radiologist was not present for the study. COMPARISON: None. FINDINGS: The uterus measures 10.8 x 5.7 x 7.0 cm. There is an intrauterine gestational sac. A yolk sac and pole are identified. The crown rump length measures 2.1 cm, which correlates with an estimated gestational age of 8 weeks and 5 days. heart motion is identified measuring 161 beats per minute (bpm) by M-mode Doppler. The right ovary measures 4.1 x 2.4 x 3.2 cm. The left ovary measures 3.5 x 1.9 x 1.9 cm. Vascular flow identified in both ovaries on color Doppler. There is no free fluid in the pelvis. IMPRESSION: 1. Single living fetus with heart rate of 161 bpm. 2. Gestational age by ultrasound of 8 weeks 5 day(s) +/- 4 day(s) with ultrasound estimated date of delivery (RHIANNON) of 08/07/2025. Reviewed, dictated and finalized at location A. IMPRESSION: 1. Single living fetus with heart rate of 161 bpm. 2. Gestational age by ultrasound of 8 weeks 5 day(s) +/- 4 day(s) with ultraso und estimated date of delivery (RHIANNON) of 08/07/2025.
--- OUTSIDE RECORDS SUMMARY | 2024-12-31 15:30 | XMS_ITS | Clinical Summary ---
Author Organization [facility] Address [address] [place] [address] Care Team Providers Care Chief Merchandising Officer Name Role Phone Pete Taylor MD Primary Care Provider [phone] Allergies Active Allergy Reactions Criticality Noted Date [...] 10:21 PM CDT Height 162.6 cm (5' 4) 01/25/2023 10:21 PM CDT Body Mass Index 27.55 01/25/2023 10:21 PM CDT Plan of Treatment Health Maintenance Due Date Last Done Comments Cervical Cancer Screening Pap Smear (Age 21 to 29) Every 3 Years 1996 Cervical Cancer Screening 1996 Annual Physical 11/04/1999 HPV Vaccines (2 - 2-dose series) 08/08/2011 02/06/2011 Hepatitis C 2014 COVID-19 Vaccine ( season) 2024 10/21/2020 DTaP, Tdap and Td Vaccines (9 - [...] 5 Years) and At-Risk Patients (6 to 49 Years) Aged Out No longer eligible based on patient's age to complete this topic RSV Immunizations Under 20 Months Aged Out No longer eligible based on patient's age to complete this topic Insurance MEDICAID Care Teams Chief Merchandising Officer Relationship Specialty Start Date End Date Pete Taylor MD PCP - General INTERNAL MEDICINE 01/25/23
--- OUTSIDE RECORDS SUMMARY | 2024-12-31 15:30 | XMS_ITS | Clinical Summary ---
Author Organization [facility] Address [address] [place] [address] Care Team Providers Care Animal Taxonomist Name Role Phone Pete Taylor MD Primary Care Provider Pete Taylor MD Unavailable [phone] Clem Covington MD Unavailable [phone] Allergies Active Allergy Reactions Criticality Noted [...] 10/25/2014,10/28/2001,11/11/1997 Meningococcal ACWY, Unspecified 02/06/2011 OPV 11/11/1997 LiquiGlide SARS-CoV-2 Monovalent Vaccination (12+ Yrs) PURPLE 10/21/2020 Polio, Unspecified 10/28/2001 Tdap 12/02/2015,10/11/2014,12/23/2006 Varicella 12/23/2006,11/11/1997 Surgical History Surgery Date Site/Laterality Comments NO PAST SURGERIES Medical History Medical History Date Comments Numbness and tingling Confusion Vision disturbance Rheumatoid arthritis (HCC) Polyarthritis Sjogren's disease Dizziness Muscle weakness Migraine Asthma Family History [...] on file Legal Sex Female 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 Gender Identity Not on file Sexual Orientation Not on file 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 Not on file Not on file Not [...] 3:53 PM CDT Height 162.6 cm (5' 4) 07/17/2022 3:53 PM CDT Body Mass Index [...] Vaccine (1 of 2) 11/04/2015 Covid-19 Vaccine (4 2023-2 5 season) 2024 12/03/2020, 11/07/2020, 10/21/2020 Influenza Vaccine (#1) 2025 02/16/2021, 2019 DTaP/Tdap/Td Vaccine (9 - Td or Tdap) 12/01/2025 12/02/2015, 10/11/2014, 12/23/2006, Additional history exists Hepatitis B Screening Completed 06/07/1997 , 01/18/1997, 1996 Varicella Vaccines Completed 12/23/2006, 11/11/1997 Insurance [facility] Address: [place] [address] [facility] Address: [address] [address] [place] [id number] [facility] Address: [facility] [address] [place] [address] Care Teams Animal Taxonomist Relationship Specialty Start Date End Date Pete Taylor MD [address] [facility] [address] [facility] 23 [place] [address] PCP - General 09/18/20 Pete Taylor MD [address] [facility] [address] [facility] 23 [place] [address] Internal Medicine 09/18/20 Clem Covington MD [address] [place] [address] Referring Physician Neurology 10/30/20
--- OUTSIDE RECORDS SUMMARY | 2024-12-31 15:32 | XMS_ITS | Clinical Summary ---
Author Organization [facility] Address [address] [place] [address] Care Team Providers Care Marketing Automation Analyst Name Role Phone Pete Taylor MD Primary Care Provider [phone] Source Comments [facility],non-owned Affiliates and Associated Physician Practices is amultiple site organization consisting of ambulatory clinics and hospital sitesin [place], [place], [place] and [place]. This disclosure is being madepursuant to the Care Everywhere program and may not contain all information available regarding this patient. Last updated 18.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 OPERATIONS COORDINATOR Gender Identity Not on file Sexual Orientation Not on file Plan of Treatment Health Maintenance Due Date Last Done Comments HIV SCREENING 11/04/2011 HEPATITIS C SCREENING 10/30/2014 DTAP/TDAP/TD VACCINES (1 - Tdap) 11/04/2015 HEPATITIS B VACCINE (1 of 3 - 19+ 3-dose series) 11/04/2015 PAP SMEAR 2017 HPV VACCINE (1 - 3-dose SCDM series) 11/04/2023 COVID-19 VACCINE (2 - 2023-2 5 season) 2024 10/21/2020 DEPRESSION SCREENING 05/05/2024 INFLUENZA VACCINE (#1) 2025 02/10/2020 ZOSTER VACCINE (1 of 2) 2046 HIB VACCINE Aged Out No longer eligi ble based on patient's age to complete this topic MENINGOCOCCAL (Group B) VACC INE SHARED DECISION-MAKING Aged Out No longer eligibl e based on patient's age to complete this topic MENINGOCOCCAL GROUPS A/C/Y/W VACCINE Aged Out No longer eligible b ased on patient's age to complete this topic PNEUMOCOCCAL VACCINE Aged Out No long er eligible based on patient's age to complete this topic Insurance [facility] [place] [address] Care Teams Marketing Automation Analyst Relationship Specialty Start Date End Date Pete Taylor MD [address] [place] [phone] PCP - General Internal Medicine 08/10/20
== END 2024-12-31 15:28 | disposition home or self-care (01) ==
PROVIDERS: PCP Internal Medicine; Visit Provider Obstetrics & Gynecology Gynecology
DX: O26.21 Pregnancy care for patient with recurrent pregnancy loss, first trimester (principal); Z3A.08 8 weeks gestation of pregnancy
CPT/HCPCS: 76801

== ENCOUNTER 2025-03-25 12:45 | Outpatient (CLI) | payer OTHER, SELFPAY ==
--- NOTE | ~2025-03-25 | US_ITS ---
EXAM/PROCEDURE: US OB /maternal detail HISTORY: Preg and hx of SAB COMPARISON: December 31, 2024 TECHNIQUE: Evaluation for viability dates and anatomy FINDINGS: A single viable intrauterine gestation is present with heart rate of 151 bpm Presentation: Vertex EGA by dates and ultrasound 20 weeks 4 days and 20 weeks 6 days EDC by dates and ultrasound August 08 and August 06, 2025 Growth ratios are within normal limits. EFW: 381 g or 13 ounces EFW percentile is 60.6% Visualized intracranial contents including the ventricles and cerebellum cisterna magna appear normal. Nuchal fold and spine appear within normal limits. Four-chamber view of the heart appears within normal limits. The diaphragm appears intact. Stomach kidneys urinary bladder and three-vessel cord insertion appear normal. IMPRESSION: 1. Single viable intrauterine gestation with concordant dates. 2. Anatomic survey with no anomaly identified. heart rate is 151 bpm. Reviewed, dictated and finalized at location A. S AND MARKETING ENGINEER
--- OUTSIDE RECORDS SUMMARY | 2025-03-25 12:56 | XMS_ITS | Clinical Summary ---
Author Organization [facility] Address [address] [place] [address] Care Team Providers Care Knitting Demonstrator Name Role Phone Pete Taylor MD Primary Care Provider [phone] Allergies Active Allergy Reactions Criticality Noted Date [...] Hepatitis C 2014 COVID-19 Vaccine ( season) 2025 10/21/2020 Influenza Adult (#1) 2025 02/10/2020 DTaP, Tdap and Td Vaccines (9 - Td or Tdap) 12/01/2025 12/02/2015, 10/11/2014, 12/23/2006, Additional history exists Hepatitis B Vaccines Completed 06/07/1997, 01/18/1997, 1996 Hepatitis A Vaccines Completed 02/06/2011, 12/24/19 07 Meningococcal Vaccine Aged Out 02/06/2011 No denise [...] complete this topic Insurance MEDICAID Care Teams Knitting Demonstrator Relationship Specialty Start Date End Date Pete Taylor MD PCP - General INTERNAL MEDICINE 01/25/23
--- OUTSIDE RECORDS SUMMARY | 2025-03-25 12:56 | XMS_ITS | Clinical Summary ---
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 PARENT Gender Identity Not on file Sexual Orientation Not on file 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 Not on file Not on file Not [...] (1 of 2) 11/04/2015 Covid-19 Vaccine (4 - 2024-2 6 season) 2025 12/03/2020, 11/07/2020, 10/21/2020 Influenza Vaccine (#1) 2025 02/16/2021, 2019 DTaP/Tdap/Td Vaccine (9 - Td or Tdap) 12/01/2025 12/02/2015, 10/11/2014, 12/23/2006, Additional history exists Hepatitis B Screening Completed 06/07/1997 , 01/18/1997, 1996 Varicella Vaccines Completed 12/23/2006, 11/11/1997 Insurance [facility] CHOICE PLUS [facility] CHO[facility] PLUS [facility] CHO[facility] PLUS Care Teams Quartz Miner Blasting Relationship Specialty Start Date End Date Pete Taylor MD [address] [facility] [address] [facility] 23 [place] [address] PCP - General 09/18/20 Pete Taylor MD [address] [facility] [address] [facility] 23 [place] [address] Internal Medicine 09/18/20 Clem Covington MD [address] [place] [address] Referring Physician Neurology 10/30/20
--- OUTSIDE RECORDS SUMMARY | 2025-03-25 12:56 | XMS_ITS | Clinical Summary ---
Author Organization [facility] Address [address] [place] [address] Care Team Providers Care City Carrier Assistant Name Role Phone Pete Taylor MD Primary Care Provider [phone] Source Comments [facility],non-owned Affiliates and Associated Physician Practices is amultiple site organization consisting of ambulatory clinics and hospital sitesin [place], [place], [place] and [place]. This disclosure is being madepursuant to the Care Everywhere program and may not contain all information available regarding this patient. Last updated 18.[facility] Social History Tobacco Use Types Packs/Day Years Used Date Smoking Tobacco: Never Assessed Comments Unknown Sex and Gender Information Value Date Recorded Sex Assigned at Not on file Legal Sex Female 5:44 AM PURCHASING AND CLAIMS SUPERVISOR Gender Identity Not on file Sexual Orientation Not on file Plan of Treatment Health Maintenance Due Date Last Done Comments HIV SCREENING 11/04/2011 HEPATITIS C SCREENING 10/30/2014 DTAP/TDAP/TD VACCINES (1 - Tdap) 11/04/2015 HEPATITIS B VACCINE (1 of 3 - 19+ 3-dose series) 11/04/2015 PAP SMEAR 2017 HPV VACCINE (1 - 3-dose SCDM series) 11/04/2023 DEPRESSION SCREENING 05/05/2024 COVID-19 VACCINE (2 - 2024-2 6 season) 2025 10/21/2020 INFLUENZA VACCINE (#1) 2025 02/10/2020 ZOSTER VACCINE [...] patient's age to complete this topic Insurance [facility] Care Teams City Carrier Assistant Relationship Specialty Start Date End Date Pete Taylor MD [address] [place] [phone] PCP - General Internal Medicine 08/10/20
== END 2025-03-25 12:46 | disposition home or self-care (01) ==
LOC: ANHIMG 12:51
PROVIDERS: PCP Internal Medicine; Visit Provider Obstetrics & Gynecology Gynecology
DX: Z36.9 Encounter for antenatal screening, unspecified (principal); Z3A.00 Weeks of gestation of pregnancy not specified
CPT/HCPCS: 76805

== ENCOUNTER 2025-04-22 17:37 | Observation (INO) | payer OTHER, SELFPAY ==
[2025-04-22] VITALS (30 sets, daily range): BP systolic 91–123; BP diastolic 50–72; PULSE 60–94; O2SAT 86–100; BMI 24.7
--- OUTSIDE RECORDS SUMMARY | 2025-04-22 17:43 | XMS_ITS | Clinical Summary ---
Author Organization [facility] Address [address] [place] [address] Care Team Providers Care Customer Program Manager Name Role Phone Pete Taylor MD Primary Care Provider [phone] Allergies Active Allergy Reactions Criticality Noted Date [...] complete this topic Insurance MEDICAID Care Teams Customer Program Manager Relationship Specialty Start Date End Date Pete Taylor MD PCP - General INTERNAL MEDICINE 01/25/23
--- OUTSIDE RECORDS SUMMARY | 2025-04-22 17:43 | XMS_ITS ---
Author Organization [facility] c[facility] (ClinicalSummary Clone) Address Unknown Care Team Providers Care Customs Collector Name Role Phone Unavailable Primary Care Physician Unavailab le Results * [UNITY] CARRIER SCREEN Performed by: Analyte Logic Component Value Range Date Sickle Cell Disease/Beta-Thalassemia/Hemo globinopathies carrier screen NEGATIVE 02/11/2025 02:20 am [facility] Alpha-Thalassemia carrier screen NEGATIVE 02/11/2025 02:20 am [facility] Cystic Fibrosis carrier screen NEGATIVE 02/11/2025 02:20 am [facility] Spinal Muscular Atrophy carrier screen NEGATIVE 2 SMN1 copies, SNP not present 02/11/2025 02:20 am [facility] For detailed report, see PDF See PDF 02/11/2025 02:20 am [place] 02/11/2025 02:2 0 am [facility] Social History Observation Value Start Date End Date
--- OUTSIDE RECORDS SUMMARY | 2025-04-22 17:43 | XMS_ITS | Clinical Summary ---
Author Organization [facility] Address [address] [place] [address] Care Team Providers Care Relationship Associate Name Role Phone Pete Taylor MD Primary Care Provider Pete Taylor MD Unavailable [phone] Clem Covington MD Unavailable [phone] Allergies Active Allergy Reactions Criticality Noted [...] 10/25/2014,10/28/2001,11/11/1997 Meningococcal ACWY, Unspecified 02/06/2011 OPV 11/11/1997 RotaryView SARS-CoV-2 Monovalent Vaccination (12+ Yrs) PURPLE 10/21/2020 [...] on file Legal Sex Female 7:08 PM PHYSICIST SOLID EARTH Gender Identity Not on file Sexual Orientation Not on file 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 Not on file Not on file Not [...] 1996 Varicella Vaccines Completed 12/23/2006, 11/11/1997 Insurance [facility] Address: [place] [address] [facility] Address: [place] [address] [facility] Address: [facility] [id number] [place] [address] Care Teams Relationship Associate Relationship Specialty Start Date End Date Pete Taylor MD [address] [facility] 23 [facility] 23 [place] [address] PCP - General 09/18/20 Pete Taylor MD [address] [facility] [address] [facility] 23 [place] [address] Internal Medicine 09/18/20 Clem Covington MD [address] [place] [address] Referring Physician Neurology 10/30/20
--- OUTSIDE RECORDS SUMMARY | 2025-04-22 17:43 | XMS_ITS | Clinical Summary ---
Author Organization [facility] Address [address] [place] [address] Care Team Providers Care Smooth Plater Name Role Phone Pete Taylor MD Primary Care Provider [phone] Source Comments [facility],non-owned Affiliates and Associated Physician Practices is amultiple site organization consisting of ambulatory clinics and hospital sitesin [place], [place], [place] and [place]. This disclosure is being madepursuant to the Care Everywhere program and may not contain all information available regarding this patient. 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
--- OUTSIDE RECORDS SUMMARY | 2025-04-22 17:43 | XMS_ITS | Data Portability ---
Author Organization [facility], Main Office Address [address] [place] [address] Assessment No assessment recorded. Plan of Treatment Reminders Order Date Submit Date Provider Last Modified By Organization Details Last Modified Time Details Appointments None recorded. Lab PT/PTT, plasma 2022 023 [email or web address] [facility], [address] [place], [address], 16:20:41 CBC w/ auto diff 2022 023 [facility], [address] [place], [address], 16:49:59 clotting time, mony white method, blood 2022 023 [email or web address] [facility], [address] [place], [address], 16:20:41 Referral None recorded. Procedures None recorded. Surgeries None recorded. Imaging None recorded. Medication Orders triamcinolo ne acetonide 0.1 % topical cream 2023 024 [id number], [address], [place], [id number], 4 12:01:01 omeprazole 40 mg capsule,del ayed release 2022 023 [email or web address] [id number], [address] [place], [place], [id number], 15:43:03 cyanocobala min (vit B-12) 1,000 mcg/mL injection solution 2022 023 [email or web address] [facility] #[id number], [address] [place], [place], [id number], 11:58:24 Patient TargetsNo targets recorded. Patient Instructions Encounter Date Encounter Id Patient Instructions Last Modified By Organization Details Last Modified Time 07/08/2022 [id number] Chronic pain syndrome secondary to ankylosing spondylitis as well as connective tissue disease followed by Rheumatology. More recently has had some easy bruisability although does not demonstrate any significant or serious per. Will check a protime, CBC, APTT and clotting time. We will increase the gabapentin to 600 mg twice daily.Continue on current Rx and follow-up by the regular scheduled appointment in October. [email or web address] Not available 07/08/2022 15:58:56 09/23/2022 [id number] GERD with recent onset of some dysphagia. Will continue on current medications. Instructed to increase omeprazole to 40 mg daily. Will set up for upper endoscopy for dysphagia. Upper endoscopy for dysphagia [email or web address] Not available 09/23/2022 11:43:50 10/16/2022 [id number] REFLUX DIET . [email or web address] Not available 10/16/2022 15:40:18 PT WITH SX OF GE RD /DYSPHAGIA . ON A LOW DOSE OF OMEPRAZOLE AND NOT TAKING CORRECTLY . RECOMMEND INCREASE DOSE TO 40 MG 30 MIN BEFORE BREAKFAST . F/U IN 4 WEEKS . [email or web address] Not available 10/16/2022 15:43:02 03/01/2024 [id number] risk assessment* [email or web address] Not availabl e 03/01/2024 12:19:56 INFLUENZA VACCIN E Your next one in the fall of TD/TDAP Patient will get at local pharmacy/health department MAMMOGRAM No screening indicated at this time/ no family history CERVICAL SCREENING/PELVIC EXAMINATION No screening necessary patient is up to date COLORECTAL SCREENING No screening necessary until age 45 DEPRESSION SCREENING Negative BMI Overweight NUTRITION Heart Healthy Diet PHYSICAL ACTIVITY Need more activity VISION Your next exam in: goes as needed ALCOHOL USE Occasional/Social Use TOBACCO USE current tobacco use SEXUALLY ACTIVE GLUCOSE SCREENING up to date LIPID SCREENING up to date [email or web address] Not available 03/01/2024 12:06:43 Wellness evaluation risk assessment stable. Follow-up for popliteal reflux as well as a history of SVT which is stable. No need for any additional blood work at this time since she gets this done by her bobtailer at this juncture. Will continue on current Rx follow-up in six months Follow Up: 6 Months Approximate Date: 08/28/2024 Portions of the record may have been created with voice recognition software. Occasional wrong-word or s ound-a-like substitutions may have occurred due to the inherent limitations of voice recognition software. Read the chart carefully and recognize, using context, where substitutions have occurred. [email or web address] Not available 03/01/2024 12:19:36 04/08/2024 [id number] Pruritus of the skin likely secondary to Vickers itch. Will give a trial of some triamcinolone cream. Also recommended that she use some CeraVe moisturizing cream. No improvement will need dermatological consult. Keep Appointment: Fri 11:00 AM Hume Portions of the record may have been created with voice recognition software. Occasional wrong-word or s ound-a-like substitutions may have occurred due to the inherent limitations of voice recognition software. Read the chart carefully and recognize, using context, where substitutions have occurred. Created: Pete Taylor M.D. 04.08.2024 11:01 AM [email or web address] Not available 04/08/2024 12:01:11 Reason for Referral None Reported. Results Created Date Observation Date Name Description Value Unit Range Abnormal Flag Note LastModifiedBy Organization Detail LastModifiedTime 07/09/1907/08/2022 CBC/C OMPLE TE BLD COUNT W/DIF F white blood cells 5.6 x10'3 /uL 4.2-10 .8 Not Available [facility] (Lab) [address] [place], [address], 07/08/2022 16:49:59 07/09/1907/08/2022 CBC/C OMPLE TE BLD COUNT W/DIF F red blood cells 3.73 x10'6 /uL 3.80-5 .20 low Not Available [facility] (Lab) [address] [place], [address], 07/08/2022 16:49:59 07/09/19 23 07/08/2022 CBC/C OMPLE TE BLD COUNT W/DIF F hemoglobin 12.1 g/dL 12.0-1 5.6 Not Available [facility] (Lab) [address] [place], [address], 07/08/2022 16:49:59 07/09/19 23 07/08/2022 CBC/C OMPLE TE BLD COUNT W/DIF F hematocrit 37.3 % 35.7-4 5.7 Not Available [facility] (Lab) [address] [place], [address], 07/08/2022 16:49:59 07/09/19 23 07/08/2022 CBC/C OMPLE TE BLD COUNT W/DIF F mean red cell volume 100.0 fL 82.0-9 9.0 high Not Available [facility] (Lab) [address] [place], [address], 07/08/2022 16:49:59 07/09/19 23 07/08/2022 CBC/C OMPLE TE BLD COUNT W/DIF F mean red cell hemoglobin 32.4 pg 27.0-3 3.0 Not Available [facility] (Lab) [address] [place], [address], 07/08/2022 16:49:59 07/09/19 23 07/08/2022 CBC/C OMPLE TE BLD COUNT W/DIF F mean RBC HGB concentratio n 32.4 g/dL 31.0-3 6.0 Not Available [facility] (Lab) [address] [place], [address], 07/08/2022 16:49:59 07/09/19 23 07/08/2022 CBC/C OMPLE TE BLD COUNT W/DIF F red cell distribution width 13.0 % 11.8-1 5.5 Not Available [facility] (Lab) [address] [place], [address], 07/08/2022 16:49:59 07/09/19 23 07/08/2022 CBC/C OMPLE TE BLD COUNT W/DIF F platelets 256 x10'3 /uL 150-40 0 Not Available [facility] (Lab) [address] [place], [address], 07/08/2022 16:49:59 07/09/19 23 07/08/2022 CBC/C OMPLE TE BLD COUNT W/DIF F mean platelet volume 9.6 fL 9.0-12 .4 Not Available [facility] (Lab) [address] [place], [address], 07/08/2022 16:49:59 07/09/19 23 07/08/2022 CBC/C OMPLE TE BLD COUNT W/DIF F neutrophils 67.8 % 39.0-7 2.0 Not Available [facility] (Lab) [address] [place], [address], 07/08/2022 16:49:59 07/09/19 23 07/08/2022 CBC/C OMPLE TE BLD COUNT W/DIF F lymphocytes 20.3 % 16.0-4 7.0 Not Available [facility] (Lab) [address] [place], [address], 07/08/2022 16:49:59 07/09/19 23 07/08/2022 CBC/C OMPLE TE BLD COUNT W/DIF F monocytes 9.5 % 5.0-12 .0 Not Available [facility] (Lab) [address] [place], [address], 07/08/2022 16:49:59 07/09/19 23 07/08/2022 CBC/C OMPLE TE BLD COUNT W/DIF F eosinophils 0.9 % 1.0-7. 0 low Not Available [facility] (Lab) [address] [place], [address], 07/08/2022 16:49:59 07/09/19 23 07/08/2022 CBC/C OMPLE TE BLD COUNT W/DIF F basophils 1.3 % 0.0-2. 0 Not Available [facility] (Lab) [address] [place], [address], 07/08/2022 16:49:59 07/09/19 23 07/08/2022 CBC/C OMPLE TE BLD COUNT W/DIF F immature granulocytes 0.2 % 0.00-0 .50 Not Available [facility] (Lab) [address] [place], [address], 07/08/2022 16:49:59 07/09/19 23 07/08/2022 CBC/C OMPLE TE BLD COUNT W/DIF F neutrophils, absolute count 3.77 x10'3 /uL 1.5-8. 0 Not Available [facility] (Lab) [address] [place], [address], 07/08/2022 16:49:59 07/09/19 23 07/08/2022 CBC/C OMPLE TE BLD COUNT W/DIF F lymphocytes, absolute count 1.13 x10'3 /uL 1.07-3 .43 Not Available [facility] (Lab) [address] [place], [address], 07/08/2022 16:49:59 07/09/19 23 07/08/2022 CBC/C OMPLE TE BLD COUNT W/DIF F monocytes, absolute count 0.53 x10'3 /uL 0.29-0 .99 Not Available [facility] (Lab) [address] [place], [address], 07/08/2022 16:49:59 0307/08/2022 CBC/C OMPLE TE BLD COUNT W/DIF F eosinophils, absolute count 0.05 x10'3 /uL 0.02-0 .53 Not Available [facility] (Lab) [address] [place], [address], 07/08/2022 16:49:59 07/09/19 23 07/08/2022 CBC/C OMPLE TE BLD COUNT W/DIF F basophils, absolute count 0.07 x10'3 /uL 0.01-0 .08 Not Available [facility] (Lab) [address] [place], [address], 07/08/2022 16:49:59 07/09/19 23 07/08/2022 CBC/C OMPLE TE BLD COUNT W/DIF F immature granulocytes ,absolute 0.01 x10'3 /uL 0.00-0 .05 Not Available [facility] (Lab) [address] [place], [address], 07/08/2022 16:49:59 07/09/19 23 07/08/2022 CBC/C OMPLE TE BLD COUNT W/DIF F nucleated red blood cells 0.0 % -0 Not Available [facility] (Lab) [address] [place], [address], 07/08/2022 16:49:59 07/09/19 23 07/08/2022 CBC/C OMPLE TE BLD COUNT W/DIF F NRBC# 0.00 x10'3 /uL Not Available [facility] (Lab) [address] [place], [address], 07/08/2022 16:49:59 07/09/19 23 07/08/2022 PROTI ME W/INR protime 10.9 secon ds 9.5-11 .5 Not Available [facility] (Lab) [address] [place], [address], 07/08/2022 16:59:19 07/09/19 23 07/08/2022 PROTI ME [...] HOSPH OLIPI D SYNDR OME. Not Available [facility] (Lab) [address] [place], [address], 07/08/2022 16:59:19 07/09/19 23 07/08/2022 APTT APTT 27.3 secon ds 23.4-3 1.4 PLEAS E NOTE NEW APTT REFER ENCE RANGE EFFEC TIVE 04/22 . Not Available [facility] (Lab) [address] [place], [address], 07/08/2022 16:59:20 06/08/19 25 06/08/2024 VITAM IN B12 (JAQUELINE MAYTE ) vb12 392 pg/mL 239-93 1 Not Available [facility] (Lab) [address] [place], [address], 06/08/2024 14:47:24 02/22/20 25 02/23/2025 QUANT IFERO N-TB GOLD PLUS quantiferon incubation Commen t Incub ation perfo rmed. Not Available [facility] (Lab) [address] [place], [address], 02/23/2025 10:11:42 02/22/20 25 02/23/2025 QUANT IFERO N-TB GOLD PLUS quantiferon criteria Commen t . Quant iFERO N-TB Gold Plus is a quali tativ e indir ect test for M tuber culos is infec tion (incl uding disea se) and is inten ded for use in conju nctio n with risk asses sment , radio graph y, and other medic al and diagn ostic evalu ation s. The Quant iFERO N-TB Gold Plus resul t is deter mined by subtr actin g the Nil value from eithe r TB antig en (Ag) value . The Mitog en tube serve s as a contr ol for the test. Not Available [facility] (Lab) [address] [place], [address], 02/23/2025 10:11:42 02/22/20 25 02/23/2025 QUANT IFERO N-TB GOLD PLUS quantiferon TB1 Ag value 0.04 IU/mL Not Available [facility] (Lab) [address] [place], [address], 02/23/2025 10:11:42 02/22/20 25 02/23/2025 QUANT IFERO N-TB GOLD PLUS quantiferon TB2 Ag value 0.03 IU/mL Not Available [facility] (Lab) [address] [place], [address], 02/23/2025 10:11:42 02/22/20 25 02/23/2025 QUANT IFERO N-TB GOLD PLUS quantiferon nil value 0.04 IU/mL Not Available [facility] (Lab) [address] [place], [address], 02/23/2025 10:11:42 02/22/20 25 02/23/2025 QUANT IFERO N-TB GOLD PLUS quantiferon mitogen value >10.00 IU/mL Perfo rmed at: [facility] [address] [facility], [place] [id number] [facility] Lab Direc tor: Shaheen aguilera PhD, Phone : [phone] Not Available [facility] (Lab) [address] [place], [address], 02/23/2025 10:11:42 02/22/2002/23/2025 QUANT IFERO N-TB GOLD PLUS quantiferon- TB gold plus Negati ve negati ve No respo nse to M lynnette morales is antig ens detec perry. Infec tion with M lynnette vilchisos is is unlik lillian, but high risk indiv idual s shoul d be consi dered for addit ional testi ng (ATS/ IDSA/ CDC Clini lizeth Pract ice Guide lines , 2017) . The refer ence range is an Antig en minus Nil resul t of <0.35 IU/mL . Chemi lumin escen ce immun oassa y metho dolog y Perfo rmed at: - [facility] [address], [place] [address] Lab Direc tor: Shaheen aguilera PhD, Phone : [phone] Not Available [facility] (Lab) [address] [place], [address], 02/23/2025 10:11:42 09/25/19 23 09/24/2022 XR, chest No observ ation record ed. [email or web address] [facility] [address], [place], [address], 09/24/2022 16:21:50 02/03/20 23 02/02/2023 XR, chest No observ ation record ed. [email or web address] [facility] [address], [place], [address], 02/14/2023 11:32:13 04/18/20 23 04/18/2023 XR, chest , 1 view No observ ation record ed. [email or web address] [facility] [address] [facility] [address], [place], [address], 04/18/2023 08:45:56 10/08/19 24 10/08/2023 US, salin e infus ed uteru s No observ ation record ed. [address] [facility] [address], [place], [address], 10/08/2023 20:41:15 06/28/19 25 06/28/2024 US, salin e infus ed uteru s No observ ation record ed. [address], [place], [address], 06/29/2024 08:19:46 01/07/20 25 12/31/2024 US, obste tric No observ ation record ed. [address], [place], [address], 01/07/2025 06:58:55 03/25/20 25 03/25/2025 US, pelvi s No observ ation record ed. [address], [place], [address], 03/25/2025 16:05:50 Result Notes None recorded. Problems Name Problem SNOMED Code Status Onset Date Resolution Date Notes Provider Name and Address Organization Details Recorded Time Asthma 164092657 Active 2017 Not Available [facility] 3 03:46:17 Chronic interstitial cystitis 748271537 Active 2017 Not Available [facility] 3 03:46:17 Supraventricu lar tachycardia 8614092 Active 2021 Not Available [facility] 3 03:46:17 Dental abscess 612732727 Active 2021 Not Available [facility] 3 03:46:17 Megaloblastic anemia due to vitamin B>12< deficiency 74626651 Active 2021 Not Available [facility] 3 03:46:17 Pain of multiple joints 22925389 Active 2021 Not Available [facility] 3 03:46:17 Wheezing 79274823 Active 2021 Not Available [facility] 3 03:46:17 Superficial frostbite 031979801 Active 2021 Not Available [facility] 3 03:46:17 Ankylosing spondylitis 1515915 Active 2021 Not Available [facility] 3 03:46:17 Vasculitis of the skin 38819532 Active 2022 Not Available [facility] 3 03:46:17 Chronic pain syndrome 731570450 Active 2022 Not Available [facility] 3 03:46:17 Easy bruising 145419432 Active 2022 Not Available [facility] 3 03:46:17 Cobalamin deficiency 626556975 Active 2022 Not Available [facility] 3 03:46:17 Gastroesophag eal reflux disease without esophagitis 552668238 Active 2022 Not Available [facility] 3 03:46:17 Dysphagia 50417557 Active 2022 Not Available [facility] 3 03:46:17 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 Pete Taylor MD [address], [address], [address] , [facility] 4 11:59:20 Acute bronchitis 99156969 Active 2023 Pete Taylor MD [address] [place] [address], [place], [address] , [facility] 4 10:23:20 Fatigue 32395514 Active 2024 Sadie Lara CMA null, [facility] 5 12:09:09 Notes:Medical History: Depre ssion Bilateral tinnitus Rhinitis Hypertension EF 60% SVT NELLY Interstitial cystitis B12 deficiency anemia RA on Actemra, methotrexate, hydroxychloroquine Sjogren syndrome Ankylosing spondylitis Lumbar spondylosis L5-S1 DDD Procedure History: Right thigh/leg biopsy 2020 Problem Notes None recorded. Medical Equipment None Reported. Allergies Allergen ID Allergen Name Allergen Category Reaction Reaction Severity Criticality Documentation Date Start Date Code Code System Note Provider Name and Address Organization Details Recorded Time 29977 amoxicill in medicatio n rash Not available Not available 07/03/2022 723 RxNorm Not Available [facility] 3 20:21:40 16291 Product containin g penicilli n (product) medicatio n Not available Not available Not available 09/11/2023 68170 8001 SNOMED Sadie Lara, [employer] null, [place] [facility] [place] [facility] 4 11:44:04 Medications Name Sig Start Date [...] Available clindamycin HCl 300 mg capsule TAKE ONE CAPSULE BY MOUTH TWICE DAILY UNTIL ALL TAKEN active Not Available Not Available No t Available cetirizine 10 mg tablet TAKE 1 [...] Not Available Not Available No t Available ondansetron 8 mg disintegrat ing tablet LET 1 TABLET DISSOLVE THEN SWALLOW WITH SALIVA EVERY 8 HOURS NEEDED FOR NAUSEA active Not Available Not Available No t [...] completed Not Available Not Available Not Available mifepriston e 200 mg tablet TAKE 1 TABLET BY MOUTH (SWALLOW) . TAKE THIS MEDICATIO N FIRST. active Not Available Not Available No t Available cephalexin 500 mg capsule TAKE 1 [...] completed Not Available Not Available Not Available misoprostol 200 mcg tablet PLEASE SEE ATTACHED FOR DETAILED DIRECTION S active Not Available Not Available No t Available ibuprofen 400 mg tablet TAKE 2 TABLETS BY MOUTH EVERY 8 HOURS NEEDED FOR PAIN/DISC OMFORT. active Not Available Not Available No t Available Valtrex 1 gram tablet Take 1 [...] (BMI) Body weight Heart rate Oxygen saturation Body temperature Systolic And Diastolic Provider Name and Address Organization Details Last Updated DateTime 3 160.02 cm 27.6 kg/m2 87710.4 1 g 92 /min 98 % 97 [degF] 112/70 mm[Hg] Brittany Briseno [facility] 3 15:37:19 Date Recorded Body height Body mass index (BMI) Body weight Body temperature Heart rate Oxygen saturation Systolic And Diastolic Provider Name and Address Organization Details Last Updated DateTime 3 160.02 cm 29.1 kg/m2 98893.1 5 g 97.8 [degF] 86 /min 97 % 128/76 mm[Hg] Mariama Mathis MA [facility] [facility] 3 11:14:32 Date Recorded Body height Body mass index (BMI) Body weight Heart rate Oxygen saturation Systolic And Diastolic Provider Name and Address Organization Details Last Updated DateTime 3 160.02 cm 29.1 kg/m2 71789.1 5 g 88 /min 98 % 126/78 mm[Hg] Mary Beth Gray [facility] [facility] 3 15:17:58 Date Recorded Body height Body weight Heart rate Body temperature Oxygen saturation Systolic And Diastolic Provider Name and Address Organization Details Last Updated DateTime 4 160.02 cm 51692.5 2 g 104 /min 97 [degF] 98 % 108/72 mm[Hg] Cortney Buitrago [facility] 4 11:57:42 Date Recorded Body height Body mass index (BMI) Body weight Heart rate Body temperature Oxygen saturation Systolic And Diastolic Provider Name and Address Organization Details Last Updated DateTime 4 160.02 cm 28.9 kg/m2 18604.5 6 g 96 /min 97 [degF] 98 % 122/70 mm[Hg] Cortney Buitrago [facility] 4 11:48:42 Social History Question Answer Notes LastModified by Organizat ion Details LastModified Time Tobacco Smoking Status Current Every Day Smoker Not Available [facility] 07/03/2022 20:19:28 Are You Blind Or Do You Have Difficulty Seeing? No MIGRATION.[id number] Information not available 07/03/2022 What Is Your Level Of Caffeine Consumption? Occasional MIGRATION.[id number] [id number] Information not available 07/03/2022 In The 14 Days Before Symptom Onset, Have You Had Close Contact With A Laboratory-confi rmed COVID-19 While That Case Was Ill? No MIGRATION.76055 69070 Information not available 07/03/2022 In The 14 Days Before Symptom Onset, Have You Had Close Contact With A Person Who Is Under Investigation For COVID-19 While That Person Was Ill? No MIGRATION.98856 96642 Information not available 07/03/2022 Are You Deaf Or Do You Have Serious Difficulty Hearing? No MIGRATION.02509 66099 Information not available 07/03/2022 What Is The Highest Grade Or Level Of School You Have Completed Or The Highest Degree You Have Received? [id number] MIGRATION.02610 69658 Information not available 07/03/2022 Have There Been Any Changes To Your Family Or Social Situation? No Information not available 09/23/2022 Are There Any Guns Present In Your Home? No MIGRATION.40288 78996 Information not available 07/03/2022 Do You Have A Humidifier? No MIGRATION.93177 37647 Information not available 07/03/2022 Where Do You Live? [place] MIGRATION.62150 77911 Information not available 07/03/2022 Do You Have Moisture Problems In Your Home? No MIGRATION.67971 14989 Information not available 07/03/2022 What Was The Date Of Your Most Recent Tobacco Screening? 09/23/2022 Information not available 09/23/2022 Do You Have Any Pets? Yes MIGRATION.86451 78845 Information not available 07/03/2022 Do You Use Your Seat Belt Or Car Seat Routinely? Yes MIGRATION.90820 26959 Information not available 07/03/2022 Do You Have Smoke And Carbon Monoxide Detectors In Your Home? Yes MIGRATION.72177 59409 Information not available 07/03/2022 Are You Passively Exposed To Smoke? Yes MIGRATION.26769 07730 Information not available 07/03/2022 How Much Tobacco Do You Smoke? 0.5 PPD MIGRATION.76116 04163 Information not available 07/03/2022 Have You Recently Traveled Abroad? No MIGRATION.25709 55448 Information not available 07/03/2022 Do You Have Any Dietary Restrictions? No MIGRATION.94883 93660 Information not available 07/03/2022 Sex: Unknown Functional Status Question Answer Note LastModified by Organizat ion Details LastModified Time Do you use any illicit or recreational drugs? No [id number] 026 Information not available 07/03/2022 What is your level of alcohol consumption? Occasional MIGRATION.[id number] 026 Information not available 07/03/2022 Do you have difficulty doing errands alone? No MIGRATION.[id number] 026 Information not available 07/03/2022 Are you able to care for yourself independently? 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 [id number] MIGRATION.[id number] 26 Information not available 07/03/2022 Do you have difficulty concentrating, remembering or making decisions? No MIGRATION.[id number] 26 Information not available 07/03/2022 Family History Nothing Reported Notes:[facility] 45 [facility] Father suicide One brother living in [facility] Medical History Condition Response NERVE DISEASE N BLINDNESS N RHEUMATIC FEVER N KIDNEY STONES N BLADDER PROBLEMS N MRSA N OTHER # 1 N POLIO N LUNG DISEASE/DISORDER N RADIATION / CHEMOTHERAPY N COPD N Other # 2 N BLOOD DISEASES N SURGERY N EAR OR HEARING PROBLEMS N MUMPS N DEPRESSION (INCLUDING POST ) N BOWEL PROBLEMS N STROKE/TIA N ULCERS N BENIGN PROSTATIC [...] N CHRONIC PAIN SYNDROME N HYPOTHYROIDISM N CAROTID BLOCKAGE N CONSTIPATION N BACK / NECK PROBLEMS N HAVE YOU BEEN HOSPITALIZED OR SEEN IN [facility] IN THE PAST YEAR ? N ATHEROSCLEROSIS [...] mcg/0.3 mL dose 12/03/2020 completed Not Available [facility] 3 03:46:17 COVID-19, mRNA, LNP-S, PF, 30 mcg/0.3 mL dose 11/07/2020 completed Not Available [facility] 3 03:46:17 Influenza, split virus, quadrivalent, PF 02/10/2020 completed Not Available [facility] 3 03:46:17 Past Encounters Encounter ID Performer Location Encounter Start Date Encounter Closed Date Diagnosis/Indication Diagnosis SNOMED-CT Code Diagnosis ICD10 Code Diagnosis IMO Codes Diagnosis Note [id number] MD [facility] [facility] Marii kebede [address] [place] [address] 08/04/2020 00:00:00 08/04/2020 15:02:41 [id number] MD HEATH [facility] Marii [address]e [address] [place] [address] 09/01/2020 00:00:00 09/01/2020 15:17:22 [id number] MD JORDY [facility] Marii kebede [address] [place] [address] [place] [address] 09/19/2020 00:00:00 09/19/2020 16:23:09 [id number] Yehuda myles MD [facility] General Surgery [address] [facility], [address] [address] 10/10/2020 00:00:00 10/10/2020 13:40:36 [id number] MD JORDY [facility] Marii kebede [address] [place] [address] [place] [address] 10/31/2020 00:00:00 10/31/2020 16:18:27 [id number] Yehuda myles MD [facility] General Surgery [address] [facility], [address] [address] 11/21/2020 00:00:00 11/21/2020 14:59:07 [id number] Yehuda myles MD [facility] General Surgery 20[address] [facility], [address] [address] 11/30/2020 00:00:00 11/30/2020 13:50:27 [id number] MD JORDY [facility] [address] [address] 12/06/2020 00:00:00 12/06/2020 16:47:08 [id number] Pete Taylor MD [facility] Marii kebede [address] [place] [address] [place] [address] 04/06/2021 00:00:00 04/06/2021 16:41:40 [id number] Pete Taylor MD [facility] [place] [address] [address] 07/16/2021 00:00:00 07/16/2021 16:46:26 [id number] Jose Dawson MD [facility] [address] [place] [address] [address] [place] [address] 09/20/2021 00:00:00 09/20/2021 15:37:45 [id number] Pete Taylor MD [facility] [address] [address] 05/01/2022 00:00:00 05/01/2022 12:27:52 [id number] Pete Taylor MD [facility] [address] [address] 06/03/2022 00:00:00 06/03/2022 16:43:49 [id number] Pete Taylor MD [facility] [address] [address] 06/24/2022 00:00:00 06/24/2022 16:39:26 [id number] Pete Taylor MD [facility] [address] [address] 07/08/2022 15:27:34 07/08/2022 16:01:20 Chronic pain syndrome 677064322 G89.4 Easy bruising [id number] R58 [id number] Pete Taylor MD [facility] [address] [address] 09/23/2022 10:55:25 09/23/2022 15:35:17 Cobalamin deficiency 892128183 E53.8 Gastroesop hageal reflux disease without esophagitis 865719788 K21.9 [id number] Claire Jenkins MD [facility] General Surgery [address] [address] 10/16/2022 15:13:13 10/16/2022 15:38:56 Gastroesophageal reflux disease without esophagitis 202009705 K21.9 [id number] Pete Taylor MD [facility] [address] [address] 03/01/2024 11:43:21 03/01/2024 12:21:25 Adult health examination 071456148 Z00.00 Depression screening 171 700590 Z13.31 Gastroesop hageal reflux disease without esophagitis 491340183 K21.9 Supraventr icular tachycardia 2946238 I47.10 [id number] Pete Taylor MD [facility] [address] [facility] [place] [address] 04/08/2024 11:40:57 04/08/2024 12:10:05 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 Health Concerns Section Related Observation LastModified by Organization Detai ls LastModified Time None Recorded Concern Status LastModified by Organization Details LastModified Time None Recorded Advance Directives Directive None Recorded Payers Insurance Date Sequence Insurance Name Policy Number Policy Hobbs Covered Member ID Hobbs Member ID Guarantor Name 03/01/2024 2 [facility] [id number] Tyra Cramer [id number] Niya Bela 08/28/2024 1 [facility] (MEDICAID HMO) [id number] Niya Bela [id number] Niya Bela 04/08/2024 1 [place] DE[place]MENT [place] AID Niya Bela [id number] Niya Bela Notes Date Note Type Note Provider Name and Address Organization Details Recorded Time 3 text/html Patient Name: Niya Lalaate Of Service: Friday ( 07.08.2022 ): 1995 [...] or has seen in the past a Service Correspondent: NoPain - Enjoyment of Life - General [...] in good health Pete Taylor MD [address] [facility], [facility] [address], [place], [address], [facility] [employer] 07/08/2022 15:59:47 3 text/html Patient Name: Niya [...] last intensive therapyMedication List Reviewed and Reconciled 3Cymbalta 60 MG (CAPSULE, DELAYED REL PELLETS - [...] (INJECTABLE - INJECTION) Injection WeeklyADRs List Reviewed 09/23/2022moxicillin RashSocial HistorySmokes 1/2 pack daily for approximately five yearsDrinks sociallyWorks ad nursing homeFamily HistoryMother living 45 IDM otherwise good healthFather suicideOne brother living in good health Pete Taylor MD [address], [place] [address], [place], [address], [employer] 09/23/2022 11:44:09 3 text/html ROS as noted in the HPI PT WAS SEEN IN THE OFFICE TODAY FOR GERD . PT DENIES ABD PAIN /N/V. PT ADMITS TO PYROSIS/ DYSPHAGIA TO SOLIDS . PT IS ON OMEPRAZOLE 20 MG /D . PT IS NOT TAKING 30 MINS BEFORE MEALS . SHE DENIES WT LOSS. Claire Jenkins MD [address], [address], [place], [address], [employer] 10/16/2022 15:43:33 4 text/html Patient Name: Niya [...] DailySertraline 50 MG TABLET Once DailyVitamin D 63366 WeeklyTylenol W/Codeine #3 As NeededOmeprazole 20 MG CAPSULE, DELAYED RELEASE One Daily Am Adverse Drug Reactions ReviewedAmoxicillin Rash Social HistorySmokes 1/2 pack daily for approximately five yearsDrinks sociallyWorks ad care home Family HistoryMother living 45 IDM otherwise good healthFather suicideOne brother living in good health Pete Taylor MD [address] [facility], [facility] [address], [place], [address], [place] [facility] [place] [facility] 03/01/2024 12:20:01 4 text/html Patient Name: Niya [...] DailySertraline 50 MG TABLET Once DailyVitamin D 41325 WeeklyTylenol W/Codeine #3 As NeededOmeprazole 20 MG CAPSULE, DELAYED RELEASE One Daily Am Pete Taylor MD [address], [facility] [address], [place], [address], [place] [facility] [place] [facility] 04/08/2024 12:01:32 OBGyn Episode No OBEpisode recorded.
--- OUTSIDE RECORDS SUMMARY | 2025-04-22 17:43 | XMS_ITS ---
Author Organization [facility] Source Produ ction (ClinicalSummary Clone) Address Unknown Care Team Providers Care Truss Builder Name Role Phone Unavailable Primary Care Physician Unavailab le Results * [UNITY] ANEUPLOIDY NIPT Performed by: [employer] Value Range Date Fraction 8.2% 02/08/2025 03 :33 am UTC Sex Chromosome Aneuploidy NOT DETECTED 03:33 am UTC Monosomy X LOW RISK <1 in 10,000 2024 03:33 am UTC Trisomy 13 LOW RISK <1 in 10,000 2024 03:33 am UTC Trisomy 18 LOW RISK <1 in 10,000 2024 03:33 am UTC Trisomy 21 LOW RISK <1 in 10,000 2024 03:33 am UTC Sex MALE 02/08/2025 03:3 3 am UTC Gestation HINKLE 02/09/20 03:33 am UT For detailed report, see PDF See PDF 02/08/2025 03:33 am UTC 02/08/2025 03:3 3 am UT Social History Observation Value Start Date End Date
[2025-04-22 20:15] LABS: Add Urine Microscopic? YES; Appearance Urine Cloudy (Clear); Glucose Urine UA Negative (Negative); Leukocyte Esterase Ur 1+ LEU/UL (Negative); Need Manual Microscopic Reviewed; Nitrate Urine Negative (Negative); Non Pathogenic Casts 0-2; Specific Grav Ur 1.008 (1.001-1.035)
--- NOTE | 2025-04-22 20:27 | PC.NURSE ---
Called Dr. Spaulding, update on pt, tracing, contractions, and labs. Orders received to perform cervical exam and discharge pt if closed with instructions to keep next scheduled appointment and when to return to the unit.
--- NOTE | 2025-04-22 20:55 | PC.NURSE ---
Pt discharged with instructions to keep next scheduled appointment and when to return to the unit, pt verbalizes understanding.
--- NOTE | 2025-04-25 08:31 | PM.OBTRLD ---
OB - Triage/Final Diagnosis Visit Information Reason for evaluation: threatened labor Comments/Additional reasons for admission: I have assessed the risk for this patient, Niya Cramer, and determined that she would benefit from observation care. Evaluation Laboratory results: Laboratory Tests 04/21/25 18:45 Urine Color Yellow Urine Appearance Cloudy H Urine pH 6.5 Ur Specific [place] 1.008 Urine Protein Negative Urine Glucose (UA) Negative Urine Ketones Negative Ur Blood (Man) Negative Urine Nitrate Negative Urine Bilirubin Negative Urine Urobilinogen 0.2 Add Ur Microanalysis Reviewed Leukocyte Esterase Rfl 1+ H Urine RBC 0-2 Urine WBC 0-5 Ur Squamous Epith Cells Occasional Urine Bacteria None seen Urine Casts 0-2
== END 2025-04-23 02:49 | disposition home or self-care (01) ==
PROVIDERS: Admitting Provider Obstetrics & Gynecology Gynecology; PCP Internal Medicine; Visit Provider Obstetrics & Gynecology Gynecology
DX: O47.02 False labor before 37 completed weeks of gestation, second trimester (principal); Z3A.24 24 weeks gestation of pregnancy; R82.90 Unspecified abnormal findings in urine
CPT/HCPCS: 81001; 87086; G0378; G0379